=== PATIENT | female | born 1950 | race Caucasian/White ===

== ENCOUNTER 2019-06-04 09:20 | Inpatient (IN) | payer MEDICARE ==
--- NOTE | 2019-06-04 09:43 | EDM.PDOC ---
ED HPI GENERAL MEDICAL PROBLEM - General Stated Complaint: FELL Time Seen by Provider: 06/04/19 09:30 Source of Information: Reports: Patient History Limitations: Reports: Other (Patient is a poor historian.) - History of Present Illness INITIAL COMMENTS - FREE TEXT/NARRATIVE: 68-year-old female who presents to us via ambulance after falling off of the toilet this morning at approximately 8:30 AM. She tells me that she has not been feeling well for the past few days and she has had at least 1 other fall yesterday. She apparently was seen in walk-in clinic yesterday by Maria Luisa West NP with what was reported as nasal congestion and sinus pressure and the patient tells me she has no sinus pressure or nasal congestion today and she is really unable to give me very much of a history at all. She thinks she may have passed out while she was on the toilet but she really has no off her complaints until I ask about specific things and when she responds with painful grimacing on exam. At that point she reports that she has right shoulder and clavicle pain , right chest wall pain and right knee pain. She reports that the right knee pain and swelling came from a fall yesterday or the day before the shoulder and she has been ambulatory but "gives out on the". The chest wall pain came from the fall today. She rates the pain in her right clavicle and shoulder area and her right chest as a 10/10. It is sharp and worse with movement, palpation and when she takes a deep breath. She also reports a headache. She also reports a mild cough. She has no reports of dysuria. She has no reports of abdominal pain. No vomiting. Apparently, she has been in bed most of the time because she just does not feel well. She feels that she has had a fever but none is been measured. She does report that she's been drinking liquids okay. She has not had much of an appetite. As was mentioned, she is a poor historian and this is all the history that I can obtain. EMS reports that initial blood pressure that they got was 100 systolic but it was repeated almost immediately after that and was 140 systolic. There are no other associated signs or symptoms. There are no other modifying factors. Onset: Other (Several falls over the past few days with "not feeling well". Fell today with acute injuries) Duration: Constant Location: Reports: Head, Chest, Upper Extremity, Right Quality: Reports: Ache, Sharp, Throbbing Severity: Moderate (to severe.) Improves with: Reports: Rest Worsens with: Reports: Breathing, Other (Patient), Movement Context: Reports: Other (As above) Associated Symptoms: Reports: Chest Pain, Headaches, Syncope Treatments BOOK CUTTER: Reports: Other (see below) (Nothing) right ribs and shoulder Pain Score (Numeric/FACES): 5 - Related Data Allergies Allergy/AdvReac Type Severity Reaction Status Date / Time No Known Allergies Allergy Verified 06/04/19 10:08 Home Meds: Home Meds Acetaminophen [Tylenol] 650 mg PO Q4H PRN 06/04/19 [History] Albuterol Sulfate [Proair Hfa] 2 puff IH Q4H PRN 06/04/19 [History] Amoxicillin 500 mg PO TID 06/04/19 [History] Aspirin [Aspirin EC] 325 mg PO DAILY 06/04/19 [History] Calcium Carbonate/Vitamin D3 [Calcium 500-Vit D3 200 Tablet] 1 tab PO BID [History] Cholecalciferol (Vitamin D3) [Vitamin D3] 2,000 unit PO DAILY 06/04/19 [History] Fluticasone Propionate [Flonase] 1 spray NASBOTH BID 06/04/19 [History] Fluticasone/Salmeterol [Advair 250-50] 1 puff INH BID 06/04/19 [History] Folic Acid 1 mg PO DAILY 06/04/19 [History] Ibuprofen 400 mg PO Q4H PRN 06/04/19 [History] Naproxen Sodium 440 mg PO DAILY PRN 06/04/19 [History] PHENobarbital [Phenobarbital] 64.8 mg PO BID 06/04/19 [History] Pantoprazole Sodium [Protonix] 40 mg PO DAILY 06/04/19 [History] Phenytoin 200 mg PO BEDTIME 06/04/19 [History] Phenytoin Sodium Extended [Dilantin] 100 mg PO DAILY 06/04/19 [History] Phenytoin [Dilantin] 30 mg PO DAILY 06/04/19 [History] Prolia 60 mg SUBCUT Q180D 06/04/19 [History] Sennosides/Docusate Sodium [Senna-S] 1 tab PO BID 06/04/19 [History] Sertraline [Zoloft] 75 mg PO DAILY 06/04/19 [History] metroNIDAZOLE [metroNIDAZOLE 0.75% Gel] 1 applic TOP BID PRN 06/04/19 [History] Past Medical History Respiratory History: Reports: Asthma, COPD Gastrointestinal History: Reports: GERD Neurological History: Reports: Seizure Psychiatric History: Reports: Anxiety, Depression - Past Surgical History GI Surgical History: Reports: Appendectomy Female Surgical History: Reports: Hysterectomy Musculoskeletal Surgical History: Reports: Hip Replacement (Right total hip replacement.), ORIF (Of both ankles and left hip.) Social & Family History - Tobacco Use Smoking Status *Q: Unknown Ever Smoked (Nonsmoker) - Alcohol Use Alcohol Use History: No - Living Situation & Occupation Living situation: Reports: Assisted Living (Lives in [facility]) ED ROS GENERAL - Review of Systems Review Of Systems: See Below Constitutional: Reports: Fever, Chills, Malaise, Weakness, Fatigue HEENT: Reports: No Symptoms Respiratory: Reports: Cough (Mild) Cardiovascular: Reports: Chest Pain (Right lateral chest pain status post fall) , Syncope GI/Abdominal: Reports: No Symptoms : Reports: No Symptoms Musculoskeletal: Reports: Shoulder Pain (Right shoulder and clavicle pain), Joint Pain (Right knee pain status post injury with Elling) Skin: Reports: No Symptoms Neurological: Reports: Headache, Syncope, Other (Head injury from fall) Psychiatric: Reports: Confusion (Seems somewhat confused) Hematologic/Lymphatic: Reports: No Symptoms (No chronic anticoagulation) Immunologic: Reports: No Symptoms ED EXAM, GENERAL - Physical Exam Exam: See Below General Appearance: Alert, WD/WN, Moderate Distress Eye Exam: Bilateral Eye: EOMI, Normal Inspection, PERRL Ears: Normal External Exam Ear Exam: Bilateral Ear: Auricle Normal Nose: Normal Inspection, Normal Mucosa, No Blood Throat/Mouth: Normal Voice, No Airway Compromise, Other (Somewhat dry mucous membranes) Head: Normocephalic, Other (Left parieto-occipital swelling. No crepitus) Neck: Normal Inspection, Supple, Non-Tender, Full Range of Motion Respiratory/Chest: No Respiratory Distress, Lungs Clear, Normal Breath Sounds, No Accessory Muscle Use, Other (Tender over the right lateral chest. There is no crepitus or subcutaneous emphysema here.) Cardiovascular: Normal Peripheral Pulses, Regular Rate, Rhythm, No Murmur Peripheral Pulses: 2+: Radial (L), Radial (R), Dorsalis Pedis (L), Dorsalis Pedis (R) GI/Abdominal: Normal Bowel Sounds, Soft, Non-Tender, No Mass Back Exam: Normal Inspection, Full Range of Motion Extremities: No Pedal Edema, Normal Capillary Refill, Joint Swelling (Right knee with effusion. There is no redness. There is full range of motion in the right knee without definite laxity.), Other (There is a deformity in the midshaft of the right clavicle with tenderness with palpation.) Neurological: Alert, Oriented (But cannot give me details of the past few days for a well), CN II-XII Intact, No Motor/Sensory Deficits Skin Exam: Warm, Dry, Intact, Normal Color, No Rash EKG INTERPRETATION EKG Date: 06/04/19 Time: 11:22 Rhythm: NSR Rate (Beats/Min): 92 Kidder: RAD-Right Kidder Deviation P-Wave: Present QRS: Normal ST-T: Other (Diffuse nonspecific ST-T abnormalities.) QT: Prolonged Comparison: NA - No Prior EKG Course - Vital Signs Last Recorded V/S: Last Vital Signs Temp 37.4 C 06/04/19 21:54 Pulse 88 06/04/19 19:41 Resp 17 06/04/19 19:41 BP 109/50 L 06/04/19 19:41 Pulse Ox 95 06/04/19 19:41 - Orders/Labs/Meds Orders: Active Orders 24 hr Category Date Time Status EKG Documentation Completion [RC] ASDIRECTED Care 06/04/19 10:02 Active Orthostatic Vital Signs [RC] ASDIRECTED Care 06/04/19 10:00 Active Sodium Chloride 0.9% [Saline Flush] Med 06/04/19 10:00 Active 10 ml FLUSH ASDIRECTED PRN EKG 12 Lead [EK] Routine Ther 06/04/19 10:00 Stop Req Medication Orders Acetaminophen (Tylenol) 650 mg PO Q4H PRN PRN Reason: Pain/Fever Albuterol (Ventolin Hfa) 0 gm INH Q4H PRN PRN Reason: Shortness of Breath Aspirin (Ecotrin) 325 mg PO DAILY [facility] Calcium Carbonate/Glycine (Oyster Shell Calcium) 500 mg PO BID BR[facility] Last Admin: 06/04/19 20:10 Dose: 500 mg Cholecalciferol (Vitamin D3) 50 mcg PO DAILY [facility] Enoxaparin Sodium (Lovenox) 40 mg SUBCUT DAILY [facility] Last Admin: 06/04/19 19:06 Dose: 40 mg Fluticasone Propionate (Flonase) 0 gm NASBOTH BID [facility] Last Admin: 06/04/19 20:09 Dose: 1 spray Folic Acid (Folic Acid) 1 mg PO DAILY [facility] Ibuprofen (Motrin) 400 mg PO Q4H PRN PRN Reason: Pain Last Admin: 06/04/19 21:54 Dose: 400 mg Metronidazole (Metronidazole 0.75% Gel) 0 gm TOP BID PRN PRN Reason: Rash Mometasone Furoate/Formoterol Fumar (Dulera 200-5 Mcg) 2 puff IH BID [facility] Last Admin: 06/04/19 20:09 Dose: 2 puff Morphine Sulfate (Morphine) 2 mg IVPUSH Q2H PRN PRN Reason: Pain (severe 7-10) Last Admin: 06/04/19 17:01 Dose: 2 mg Naproxen (Naproxen Sodium) 440 mg PO DAILY PRN PRN Reason: Pain Non-Formulary Medication (Prolia) 60 mg SUBCUT Q180D [facility] Ondansetron HCl (Zofran Odt) 4 mg PO Q6H PRN PRN Reason: nausea, able to take PO Ondansetron HCl (Zofran) 4 mg IV Q6H PRN PRN Reason: Nausea/Vomiting Oxycodone HCl (Oxycodone) 5 mg PO Q4H PRN PRN Reason: Pain (moderate 4-6) Pantoprazole Sodium (Protonix) 40 mg PO ACBREAKFAST [facility] Phenobarbital (Phenobarbital) 64.8 mg PO BID [facility] Last Admin: 06/04/19 20:10 Dose: 64.8 mg Phenytoin Sodium (Dilantin) 30 mg PO DAILY [facility] Phenytoin Sodium (Phenytoin) 200 mg PO BEDTIME [facility] Last Admin: 06/04/19 20:10 Dose: 200 mg Phenytoin Sodium (Phenytoin) 100 mg PO DAILY [facility] Senna/Docusate Sodium (Senna Plus) 1 tab PO BID [facility] Last Admin: 06/04/19 20:10 Dose: 1 tab Sertraline HCl (Zoloft) 75 mg PO DAILY [facility] Sodium Chloride (Saline Flush) 10 ml FLUSH ASDIRECTED PRN PRN Reason: Keep Vein Open Last Admin: 06/04/19 17:07 Dose: 10 ml Admin: 06/04/19 10:30 Dose: 10 ml Labs: Laboratory Tests 06/04/19 06/04/19 06/04/19 Range/Units 10:20 10:20 10:20 WBC 5.6 (4.5-12.0) X10-3/uL RBC 3.78 (3.23-5.20) x10(6)uL Hgb 12.6 (11.5-15.5) g/dL Hct 36.4 (30.0-51.3) % MCV 96.3 H (80-96) fL MCH 33.4 (27.7-33.6) pg MCHC 34.7 (32.2-35.4) g/dL RDW 13.3 (11.5-15.5) % Plt Count 185 (125-369) X10(3)uL MPV 8.1 (7.4-10.4) fL Neut % (Auto) 68.3 (46-82) % Lymph % (Auto) 20.9 (13-37) % Levy % (Auto) 10.3 (4-12) % Eos % (Auto) 0 L (1.0-5.0) % Baso % (Auto) 1 (0-2) % Neut # (Auto) 3.8 (1.6-8.3) # Lymph # (Auto) 1.2 (0.6-5.0) # Levy # (Auto) 0.6 (0.0-1.3) # Eos # (Auto) 0.0 (0.0-0.8) # Baso # (Auto) 0.0 (0.0-0.2) # Sodium 135 (135-145) mmol/L Potassium 4.0 (3.5-5.3) mmol/L Chloride 99 L (100-110) mmol/L Carbon Dioxide 30 (21-32) mmol/L BUN 7 (7-18) mg/dL Creatinine 0.6 (0.55-1.02) mg/dL Est Cr Clr Drug Dosing TNP Estimated GFR (MDRD) > 60 (>60) BUN/Creatinine Ratio 11.7 (9-20) Glucose 121 H (80-116) mg/dL Calcium 8.2 L (8.6-10.2) mg/dL Total Bilirubin 0.5 (0.1-1.3) mg/dL AST 41 H (5-25) IU/L ALT 36 (12-36) U/L Alkaline Phosphatase 104 (56-112) IU/L C-Reactive Protein 10.6 H* (0.5-0.9) mg/dL Total Protein 7.0 (6.0-8.0) g/dL Albumin 3.1 L (3.2-4.6) g/dL Globulin 3.9 g/dL Albumin/Globulin Ratio 0.8 Urine Color (YELLOW) Urine Appearance (CLEAR) Urine pH (5.0-6.5) Ur Specific [place] (1.010-1.025) Urine Protein (NEGATIVE) mg/dL Urine Glucose (UA) (NORMAL) mg/dL Urine Ketones (NEGATIVE) mg/dL Urine Occult Blood (NEGATIVE) Urine Nitrite (NEGATIVE) Urine Bilirubin (NEGATIVE) Urine Urobilinogen (NEGATIVE) mg/dL Ur Leukocyte Esterase (NEGATIVE) Urine RBC (0-5) Urine WBC (0-5) Ur Squamous Epith Cells (NS,R,O) Urine Bacteria (NS) Phenytoin (<0.4) ug/mL 06/04/19 06/04/19 Range/Units 10:20 12:13 WBC (4.5-12.0) X10-3/uL RBC (3.23-5.20) x10(6)uL Hgb (11.5-15.5) g/dL Hct (30.0-51.3) % MCV (80-96) fL MCH (27.7-33.6) pg MCHC (32.2-35.4) g/dL RDW (11.5-15.5) % Plt Count (125-369) X10(3)uL MPV (7.4-10.4) fL Neut % (Auto) (46-82) % Lymph % (Auto) (13-37) % Levy % (Auto) (4-12) % Eos % (Auto) (1.0-5.0) % Baso % (Auto) (0-2) % Neut # (Auto) (1.6-8.3) # Lymph # (Auto) (0.6-5.0) # Levy # (Auto) (0.0-1.3) # Eos # (Auto) (0.0-0.8) # Baso # (Auto) (0.0-0.2) # Sodium (135-145) mmol/L Potassium (3.5-5.3) mmol/L Chloride (100-110) mmol/L Carbon Dioxide (21-32) mmol/L BUN (7-18) mg/dL Creatinine (0.55-1.02) mg/dL Est Cr Clr Drug Dosing Estimated GFR (MDRD) (>60) BUN/Creatinine Ratio (9-20) Glucose (80-116) mg/dL Calcium (8.6-10.2) mg/dL Total Bilirubin (0.1-1.3) mg/dL AST (5-25) IU/L ALT (12-36) U/L Alkaline Phosphatase (56-112) IU/L C-Reactive Protein (0.5-0.9) mg/dL Total Protein (6.0-8.0) g/dL Albumin (3.2-4.6) g/dL Globulin g/dL Albumin/Globulin Ratio Urine Color Yellow (YELLOW) Urine Appearance Slightly cloudy (CLEAR) Urine pH 5.0 (5.0-6.5) Ur Specific [place] 1.020 (1.010-1.025) Urine Protein Negative (NEGATIVE) mg/dL Urine Glucose (UA) Normal (NORMAL) mg/dL Urine Ketones Negative (NEGATIVE) mg/dL Urine Occult Blood Negative (NEGATIVE) Urine Nitrite Negative (NEGATIVE) Urine Bilirubin Negative (NEGATIVE) Urine Urobilinogen Normal (NEGATIVE) mg/dL Ur Leukocyte Esterase Negative (NEGATIVE) Urine RBC 0-5 (0-5) Urine WBC 0-5 (0-5) Ur Squamous Epith Cells Few H (NS,R,O) Urine Bacteria Few H (NS) Phenytoin 24.4 H (<0.4) ug/mL Meds: Medications Generic Name Dose Route Start Last Admin Trade Name Freq PRN Reason Stop Dose Admin Acetaminophen 650 mg 06/04/19 17:11 Tylenol PO Q4H PRN Pain/Fever Albuterol 0 gm 06/04/19 17:11 Ventolin Hfa INH Q4H PRN Shortness of Breath Aspirin 325 mg 06/05/19 09:00 Ecotrin PO DAILY [facility] Calcium Carbonate/Glycine 500 mg 06/04/19 21:00 06/04/19 20:10 Oyster Shell Calcium PO 500 mg BID [facility] Administration Cholecalciferol 50 mcg 06/05/19 09:00 Vitamin D3 PO DAILY [facility] Enoxaparin Sodium 40 mg 06/04/19 18:45 06/04/19 19:06 Lovenox SUBCUT 40 mg DAILY [facility] Administration Fluticasone Propionate 0 gm 06/04/19 21:00 06/04/19 20:09 Flonase NASBOTH 1 spray BID [facility] Administration Folic Acid 1 mg 06/05/19 09:00 Folic Acid PO DAILY [facility] Ibuprofen 400 mg 06/04/19 17:11 06/04/19 21:54 Motrin PO 400 mg Q4H PRN Administration Pain Metronidazole 0 gm 06/04/19 17:11 Metronidazole 0.75% Gel TOP BID PRN Rash Mometasone Furoate/Formoterol Fumar 2 puff 06/04/19 21:00 06/04/19 20:09 Dulera 200-5 Mcg IH 2 puff BID [facility] Administration Morphine Sulfate 2 mg 06/04/19 14:01 06/04/19 17:01 Morphine IVPUSH 2 mg Q2H PRN Administration Pain (severe 7-10) Naproxen 440 mg 06/04/19 17:11 Naproxen Sodium PO DAILY PRN Pain Non-Formulary Medication 60 mg 06/04/19 17:15 Prolia SUBCUT Q180D [facility] Ondansetron HCl 4 mg 06/04/19 14:01 Zofran Odt PO Q6H PRN nausea, able to take PO Ondansetron HCl 4 mg 06/04/19 14:01 Zofran IV Q6H PRN Nausea/Vomiting Oxycodone HCl 5 mg 06/04/19 14:01 Oxycodone PO Q4H PRN Pain (moderate 4-6) Pantoprazole Sodium 40 mg 06/05/19 07:30 Protonix PO ACBREAKFAST [facility] Phenobarbital 64.8 mg 06/04/19 21:00 06/04/19 20:10 Phenobarbital PO 64.8 mg BID [facility] Administration Phenytoin Sodium 30 mg 06/05/19 09:00 Dilantin PO DAILY [facility] Phenytoin Sodium 200 mg 06/04/19 21:00 06/04/19 20:10 Phenytoin PO 200 mg BEDTIME [facility] Administration Phenytoin Sodium 100 mg 06/05/19 09:00 Phenytoin PO DAILY [facility] Senna/Docusate Sodium 1 tab 06/04/19 21:00 06/04/19 20:10 Senna Plus PO 1 tab BID [facility] Administration Sertraline HCl 75 mg 06/05/19 09:00 Zoloft PO DAILY [facility] Sodium Chloride 10 ml 06/04/19 10:00 06/04/19 17:07 Saline Flush FLUSH 10 ml ASDIRECTED PRN Administration Keep Vein Open Discontinued Medications Generic Name Dose Route Start Last Admin Trade Name Freq PRN Reason Stop Dose Admin Acetaminophen 650 mg 06/04/19 14:01 Tylenol PO Q4H PRN Pain (Mild 1-3)/fever Enoxaparin Sodium 30 mg 06/04/19 17:15 06/04/19 19:08 Lovenox SUBCUT Not Given Q24H [facility] Sodium Chloride 500 mls @ 999 mls/hr 06/04/19 13:46 06/04/19 13:47 Normal Saline IV 06/04/19 14:16 999 mls/hr .BOLUS ONE Administration Sodium Chloride 1,000 mls @ 125 mls/hr 06/04/19 14:15 Normal Saline IV ASDIRECTED [facility] Ibuprofen 600 mg 06/04/19 14:01 Motrin PO Q6H PRN Pain (mild 1-3) Mometasone Furoate/Formoterol Fumar Confirm 06/04/19 19:48 06/04/19 20:39 Dulera 200-5 Mcg Administered 06/04/19 19:49 Not Given Dose 60 puff .ROUTE .STK-MED ONE Morphine Sulfate 4 mg 06/04/19 13:42 06/04/19 13:49 Morphine IVPUSH 06/04/19 13:43 4 mg ONETIME ONE Administration Morphine Sulfate Confirm 06/04/19 13:48 06/04/19 14:21 Morphine Administered 06/04/19 13:49 Not Given Dose 4 mg .ROUTE .STK-MED ONE Ondansetron HCl 4 mg 06/04/19 13:42 06/04/19 13:57 Zofran IVPUSH 06/04/19 13:43 4 mg ONETIME ONE Administration - Radiology Interpretation Free Text/Narrative:: CT scan of the patient's head showed no acute abnormality per the radiologist. CT scan of the cervical spine showed DJD but no fracture per the radiologist. Chest x-ray with right rib details show third through the fifth rib fractures on the right. There is no hemo-or pneumothorax. This was per the radiologist. Right shoulder and clavicle x-ray shows comminuted, midshaft right clavicle fracture per the radiologist. Right knee x-ray shows an effusion but no definite fracture per the radiologist. - Re-Assessments/Exams Free Text/Narrative Re-Assessment/Exam: 06/04/19 12:15: Patient did not have any orthostatic changes but she needed maximal assistance to stand and do the orthostatic vital signs. She was really unable to ambulate without maximal assistance as well. She has remained vitally stable. The CT scan of her head and neck showed no acute abnormality. She does have a right clavicle fracture. And she has multiple right rib fractures. Awaiting urinalysis results but feel that the patient is at significant risk for further falls, increased morbidity and even mortality and would not be amenable to outpatient treatment at this time. I feel that she will need admission for IV pain control and close monitoring of her respiratory status. I feel that this plan of care will require an inpatient stay of at least 2 midnights. I discussed this with the patient and she would be in agreement with this plan for admission. I will discuss the patient's case with Dr. Choi 06/04/19 13:15: The urinalysis was concentrated but with no evidence of infection. I will give the patient IV fluids and IV pain medications at this time. I discussed the patient's case with Dr. Choi and he has agreed to admit the patient. I will place admission orders and Dr. Choi will see the patient and assume care of the patient. I have also consult and Dr. Freeman, orthopedist sterilization specialist, and he will see the patient. Departure - Departure Time of Disposition: 14:00 Disposition: Admitted As Inpatient 67 Condition: Fair (Stable) Clinical Impression: Syncope and collapse, Internal derangement of right knee, Rapidly progressive weakness, Unable to ambulate Closed right clavicular fracture Qualifiers: Encounter type: initial encounter Clavicle location: shaft Fracture alignment: displaced Qualified Code(s): S42.021A - Displaced fracture of shaft of right clavicle, initial encounter for closed fracture Ribs, multiple fractures Qualifiers: Encounter type: initial encounter Fracture type: closed Laterality: right Qualified Code(s): S22.41XA - Multiple fractures of ribs, right side, initial encounter for closed fracture - Discharge Information - My Orders Last 24 Hours: My Active Orders 06/04/19 10:00 Orthostatic Vital Signs [RC] ASDIRECTED Sodium Chloride 0.9% [Saline Flush] 10 ml FLUSH ASDIRECTED PRN EKG 12 Lead [EK] Routine 06/04/19 10:02 EKG Documentation Completion [RC] ASDIRECTED - Assessment/Plan Last 24 Hours: My Active Orders 06/04/19 10:00 Orthostatic Vital Signs [RC] ASDIRECTED Sodium Chloride 0.9% [Saline Flush] 10 ml FLUSH ASDIRECTED PRN EKG 12 Lead [EK] Routine 06/04/19 10:02 EKG Documentation Completion [RC] ASDIRECTED
[2019-06-04] MEDS: Sodium Chloride 0.9% 10 ML Syringe FLUSH PRN ×2 (10:30→17:07)
--- NOTE | 2019-06-04 12:48 | CT ---
INDICATION: Syncope, fall with trauma. CT HEAD WITHOUT CONTRAST: Spiral 3.75 mm axial sections were obtained through the brain without contrast, 06/04/19, with sagittal and coronal reconstructions - no comparisons. Total exam DLP = 1,322.30 mGy-cm. Degenerative changes are noted at the atlantoodontoid joint. The mastoid air cells were well-aerated. Thickening of the lining of an anterior right ethmoidal air cell is noted. There appears to be a possible postoperative window in the medial right maxillary antral wall. On the left, there is question of a small air fluid level, which could be on the basis of acute sinusitis or possibly unusual thickening of the lining in that area. There is some thickening of the lining also seen at the left maxillary antrum, having a typical appearance. The orbits appear to be grossly intact. There is no shift of midline structures suggested. The ventricles and sulci were somewhat prominent, suggesting a mild degree of generalized atrophy. There are patchy areas of decreased density in the white matter, compatible with mild microvascular disease. Calcifications are noted in the left vertebral and internal carotid arteries. There is a subcortical infarct suggested in the right occipital lobe. However, this could represent a variant of the occipital horn of the lateral ventricle. Without old studies for comparison, it would be difficult to determine. There are some very tiny focal areas of decreased density at the internal capsule anteriorly on the right, which could represent very tiny lacunar infarcts. No definite bleeding site or hematoma was identified. IMPRESSION: 1. No acute intracranial abnormality is identified. 2. Cerebrovascular disease with mild microvascular disease type changes - other cause of leukoencephalopathy cannot be excluded. 3. Probable variant on right occipital horn of the right lateral ventricle versus subcortical infarct. 4. Tiny low density abnormalities suggesting possible tiny lacunar infarcts at the anterior limb of the right internal capsule. 5. Cannot exclude minimal sinusitis, possibly acute, at the left maxillary antrum. Report was called to Dr. Flowers on 06/04/19 at 1104 hours. [facility]
--- NOTE | 2019-06-04 12:56 | CT ---
INDICATION: Syncope, fall with trauma. CT CERVICAL WITHOUT CONTRAST: Spiral 3.75 mm axial sections were obtained through the cervical spine with sagittal and coronal reconstructions, 06/04/19, - no comparisons. Total exam DLP = 110.19 mGy-cm. Hypertrophic degenerative changes with some narrowing of the atlantoodontoid joint are noted. The atlas and odontoid with axis appear intact. Prevertebral space appeared to be normal. Bone density may be somewhat diminished, raising question of osteoporosis - correlate clinically. Degenerative disk disease is suggested at C2-3 and C3-4, minimally at C4-5, more prominently at C5-6 and C6-7 with hypertrophic degenerative changes mostly at the C4-5, C5-6, C6-7 levels, most prominent at the lower two levels with impingement on neural foramina at those levels on the right and to a lesser extent on the left. Hypertrophic changes are noted at the lateral masses at all levels but most prominent at the mid levels. Uncinate joint degenerative hypertrophic changes are noted at all levels and again most prominent at the C5- 6, C6-7 levels. A definite acute fracture or dislocation was not identified. There is some minimal apical scarring in the lungs noted incidentally. IMPRESSION: 1. No acute fracture or dislocation identified. 2. Degenerative changes and disk disease with some impingement on neural foramina, as noted above. Report was called to Dr. Flowers on 06/04/19 at 1104 hours. [facility]
--- NOTE | 2019-06-04 13:02 | CR ---
INDICATION: Fall with trauma. RIGHT CLAVICLE: Two views of the clavicle revealed a comminuted fracture of the mid shaft with overriding of the fracture fragments of approximately 22 mm and cranial offset of the medial fracture fragment of approximately 11 mm. No significant angulation was seen. There are some mild degenerative changes at the AC and glenohumeral joints. Diminished bone density is noted, compatible with osteoporosis. Also noted is an oblique fracture through the lateral aspect of the third right rib and also the fourth right rib, which were included on the study. IMPRESSION: Clavicular and rib fractures, as noted above. MTDD
--- NOTE | 2019-06-04 13:05 | CR ---
INDICATION: Fall with trauma. RIGHT SHOULDER: Four views of the right shoulder revealed the glenohumeral joint and AC joint to be intact, despite the presence of a clavicular fracture mentioned above. Rib fractures are also noted, as previously mentioned. Diminished bone density is noted, compatible with osteoporosis. Mid degenerative changes are noted at the AC and glenohumeral joints. IMPRESSION: Clavicular fracture, rib fractures. Shoulder joints appear to be intact. MTDD
--- NOTE | 2019-06-04 13:12 | CR ---
INDICATION: Fall with trauma. CHEST WITH RIGHT RIBS: Two AP upright views of the chest were obtained and revealed no definite contusion, infiltrate, pneumothorax, or effusion. The heart appears to be slightly prominent in size. The aorta is calcified in the arch area and minimally tortuous. A linear density in the left mid lung field may represent subsegmental atelectasis and/or fibrosis. No comparison studies were available. Hyperaeration and slightly flattened diaphragm leaf suggest the possibility of COPD additionally. Rib fractures at the third and fourth right ribs are noted laterally. Three views of the right ribs were obtained and revealed the rib fractures at the third and fourth ribs laterally with an additional fracture visualized at the fifth right rib posterolaterally. Diminished bone density is noted, compatible with osteoporosis. IMPRESSION: 1. Rib fractures laterally on the right, 3, 4, and 5. 2. No contusion or pneumothorax. 3. Linear density left mid lung field may represent atelectasis and/or fibrosis. Report was called to Dr. Flowers on 06/04/2019 at 1112 hours. [facility]
--- NOTE | 2019-06-04 13:17 | CR ---
INDICATION: Fall with trauma. RIGHT KNEE: Five images of the right knee reveal demineralization compatible with osteoporosis. Intramedullary brian is noted at the tibia. Healed fracture of the mid tibial shaft noted. Demineralization is noted, compatible with osteoporosis. Soft tissue swelling is noted above the knee joint with prominence of the suprapatellar bursa, suggesting a knee joint effusion. However, a definite acute fracture site was not identified. IMPRESSION: 1. No acute fracture or dislocation. 2. Probable knee joint effusion with overlying soft tissue swelling. 3. Demineralization compatible with osteoporosis. 4. Post ORIF with intramedullary brian through the right tibia. Report was called to Dr. Flowers on 06/04/19 at 1121 hours. [facility]
[2019-06-04] MEDS ORDERED: Ondansetron 4 MG/2 ML SDV IVPUSH ONE (13:42)
[2019-06-04] MEDS ORDERED: Morphine 4 MG/ML Syringe IVPUSH ONE (13:42)
[2019-06-04] MEDS ORDERED: Sodium Chloride 0.9% 500 ML IV ONE (13:46)
[2019-06-04] MEDS ORDERED: Ondansetron 4 MG/2 ML SDV IV PRN (14:01)
[2019-06-04] MEDS ORDERED: Ondansetron 4 MG Tab.DIS PO PRN (14:01)
[2019-06-04] MEDS ORDERED: oxyCODONE 5 MG Tab PO PRN (14:01)
[2019-06-04] MEDS ORDERED: Ibuprofen 600 MG Tab PO PRN (14:01)
[2019-06-04] MEDS ORDERED: Acetaminophen 325 MG Tab PO PRN ×2 (14:01→17:11)
[2019-06-04] MEDS ORDERED: Sodium Chloride 0.9% 1,000 ML IV SCH (14:15)
--- NOTE | 2019-06-04 14:38 | PCM.CONS ---
H&P History of Present Illness - General Date of Service: 06/04/19 Admit Problem/Dx: Admission Diagnosis/Problem Admission Diagnosis/Problem Syncope and collapse Source of Information: Patient, Family, Provider, RN History Limitations: Reports: No Limitations - History of Present Illness Initial Comments - Free Text/Narative: 68 yo female recently moved 1 y ago to assisted living in [place]. Multiple recent falls. Started falling prior to move. Prior smoker. Was previously treated for tibial fracture RLE. Swollen knee after fall for last two days. Present to ED after fall with multiple right rib fractures, midshaft clavicle fracture, and right knee swelling. Onset of Symptoms: Reports: Sudden Symptom Onset Date: 06/02/19 Duration of Symptoms: Reports: Day(s): Location: Reports: Upper Extremity, Right, Lower Extremity, Right Quality: Reports: Stabbing, Throbbing Severity: Moderate Improves with: Reports: Immobilization Worsens with: Reports: Movement Associated Symptoms: Reports: No Other Symptoms - Related Data Allergies/Adverse Reactions: Allergies Allergy/AdvReac Type Severity Reaction Status Date / Time No Known Allergies Allergy Verified 06/04/19 10:08 Home Medications: Home Meds Acetaminophen [Tylenol] 650 mg PO Q4H PRN 06/04/19 [History] Albuterol Sulfate [Proair Hfa] 2 puff IH Q4H PRN 06/04/19 [History] Amoxicillin 500 mg PO TID 06/04/19 [History] Aspirin [Aspirin EC] 325 mg PO DAILY 06/04/19 [History] Calcium Carbonate/Vitamin D3 [Calcium 500-Vit D3 200 Tablet] 1 tab PO BID [History] Cholecalciferol (Vitamin D3) [Vitamin D3] 2,000 unit PO DAILY 06/04/19 [History] Fluticasone Propionate [Flonase] 1 spray NASBOTH BID 06/04/19 [History] Fluticasone/Salmeterol [Advair 250-50] 1 puff INH BID 06/04/19 [History] Folic Acid 1 mg PO DAILY 06/04/19 [History] Ibuprofen 400 mg PO Q4H PRN 06/04/19 [History] Naproxen Sodium 440 mg PO DAILY PRN 06/04/19 [History] PHENobarbital [Phenobarbital] 64.8 mg PO BID 06/04/19 [History] Pantoprazole Sodium [Protonix] 40 mg PO DAILY 06/04/19 [History] Phenytoin 200 mg PO BEDTIME 06/04/19 [History] Phenytoin Sodium Extended [Dilantin] 100 mg PO DAILY 06/04/19 [History] Phenytoin [Dilantin] 30 mg PO DAILY 06/04/19 [History] Prolia 60 mg SUBCUT Q180D 06/04/19 [History] Sennosides/Docusate Sodium [Senna-S] 1 tab PO BID 06/04/19 [History] Sertraline [Zoloft] 75 mg PO DAILY 06/04/19 [History] metroNIDAZOLE [metroNIDAZOLE 0.75% Gel] 1 applic TOP BID PRN 06/04/19 [History] Past Medical History Respiratory History: Reports: Asthma, COPD Gastrointestinal History: Reports: GERD Genitourinary History: Reports: Urinary Incontinence Musculoskeletal History: Reports: Fracture, Osteoporosis, Other (See Below) Other Musculoskeletal History: rt femer fx Neurological History: Reports: Seizure Psychiatric History: Reports: Anxiety, Depression Hematologic History: Reports: Anemia - Past Surgical History GI Surgical History: Reports: Appendectomy Female Surgical History: Reports: Hysterectomy Musculoskeletal Surgical History: Reports: Hip Replacement (Right total hip replacement.), ORIF (Of both ankles and left hip.) Social & Family History - Family History Family Medical History: Noncontributory - Tobacco Use Smoking Status *Q: Unknown Ever Smoked (Nonsmoker) - Living Situation & Occupation Living situation: Reports: Assisted Living (Lives in [facility]) H&P Review of Systems - Review of Systems: Review Of Systems: See Below General: Reports: No Symptoms HEENT: Reports: No Symptoms Pulmonary: Reports: No Symptoms Cardiovascular: Reports: No Symptoms Gastrointestinal: Reports: No Symptoms Genitourinary: Reports: No Symptoms Musculoskeletal: Reports: Shoulder Pain, Joint Pain, Muscle Pain, Muscle Stiffness Skin: Reports: No Symptoms Psychiatric: Reports: No Symptoms Neurological: Reports: No Symptoms Hematologic/Lymphatic: Reports: No Symptoms Immunologic: Reports: No Symptoms Exam - Exam Exam: See Below - Vital Signs Vital Signs: Last Vital Signs Temp 98.6 F 06/04/19 09:20 Pulse 95 06/04/19 09:20 Resp 18 06/04/19 09:20 BP 132/59 L 06/04/19 09:20 Pulse Ox 95 06/04/19 09:20 Weight: 140 lb - Exam General: Alert, Oriented, Moderate Distress HEENT: PERRLA, Conjunctiva Clear, Hearing Intact, Mucosa Moist & [place], Nares Patent, Pupils Equal, Pupils Reactive Neck: Supple, Trachea Midline Lungs: Normal Respiratory Effort GI/Abdominal Exam: No Distention Extremities: Joint Swelling, Limited Range of Motion Peripheral Pulses: 2+: Radial (R), Dorsalis Pedis (R) Skin: Warm, Dry, Intact Neurological: Cranial Nerves Intact Neuro Extensive - Mental Status: Alert, Oriented x3, Normal Mood/Affect, Normal Cognition, Memory Intact Psychiatric: Other - Patient Data Lab Results Last 24 hrs: Laboratory Results - last 24 hr 06/04/19 06/04/19 06/04/19 Range/Units 10:20 10:20 10:20 WBC 5.6 (4.5-12.0) X10-3/uL RBC 3.78 (3.23-5.20) x10(6)uL Hgb 12.6 (11.5-15.5) g/dL Hct 36.4 (30.0-51.3) % MCV 96.3 H (80-96) fL MCH 33.4 (27.7-33.6) pg MCHC 34.7 (32.2-35.4) g/dL RDW 13.3 (11.5-15.5) % Plt Count 185 (125-369) X10(3)uL MPV 8.1 (7.4-10.4) fL Neut % (Auto) 68.3 (46-82) % Lymph % (Auto) 20.9 (13-37) % Sabine % (Auto) 10.3 (4-12) % Eos % (Auto) 0 L (1.0-5.0) % Baso % (Auto) 1 (0-2) % Neut # (Auto) 3.8 (1.6-8.3) # Lymph # (Auto) 1.2 (0.6-5.0) # Sabine # (Auto) 0.6 (0.0-1.3) # Eos # (Auto) 0.0 (0.0-0.8) # Baso # (Auto) 0.0 (0.0-0.2) # Sodium 135 (135-145) mmol/L Potassium 4.0 (3.5-5.3) mmol/L Chloride 99 L (100-110) mmol/L Carbon Dioxide 30 (21-32) mmol/L BUN 7 (7-18) mg/dL Creatinine 0.6 (0.55-1.02) mg/dL Est Cr Clr Drug Dosing TNP Estimated GFR (MDRD) > 60 (>60) BUN/Creatinine Ratio 11.7 (9-20) Glucose 121 H (80-116) mg/dL Calcium 8.2 L (8.6-10.2) mg/dL Total Bilirubin 0.5 (0.1-1.3) mg/dL AST 41 H (5-25) IU/L ALT 36 (12-36) U/L Alkaline Phosphatase 104 (56-112) IU/L C-Reactive Protein 10.6 H* (0.5-0.9) mg/dL Total Protein 7.0 (6.0-8.0) g/dL Albumin 3.1 L (3.2-4.6) g/dL Globulin 3.9 g/dL Albumin/Globulin Ratio 0.8 Urine Color (YELLOW) Urine Appearance (CLEAR) Urine pH (5.0-6.5) Ur Specific [place] (1.010-1.025) Urine Protein (NEGATIVE) mg/dL Urine Glucose (UA) (NORMAL) mg/dL Urine Ketones (NEGATIVE) mg/dL Urine Occult Blood (NEGATIVE) Urine Nitrite (NEGATIVE) Urine Bilirubin (NEGATIVE) Urine Urobilinogen (NEGATIVE) mg/dL Ur Leukocyte Esterase (NEGATIVE) Urine RBC (0-5) Urine WBC (0-5) Ur Squamous Epith Cells (NS,R,O) Urine Bacteria (NS) Phenytoin (<0.4) ug/mL 06/04/19 06/04/19 Range/Units 10:20 12:13 WBC (4.5-12.0) X10-3/uL RBC (3.23-5.20) x10(6)uL Hgb (11.5-15.5) g/dL Hct (30.0-51.3) % MCV (80-96) fL MCH (27.7-33.6) pg MCHC (32.2-35.4) g/dL RDW (11.5-15.5) % Plt Count (125-369) X10(3)uL MPV (7.4-10.4) fL Neut % (Auto) (46-82) % Lymph % (Auto) (13-37) % Sabine % (Auto) (4-12) % Eos % (Auto) (1.0-5.0) % Baso % (Auto) (0-2) % Neut # (Auto) (1.6-8.3) # Lymph # (Auto) (0.6-5.0) # Sabine # (Auto) (0.0-1.3) # Eos # (Auto) (0.0-0.8) # Baso # (Auto) (0.0-0.2) # Sodium (135-145) mmol/L Potassium (3.5-5.3) mmol/L Chloride (100-110) mmol/L Carbon Dioxide (21-32) mmol/L BUN (7-18) mg/dL Creatinine (0.55-1.02) mg/dL Est Cr Clr Drug Dosing Estimated GFR (MDRD) (>60) BUN/Creatinine Ratio (9-20) Glucose (80-116) mg/dL Calcium (8.6-10.2) mg/dL Total Bilirubin (0.1-1.3) mg/dL AST (5-25) IU/L ALT (12-36) U/L Alkaline Phosphatase (56-112) IU/L C-Reactive Protein (0.5-0.9) mg/dL Total Protein (6.0-8.0) g/dL Albumin (3.2-4.6) g/dL Globulin g/dL Albumin/Globulin Ratio Urine Color Yellow (YELLOW) Urine Appearance Slightly cloudy (CLEAR) Urine pH 5.0 (5.0-6.5) Ur Specific [place] 1.020 (1.010-1.025) Urine Protein Negative (NEGATIVE) mg/dL Urine Glucose (UA) Normal (NORMAL) mg/dL Urine Ketones Negative (NEGATIVE) mg/dL Urine Occult Blood Negative (NEGATIVE) Urine Nitrite Negative (NEGATIVE) Urine Bilirubin Negative (NEGATIVE) Urine Urobilinogen Normal (NEGATIVE) mg/dL Ur Leukocyte Esterase Negative (NEGATIVE) Urine RBC 0-5 (0-5) Urine WBC 0-5 (0-5) Ur Squamous Epith Cells Few H (NS,R,O) Urine Bacteria Few H (NS) Phenytoin 24.4 H (<0.4) ug/mL Result Diagrams: 06/04/19 10:20 06/04/19 10:20 Consult PN Assessment/Plan POD#: 0 Procedures: Procedures ASSAY OF PHENYTOIN TOTAL (08/08/18) MICROBE SUSCEPTIBLE ABHISHEK (12/31/18) OFFICE/OUTPATIENT VISIT NEW (12/31/18) URINALYSIS AUTO W/SCOPE (12/31/18) URINE BACTERIA CULTURE (12/31/18) URINE CULTURE/COLONY COUNT (12/31/18) (1) Closed right clavicular fracture SNOMED Code(s): 17182171 Code(s): S42.001A - FRACTURE OF UNSP PART OF RIGHT CLAVICLE, INIT FOR CLOS FX Current Visit: Yes Qualifiers: Encounter type: initial encounter Clavicle location: shaft Fracture alignment: displaced Qualified Code(s): S42.021A - Displaced fracture of shaft of right clavicle, initial encounter for closed fracture (2) Internal derangement of right knee SNOMED Code(s): 18742051668700006 Code(s): M23.91 - UNSPECIFIED INTERNAL DERANGEMENT OF RIGHT KNEE Current Visit: Yes Problem List Initiated/Reviewed/Updated: Yes Plan: #1: Right clavicle fx: treat in sling, [facility] [place], f/u three weeks in clinic #2: Right knee: aspirated 45ml blood. Anterior drawer positive CT Right knee
[2019-06-04] MEDS: Morphine 2 MG/ML Syringe IVPUSH PRN (17:01)
[2019-06-04] MEDS ORDERED: Albuterol 8 GM Inhaler INH PRN (17:11)
[2019-06-04] MEDS ORDERED: Ibuprofen 400 MG Tab PO PRN (17:11)
[2019-06-04] MEDS ORDERED: Enoxaparin 30 MG/0.3 ML Syringe SUBCUT SCH (17:15)
[2019-06-04] MEDS ORDERED: PROLIA 60 MG SUBCUT SCH (17:15)
--- NOTE | 2019-06-04 17:34 | PCM.HP.2 ---
H&P History of Present Illness - General Date of Service: 06/04/19 Admit Problem/Dx: Admission Diagnosis/Problem Admission Diagnosis/Problem Syncope and collapse Source of Information: Patient, Family History Limitations: Reports: No Limitations - History of Present Illness Initial Comments - Free Text/Narative: Jasmine is a 68-year-old female from [facility]. She fell today while trying to use the bathroom. She apparently fell because her right knee was painful and it gave out,, and she fell backwards despite having a walker. She has a history of multiple falls, in fact that is the reason she is at the [facility] since last July. She had the knee pain recently from another fall for which she was in the walk-in clinic yesterday. Today she does not remember if she lost consciousness or not.She was brought in by the EMS. She complains of the pain in the right clavicle pain,right knee and ankle pain. No nausea, vomiting or shortness of breath. Jasmine has a history of seizure disorder as well, osteoporosis and MDD that have been relatively stable.She does not smoke or drink and has never been . She has not been seen locally,but was previously seen at [place]. right ribs and shoulder Pain Score (Numeric/FACES): 5 - Related Data Allergies/Adverse Reactions: Allergies Allergy/AdvReac Type Severity Reaction Status Date / Time No Known Allergies Allergy Verified 06/04/19 10:08 Home Medications: Home Meds Acetaminophen [Tylenol] 650 mg PO Q4H PRN 06/04/19 [History] Albuterol Sulfate [Proair Hfa] 2 puff IH Q4H PRN 06/04/19 [History] Amoxicillin 500 mg PO TID 06/04/19 [History] Aspirin [Aspirin EC] 325 mg PO DAILY 06/04/19 [History] Calcium Carbonate/Vitamin D3 [Calcium 500-Vit D3 200 Tablet] 1 tab PO BID [History] Cholecalciferol (Vitamin D3) [Vitamin D3] 2,000 unit PO DAILY 06/04/19 [History] Fluticasone Propionate [Flonase] 1 spray NASBOTH BID 06/04/19 [History] Fluticasone/Salmeterol [Advair 250-50] 1 puff INH BID 06/04/19 [History] Folic Acid 1 mg PO DAILY 06/04/19 [History] Ibuprofen 400 mg PO Q4H PRN 06/04/19 [History] Naproxen Sodium 440 mg PO DAILY PRN 06/04/19 [History] PHENobarbital [Phenobarbital] 64.8 mg PO BID 06/04/19 [History] Pantoprazole Sodium [Protonix] 40 mg PO DAILY 06/04/19 [History] Phenytoin 200 mg PO BEDTIME 06/04/19 [History] Phenytoin Sodium Extended [Dilantin] 100 mg PO DAILY 06/04/19 [History] Phenytoin [Dilantin] 30 mg PO DAILY 06/04/19 [History] Prolia 60 mg SUBCUT Q180D 06/04/19 [History] Sennosides/Docusate Sodium [Senna-S] 1 tab PO BID 06/04/19 [History] Sertraline [Zoloft] 75 mg PO DAILY 06/04/19 [History] metroNIDAZOLE [metroNIDAZOLE 0.75% Gel] 1 applic TOP BID PRN 06/04/19 [History] Past Medical History Respiratory History: Reports: Asthma, COPD Gastrointestinal History: Reports: GERD Genitourinary History: Reports: Urinary Incontinence Musculoskeletal History: Reports: Fracture, Osteoporosis, Other (See Below) Other Musculoskeletal History: rt femer fx Neurological History: Reports: Seizure Psychiatric History: Reports: Anxiety, Depression Hematologic History: Reports: Anemia - Past Surgical History GI Surgical History: Reports: Appendectomy Female Surgical History: Reports: Hysterectomy Musculoskeletal Surgical History: Reports: Hip Replacement (Right total hip replacement.), ORIF (Of both ankles and left hip.) Social & Family History - Family History Family Medical History: Noncontributory - Tobacco Use Smoking Status *Q: Unknown Ever Smoked (Nonsmoker) Used Tobacco, but Quit: Yes Month/Year Tobacco Last Used: 1999 - Caffeine Use Caffeine Use: Reports: Coffee Caffeine Use Comment: couple cups of coffee - Living Situation & Occupation Living situation: Reports: Assisted Living (Lives in [facility]) H&P Review of Systems - Review of Systems: Review Of Systems: ROS reveals no pertinent complaints other than HPI. Exam - Exam Exam: See Below - Vital Signs Vital Signs: Last Vital Signs Temp 98.6 F 06/04/19 14:20 Pulse 84 06/04/19 14:20 Resp 14 06/04/19 14:20 BP 115/93 H 06/04/19 14:20 Pulse Ox 98 06/04/19 15:23 Weight: 63.503 kg - Exam General: Alert, Oriented HEENT: PERRLA, EOMI, Hearing Intact, TMs Clear Neck: Supple, Trachea Midline. No: Thyromegaly Lungs: Clear to Auscultation, Normal Respiratory Effort, Other (Tender 3-5 ribs, right) Cardiovascular: Regular Rate, Regular Rhythm GI/Abdominal Exam: Normal Bowel Sounds (Female) Exam: Deferred Rectal (Female) Exam: Deferred Back Exam: Normal Inspection Extremities: Leg Pain, Limited Range of Motion, Other ([place] ,right knee). No : Normal Inspection, Normal Range of Motion, Non-Tender Skin: Warm, Dry, Intact Neurological: Cranial Nerves Intact, Reflexes Equal Bilateral Neuro Extensive - Mental Status: Alert, Oriented x3, Memory Intact Neuro Extensive - Motor, Sensory, Reflexes: CN II-XII Intact Psychiatric: Alert, Normal Affect, Normal Mood - Patient Data Lab Results Last 24 hrs: Laboratory Results - last 24 hr 06/04/19 06/04/19 06/04/19 Range/Units 10:20 10:20 10:20 WBC 5.6 (4.5-12.0) X10-3/uL RBC 3.78 (3.23-5.20) x10(6)uL Hgb 12.6 (11.5-15.5) g/dL Hct 36.4 (30.0-51.3) % MCV 96.3 H (80-96) fL MCH 33.4 (27.7-33.6) pg MCHC 34.7 (32.2-35.4) g/dL RDW 13.3 (11.5-15.5) % Plt Count 185 (125-369) X10(3)uL MPV 8.1 (7.4-10.4) fL Neut % (Auto) 68.3 (46-82) % Lymph % (Auto) 20.9 (13-37) % [place] % (Auto) 10.3 (4-12) % Eos % (Auto) 0 L (1.0-5.0) % Baso % (Auto) 1 (0-2) % Neut # (Auto) 3.8 (1.6-8.3) # Lymph # (Auto) 1.2 (0.6-5.0) # [place] # (Auto) 0.6 (0.0-1.3) # Eos # (Auto) 0.0 (0.0-0.8) # Baso # (Auto) 0.0 (0.0-0.2) # Sodium 135 (135-145) mmol/L Potassium 4.0 (3.5-5.3) mmol/L Chloride 99 L (100-110) mmol/L Carbon Dioxide 30 (21-32) mmol/L BUN 7 (7-18) mg/dL Creatinine 0.6 (0.55-1.02) mg/dL Est Cr Clr Drug Dosing TNP Estimated GFR (MDRD) > 60 (>60) BUN/Creatinine Ratio 11.7 (9-20) Glucose 121 H (80-116) mg/dL Calcium 8.2 L (8.6-10.2) mg/dL Total Bilirubin 0.5 (0.1-1.3) mg/dL AST 41 H (5-25) IU/L ALT 36 (12-36) U/L Alkaline Phosphatase 104 (56-112) IU/L C-Reactive Protein 10.6 H* (0.5-0.9) mg/dL Total Protein 7.0 (6.0-8.0) g/dL Albumin 3.1 L (3.2-4.6) g/dL Globulin 3.9 g/dL Albumin/Globulin Ratio 0.8 Urine Color (YELLOW) Urine Appearance (CLEAR) Urine pH (5.0-6.5) Ur Specific [place] (1.010-1.025) Urine Protein (NEGATIVE) mg/dL Urine Glucose (UA) (NORMAL) mg/dL Urine Ketones (NEGATIVE) mg/dL Urine Occult Blood (NEGATIVE) Urine Nitrite (NEGATIVE) Urine Bilirubin (NEGATIVE) Urine Urobilinogen (NEGATIVE) mg/dL Ur Leukocyte Esterase (NEGATIVE) Urine RBC (0-5) Urine WBC (0-5) Ur Squamous Epith Cells (NS,R,O) Urine Bacteria (NS) Phenytoin (<0.4) ug/mL 06/04/19 06/04/19 Range/Units 10:20 12:13 WBC (4.5-12.0) X10-3/uL RBC (3.23-5.20) x10(6)uL Hgb (11.5-15.5) g/dL Hct (30.0-51.3) % MCV (80-96) fL MCH (27.7-33.6) pg MCHC (32.2-35.4) g/dL RDW (11.5-15.5) % Plt Count (125-369) X10(3)uL MPV (7.4-10.4) fL Neut % (Auto) (46-82) % Lymph % (Auto) (13-37) % [place] % (Auto) (4-12) % Eos % (Auto) (1.0-5.0) % Baso % (Auto) (0-2) % Neut # (Auto) (1.6-8.3) # Lymph # (Auto) (0.6-5.0) # [place] # (Auto) (0.0-1.3) # Eos # (Auto) (0.0-0.8) # Baso # (Auto) (0.0-0.2) # Sodium (135-145) mmol/L Potassium (3.5-5.3) mmol/L Chloride (100-110) mmol/L Carbon Dioxide (21-32) mmol/L BUN (7-18) mg/dL Creatinine (0.55-1.02) mg/dL Est Cr Clr Drug Dosing Estimated GFR (MDRD) (>60) BUN/Creatinine Ratio (9-20) Glucose (80-116) mg/dL Calcium (8.6-10.2) mg/dL Total Bilirubin (0.1-1.3) mg/dL AST (5-25) IU/L ALT (12-36) U/L Alkaline Phosphatase (56-112) IU/L C-Reactive Protein (0.5-0.9) mg/dL Total Protein (6.0-8.0) g/dL Albumin (3.2-4.6) g/dL Globulin g/dL Albumin/Globulin Ratio Urine Color Yellow (YELLOW) Urine Appearance Slightly cloudy (CLEAR) Urine pH 5.0 (5.0-6.5) Ur Specific [place] 1.020 (1.010-1.025) Urine Protein Negative (NEGATIVE) mg/dL Urine Glucose (UA) Normal (NORMAL) mg/dL Urine Ketones Negative (NEGATIVE) mg/dL Urine Occult Blood Negative (NEGATIVE) Urine Nitrite Negative (NEGATIVE) Urine Bilirubin Negative (NEGATIVE) Urine Urobilinogen Normal (NEGATIVE) mg/dL Ur Leukocyte Esterase Negative (NEGATIVE) Urine RBC 0-5 (0-5) Urine WBC 0-5 (0-5) Ur Squamous Epith Cells Few H (NS,R,O) Urine Bacteria Few H (NS) Phenytoin 24.4 H (<0.4) ug/mL Result Diagrams: 06/04/19 10:20 06/04/19 10:20 - Problem List (1) Multiple falls SNOMED Code(s): 089088895 ICD Code: R29.6 - REPEATED FALLS Status: Acute Current Visit: Yes (2) Closed right clavicular fracture SNOMED Code(s): 89130580 ICD Code: S42.001A - FRACTURE OF UNSP PART OF RIGHT CLAVICLE, INIT FOR CLOS FX Status: Acute Current Visit: Yes Qualifiers: Encounter type: initial encounter Clavicle location: shaft Fracture alignment: displaced Qualified Code(s): S42.021A - Displaced fracture of shaft of right clavicle, initial encounter for closed fracture (3) Internal derangement of right knee SNOMED Code(s): 25591218223063131 ICD Code: M23.91 - UNSPECIFIED INTERNAL DERANGEMENT OF RIGHT KNEE Status: Acute Current Visit: Yes (4) Ribs, multiple fractures SNOMED Code(s): 4786935 ICD Code: S22.49XA - MULTIPLE FRACTURES OF RIBS, UNSP SIDE, INIT FOR CLOS FX Status: Acute Current Visit: Yes Qualifiers: Encounter type: initial encounter Fracture type: closed Laterality: right Qualified Code(s): S22.41XA - Multiple fractures of ribs, right side, initial encounter for closed fracture (5) Seizure disorder SNOMED Code(s): 193385632 ICD Code: G40.909 - EPILEPSY, UNSP, NOT INTRACTABLE, WITHOUT STATUS EPILEPTICUS Status: Acute Current Visit: Yes (6) MDD (major depressive disorder) SNOMED Code(s): 014493071 ICD Code: F32.9 - MAJOR DEPRESSIVE DISORDER, SINGLE EPISODE, UNSPECIFIED Status: Acute Current Visit: Yes Qualifiers: Major depression recurrence: recurrent Major depression episode severity: unspecified Problem List Initiated/Reviewed/Updated: Yes Orders Last 24hrs: Active Orders 24 hr Category Date Time Status Admission Status [Patient Status] [ADT] Routine ADT 06/04/19 13:24 Active Cardiac Monitoring [RC] 08,16,00 Care 06/04/19 13:24 Active EKG Documentation Completion [RC] ASDIRECTED Care 06/04/19 10:02 Active Height and Weight [RC] 06 Care 06/04/19 14:01 Active Incentive Breathing [RT Incentive Spirometry] [RC] Care 06/04/19 17:13 Active Q4HWA Notify Provider Consults [RC] ASDIRECTED Care 06/04/19 13:45 Active Orthostatic Vital Signs [RC] ASDIRECTED Care 06/04/19 10:00 Active Pulse Oximetry [RC] CONTINUOUS Care 06/04/19 14:06 Active VTE/DVT Education [RC] Per Unit Routine Care 06/04/19 14:01 Active Vital Signs [RC] 08,12,16,20,00,04 Care 06/04/19 14:01 Active Consult to Physician [CONS] Urgent Cons 06/04/19 13:44 Ordered OT Evaluation and Treatment [CONS] Routine Cons 06/04/19 17:11 Active PT Evaluation and Treatment [CONS] Routine Cons 06/04/19 17:11 Active Regular Diet [DIET] Diet 06/04/19 Lunch Active Ankle Min 3V Rt [CR] Routine Exams 06/04/19 16:14 Taken Hip Min 1V w Pelvis Rt [CR] Routine Exams 06/04/19 16:13 Taken Lower Extremity wo Cont Rt [CT] Routine Exams 06/04/19 14:38 Taken Tibia Fibula Rt [CR] Routine Exams 06/04/19 16:14 Taken Acetaminophen [Tylenol] Med 06/04/19 17:11 Active 650 mg PO Q4H PRN Albuterol [Ventolin HFA] Med 06/04/19 17:11 Ordered DOSE gm INH Q4H PRN Aspirin [Ecotrin] Med 06/05/19 09:00 Active 325 mg PO DAILY Calcium Carbonate/Vitamin D3 [Calcium 500-Vit D3 200 Med 06/04/19 21:00 Ordered Tablet] 1 tab PO BID Cholecalciferol (Vitamin D3) [Vitamin D3] Med 06/05/19 09:00 Ordered 2,000 unit PO DAILY Docusate Sodium/Sennosides [Senna Plus] Med 06/04/19 21:00 Active 1 tab PO BID Enoxaparin [Lovenox] Med 06/04/19 17:15 Ordered 30 mg SUBCUT Q24H Fluticasone Propionate [Flonase] Med 06/04/19 21:00 Ordered DOSE gm NASBOTH BID Fluticasone/Salmeterol [Advair 250-50] Med 06/04/19 21:00 Ordered 1 puff INH BID Folic Acid Med 06/05/19 09:00 Active 1 mg PO DAILY Ibuprofen [Motrin] Med 06/04/19 17:11 Active 400 mg PO Q4H PRN Morphine Med 06/04/19 14:01 Active 2 mg IVPUSH Q2H PRN Naproxen Sodium Med 06/04/19 17:11 Ordered 440 mg PO DAILY PRN Ondansetron [Zofran ODT] Med 06/04/19 14:01 Active 4 mg PO Q6H PRN Ondansetron [Zofran] Med 06/04/19 14:01 Active 4 mg IV Q6H PRN PHENobarbital [Phenobarbital] Med 06/04/19 21:00 Ordered 64.8 mg PO BID Pantoprazole [ProTONIX] Med 06/05/19 07:30 Active 40 mg PO ACBREAKFAST Phenytoin Med 06/05/19 09:00 Active 100 mg PO DAILY Phenytoin Med 06/04/19 21:00 Active 200 mg PO BEDTIME Phenytoin [Dilantin] Med 06/05/19 09:00 Active 30 mg PO DAILY Prolia Med 06/04/19 17:15 Ordered 60 mg SUBCUT Q180D Sertraline [Zoloft] Med 06/05/19 09:00 Active 75 mg PO DAILY Sodium Chloride 0.9% [Saline Flush] Med 06/04/19 10:00 Active 10 ml FLUSH ASDIRECTED PRN metroNIDAZOLE [metroNIDAZOLE 0.75% Gel] Med 06/04/19 17:11 Ordered DOSE gm TOP BID PRN oxyCODONE Med 06/04/19 14:01 Active 5 mg PO Q4H PRN Weight bearing status [OM.PC] Routine Oth 06/04/19 16:35 Ordered Resuscitation Status Routine Resus Stat 06/04/19 14:01 Ordered EKG 12 Lead [EK] Routine Ther 06/04/19 10:00 Stop Req Medication Orders Acetaminophen (Tylenol) 650 mg PO Q4H PRN PRN Reason: Pain/Fever Albuterol (Ventolin Hfa) gm INH Q4H PRN PRN Reason: Shortness of Breath Aspirin (Ecotrin) 325 mg PO DAILY [facility] Enoxaparin Sodium (Lovenox) 30 mg SUBCUT Q24H [facility] Fluticasone Propionate (Flonase) gm NASBOTH BID [facility] Folic Acid (Folic Acid) 1 mg PO DAILY [facility] Ibuprofen (Motrin) 400 mg PO Q4H PRN PRN Reason: Pain Metronidazole (Metronidazole 0.75% Gel) gm TOP BID PRN PRN Reason: Rash Morphine Sulfate (Morphine) 2 mg IVPUSH Q2H PRN PRN Reason: Pain (severe 7-10) Last Admin: 06/04/19 17:01 Dose: 2 mg Naproxen (Naproxen Sodium) 440 mg PO DAILY PRN PRN Reason: Pain Non-Formulary Medication (Calcium Carbonate/Vitamin D3 [Calcium 500-Vit D3 200 Tablet]) 1 tab PO BID [facility] Non-Formulary Medication (Cholecalciferol (Vitamin D3) [Vitamin D3]) 2,000 unit PO DAILY [facility] Non-Formulary Medication (Fluticasone/Salmeterol [Advair 250-50]) 1 puff INH BID [facility] Non-Formulary Medication (Phenobarbital [Phenobarbital]) 64.8 mg PO BID [facility] Non-Formulary Medication (Prolia) 60 mg SUBCUT Q180D [facility] Ondansetron HCl (Zofran Odt) 4 mg PO Q6H PRN PRN Reason: nausea, able to take PO Ondansetron HCl (Zofran) 4 mg IV Q6H PRN PRN Reason: Nausea/Vomiting Oxycodone HCl (Oxycodone) 5 mg PO Q4H PRN PRN Reason: Pain (moderate 4-6) Pantoprazole Sodium (Protonix) 40 mg PO ACBREAKFAST [facility] Phenytoin Sodium (Dilantin) 30 mg PO DAILY [facility] Phenytoin Sodium (Phenytoin) 200 mg PO BEDTIME [facility] Phenytoin Sodium (Phenytoin) 100 mg PO DAILY [facility] Senna/Docusate Sodium (Senna Plus) 1 tab PO BID [facility] Sertraline HCl (Zoloft) 75 mg PO DAILY [facility] Sodium Chloride (Saline Flush) 10 ml FLUSH ASDIRECTED PRN PRN Reason: Keep Vein Open Last Admin: 06/04/19 17:07 Dose: 10 ml Admin: 06/04/19 10:30 Dose: 10 ml Assessment/Plan Comment:: Dr. Freeman saw her for knee pain and clavicular fx.. Please see [facility] for his Recommendations. I appreciate his consultation. We'll admit for pain control, DVT prophylaxis, incentive spirometry and physical rehabilitation. Continue current regular home medications. - Mortality Measure Prognosis:: Good
[2019-06-04] MEDS ORDERED: Enoxaparin 40 MG/0.4 ML Syringe SUBCUT SCH (18:45)
[2019-06-04] MEDS ORDERED: Formoterol/Mometasone 200-5 MCG 8.8 GM Inhaler ONE (19:48)
[2019-06-04] MEDS: Fluticasone Propionate Nasal Spray 16 GM Bottle NASBOTH SCH (20:09)
[2019-06-04] MEDS: Calcium Carbonate 500 MG Tablet PO SCH (20:10)
[2019-06-04] MEDS: PHENobarbital 32.4 MG Tab PO SCH (20:10)
[2019-06-04] MEDS ORDERED: Formoterol/Mometasone 200-5 MCG 8.8 GM Inhaler IH SCH (21:00)
[2019-06-04] MEDS ORDERED: Phenytoin 100 MG Cap.ER PO SCH (21:00)
[2019-06-05] MEDS: Morphine 2 MG/ML Syringe IVPUSH PRN ×2 (07:25→13:04)
[2019-06-05] MEDS ORDERED: Pantoprazole 40 MG Tab.CR PO SCH (07:30)
[2019-06-05] MEDS: Sodium Chloride 0.9% 10 ML Syringe FLUSH PRN ×2 (07:30→13:07)
[2019-06-05] MEDS ORDERED: Formoterol/Mometasone 200-5 MCG 8.8 GM Inhaler IH SCH (07:43)
--- NOTE | 2019-06-05 08:15 | CT ---
INDICATION: Question right knee internal derangement. CT OF LOWER EXTREMITY FOR RIGHT KNEE: Spiral 2.5 mm axial sections were obtained through the knees, 06/04/19 - no comparisons except for plain films from the same date. Sagittal and coronal reconstructions were obtained. Total exam DLP = 1,068.23 mGy-cm. Along the distal shaft - metaphysis of the distal right femur, there is a stepoff with a fracture site extending transversely and then vertically into the intercondylar notch area with very little overall deformity. A right knee joint effusion is noted. Fracture line is seen at the patellofemoral joint surface toward its midportion at the intercondylar notch level. There also appears to be an essentially undisplaced fracture at the lateral intercondylar spine on the right, localized in that area with very little displacement. Severe demineralization is suggested, compatible with osteoporosis. No other acute bone or joint abnormality was suggested. Intramedullary brian is noted at the tibia on the right. IMPRESSION: 1. Minimally offset fracture of the distal femur in adequate position and alignment with associated joint effusion at the right knee. 2. Lateral intercondylar spine undisplaced fracture suggested on the right. Report was called to Dr. Flowers on 06/04/19 at 1626 hours. [facility]
--- NOTE | 2019-06-05 08:39 | PCM.PN ---
- General Info Date of Service: 06/05/19 Subjective Update: Pain controlled by Morphine. Dr Freeman spoke with Ortho. I spoke with Dr Welch. Functional Status: Reports: Tolerating Diet - Review of Systems General: Reports: No Symptoms HEENT: Reports: No Symptoms Gastrointestinal: Reports: No Symptoms Genitourinary: Reports: No Symptoms Musculoskeletal: Reports: Shoulder Pain, Joint Pain Skin: Reports: No Symptoms Neurological: Reports: No Symptoms - Patient Data Vitals - Most Recent: Last Vital Signs Temp 98.5 F 06/05/19 04:00 Pulse 86 06/05/19 04:00 Resp 18 06/05/19 04:00 BP 109/53 L 06/05/19 04:00 Pulse Ox 95 06/04/19 23:44 Weight - Most Recent: 65.408 kg I&O - Last 24 Hours: Intake & Output 06/04/19 06/05/19 06/05/19 22:59 06:59 14:59 Intake Total 350 300 Output Total 0 225 Balance 350 75 Lab Results Last 24 Hours: Laboratory Results - last 24 hr 06/04/19 06/04/19 06/04/19 Range/Units 10:20 10:20 10:20 WBC 5.6 (4.5-12.0) X10-3/uL RBC 3.78 (3.23-5.20) x10(6)uL Hgb 12.6 (11.5-15.5) g/dL Hct 36.4 (30.0-51.3) % MCV 96.3 H (80-96) fL MCH 33.4 (27.7-33.6) pg MCHC 34.7 (32.2-35.4) g/dL RDW 13.3 (11.5-15.5) % Plt Count 185 (125-369) X10(3)uL MPV 8.1 (7.4-10.4) fL Neut % (Auto) 68.3 (46-82) % Lymph % (Auto) 20.9 (13-37) % [place] % (Auto) 10.3 (4-12) % Eos % (Auto) 0 L (1.0-5.0) % Baso % (Auto) 1 (0-2) % Neut # (Auto) 3.8 (1.6-8.3) # Lymph # (Auto) 1.2 (0.6-5.0) # Schoolcraft # (Auto) 0.6 (0.0-1.3) # Eos # (Auto) 0.0 (0.0-0.8) # Baso # (Auto) 0.0 (0.0-0.2) # Sodium 135 (135-145) mmol/L Potassium 4.0 (3.5-5.3) mmol/L Chloride 99 L (100-110) mmol/L Carbon Dioxide 30 (21-32) mmol/L BUN 7 (7-18) mg/dL Creatinine 0.6 (0.55-1.02) mg/dL Est Cr Clr Drug Dosing TNP Estimated GFR (MDRD) > 60 (>60) BUN/Creatinine Ratio 11.7 (9-20) Glucose 121 H (80-116) mg/dL Calcium 8.2 L (8.6-10.2) mg/dL Total Bilirubin 0.5 (0.1-1.3) mg/dL AST 41 H (5-25) IU/L ALT 36 (12-36) U/L Alkaline Phosphatase 104 (56-112) IU/L C-Reactive Protein 10.6 H* (0.5-0.9) mg/dL Total Protein 7.0 (6.0-8.0) g/dL Albumin 3.1 L (3.2-4.6) g/dL Globulin 3.9 g/dL Albumin/Globulin Ratio 0.8 Urine Color (YELLOW) Urine Appearance (CLEAR) Urine pH (5.0-6.5) Ur Specific [place] (1.010-1.025) Urine Protein (NEGATIVE) mg/dL Urine Glucose (UA) (NORMAL) mg/dL Urine Ketones (NEGATIVE) mg/dL Urine Occult Blood (NEGATIVE) Urine Nitrite (NEGATIVE) Urine Bilirubin (NEGATIVE) Urine Urobilinogen (NEGATIVE) mg/dL Ur Leukocyte Esterase (NEGATIVE) Urine RBC (0-5) Urine WBC (0-5) Ur Squamous Epith Cells (NS,R,O) Urine Bacteria (NS) Phenytoin (<0.4) ug/mL 06/04/19 06/04/19 Range/Units 10:20 12:13 WBC (4.5-12.0) X10-3/uL RBC (3.23-5.20) x10(6)uL Hgb (11.5-15.5) g/dL Hct (30.0-51.3) % MCV (80-96) fL MCH (27.7-33.6) pg MCHC (32.2-35.4) g/dL RDW (11.5-15.5) % Plt Count (125-369) X10(3)uL MPV (7.4-10.4) fL Neut % (Auto) (46-82) % Lymph % (Auto) (13-37) % [place] % (Auto) (4-12) % Eos % (Auto) (1.0-5.0) % Baso % (Auto) (0-2) % Neut # (Auto) (1.6-8.3) # Lymph # (Auto) (0.6-5.0) # Schoolcraft # (Auto) (0.0-1.3) # Eos # (Auto) (0.0-0.8) # Baso # (Auto) (0.0-0.2) # Sodium (135-145) mmol/L Potassium (3.5-5.3) mmol/L Chloride (100-110) mmol/L Carbon Dioxide (21-32) mmol/L BUN (7-18) mg/dL Creatinine (0.55-1.02) mg/dL Est Cr Clr Drug Dosing Estimated GFR (MDRD) (>60) BUN/Creatinine Ratio (9-20) Glucose (80-116) mg/dL Calcium (8.6-10.2) mg/dL Total Bilirubin (0.1-1.3) mg/dL AST (5-25) IU/L ALT (12-36) U/L Alkaline Phosphatase (56-112) IU/L C-Reactive Protein (0.5-0.9) mg/dL Total Protein (6.0-8.0) g/dL Albumin (3.2-4.6) g/dL Globulin g/dL Albumin/Globulin Ratio Urine Color Yellow (YELLOW) Urine Appearance Slightly cloudy (CLEAR) Urine pH 5.0 (5.0-6.5) Ur Specific [place] 1.020 (1.010-1.025) Urine Protein Negative (NEGATIVE) mg/dL Urine Glucose (UA) Normal (NORMAL) mg/dL Urine Ketones Negative (NEGATIVE) mg/dL Urine Occult Blood Negative (NEGATIVE) Urine Nitrite Negative (NEGATIVE) Urine Bilirubin Negative (NEGATIVE) Urine Urobilinogen Normal (NEGATIVE) mg/dL Ur Leukocyte Esterase Negative (NEGATIVE) Urine RBC 0-5 (0-5) Urine WBC 0-5 (0-5) Ur Squamous Epith Cells Few H (NS,R,O) Urine Bacteria Few H (NS) Phenytoin 24.4 H (<0.4) ug/mL Med Orders - Current: Current Medications Acetaminophen (Tylenol) 650 mg PO Q4H PRN PRN Reason: Pain/Fever Albuterol (Ventolin Hfa) 0 gm INH Q4H PRN PRN Reason: Shortness of Breath Aspirin (Ecotrin) 325 mg PO DAILY [facility] Calcium Carbonate/Glycine (Oyster Shell Calcium) 500 mg PO BID [facility] Last Admin: 06/04/19 20:10 Dose: 500 mg Cholecalciferol (Vitamin D3) 50 mcg PO DAILY [facility] Enoxaparin Sodium (Lovenox) 40 mg SUBCUT DAILY@1800 [facility] Fluticasone Propionate (Flonase) 0 gm NASBOTH BID [facility] Last Admin: 06/04/19 20:09 Dose: 1 spray Folic Acid (Folic Acid) 1 mg PO DAILY [facility] Ibuprofen (Motrin) 400 mg PO Q4H PRN PRN Reason: Pain Last Admin: 06/04/19 21:54 Dose: 400 mg Metronidazole (Metronidazole 0.75% Gel) 0 gm TOP BID PRN PRN Reason: Rash Mometasone Furoate/Formoterol Fumar (Dulera 200-5 Mcg) 2 puff IH BID [facility] Morphine Sulfate (Morphine) 2 mg IVPUSH Q2H PRN PRN Reason: Pain (severe 7-10) Last Admin: 06/05/19 07:25 Dose: 2 mg Naproxen (Naproxen Sodium) 440 mg PO DAILY PRN PRN Reason: Pain Non-Formulary Medication (Prolia) 60 mg SUBCUT Q180D [facility] Ondansetron HCl (Zofran Odt) 4 mg PO Q6H PRN PRN Reason: nausea, able to take PO Ondansetron HCl (Zofran) 4 mg IV Q6H PRN PRN Reason: Nausea/Vomiting Oxycodone HCl (Oxycodone) 5 mg PO Q4H PRN PRN Reason: Pain (moderate 4-6) Pantoprazole Sodium (Protonix) 40 mg PO ACBREAKFAST [facility] Last Admin: 06/05/19 07:17 Dose: 40 mg Phenobarbital (Phenobarbital) 64.8 mg PO BID [facility] Last Admin: 06/04/19 20:10 Dose: 64.8 mg Phenytoin Sodium (Dilantin) 30 mg PO DAILY [facility] Phenytoin Sodium (Phenytoin) 200 mg PO BEDTIME [facility] Last Admin: 06/04/19 20:10 Dose: 200 mg Phenytoin Sodium (Phenytoin) 100 mg PO DAILY [facility] Senna/Docusate Sodium (Senna Plus) 1 tab PO BID [facility] Last Admin: 06/04/19 20:10 Dose: 1 tab Sertraline HCl (Zoloft) 75 mg PO DAILY [facility] Sodium Chloride (Saline Flush) 10 ml FLUSH ASDIRECTED PRN PRN Reason: Keep Vein Open Last Admin: 06/05/19 07:30 Dose: 10 ml Discontinued Medications Acetaminophen (Tylenol) 650 mg PO Q4H PRN PRN Reason: Pain (Mild 1-3)/fever Enoxaparin Sodium (Lovenox) 30 mg SUBCUT Q24H [facility] Last Admin: 06/04/19 19:08 Dose: Not Given Enoxaparin Sodium (Lovenox) 40 mg SUBCUT DAILY [facility] Last Admin: 06/04/19 19:06 Dose: 40 mg Sodium Chloride (Normal Saline) 500 mls @ 999 mls/hr IV .BOLUS ONE Stop: 06/04/19 14:16 Last Admin: 06/04/19 13:47 Dose: 999 mls/hr Sodium Chloride (Normal Saline) 1,000 mls @ 125 mls/hr IV ASDIRECTED [facility] Ibuprofen (Motrin) 600 mg PO Q6H PRN PRN Reason: Pain (mild 1-3) Mometasone Furoate/Formoterol Fumar (Dulera 200-5 Mcg) 2 puff IH BID [facility] Last Admin: 06/04/19 20:09 Dose: 2 puff Mometasone Furoate/Formoterol Fumar (Dulera 200-5 Mcg) Confirm Administered Dose 60 puff .ROUTE .STK-MED ONE Stop: 06/04/19 19:49 Last Admin: 06/04/19 20:39 Dose: Not Given Morphine Sulfate (Morphine) 4 mg IVPUSH ONETIME ONE Stop: 06/04/19 13:43 Last Admin: 06/04/19 13:49 Dose: 4 mg Morphine Sulfate (Morphine) Confirm Administered Dose 4 mg .ROUTE .STK-MED ONE Stop: 06/04/19 13:49 Last Admin: 06/04/19 14:21 Dose: Not Given Ondansetron HCl (Zofran) 4 mg IVPUSH ONETIME ONE Stop: 06/04/19 13:43 Last Admin: 06/04/19 13:57 Dose: 4 mg - Exam Quality Assessment: Supplemental Oxygen General: Alert, Oriented HEENT: Pupils Equal Neck: Supple Lungs: Clear to Auscultation Cardiovascular: Regular Rate Extremities: No Pedal Edema - Problem List & Annotations (1) Multiple falls SNOMED Code(s): 088006406 Code(s): R29.6 - REPEATED FALLS Status: Acute Current Visit: Yes (2) Closed right clavicular fracture SNOMED Code(s): 56433760 Code(s): S42.001A - FRACTURE OF UNSP PART OF RIGHT CLAVICLE, INIT FOR CLOS FX Status: Acute Current Visit: Yes Qualifiers: Encounter type: initial encounter Clavicle location: shaft Fracture alignment: displaced Qualified Code(s): S42.021A - Displaced fracture of shaft of right clavicle, initial encounter for closed fracture (3) Internal derangement of right knee SNOMED Code(s): 06102913585893658 Code(s): M23.91 - UNSPECIFIED INTERNAL DERANGEMENT OF RIGHT KNEE Status: Acute Current Visit: Yes (4) Ribs, multiple fractures SNOMED Code(s): 5192676 Code(s): S22.49XA - MULTIPLE FRACTURES OF RIBS, UNSP SIDE, INIT FOR CLOS FX Status: Acute Current Visit: Yes Qualifiers: Encounter type: initial encounter Fracture type: closed Laterality: right Qualified Code(s): S22.41XA - Multiple fractures of ribs, right side, initial encounter for closed fracture (5) Seizure disorder SNOMED Code(s): 927650429 Code(s): G40.909 - EPILEPSY, UNSP, NOT INTRACTABLE, WITHOUT STATUS EPILEPTICUS Status: Acute Current Visit: Yes (6) MDD (major depressive disorder) SNOMED Code(s): 077253093 Code(s): F32.9 - MAJOR DEPRESSIVE DISORDER, SINGLE EPISODE, UNSPECIFIED Status: Acute Current Visit: Yes Qualifiers: Major depression recurrence: recurrent Major depression episode severity: unspecified (7) Multiple trauma SNOMED Code(s): 751468743 Code(s): T07.XXXA - UNSPECIFIED MULTIPLE INJURIES, INITIAL ENCOUNTER Status : Acute Current Visit: Yes - Problem List Review Problem List Initiated/Reviewed/Updated: Yes - My Orders Last 24 Hours: My Active Orders 06/04/19 17:11 OT Evaluation and Treatment [CONS] Routine PT Evaluation and Treatment [CONS] Routine Acetaminophen [Tylenol] 650 mg PO Q4H PRN Albuterol [Ventolin HFA] 0 gm INH Q4H PRN Ibuprofen [Motrin] 400 mg PO Q4H PRN Naproxen Sodium 440 mg PO DAILY PRN metroNIDAZOLE [metroNIDAZOLE 0.75% Gel] 0 gm TOP BID PRN 06/04/19 17:13 Incentive Breathing [RT Incentive Spirometry] [RC] Q4HWA 06/04/19 17:15 Prolia 60 mg SUBCUT Q180D 06/04/19 21:00 Calcium Carbonate [Oyster Shell Calcium] 500 mg PO BID Docusate Sodium/Sennosides [Senna Plus] 1 tab PO BID Fluticasone Propionate [Flonase] 0 gm NASBOTH BID PHENobarbital 64.8 mg PO BID Phenytoin 200 mg PO BEDTIME 06/05/19 07:30 Pantoprazole [ProTONIX] 40 mg PO ACBREAKFAST 06/05/19 07:43 Mometasone/Formoterol [Dulera 200-5 MCG] 2 puff IH BID 06/05/19 09:00 Aspirin [Ecotrin] 325 mg PO DAILY Cholecalciferol (Vitamin D3) [Vitamin D3] 50 mcg PO DAILY Folic Acid 1 mg PO DAILY Phenytoin 100 mg PO DAILY Phenytoin [Dilantin] 30 mg PO DAILY Sertraline [Zoloft] 75 mg PO DAILY 06/05/19 18:00 Enoxaparin [Lovenox] 40 mg SUBCUT DAILY@1800 - Plan Plan:: I spoke with the [facility] [place] [facility] to the surgical floor there.
[2019-06-05] MEDS ORDERED: Aspirin 325 MG Tab.EC PO SCH (09:00)
[2019-06-05] MEDS ORDERED: Folic Acid 1 MG Tab PO SCH (09:00)
[2019-06-05] MEDS ORDERED: Phenytoin 30 MG Cap.ER PO SCH (09:00)
[2019-06-05] MEDS ORDERED: Sertraline 25 MG Tab PO SCH (09:00)
[2019-06-05] MEDS ORDERED: Phenytoin 100 MG Cap.ER PO SCH (09:00)
[2019-06-05] MEDS ORDERED: Cholecalciferol (Vitamin D3) 25 MCG Tab PO SCH (09:00)
[2019-06-05] MEDS: Calcium Carbonate 500 MG Tablet PO SCH (09:21)
[2019-06-05] MEDS: PHENobarbital 32.4 MG Tab PO SCH (09:21)
[2019-06-05] MEDS: Fluticasone Propionate Nasal Spray 16 GM Bottle NASBOTH SCH (09:26)
--- NOTE | 2019-06-05 10:53 | DISCH ---
DISCHARGE DATE: 06/05/2019 REASON FOR ADMISSION: 1. Repeated falls. 2. Rib fracture, multiple. 3. Right knee internal derangement. 4. History of seizure. 5. Clavicle fracture. DISCHARGE DIAGNOSES: 1. Repeated falls. 2. Rib fracture, multiple. 3. Right knee internal derangement. 4. History of seizure. 5. Clavicle fracture. 6. Anterior cruciate ligament tear. 7. Proximal fibula fracture and distal femur fracture, undisplaced. 8. Multiply injured patient. BRIEF HISTORY AND HOSPITAL COURSE: This is a 68-year-old female who was brought in from an independent living facility after she fell in the bathroom. She was cleared in the ER for primary survey, admitted for pain control, and Dr. Freeman was consulted from Orthopedics. He ordered a CT of the knee that revealed a distal femur fracture that was undisplaced and an ACL tear, probably needing surgical consultation. He suggested and recommended we transfer the patient to the trauma team, and he also discussed with Orthopedics at [place]. I will transfer the patient for tertiary care via [facility] ambulance this morning. She is otherwise stable. I spent more than 35 minutes in the discharge of the patient. /[id number] NICOLE/GO
[2019-06-05] MEDS ORDERED: Enoxaparin 40 MG/0.4 ML Syringe SUBCUT SCH (18:00)
== END 2019-06-05 14:50 | disposition critical access hospital (66) | DRG 184 ==
LOC: FB.ED 09:20 → FB.MS 13:24
PROVIDERS: ADMIT Family Medicine; ATTEND Family Medicine
DX: S22.41XA Multiple fractures of ribs, right side, initial encounter for closed fracture (principal); R55 Syncope and collapse; S72.491A Other fracture of lower end of right femur, initial encounter for closed fracture; R53.1 Weakness; S82.831A Other fracture of upper and lower end of right fibula, initial encounter for closed fracture; S42.021A Displaced fracture of shaft of right clavicle, initial encounter for closed fracture; G40.909 Epilepsy, unspecified, not intractable, without status epilepticus; F32.9 Major depressive disorder, single episode, unspecified; J44.9 Chronic obstructive pulmonary disease, unspecified; M81.0 Age-related osteoporosis without current pathological fracture; K21.9 Gastro-esophageal reflux disease without esophagitis; F41.9 Anxiety disorder, unspecified; Z96.641 Presence of right artificial hip joint; R29.6 Repeated falls; W18.11XA Fall from or off toilet without subsequent striking against object, initial encounter; Z90.49 Acquired absence of other specified parts of digestive tract; Z79.2 Long term (current) use of antibiotics; Y93.89 Activity, other specified; Y92.89 Other specified places as the place of occurrence of the external cause; Z90.710 Acquired absence of both cervix and uterus; Z79.51 Long term (current) use of inhaled steroids; Z79.82 Long term (current) use of aspirin; Z79.899 Other long term (current) drug therapy; Z99.81 Dependence on supplemental oxygen; Z87.891 Personal history of nicotine dependence; Z91.81 History of falling
CPT/HCPCS: 36415; 70450; 71101-RT; 72125; 73000-RT; 73030-RT; 73501-RT; 73560-RT; 73590-RT; 73610-RT; 73700-RT; 80053; 80185; 81001; 85025; 86140; 93005; 94150; 96374; 96375; 99285-25; A9270-GY; J1650; J2270; J2405; J7040

== ENCOUNTER 2019-06-10 11:08 | Inpatient (IN) | payer BC, MEDICAID, MEDICARE ==
[2019-06-10] MEDS ORDERED: Pneumococcal Polyvalent-23 Vaccine 0.5 ML SDV IM ONE (15:11)
--- NOTE | 2019-06-10 17:27 | PCM.HP.2 ---
H&P History of Present Illness - General Date of Service: 06/10/19 Admit Problem/Dx: Admission Diagnosis/Problem Admission Diagnosis/Problem Fracture of clavicle Source of Information: Patient, Old Records History Limitations: Reports: No Limitations - History of Present Illness Initial Comments - Free Text/Narative: This is a 68-year-old female patient is a resident [facility]. On 06/04/19 she fell going to the bathroom. Apparently she fell backwards in spite of her walker. She states her right knee gave out which it often does. She has a history of multiple falls. She is brought to the ER and found to have a clavicle fracture, rib fractures and a femur fracture. She was transferred to [place]. She was evaluated by orthopedics and had a right femur fracture couple rib fractures and clavicle fractures I mentioned before. She was sent here for rehabilitation. She says it hurts to cough. She has had a pain pill and which is helping her. She says she had a sinus infection but that's getting better with some nasal spray. She denies fevers, chills, shortness of breath. - Related Data Allergies/Adverse Reactions: Allergies Allergy/AdvReac Type Severity Reaction Status Date / Time No Known Allergies Allergy Verified 06/04/19 10:08 Home Medications: Home Meds Aspirin [Aspirin EC] 325 mg PO DAILY 06/04/19 [History] Calcium Carbonate/Vitamin D3 [Calcium 500-Vit D3 200 Tablet] 1 tab PO BID [History] Fluticasone Propionate [Flonase] 1 spray NASBOTH BID 06/04/19 [History] Ibuprofen 400 mg PO Q6H PRN 06/04/19 [History] PHENobarbital [Phenobarbital] 64.8 mg PO BID 06/04/19 [History] Pantoprazole Sodium [Protonix] 40 mg PO DAILY 06/04/19 [History] Phenytoin 200 mg PO BEDTIME 06/04/19 [History] Phenytoin Sodium Extended [Dilantin] 100 mg PO DAILY 06/04/19 [History] Phenytoin [Dilantin] 30 mg PO DAILY 06/04/19 [History] Sennosides/Docusate Sodium [Senna-S] 1 tab PO BID 06/04/19 [History] Sertraline [Zoloft] 50 mg PO DAILY 06/04/19 [History] Acetaminophen [Tylenol Extra Strength] 1,000 mg PO Q8H 06/10/19 [History] Gabapentin [Neurontin] 100 mg PO TID 06/10/19 [History] Lidocaine 5% [Lidoderm 5%] 2 patch TOP DAILY 06/10/19 [History] Sertraline [Zoloft] 25 mg PO DAILY 06/10/19 [History] oxyCODONE 5 mg PO Q4H PRN 06/10/19 [History] Past Medical History Respiratory History: Reports: Asthma, COPD Gastrointestinal History: Reports: GERD Genitourinary History: Reports: Urinary Incontinence Musculoskeletal History: Reports: Fracture, Osteoporosis, Other (See Below) Other Musculoskeletal History: rt femer fx Neurological History: Reports: Seizure Psychiatric History: Reports: Anxiety, Depression Hematologic History: Reports: Anemia - Past Surgical History GI Surgical History: Reports: Appendectomy Female Surgical History: Reports: Hysterectomy Musculoskeletal Surgical History: Reports: Hip Replacement, ORIF Social & Family History - Family History Family Medical History: Noncontributory - Tobacco Use Smoking Status *Q: Former Smoker Used Tobacco, but Quit: Yes Month/Year Tobacco Last Used: 1999 - Caffeine Use Caffeine Use: Reports: Coffee Caffeine Use Comment: couple cups of coffee - Recreational Drug Use Recreational Drug Use: No - Living Situation & Occupation Living situation: Reports: Assisted Living (Lives in [facility]) H&P Review of Systems - Review of Systems: Review Of Systems: See Below General: Reports: No Symptoms HEENT: Reports: No Symptoms Pulmonary: Reports: Pleuritic Chest Pain Cardiovascular: Reports: No Symptoms Gastrointestinal: Reports: No Symptoms Genitourinary: Reports: No Symptoms Musculoskeletal: Reports: Other (Rib pain, right clavicle pain, right femur pain ) Skin: Reports: No Symptoms Psychiatric: Reports: No Symptoms Neurological: Reports: No Symptoms Hematologic/Lymphatic: Reports: No Symptoms Immunologic: Reports: No Symptoms Exam - Exam Exam: See Below - Vital Signs Vital Signs: Last Vital Signs Temp 98 F 06/10/19 14:53 Pulse 80 06/10/19 14:53 Resp 20 06/10/19 14:53 BP 122/64 06/10/19 14:53 Pulse Ox 98 06/10/19 14:53 Weight: 142 lb 9.6 oz - Exam General: Alert, Oriented, Sedated HEENT: Hearing Intact, Posterior Pharynx Clear, TMs Clear Neck: Supple, Trachea Midline. No: Carotid Bruit Lungs: Clear to Auscultation, Normal Respiratory Effort. No: Crackles, Rales, Rhonchi Cardiovascular: Regular Rate, Regular Rhythm, Normal S1, Normal S2. No: Systolic Murmur, Diastolic Murmur GI/Abdominal Exam: Normal Bowel Sounds, Soft, Non-Tender, No Organomegaly, No Distention, No Mass Extremities: No Pedal Edema, Other (Patient is wearing pants from her transfer from [place].) Skin: Warm, Dry, Intact Neuro Extensive - Mental Status: Alert, Oriented x3, Normal Mood/Affect, Normal Cognition, Memory Intact Psychiatric: Alert, Normal Affect, Normal Mood - Problem List (1) Femur fracture, right SNOMED Code(s): 53062082 ICD Code: S72.91XA - UNSP FRACTURE OF RIGHT FEMUR, INIT FOR CLOS FX Status : Acute Current Visit: Yes (2) Closed right clavicular fracture SNOMED Code(s): 37068336 ICD Code: S42.001A - FRACTURE OF UNSP PART OF RIGHT CLAVICLE, INIT FOR CLOS FX Status: Acute Current Visit: No (3) Ribs, multiple fractures SNOMED Code(s): 6122821 ICD Code: S22.49XA - MULTIPLE FRACTURES OF RIBS, UNSP SIDE, INIT FOR CLOS FX Status: Acute Current Visit: No Problem List Initiated/Reviewed/Updated: Yes Orders Last 24hrs: Active Orders 24 hr Category Date Time Status Patient Status [ADT] Routine ADT 06/10/19 14:53 Active Height and Weight [RC] WEEKLY Care 06/10/19 14:53 Active Oxygen Therapy [RC] PRN Care 06/10/19 14:53 Active Up With Assistance [RC] ASDIRECTED Care 06/10/19 14:52 Active VTE/DVT Education [RC] Per Unit Routine Care 06/10/19 14:53 Active Vital Signs [RC] PER UNIT ROUTINE Care 06/10/19 14:53 Active OT Evaluation and Treatment [CONS] Routine Cons 06/10/19 14:52 Active PT Evaluation and Treatment [CONS] Routine Cons 06/10/19 14:52 Active Regular Diet [DIET] Diet 06/10/19 Dinner Active Acetaminophen [Tylenol Extra Strength] Med 06/10/19 14:00 Active 1,000 mg PO Q8H Aspirin [Ecotrin] Med 06/11/19 09:00 Active 325 mg PO DAILY Calcium Carbonate [Oyster Shell Calcium] Med 06/10/19 21:00 Active 500 mg PO BID Docusate Sodium/Sennosides [Senna Plus] Med 06/10/19 21:00 Active 1 tab PO BID Fluticasone Propionate [Flonase] Med 06/10/19 21:00 Active 0 gm NASBOTH BID Gabapentin [Neurontin] Med 06/10/19 14:00 Active 100 mg PO TID Ibuprofen [Motrin] Med 06/10/19 14:56 Active 400 mg PO Q6H PRN Lidocaine 5% [Lidoderm 5%] Med 06/11/19 09:00 Active 1,400 mg TOP DAILY PHENobarbital Med 06/10/19 21:00 Active 64.8 mg PO BID Pantoprazole [ProTONIX] Med 06/11/19 06:00 Active 40 mg PO 0600 Phenytoin Med 06/11/19 09:00 Active 100 mg PO DAILY Phenytoin Med 06/10/19 21:00 Active 200 mg PO BEDTIME Phenytoin [Dilantin] Med 06/11/19 09:00 Active 30 mg PO DAILY Remove Patch Med 06/10/19 21:00 Active 2 ea TRDERM BEDTIME Sertraline [Zoloft] Med 06/11/19 09:00 Active 25 mg PO DAILY Sertraline [Zoloft] Med 06/11/19 09:00 Active 50 mg PO DAILY oxyCODONE Med 06/10/19 14:56 Active 5 mg PO Q4H PRN Resuscitation Status Routine Resus Stat 06/10/19 14:52 Ordered Medication Orders Acetaminophen (Tylenol Extra Strength) 1,000 mg PO Q8H [facility] Aspirin (Ecotrin) 325 mg PO DAILY [facility] Calcium Carbonate/Glycine (Oyster Shell Calcium) 500 mg PO BID [facility] Fluticasone Propionate (Flonase) 0 gm NASBOTH BID [facility] Gabapentin (Neurontin) 100 mg PO TID [facility] Ibuprofen (Motrin) 400 mg PO Q6H PRN PRN Reason: Pain Lidocaine (Lidoderm 5%) 1,400 mg TOP DAILY [facility] Miscellaneous Information (Remove Patch) 2 ea TRDERM BEDTIME [facility] Oxycodone HCl (Oxycodone) 5 mg PO Q4H PRN PRN Reason: SEVERE PAIN Pantoprazole Sodium (Protonix) 40 mg PO 0600 [facility] Phenobarbital (Phenobarbital) 64.8 mg PO BID [facility] Phenytoin Sodium (Dilantin) 30 mg PO DAILY [facility] Phenytoin Sodium (Phenytoin) 200 mg PO BEDTIME [facility] Phenytoin Sodium (Phenytoin) 100 mg PO DAILY [facility] Senna/Docusate Sodium (Senna Plus) 1 tab PO BID [facility] Sertraline HCl (Zoloft) 25 mg PO DAILY [facility] Sertraline HCl (Zoloft) 50 mg PO DAILY [facility] Assessment/Plan Comment:: 1. Admit to swing bed. 2. Regular diet. 3. Full code 4. Weightbearing as tolerated leg and no weightbearing with the right arm. 5. Restart all her home meds of the medication some Ronal. 6. PT/OT.
[2019-06-10] MEDS: Gabapentin 100 MG Cap PO SCH ×2 (17:33→20:14)
[2019-06-10] MEDS: Acetaminophen 500 MG Tab PO SCH ×2 (17:34→21:57)
[2019-06-10] MEDS: oxyCODONE 5 MG Tab PO PRN (18:02)
[2019-06-10] MEDS: Fluticasone Propionate Nasal Spray 16 GM Bottle NASBOTH SCH (20:06)
[2019-06-10] MEDS: Phenytoin 100 MG Cap.ER PO SCH (20:09)
[2019-06-10] MEDS: Calcium Carbonate 500 MG Tablet PO SCH (20:09)
[2019-06-10] MEDS: PHENobarbital 32.4 MG Tab PO SCH (20:13)
[2019-06-11] MEDS: Pantoprazole 40 MG Tab.CR PO SCH (06:06)
[2019-06-11] MEDS: Acetaminophen 500 MG Tab PO SCH ×3 (06:07→21:54)
[2019-06-11] MEDS: Gabapentin 100 MG Cap PO SCH ×3 (10:04→22:00)
[2019-06-11] MEDS: Phenytoin 100 MG Cap.ER PO SCH ×2 (10:04→21:54)
[2019-06-11] MEDS: Aspirin 325 MG Tab.EC PO SCH (10:04)
[2019-06-11] MEDS: Phenytoin 30 MG Cap.ER PO SCH (10:05)
[2019-06-11] MEDS: Fluticasone Propionate Nasal Spray 16 GM Bottle NASBOTH SCH ×2 (10:05→21:52)
[2019-06-11] MEDS: Lidocaine 5% 700 MG Patch TOP SCH (10:06)
[2019-06-11] MEDS: Calcium Carbonate 500 MG Tablet PO SCH ×2 (10:06→21:53)
[2019-06-11] MEDS: Sertraline 25 MG Tab PO SCH (10:07)
[2019-06-11] MEDS: Sertraline 50 MG Tab PO SCH (10:07)
[2019-06-11] MEDS: PHENobarbital 32.4 MG Tab PO SCH ×2 (10:37→22:00)
[2019-06-12] MEDS: Pantoprazole 40 MG Tab.CR PO SCH (05:26)
[2019-06-12] MEDS: Acetaminophen 500 MG Tab PO SCH ×3 (05:26→21:32)
[2019-06-12] MEDS: PHENobarbital 32.4 MG Tab PO SCH ×2 (09:42→21:31)
[2019-06-12] MEDS: Fluticasone Propionate Nasal Spray 16 GM Bottle NASBOTH SCH ×2 (09:42→21:30)
[2019-06-12] MEDS: Phenytoin 100 MG Cap.ER PO SCH ×2 (09:42→21:31)
[2019-06-12] MEDS: Phenytoin 30 MG Cap.ER PO SCH (09:43)
[2019-06-12] MEDS: Calcium Carbonate 500 MG Tablet PO SCH ×2 (09:43→21:31)
[2019-06-12] MEDS: Gabapentin 100 MG Cap PO SCH ×3 (09:43→21:31)
[2019-06-12] MEDS: Aspirin 325 MG Tab.EC PO SCH (09:44)
[2019-06-12] MEDS: Sertraline 25 MG Tab PO SCH (09:46)
[2019-06-12] MEDS: Sertraline 50 MG Tab PO SCH (09:46)
[2019-06-12] MEDS: Lidocaine 5% 700 MG Patch TOP SCH (09:47)
[2019-06-12] MEDS ORDERED: Pneumococcal Polyvalent-23 Vaccine 0.5 ML SDV IM ONE (10:00)
[2019-06-12] MEDS: oxyCODONE 5 MG Tab PO PRN (21:32)
[2019-06-13] MEDS: Ibuprofen 400 MG Tab PO PRN ×2 (02:10→13:14)
[2019-06-13] MEDS: Pantoprazole 40 MG Tab.CR PO SCH (07:31)
[2019-06-13] MEDS: Acetaminophen 500 MG Tab PO SCH ×3 (07:31→22:54)
[2019-06-13] MEDS: Calcium Carbonate 500 MG Tablet PO SCH ×2 (08:49→20:30)
[2019-06-13] MEDS: Aspirin 325 MG Tab.EC PO SCH (08:49)
[2019-06-13] MEDS: Gabapentin 100 MG Cap PO SCH ×3 (08:49→20:30)
[2019-06-13] MEDS: Phenytoin 30 MG Cap.ER PO SCH (08:50)
[2019-06-13] MEDS: Sertraline 25 MG Tab PO SCH (08:50)
[2019-06-13] MEDS: Sertraline 50 MG Tab PO SCH (08:50)
[2019-06-13] MEDS: Fluticasone Propionate Nasal Spray 16 GM Bottle NASBOTH SCH ×2 (08:50→20:30)
[2019-06-13] MEDS: Phenytoin 100 MG Cap.ER PO SCH ×2 (08:50→20:31)
[2019-06-13] MEDS: Lidocaine 5% 700 MG Patch TOP SCH (08:54)
[2019-06-13] MEDS: PHENobarbital 32.4 MG Tab PO SCH ×2 (09:03→20:31)
[2019-06-13] MEDS: oxyCODONE 5 MG Tab PO PRN (09:03)
[2019-06-14] MEDS: Acetaminophen 500 MG Tab PO SCH ×3 (06:17→21:33)
[2019-06-14] MEDS: Pantoprazole 40 MG Tab.CR PO SCH (06:18)
[2019-06-14] MEDS: Ibuprofen 400 MG Tab PO PRN (09:20)
[2019-06-14] MEDS: Phenytoin 30 MG Cap.ER PO SCH (09:23)
[2019-06-14] MEDS: Fluticasone Propionate Nasal Spray 16 GM Bottle NASBOTH SCH ×2 (09:24→20:14)
[2019-06-14] MEDS: Aspirin 325 MG Tab.EC PO SCH (09:24)
[2019-06-14] MEDS: Sertraline 25 MG Tab PO SCH (09:28)
[2019-06-14] MEDS: Sertraline 50 MG Tab PO SCH (09:28)
[2019-06-14] MEDS: Calcium Carbonate 500 MG Tablet PO SCH ×2 (09:29→20:14)
[2019-06-14] MEDS: Phenytoin 100 MG Cap.ER PO SCH ×2 (09:30→20:15)
[2019-06-14] MEDS: Gabapentin 100 MG Cap PO SCH ×3 (09:35→20:14)
[2019-06-14] MEDS: Lidocaine 5% 700 MG Patch TOP SCH (09:36)
[2019-06-14] MEDS: PHENobarbital 32.4 MG Tab PO SCH ×2 (09:36→20:15)
[2019-06-15] MEDS: Pantoprazole 40 MG Tab.CR PO SCH (06:22)
[2019-06-15] MEDS: Acetaminophen 500 MG Tab PO SCH ×3 (06:22→21:00)
[2019-06-15] MEDS: PHENobarbital 32.4 MG Tab PO SCH ×2 (09:26→20:20)
[2019-06-15] MEDS: Sertraline 25 MG Tab PO SCH (09:26)
[2019-06-15] MEDS: Sertraline 50 MG Tab PO SCH (09:26)
[2019-06-15] MEDS: Phenytoin 30 MG Cap.ER PO SCH (09:26)
[2019-06-15] MEDS: Fluticasone Propionate Nasal Spray 16 GM Bottle NASBOTH SCH ×2 (09:26→20:19)
[2019-06-15] MEDS: Lidocaine 5% 700 MG Patch TOP SCH (09:27)
[2019-06-15] MEDS: Phenytoin 100 MG Cap.ER PO SCH ×2 (09:27→20:21)
[2019-06-15] MEDS: Aspirin 325 MG Tab.EC PO SCH (09:27)
[2019-06-15] MEDS: Gabapentin 100 MG Cap PO SCH ×3 (09:27→20:20)
[2019-06-15] MEDS: Calcium Carbonate 500 MG Tablet PO SCH ×2 (09:27→20:20)
[2019-06-15] MEDS: Ibuprofen 400 MG Tab PO PRN (10:14)
[2019-06-16] MEDS: Acetaminophen 500 MG Tab PO SCH ×3 (06:03→22:16)
[2019-06-16] MEDS: Pantoprazole 40 MG Tab.CR PO SCH (06:03)
[2019-06-16] MEDS: Phenytoin 30 MG Cap.ER PO SCH (09:21)
[2019-06-16] MEDS: Aspirin 325 MG Tab.EC PO SCH (09:22)
[2019-06-16] MEDS: Fluticasone Propionate Nasal Spray 16 GM Bottle NASBOTH SCH ×2 (09:22→20:19)
[2019-06-16] MEDS: Lidocaine 5% 700 MG Patch TOP SCH (09:23)
[2019-06-16] MEDS: Sertraline 25 MG Tab PO SCH (09:24)
[2019-06-16] MEDS: Sertraline 50 MG Tab PO SCH (09:24)
[2019-06-16] MEDS: Calcium Carbonate 500 MG Tablet PO SCH ×2 (09:24→20:22)
[2019-06-16] MEDS: Phenytoin 100 MG Cap.ER PO SCH ×2 (09:25→20:21)
[2019-06-16] MEDS: Gabapentin 100 MG Cap PO SCH ×3 (09:29→20:29)
[2019-06-16] MEDS: PHENobarbital 32.4 MG Tab PO SCH ×2 (09:29→20:29)
[2019-06-16] MEDS: Ibuprofen 400 MG Tab PO PRN (10:45)
--- NOTE | 2019-06-16 14:51 | PCM.PN ---
- General Info Date of Service: 06/16/19 Subjective Update: Patient is having issue with diarrhea, came with Senna scheduled twice a day for her bowel regiment since being on narcotics for her fractures. Denies any fevers, chills, nausea or vomiting. No recent antibiotics. She also thought she was to be on Advair but it's not on her home list so pharmacy is checking if this is a home medication that is not on her list. Care conference . - Patient Data Vitals - Most Recent: Last Vital Signs Temp 36.7 C 06/16/19 08:00 Pulse 79 06/16/19 08:00 Resp 15 06/16/19 08:00 BP 110/66 06/16/19 08:00 Pulse Ox 92 L 06/15/19 08:00 Weight - Most Recent: 64.682 kg Med Orders - Current: Current Medications Acetaminophen (Tylenol Extra Strength) 1,000 mg PO Q8H [facility] Stop: 06/17/19 06:01 Last Admin: 06/16/19 13:58 Dose: 1,000 mg Aspirin (Ecotrin) 325 mg PO DAILY [facility] Last Admin: 06/16/19 09:22 Dose: 325 mg Calcium Carbonate/Glycine (Oyster Shell Calcium) 500 mg PO BID [facility] Last Admin: 06/16/19 09:24 Dose: 500 mg Fluticasone Propionate (Flonase) 0 gm NASBOTH BID [facility] Last Admin: 06/16/19 09:22 Dose: 1 spray Gabapentin (Neurontin) 100 mg PO TID [facility] Stop: 06/24/19 09:01 Last Admin: 06/16/19 14:28 Dose: 100 mg Ibuprofen (Motrin) 400 mg PO Q6H PRN PRN Reason: Pain Last Admin: 06/16/19 10:45 Dose: 400 mg Lidocaine (Lidoderm 5%) 1,400 mg TOP DAILY [facility] Stop: 06/17/19 09:01 Last Admin: 06/16/19 09:23 Dose: 1,400 mg Miscellaneous Information (Remove Patch) 2 ea TRDERM BEDTIME [facility] Stop: 06/17/19 21:01 Last Admin: 06/15/19 20:21 Dose: 2 ea Oxycodone HCl (Oxycodone) 5 mg PO Q4H PRN PRN Reason: SEVERE PAIN Last Admin: 06/13/19 09:03 Dose: 5 mg Pantoprazole Sodium (Protonix) 40 mg PO 0600 [facility] Last Admin: 06/16/19 06:03 Dose: 40 mg Phenobarbital (Phenobarbital) 64.8 mg PO BID [facility] Last Admin: 06/16/19 09:29 Dose: 64.8 mg Phenytoin Sodium (Dilantin) 30 mg PO DAILY [facility] Last Admin: 06/16/19 09:21 Dose: 30 mg Phenytoin Sodium (Phenytoin) 200 mg PO BEDTIME [facility] Last Admin: 06/15/19 20:21 Dose: 200 mg Phenytoin Sodium (Phenytoin) 100 mg PO DAILY [facility] Last Admin: 06/16/19 09:25 Dose: 100 mg Senna/Docusate Sodium (Senna Plus) 1 tab PO BID PRN PRN Reason: Constipation Sertraline HCl (Zoloft) 25 mg PO DAILY [facility] Last Admin: 06/16/19 09:24 Dose: 25 mg Sertraline HCl (Zoloft) 50 mg PO DAILY [facility] Last Admin: 06/16/19 09:24 Dose: 50 mg Discontinued Medications Pneumococcal Polyvalent Vaccine (Pneumovax 23) 0.5 ml IM .ONCE ONE Stop: 06/10/19 15:12 Last Admin: 06/10/19 17:42 Dose: Not Given Pneumococcal Polyvalent Vaccine (Pneumovax 23) 0.5 ml IM .ONCE ONE Stop: 06/12/19 10:01 Last Admin: 06/12/19 10:52 Dose: 0.5 ml Senna/Docusate Sodium (Senna Plus) 1 tab PO BID [facility] Last Admin: 06/16/19 09:37 Dose: Not Given - Exam General: Alert, Oriented, Cooperative Lungs: Clear to Auscultation, Normal Respiratory Effort Cardiovascular: Regular Rate, Regular Rhythm GI/Abdominal Exam: Normal Bowel Sounds, Soft, Non-Tender, Abnormal Bowel Sounds (hyperactive) Extremities: No Pedal Edema, Other (right arm in envelope sling) - Problem List & Annotations (1) Femur fracture, right SNOMED Code(s): 42413693 Code(s): S72.91XA - UNSP FRACTURE OF RIGHT FEMUR, INIT FOR CLOS FX Status: Acute Current Visit: Yes (2) Closed right clavicular fracture SNOMED Code(s): 82396631 Code(s): S42.001A - FRACTURE OF UNSP PART OF RIGHT CLAVICLE, INIT FOR CLOS FX Status: Acute Current Visit: No (3) Ribs, multiple fractures SNOMED Code(s): 1633650 Code(s): S22.49XA - MULTIPLE FRACTURES OF RIBS, UNSP SIDE, INIT FOR CLOS FX Status: Acute Current Visit: No (4) Seizure disorder SNOMED Code(s): 674231916 Code(s): G40.909 - EPILEPSY, UNSP, NOT INTRACTABLE, WITHOUT STATUS EPILEPTICUS Status: Chronic Current Visit: No - Problem List Review Problem List Initiated/Reviewed/Updated: Yes - My Orders Last 24 Hours: My Active Orders 06/16/19 14:47 Docusate Sodium/Sennosides [Senna Plus] 1 tab PO BID PRN - Plan Plan:: 1. Change Senna to BID as needed constipation, if still having loose stools get stool culture. 2. Regular diet. 3. Full code 4. Weightbearing as tolerated leg and no weightbearing with the right arm. 5. PT/OT.
[2019-06-17] MEDS: Pantoprazole 40 MG Tab.CR PO SCH (06:45)
[2019-06-17] MEDS: Acetaminophen 500 MG Tab PO SCH (06:45)
[2019-06-17] MEDS: Gabapentin 100 MG Cap PO SCH ×3 (09:10→20:01)
[2019-06-17] MEDS: Phenytoin 100 MG Cap.ER PO SCH ×2 (09:10→20:01)
[2019-06-17] MEDS: PHENobarbital 32.4 MG Tab PO SCH ×2 (09:10→20:01)
[2019-06-17] MEDS: Calcium Carbonate 500 MG Tablet PO SCH ×2 (09:11→20:01)
[2019-06-17] MEDS: Sertraline 25 MG Tab PO SCH (09:11)
[2019-06-17] MEDS: Phenytoin 30 MG Cap.ER PO SCH (09:11)
[2019-06-17] MEDS: Fluticasone Propionate Nasal Spray 16 GM Bottle NASBOTH SCH ×2 (09:11→20:00)
[2019-06-17] MEDS: Aspirin 325 MG Tab.EC PO SCH (09:12)
[2019-06-17] MEDS: Sertraline 50 MG Tab PO SCH (09:12)
[2019-06-17] MEDS: oxyCODONE 5 MG Tab PO PRN ×2 (09:17→20:03)
[2019-06-17] MEDS: Lidocaine 5% 700 MG Patch TOP SCH (09:19)
[2019-06-17] MEDS: Ibuprofen 400 MG Tab PO PRN (13:50)
[2019-06-18] MEDS: Pantoprazole 40 MG Tab.CR PO SCH (06:39)
[2019-06-18] MEDS: Phenytoin 100 MG Cap.ER PO SCH ×2 (08:56→20:21)
[2019-06-18] MEDS: Gabapentin 100 MG Cap PO SCH ×3 (08:56→20:21)
[2019-06-18] MEDS: PHENobarbital 32.4 MG Tab PO SCH ×2 (08:56→20:35)
[2019-06-18] MEDS: Fluticasone Propionate Nasal Spray 16 GM Bottle NASBOTH SCH ×2 (08:56→20:21)
[2019-06-18] MEDS: Aspirin 325 MG Tab.EC PO SCH (08:57)
[2019-06-18] MEDS: Phenytoin 30 MG Cap.ER PO SCH (08:57)
[2019-06-18] MEDS: Sertraline 50 MG Tab PO SCH (08:57)
[2019-06-18] MEDS: Calcium Carbonate 500 MG Tablet PO SCH ×2 (08:57→20:21)
[2019-06-18] MEDS: Sertraline 25 MG Tab PO SCH (08:57)
[2019-06-18] MEDS: oxyCODONE 5 MG Tab PO PRN ×2 (09:07→20:23)
[2019-06-18] MEDS ORDERED: Non-Formulary Medication 1 Each (Fluticasone/Salmeterol [Advair 250-50 Diskus] 1 PUFF) IH SCH (11:15)
[2019-06-18] MEDS: ADVAIR INH SCH ×2 (11:20→20:21)
[2019-06-19] MEDS: Pantoprazole 40 MG Tab.CR PO SCH (06:29)
[2019-06-19] MEDS: oxyCODONE 5 MG Tab PO PRN ×2 (06:36→23:08)
[2019-06-19] MEDS: PHENobarbital 32.4 MG Tab PO SCH ×2 (10:15→20:13)
[2019-06-19] MEDS: Phenytoin 30 MG Cap.ER PO SCH (10:15)
[2019-06-19] MEDS: Phenytoin 100 MG Cap.ER PO SCH ×2 (10:15→20:10)
[2019-06-19] MEDS: Sertraline 50 MG Tab PO SCH (10:16)
[2019-06-19] MEDS: Sertraline 25 MG Tab PO SCH (10:16)
[2019-06-19] MEDS: Aspirin 325 MG Tab.EC PO SCH (10:16)
[2019-06-19] MEDS: Fluticasone Propionate Nasal Spray 16 GM Bottle NASBOTH SCH ×2 (10:16→20:09)
[2019-06-19] MEDS: ADVAIR INH SCH ×2 (10:16→20:09)
[2019-06-19] MEDS: Calcium Carbonate 500 MG Tablet PO SCH ×2 (10:16→20:09)
[2019-06-19] MEDS: Gabapentin 100 MG Cap PO SCH ×3 (10:16→20:13)
[2019-06-20] MEDS: Pantoprazole 40 MG Tab.CR PO SCH (06:15)
[2019-06-20] MEDS: Phenytoin 100 MG Cap.ER PO SCH (08:29)
[2019-06-20] MEDS: Aspirin 325 MG Tab.EC PO SCH (08:30)
[2019-06-20] MEDS: Phenytoin 30 MG Cap.ER PO SCH (08:30)
[2019-06-20] MEDS: ADVAIR INH SCH (08:30)
[2019-06-20] MEDS: Sertraline 25 MG Tab PO SCH (08:30)
[2019-06-20] MEDS: Fluticasone Propionate Nasal Spray 16 GM Bottle NASBOTH SCH (08:31)
[2019-06-20] MEDS: Calcium Carbonate 500 MG Tablet PO SCH (08:31)
[2019-06-20] MEDS: Gabapentin 100 MG Cap PO SCH (08:45)
[2019-06-20] MEDS: Sertraline 50 MG Tab PO SCH (09:09)
[2019-06-20] MEDS: PHENobarbital 32.4 MG Tab PO SCH (09:10)
--- NOTE | 2019-06-23 07:38 | DISCH ---
DISCHARGE DATE: 06/20/2019 REASON FOR ADMISSION: 1. Clavicle fracture. 2. Seizure disorder. 3. Multiple rib fractures. 4. Femur fracture. 5. Depression. DISCHARGE DIAGNOSES: 1. Clavicle fracture. 2. Seizure disorder. 3. Multiple rib fractures. 4. Femur fracture. 5. Depression. BRIEF HISTORY AND HOSPITAL COURSE: This is a 68-year-old female from [facility], admitted from [place] for rehab. She had fallen and sustained multiple fractures, as mentioned above, and she was returned here for strengthening and physical therapy and is ready to go home today. She will go home with home health services because she is unable to ambulate well and still needs physical and occupational therapy. DISCHARGE MEDICATIONS: Discharged on gabapentin 100 mg t.i.d. for 4 more days. But she will also go home on her previous prescriptions of: 1. Oxycodone 5 mg every 4 hours p.r.n. 2. Calcium carbonate 500 mg b.i.d. 3. Aspirin 325 mg a day. 4. Pantoprazole 40 mg a day. 5. Phenobarbital 64.8 mg b.i.d. 6. Phenytoin 30 mg daily and then 20 mg at bedtime, and 100 mg a day. 7. Sertraline 75 mg a day. FOLLOWUP: Establish local PCP and follow up in 1 week, sooner if needed. /[id number] NICOLE/GO
== END 2019-06-20 13:10 | disposition home health service (06) | DRG 534 ==
LOC: FB.MS 14:07
PROVIDERS: ADMIT Family Medicine; ATTEND Family Medicine
DX: S72.401A Unspecified fracture of lower end of right femur, initial encounter for closed fracture (principal); S22.41XA Multiple fractures of ribs, right side, initial encounter for closed fracture; S42.001A Fracture of unspecified part of right clavicle, initial encounter for closed fracture; W18.30XA Fall on same level, unspecified, initial encounter; G40.909 Epilepsy, unspecified, not intractable, without status epilepticus; R19.7 Diarrhea, unspecified; J45.909 Unspecified asthma, uncomplicated; K21.9 Gastro-esophageal reflux disease without esophagitis; M81.0 Age-related osteoporosis without current pathological fracture; F41.9 Anxiety disorder, unspecified; F32.9 Major depressive disorder, single episode, unspecified; Z96.649 Presence of unspecified artificial hip joint; Z90.49 Acquired absence of other specified parts of digestive tract; Y92.091 Bathroom in other non-institutional residence as the place of occurrence of the external cause; Y93.01 Activity, walking, marching and hiking; Z87.891 Personal history of nicotine dependence; Z79.82 Long term (current) use of aspirin; Z79.899 Other long term (current) drug therapy; Z90.710 Acquired absence of both cervix and uterus; Z91.81 History of falling
CPT/HCPCS: 90732; 97110-GO; 97116-GP; 97140-GP; 97161-GP; 97165-GO; 97530-GO; 97535-GO; A9270-GY; G0009

== ENCOUNTER 2020-10-16 11:20 | Emergency (ER) | payer MEDICARE ==
--- NOTE | 2020-10-16 13:21 | ER ---
DATE SEEN: 10/16/2020 CC. Weakness HPI Patient had mRNA covid vaccine s 2 days ago. Now has generalized weakenss. Falls x 2. No LOC PMH:COPD,MDD ROS: No fever. + Diarrhea PE No distress VS stable ENT>Neg Neiuro: No focal findings Labs: Normal CBC,CMP,Trop. Dx : Weakness Plan Retuirn to [facility]. Observe.Fluids MTDD
== END 2020-10-16 12:30 | disposition home or self-care (01) ==
LOC: FB.ED 11:20
DX: R53.1 Weakness (principal); R19.7 Diarrhea, unspecified
CPT/HCPCS: 36415; 80048; 84484; 85025; 99284

== ENCOUNTER 2020-11-12 19:09 | Emergency (ER) | payer MEDICARE ==
[2020-11-12] MEDS ORDERED: Ketorolac 30 MG/ML SDV IM ONE (19:34)
[2020-11-12] MEDS ORDERED: Acetaminophen 500 MG Tab PO ONE (19:35)
--- NOTE | 2020-11-12 19:53 | EDM.PDOC ---
ED HPI GENERAL MEDICAL PROBLEM - General Chief Complaint: General Stated Complaint: COVID VACCINE REACTION; LEG WEAKNESS Time Seen by Provider: 11/12/20 19:10 Source of Information: Reports: Patient History Limitations: Reports: No Limitations - History of Present Illness INITIAL COMMENTS - FREE TEXT/NARRATIVE: c/o weakness pt got her 2nd COVID vax yesterday, states she does not feel well, not able to be specific, no n/v, denies pain uses a walker, thinks she access to a w/c if needed from [facility] apparently fell twice but has no injuries, her left deltoid (injection site) is unremarkable appears to be doing well had a similar c/w last month, CBC/BMP/trop were all neg, checked in ED by Dr Choi then comes via EMS tonight may have a low grade temp 24 hours after vax, which is not uncommon no localized findings requested ice water and drank it in ED without difficulty Treatments [employer] PROCESSING: Reports: EKG - Related Data Allergies Allergy/AdvReac Type Severity Reaction Status Date / Time No Known Allergies Allergy Verified 11/12/20 19:15 Home Meds: Home Meds Aspirin [Aspirin EC] 325 mg PO DAILY 06/04/19 [History] Calcium Carbonate/Vitamin D3 [Calcium 500-Vit D3 200 Tablet] 1 tab PO BID 06/04/19 [History] Ibuprofen 400 mg PO Q6H PRN 06/04/19 [History] PHENobarbitaL [Phenobarbital] 64.8 mg PO BID 06/04/19 [History] Pantoprazole Sodium [Protonix] 40 mg PO DAILY 06/04/19 [History] Phenytoin 100 mg PO BEDTIME 06/04/19 [History] Phenytoin Sodium Extended [Dilantin] 100 mg PO DAILY 06/04/19 [History] Phenytoin [Dilantin] 30 mg PO DAILY 06/04/19 [History] Sennosides/Docusate Sodium [Senna-S] 1 tab PO BID 06/04/19 [History] Sertraline [Zoloft] 75 mg PO DAILY 06/04/19 [History] Fluticasone Propion/Salmeterol [Advair 250-50 Diskus] 1 puff IH BID 06/18/19 [History] Acetaminophen 325 mg PO Q4H PRN 10/16/20 [History] Cholecalciferol (Vitamin D3) [Vitamin D3] 2,000 unit PO DAILY 10/16/20 [History] Cranberry 500 mg PO DAILY 10/16/20 [History] Folic Acid 1 mg PO DAILY 10/16/20 [History] Past Medical History HEENT History: Reports: Impaired Vision Respiratory History: Reports: Asthma, COPD Gastrointestinal History: Reports: GERD Genitourinary History: Reports: Urinary Incontinence Musculoskeletal History: Reports: Fracture, Osteoporosis, Other (See Below) Other Musculoskeletal History: rt femer fx Neurological History: Reports: Seizure Psychiatric History: Reports: Anxiety, Depression Hematologic History: Reports: Anemia - Past Surgical History GI Surgical History: Reports: Appendectomy Female Surgical History: Reports: Hysterectomy Musculoskeletal Surgical History: Reports: Hip Replacement, ORIF Social & Family History - Family History Family Medical History: No Pertinent Family History - Caffeine Use Caffeine Use: Reports: None Caffeine Use Comment: couple cups of coffee - Living Situation & Occupation Living situation: Reports: Assisted Living (Lives in [facility]) ED ROS GENERAL - Review of Systems Review Of Systems: See Below Constitutional: Reports: Weakness HEENT: Reports: No Symptoms Respiratory: Reports: No Symptoms Cardiovascular: Reports: No Symptoms Endocrine: Reports: No Symptoms GI/Abdominal: Reports: No Symptoms : Reports: No Symptoms Musculoskeletal: Reports: No Symptoms Skin: Reports: No Symptoms Neurological: Reports: No Symptoms Psychiatric: Reports: No Symptoms Hematologic/Lymphatic: Reports: No Symptoms Immunologic: Reports: No Symptoms ED EXAM, GENERAL - Physical Exam Exam: See Below Exam Limited By: No Limitations General Appearance: Alert, WD/WN, No Apparent Distress, Other (pleasant, normal speech, NAD, nonill) Eye Exam: Bilateral Eye: PERRL Ears: Hearing Grossly Normal Nose: Normal Inspection, Normal Mucosa, No Blood Throat/Mouth: Normal Inspection, Normal Lips, Normal Voice, No Airway Compromise, Other (edentulous) Head: Atraumatic, Normocephalic Neck: Normal Inspection, Supple, Non-Tender, Full Range of Motion. No: Lym phadenopathy (R), Lymphadenopathy (L) Respiratory/Chest: No Respiratory Distress, Lungs Clear, Normal Breath Sounds, No Accessory Muscle Use, Chest Non-Tender Cardiovascular: Regular Rate, Rhythm, No Edema, Other (2/6 BERENICE at LSB, quiet precordium, normal HR in 80s on my exam) GI/Abdominal: Soft, Non-Tender, No Distention Back Exam: Normal Inspection, Full Range of Motion. No: CVA Tenderness (R), CVA Tenderness (L) Extremities: Normal Inspection, Normal Range of Motion, Non-Tender, No Pedal Edema, Other (good ROM both hips and knees without discomfort, no point tender, no ecchymosis on ext x 4 except an old 2 x 2 ecchymosis above L elbow posteriorly, L deltoid at injection site is NT and no swell and no red) Neurological: Alert, Oriented, CN II-XII Intact, Normal Cognition, No Motor/Sensory Deficits Psychiatric: Normal Affect, Normal Mood Skin Exam: Warm, Dry, Intact, Normal Color, No Rash Lymphatic: No Adenopathy Course - Vital Signs Last Recorded V/S: Last Vital Signs Temp 37.1 C 11/12/20 19:09 Pulse 110 H 11/12/20 19:09 Resp 18 11/12/20 19:09 BP 146/58 H 11/12/20 19:09 Pulse Ox 100 11/12/20 19:09 - Orders/Labs/Meds Meds: Medications Discontinued Medications Generic Name Dose Route Start Last Admin Trade Name Alyse PRN Reason Stop Dose Admin Acetaminophen 1,000 mg 11/12/20 19:35 Tylenol Extra Strength PO 11/12/20 19:36 ONETIME ONE Ketorolac Tromethamine 30 mg 11/12/20 19:34 Toradol IM 11/12/20 19:35 ONETIME ONE Departure - Departure Time of Disposition: 19:47 Disposition: DC/Tfer to Hospice - Home 50 Condition: Good Clinical Impression: Post-vaccination reaction - Discharge Information *PRESCRIPTION DRUG MONITORING PROGRAM REVIEWED*: Not Applicable *COPY OF PRESCRIPTION DRUG MONITORING REPORT IN PATIENT MELVA: Not Applicable Referrals: Anika Roberts PA-C [Primary Care Provider] - Additional Instructions: For pain and inflammation, take acetaminophen 500 mg 2 tabs and ibuprofen 200 mg 3 tabs 4 times a day for 3 days, longer if needed. Increase fluids. Rest. Be very carefully moving around. Make sure to use your walker. Use a wheelchair if necessary. In most cases, vaccine reactions will last about 3 days. See your doctor in 3 days if you are doing better. Return to Emergency Department if you are feeling worse. Sepsis Event Note (ED) - Evaluation Sepsis Screening Result: No Definite Risk - Focused Exam Vital Signs: Vital Signs Temp Pulse Resp BP Pulse Ox 11/12/20 19:09 37.1 C 110 H 18 146/58 H 100
== END 2020-11-12 20:18 | disposition home or self-care (01) ==
LOC: FB.ED 19:09
DX: R53.1 Weakness (principal); R50.83 Postvaccination fever; T50.B95A Adverse effect of other viral vaccines, initial encounter; J44.9 Chronic obstructive pulmonary disease, unspecified; K21.9 Gastro-esophageal reflux disease without esophagitis; R56.9 Unspecified convulsions; Z79.899 Other long term (current) drug therapy
CPT/HCPCS: 96372; 99282; 99284; A9270-GY; J1885

== ENCOUNTER 2020-12-07 10:12 | Inpatient (IN) | payer MEDICARE ==
--- OUTSIDE RECORDS SUMMARY | 2020-12-07 14:21 | XMSREPORT ---
:1950 Author Organization [facility] s Address [address] [place] [address] Care Team Providers Name Role Phone Maddy Roberts Primary Care Provider Maddy Roberts Attributed Provider Reason for Visit Reason Comments Leg Injury Pt presents to ER via [facility] from home for evaluation of questionable left tib/fib fr acture with deformity. EMS reports pt was exercising and lost balance, stepping wrong. Pt has known osteoporosis. Pt received 100mcg Fentanyl en route and has been drowsy. Pillow splint in place during transport. Auth/Cert Status Reason Specialty Diagnoses / Procedures Referred By Rudolph strong Referred To Contact Encounter Details Date Type Department Care Team Description 12/01/2020 - Hospital Encounter [facility] n[facility] Department [address] [place] [address] [phone] Closed fracture of 12/07/2020 [place] [facility] Justin Ibrahim MD [address] [place] [address] [phone] right lower [address] [place] Brian Burrows MD [address] [place] [address] [phone] [facility] Henny Szymanski MD [address] [place] [address] [phone] [place] [address] Alfredo Guallpa MD [address] [place] [address] [phone] Allergies No Known Allergiesdocumented as of this encounter (statuses as of 12/07/2020) Medications Medication Sig Dispensed Refills Start Date End Date Status folic acid 1 mg TAKE 1 TABLET BY 30 tablet 11 08/30/2020 Active tabletIndications: MOUTH ONCE DAILY Folic acid deficiency Additional Information Patient taking differently: 1 mg Oral DAILY, Informant: Receiving Worker, Reported on 12/01/2020 8:51 PM metroNIDAZOLE (METROCREAM) Apply topically as 0 Active 0.75 % cream needed for other (Specify) vitamin D3, cholecalciferol, TAKE 1 TABLET BY MOUTH 90 tablet 3 11/19/2020 Active (VITAMIN D3) 50 mcg (2000 ONCE DAILY unit) tabletIndications: Osteoporosis, unspecified osteoporosis type, unspecified pathological fracture presence Additional Information Patient taking differently: 50 mcg Oral DAILY, Informant: Receiving Worker, Reported on 12/01/2020 8:51 PM acetaminophen Take 2 tablets 90 tablet 0 12/07/2020 01/06/2021 Active (TYLENOL) 325 mg (650 mg) by tabletIndications: mouth every 6 Closed fracture of hours as needed shaft of left tibia, for mild pain, unspecified fracture fever > morphology, initial (indicate temp) encounter, Closed or headache fracture of proximal (100.4) end of left fibula, unspecified fracture morphology, initial encounter enoxaparin (LOVENOX) Inject 40 mg 0 12/08/2020 Active 40 mg syringe (100 subcutaneously 1 mg/mL) subcutaneous time per day injection solutionIndications: Closed fracture of shaft of left tibia, unspecified fracture morphology, initial encounter, Closed fracture of proximal end of left fibula, unspecified fracture morphology, initial encounter HYDROmorphone Administer 0.5 0 12/07/2020 Active (DILAUDID) 1 mg/mL mL (0.5 mg) SOLN injection intravenously solution (conc: 1 every 2 hours as mg/mL)Indications: needed for Closed fracture of severe pain or shaft of left tibia, breakthrough unspecified fracture pain morphology, initial encounter, Closed fracture of proximal end of left fibula, unspecified fracture morphology, initial encounter oxyCODONE (OXY-IR) 5 Take 1 tablet (5 12 tablet 0 12/07/2020 0 12/10/2020 Active mg tablet (immediate mg) by mouth release)Indications: Every 4 hours as Closed fracture of needed for shaft of left tibia, moderate pain unspecified fracture for up to 3 days morphology, initial encounter, Closed fracture of proximal end of left fibula, unspecified fracture morphology, initial encounter calcium carbonate Take 1 tablet 90 tablet 0 12/07/2020 Active (TUMS) 500 MG (500 mg) by chewable mouth 2 times a tabletIndications: day Gastroesophageal reflux disease without esophagitis albuterol Inhale 1 nebule 0 12/07/2020 12/12/2021 Ac tive (PROVENTIL) (2.5 (2.5 mg) by mg/3mL) 0.083% nebulization inhalation Every 4 hours as solutionIndications: needed for Shortness of breath shortness of breath or wheezing fluticasone-vilanter Inhale 1 puff 3 each 0 12/07/2020 Active ol (BREO ELLIPTA) orally 1 time 100-25 mcg/puff per day Rinse inhalerIndications: mouth with water Shortness of breath after use. phenytoin sodium Take 1 capsule 90 capsule 4 12/08/20202021 Active extended (DILANTIN) (100 mg) by 100 mg mouth 1 time a capsuleIndications: day in the Seizure disorder morning ([facility]) phenytoin sodium Take 1 capsule 90 capsule 4 12/07/20202021 Active extended (DILANTIN) (200 mg) by 200 MG mouth every capsuleIndications: night at bedtime Seizure disorder ([facility]) phenytoin sodium Take 1 capsule 90 capsule 4 12/08/20202021 Active extended (DILANTIN) (30 mg) by mouth 30 mg 1 time a day in capsuleIndications: the morning Seizure disorder ([facility]) sertraline (ZOLOFT) Take 3 tablets 270 tablet 4 12/08/2020 Active 25 mg (75 mg) by mouth tabletIndications: 1 time per day Recurrent major depressive disorder, remission status unspecified ([facility]) ondansetron (ZOFRAN Take 1 tablet (4 0 12/07/2020 Active ODT) 4 mg mg) by mouth 4 dispersible times a day as tabletIndications: needed for Nausea nausea or vomiting ondansetron (ZOFRAN) Administer 2 mL 0 12/07/2020 Active 4 mg/2 mL injection (4 mg) solutionIndications: intravenously 4 Nausea times a day as needed for nausea or vomiting ondansetron (ZOFRAN) Administer 2 mL 0 12/07/2020 Active 4 mg/2 mL injection (4 mg) solutionIndications: intravenously Nausea Every 4 hours as needed for nausea or vomiting furosemide (LASIX) Take 1 tablet 90 tablet 3 12/08/20202021 Active 20 mg (20 mg) by mouth tabletIndications: 1 time per day Generalized edema PHENobarbital 30 mg Take 2 tablets 120 tablet 5 12/07/202001/2021 Active tabletIndications: (60 mg) by mouth Seizure disorder 2 times a day (HCC) bisacodyl (DULCOLAX) Insert 1 30 0 12/07/2020 Active 10 mg suppository (10 suppository suppositoryIndicatio mg) rectally 1 ns: Therapeutic time a day as opioid induced needed for constipation constipation Unwrap before inserting. Do not swallow. polyethylene glycol Take 1 packet by 0 12/08/2020 Active (MIRALAX) 17 g mouth 1 time per packetIndications: day Dissolve in Therapeutic opioid 4 to 8 ounces of induced constipation water, juice, soda, coffee, tea. senna-docusate Take 1 tablet by 0 12/07/2020 Active sodium mouth 2 times a (SENOKOT-S;PERICOLAC day E) 8.6-50 MG tabletIndications: Therapeutic opioid induced constipation senna-docusate Take 1 tablet by 0 12/07/2020 Active sodium mouth 2 times a (SENOKOT-S;PERICOLAC day as needed E) 8.6-50 MG for constipation tabletIndications: Therapeutic opioid induced constipation potassium & sodium Take 1 packet by 100 packet 3 12/07/2020 Active phosphates mouth 2 times a (PHOS-NAK) day 280-160-250 MG PACKIndications: Therapeutic opioid induced constipation sodium chloride 0.9% Administer 10 mL 0 12/07/2020 Active SOLNIndications: intravenously 2 Closed fracture of times a day and shaft of left tibia, as needed unspecified fracture morphology, initial encounter, Closed fracture of proximal end of left fibula, unspecified fracture morphology, initial encounter benzocaine-menthol Place 1 lozenge 0 12/07/2020 Active (CEPACOL W/ into mouth 3 BENZOCAINE) 15-3.6 times a day as MG LOZGIndications: needed for sore Closed fracture of throat shaft of left tibia, unspecified fracture morphology, initial encounter, Closed fracture of proximal end of left fibula, unspecified fracture morphology, initial encounter pantoprazole Take 1 tablet 90 tablet 3 12/08/2020 Ac tive (PROTONIX) 40 mg (40 mg) by mouth enteric coated 1 time per day tabletIndications: Gastroesophageal reflux disease without esophagitis ibuprofen (MOTRIN) Take 1 tablet 0 06/10/20192020 Discontinued 400 mg (400 mg) by (Stop Ta espinoza tabletIndications: mouth every 6 at Discharge) Closed fracture of hours as needed multiple ribs of for mild pain right side, initial encounter fluticasone-salmeter INHALE ONE PUFF 3 each 1 08/31/2020 Discontinued ol (ADVAIR) 250-50 INTO LUNGS TWICE (Stop Taking mcg/dose A DAY at [facility]) discusIndications: Encounter to establish care naproxen (ALEVE) 220 Take 220-440 mg 0 06/2021 Discontinued mg tablet by mouth 2 times (St op Taking a day as needed at [facility]) CRANBERRY Take 500 mg by 0 09/23/2020 12/07/2020 Dis continued CONCENTRATE 500 MG mouth 1 time per (Stop Taking capsule day at [facility]) albuterol HFA Inhale 1 puff 0 12/07/2020 D iscontinued (PROVENTIL,PROAIR,VE orally every 4 (Stop Taking NTOLIN) 108 (90 to 6 hours as at Discharge) Base) MCG/ACT needed Shake inhaler well before using. acetaminophen Take 650 mg by 0 12/07/2020 Discontinued (TYLENOL) 325 mg mouth every 4 to (Stop Taking tablet 6 hours as at [facility]) needed PHENobarbital 64.8 TAKE 1 TABLET BY 60 tablet 3 10/12/202006/2021 Discontinued MG TABSIndications: MOUTH TWICE A (Stop Taking Seizures (HCC) DAY at [facility]) phenytoin sodium TAKE 1 CAPSULE 90 capsule 1 10/12/20202020 Discontinued extended (DILANTIN) BY MOUTH ONCE (Stop Taking 30 mg DAILY IN THE at [facility]) capsuleIndications: MORNING WITH Seizures (HCC) 100MG phenytoin sodium TAKE 1 CAP BY 270 capsule 1 10/12/20202020 Discontinued extended (DILANTIN) MOUTH IN THE (Stop Taking 100 mg MORNING;TAKE 2 at [facility]) capsuleIndications: CAPS (200MG) AT Seizures ([facility]) BEDTIME aspirin (ECOTRIN) TAKE 1 TABLET BY 90 tablet 0 10/22/2020 030 06/2021 Discontinued 325 mg enteric MOUTH ONCE DAILY (Stop Taking coated at [facility]) tabletIndications: Encounter to establish care PROLIA 60 MG/ML INJECT 1ML 1 mL 1 10/28/2020 12/07/2020 D iscontinued subcutaneous (60MG) (Stop T aking solutionIndications: SUBCUTANEOUSLY at Discharge) Osteoporosis, EVERY 6 MONTHS unspecified osteoporosis type, unspecified pathological fracture presence pantoprazole TAKE 1 TABLET BY 90 tablet 0 11/05/2020 Discontinued (PROTONIX) 40 mg MOUTH ONCE DAILY (Stop Taking enteric coated at [facility]) tabletIndications: Encounter to establish care oyster shell TAKE 1 TABLET BY 180 tablet 0 11/05/2020 12/08/19 21 Discontinued calcium-vitamin D MOUTH TWICE A (Stop Taking (OSCAL 500 + VIT D) DAY at Discharge) 500 mg-200 unit tabletIndications: Encounter to establish care sertraline (ZOLOFT) TAKE 1 TABLET BY 90 tablet 0 11/05/2020 Discontinued 50 mg MOUTH ONCE DAILY (St op Taking tabletIndications: a t Discharge) Recurrent major depressive disorder, remission status unspecified ([facility]) sertraline (ZOLOFT) TAKE 1 TABLET BY 90 tablet 0 11/05/2020 Discontinued 25 mg MOUTH ONCE DAILY (St op Taking tabletIndications: a t Discharge) Recurrent major depressive disorder, remission status unspecified ([facility]) STIMULANT LAXATIVE TAKE 1 TABLET BY 180 tablet 3 11/19/2020 Discontinued 8.6-50 MG MOUTH TWICE A (Stop Taking tabletIndications: DAY a t Discharge) Constipation, unspecified constipation type documented as of this encounter (statuses as of 12/07/2020) Active Problems Problem Noted Date Closed fracture of right lower extremity 12/01/2020 Fall from or off toilet w strike against object, init 06/05/2019 documented as of this encounter (statuses as of 12/07/2020) Immunizations Name Administration Dates Next Due FLU VACCINE EGG-FREE 18YR+ (Flublok) 07/09/2019 documented as of this encounter Social History Tobacco Use Types Packs/Day Years Used Date Former Smoker Quit: 10/01/19 Smokeless Tobacco: Never Used Alcohol Use Drinks/Week oz/Week Comments Not Currently Sex Assigned at Date Recorded Not on file documented as of this encounter Last Filed Vital Signs Vital Sign Reading Time Taken Comments Blood Pressure 130/57 12/07/2020 7:45 AM GEOPHYSICAL E LOGGER Pulse 95 12/07/2020 7:45 AM GEOPHYSICAL E LOGGER Temperature 37.2 C (98.9 F) 12/07/2020 7:45 AM GEOPHYSICAL E LOGGER Respiratory Rate 16 12/07/2020 7:45 AM GEOPHYSICAL E LOGGER Oxygen Saturation 91% 12/07/2020 7:45 AM GEOPHYSICAL E LOGGER Inhaled Oxygen Concentration - - Weight 71.2 kg (156 lb 14.4 oz) 12/01/2020 8:05 PM GEOPHYSICAL E LOGGER Height 165.1 cm (5' 5") 12/01/2020 8:05 PM GEOPHYSICAL E LOGGER Body Mass Index 26.11 12/01/2020 8:05 PM GEOPHYSICAL E LOGGER documented in this encounter Functional Status Functional Status Response Date of Assessment Is the person deaf or does he/she have serious difficulty No 06/05/2019 hearing? Is this person blind or does he/she have difficulty No 06/05/2019 seeing even when wearing glasses? Do you have difficulty with walking, balance, climbing Yes 12/02/2020 stairs, or had a fall in the last 3 months? Does the patient have difficulty dressing or bathing? No 06/05/2019 Because of a physical, mental, or emotional condition; Yes 06/05/2019 does this person have difficulty doing errands alone such as visiting a doctor's office or shopping? Cognitive Status Response Date of Assessment Because of a physical, mental, or emotional condition; Yes 06/05/2019 does this person have serious difficulty concentrating, remembering, or making decisions? documented as of this encounter Discharge Summaries Not on filedocumented in this encounter Medications at Time of Discharge Medication Sig Dispensed Refills Start Date End Date acetaminophen Take 2 tablets (650 90 tablet 0 12/07/2020 (TYLENOL) 325 mg mg) by mouth every 6 1 tabletIndications: hours as needed for Closed fracture of mild pain, fever > shaft of left tibia, (indicate temp) or unspecified fracture headache (100.4) morphology, initial encounter, Closed fracture of proximal end of left fibula, unspecified fracture morphology, initial encounter enoxaparin (LOVENOX) Inject 40 mg 0 12/08/2020 40 mg syringe (100 subcutaneously 1 mg/mL) subcutaneous time per day injection solutionIndications: Closed fracture of shaft of left tibia, unspecified fracture morphology, initial encounter, Closed fracture of proximal end of left fibula, unspecified fracture morphology, initial encounter HYDROmorphone Administer 0.5 mL 0 12/07/2020 (DILAUDID) 1 mg/mL (0.5 mg) SOLN injection intravenously every solution (conc: 1 2 hours as needed mg/mL)Indications: for severe pain or Closed fracture of breakthrough pain shaft of left tibia, unspecified fracture morphology, initial encounter, Closed fracture of proximal end of left fibula, unspecified fracture morphology, initial encounter oxyCODONE (OXY-IR) 5 Take 1 tablet (5 mg) 12 tablet 0 12/07 mg tablet (immediate by mouth Every 4 1 release)Indications: hours as needed for Closed fracture of moderate pain for up shaft of left tibia, to 3 days unspecified fracture morphology, initial encounter, Closed fracture of proximal end of left fibula, unspecified fracture morphology, initial encounter calcium carbonate Take 1 tablet (500 90 tablet 0 12/07/2020 (TUMS) 500 MG chewable mg) by mouth 2 times tabletIndications: a day Gastroesophageal reflux disease without esophagitis albuterol (PROVENTIL) Inhale 1 nebule (2.5 0 /06/2021 (2.5 mg/3mL) 0.083% mg) by nebulization 2 inhalation Every 4 hours as solutionIndications: needed for shortness Shortness of breath of breath or wheezing fluticasone-vilanterol Inhale 1 puff orally 3 each 0 06/2021 (BREO ELLIPTA) 100-25 1 time per day Rinse mcg/puff mouth with water inhalerIndications: after use. Shortness of breath phenytoin sodium Take 1 capsule (100 90 capsule 4 12/08/2020 extended (DILANTIN) mg) by mouth 1 time 2 100 mg a day in the morning capsuleIndications: Seizure disorder ([facility]) phenytoin sodium Take 1 capsule (200 90 capsule 4 12/07/2020 extended (DILANTIN) mg) by mouth every 2 200 MG night at bedtime capsuleIndications: Seizure disorder ([facility]) phenytoin sodium Take 1 capsule (30 90 capsule 4 12/08/2020 extended (DILANTIN) 30 mg) by mouth 1 time 2 mg capsuleIndications: a day in the morning Seizure disorder ([facility]) sertraline (ZOLOFT) 25 Take 3 tablets (75 270 tablet 4 12/08 mg tabletIndications: mg) by mouth 1 time 2 Recurrent major per day depressive disorder, remission status unspecified ([facility]) ondansetron (ZOFRAN Take 1 tablet (4 mg) 0 2020 ODT) 4 mg dispersible by mouth 4 times a tabletIndications: day as needed for Nausea nausea or vomiting ondansetron (ZOFRAN) 4 Administer 2 mL (4 0 12/07 mg/2 mL injection mg) intravenously 4 solutionIndications: times a day as Nausea needed for nausea or vomiting ondansetron (ZOFRAN) 4 Administer 2 mL (4 0 12/07 mg/2 mL injection mg) intravenously solutionIndications: Every 4 hours as Nausea needed for nausea or vomiting furosemide (LASIX) 20 Take 1 tablet (20 90 tablet 3 021 mg tabletIndications: mg) by mouth 1 time 2 Generalized edema per day PHENobarbital 30 mg Take 2 tablets (60 120 tablet 5 12/08/19 21 tabletIndications: mg) by mouth 2 times 1 Seizure disorder ([facility]) a day bisacodyl (DULCOLAX) Insert 1 suppository 30 suppository 0 0 12/07/2020 10 mg (10 mg) rectally 1 suppositoryIndications time a day as needed : Therapeutic opioid for constipation induced constipation Unwrap before inserting. Do not swallow. polyethylene glycol Take 1 packet by 0 12/08/2020 (MIRALAX) 17 g mouth 1 time per day packetIndications: Dissolve in 4 to 8 Therapeutic opioid ounces of water, induced constipation juice, soda, coffee, tea. senna-docusate sodium Take 1 tablet by 0 12/08/19 21 (SENOKOT-S;PERICOLACE) mouth 2 times a day 8.6-50 MG tabletIndications: Therapeutic opioid induced constipation senna-docusate sodium Take 1 tablet by 0 12/08/19 21 (SENOKOT-S;PERICOLACE) mouth 2 times a day 8.6-50 MG as needed for tabletIndications: constipation Therapeutic opioid induced constipation potassium & sodium Take 1 packet by 100 packet 3 12/07/2020 phosphates (PHOS-NAK) mouth 2 times a day 280-160-250 MG PACKIndications: Therapeutic opioid induced constipation sodium chloride 0.9% Administer 10 mL 0 SOLNIndications: intravenously 2 Closed fracture of times a day and as shaft of left tibia, needed unspecified fracture morphology, initial encounter, Closed fracture of proximal end of left fibula, unspecified fracture morphology, initial encounter benzocaine-menthol Place 1 lozenge into 0 021 (CEPACOL W/ mouth 3 times a day BENZOCAINE) 15-3.6 MG as needed for sore LOZGIndications: throat Closed fracture of shaft of left tibia, unspecified fracture morphology, initial encounter, Closed fracture of proximal end of left fibula, unspecified fracture morphology, initial encounter pantoprazole Take 1 tablet (40 90 tablet 3 12/08/2020 (PROTONIX) 40 mg mg) by mouth 1 time enteric coated per day tabletIndications: Gastroesophageal reflux disease without esophagitis vitamin D3, TAKE 1 TABLET BY 90 tablet 3 11/19/2020 cholecalciferol, MOUTH ONCE DAILY (VITAMIN D3) 50 mcg (2000 unit) tabletIndications: Osteoporosis, unspecified osteoporosis type, unspecified pathological fracture presence folic acid 1 mg TAKE 1 TABLET BY 30 tablet 11 08/30/2020 tabletIndications: MOUTH ONCE DAILY Folic acid deficiency metroNIDAZOLE Apply topically as 0 (METROCREAM) 0.75 % needed for other cream (Specify) documented as of this encounter Progress Notes Henny Szymanski MD - 12/06/2020 3:02 PM CST 70-year-old female with history of seizure disorder, GERD, mood disorder had a mechanical fall and suffered tibial-fibular fracture. Underwent surgical intervention. Also had fever on 12/03/2020. INTERVAL HISTORY No further fever No voiding difficulty Denies any chest pain or shortness of breath. Denies any abdominal pain nausea vomiting. Pain at surgical site well controlled. REVIEW OF SYSTEM 10 point review of system negative except for that mentioned in interval history PHYSICAL EXAMINATION Current Vital Signs Temp: 97.6 F (36.4 C) BP: 124/58 Pulse: 96 O2 Device: Room Air O2 Flow Rate (L/min): 1 l/min Resp: 20 Pain Ratin (out of 10) Weight: 71.2 kg (156 lb 14.4 oz) SpO2: 94 % Constitutional: Not in any acute distress Neurological: No confusion, moving all extremities Cardiovascular: S1-S2 heard, RRR Chest: Clear to auscultation Extremities: 1+ bilateral pedal edema. Abdomen: Soft nontender no guarding or rigidity, bowel sounds normal. Medications/allergies/pertinent test results including imaging/nursing notes reviewed. ASSESSMENT AND PLAN Left tibial fibula fracture following mechanical fall, s/p surgical intervention Management per orthopedic surgery team. PT, OT Awaiting Placement to swing bed NWB LLE in CAM Boot while up per ortho DVT prophylaxis: Lovenox Constipation: improved. Had bowel movement today . Continue bowel regimen Ortho follow up : 2 weeks with [facility] and 6 weeks with [facility] Acute post of anemia Hb stable at 8.6 --> 9.5 BL Hb is 11-12 Fever - no further episode Febrile episode 12/03/2020 Febrile episode 12/04/20 Currently afebrile Surgical dressing no soakage Urine Cx, Blood Cx dated 12/03/20 - no growth Repeat urine /blood culture 12/05/20 - NGTD CXR - some scarring versus atelectasis in the bases. There is small bilateral pleural effusion and mild pulmonary venous congestion. Repeat CXR 12/05 : Small left pleural effusion. Increasing left basilar atelectasis or consolidation. Prominent reticular or interstitial lung markings are present potentially representing senescent change and/or edema. Unchanged heart size. No pneumothorax. If warranted, consider further evaluation with CT. Will do CT chest without contrast for further evaluation Will discontinue Rocephin as no obvious source of infection Procal normal 12/05/20 Continue incentive spirometry Edema 1+. Continue Lasix 20 mg daily. Seizure disorder: Continue seizure medications GERD: Continue Protonix Mood disorder: Continue Zoloft DVT prophylaxis: Continue Lovenox CODE STATUS: Full code. Plan of care discussed with patient and bedside RN I called and discussed current plan of care including transfer to [facility] with her emergency contact - Marcella Aguayo ( sister ) over phone enedict, Raysa Donnelly, PHILATELIC CONSULTANT-PROCESSING OPERATOR - 12/06/2020 7:42 AM CST ORTHOPEDIC POST OPERATIVE PROGRESS NOTE December 06, 2020 4 Days Post-Op Status Post: Procedure(s): LEFT TIBIA IM NAILING AND HARDWARE REMOVAL Patient of Dr. Sandy S: Antonietta Ford is a 70yr female recovering from surgery, denies CP, SOB, N/V, Fever or Chills, numbness/tingling. Reports a poor appetite. PT/OT: Recommending low-intensity setting on last assessment, will follow for any new recommendations Pain: Currently denies pain, states pain is increased when she moves her leg Has had BM noted since surgery. Is passing flatus. Urinating without difficulty, external catheter in place O: Temp Readings from Last 1 Encounters: 12/06/20 99.8 F (37.7 C) BP Readings from Last 1 Encounters: 12/06/20 121/67 Pulse Readings from Last 1 Encounters: 12/06/20 99 Gen: Sitting up in bed, alert and orientated, no apparent distress Incision: no drainage. Dressing clean, dry, and intact. left LEG: Cam boot in place, removed for assessment. Warm, well perfused. Brisk capillary refill noted. Sensation intact to light touch distally. Homans negative, no calf pain bilaterally. Compartments soft and compressible. DP and PT pulses are palpable. Motor grossly intact, able to PF/DF ankle and wiggle toes. Mild tenderness to palpation Lab Results Component Value Date WBC 4.4 12/05/2020 NUCRBC 0 12/05/2020 RBC 2.57 (L) 12/05/2020 HEMOGLOBIN 8.6 (L) 12/05/2020 HEMATOCRIT 26.6 (L) 12/05/2020 MCV 103.5 (H) 12/05/2020 MCH 33.5 12/05/2020 MCHC 32.3 12/05/2020 PLTCOUNT 183 12/05/2020 NEUTROPCT 71.0 12/05/2020 LYMPHSPCT 21.7 12/05/2020 MONOSPCT 6.3 12/05/2020 EOSPCT 0.0 12/05/2020 BASOPHILPCT 0.5 12/05/2020 No results found for: INR A/P: 1. s/p LEFT TIBIA IM NAILING AND HARDWARE REMOVAL : DVT prophylaxis: Lovenox x28 days total post-operatively Pain control: Continue current regimen Wound care: Dressing change done yesterday, continue to change every 7 days or sooner if needed dueto drainage PT/OT: continue; Activity: as tolerated; NWB to LLE with cam boot on at all times Disposition/planning: continue cares; Per Orthopedics, clear for discharge to appropriate setting when available and medically stable. Follow up: 2 weeks with [facility] and [address] Sandy [facility] 2. Acute Blood loss Anemia: Expected, hemoglobin 8.6 yesterday AM Raysa Melchor APRN, UI LEAD DEVELOPER-C Orthopedic Surgery HYSICAL E LOGGER Henny Szymanski MD - 12/05/2020 2:13 PM CST 70-year-old female with history of seizure disorder, GERD, mood disorder had a mechanical fall and suffered tibial-fibular fracture. Underwent surgical intervention. Also had fever on 12/03/2020. INTERVAL HISTORY febrile episode last night . Had BM today No voiding difficulty Denies any chest pain or shortness of breath. Denies any abdominal pain nausea vomiting. Pain at surgical site well controlled. REVIEW OF SYSTEM 10 point review of system negative except for that mentioned in interval history PHYSICAL EXAMINATION Current Vital Signs Temp: 98.4 F (36.9 C) BP: 114/72 Pulse: 103 O2 Device: Room Air O2 Flow Rate (L/min): 1 l/min Resp: 14 Pain Ratin (out of 10) Weight: 71.2 kg (156 lb 14.4 oz) SpO2: 94 % Constitutional: Not in any acute distress Neurological: No confusion, moving all extremities Cardiovascular: S1-S2 heard, RRR Chest: Clear to auscultation Extremities: 1+ bilateral pedal edema. Abdomen: Soft nontender no guarding or rigidity, bowel sounds normal. Medications/allergies/pertinent test results including imaging/nursing notes reviewed. ASSESSMENT AND PLAN Left tibial fibula fracture following mechanical fall, s/p surgical intervention Management per orthopedic surgery team. PT, OT Awaiting Placement to swing bed DVT prophylaxis: Lovenox Constipation: improved. Had bowel movement today . Continue bowel regimen Ortho follow up : 2 weeks with [facility] and 6 weeks with [facility] Abernathy post of anemia Hb stable at 8.6 . BL Hb is 11-12 Fever Febrile episode 12/03/2020 Febrile episode 12/04/20 Currently afebrile Surgical dressing no soakage Urine Cx, Blood Cx dated 12/03/20 - no growth CXR - some scarring versus atelectasis in the bases. There is small bilateral pleural effusion and mild pulmonary venous congestion. Overall no evidence of any infection at this time we will hold offon any antibiotics. Will repeat urine /blood culture She has no Cough Will repeat CXR Will check procalcitonin She is already on Rocephin incentive spirometry Edema 1+. Chest x-ray also showing some pulmonary venous congestion. Continue Lasix 20 mg daily. Seizure disorder: Continue seizure medications GERD: Continue Protonix Mood disorder: Continue Zoloft DVT prophylaxis: Continue Lovenox CODE STATUS: Full code. Plan of care discussed with patient and bedside RN ancho Mason PA - 12/05/2020 6:59 AM CST ORTHOPAEDIC POST OPERATIVE PROGRESS NOTE December 05, 2020 POD # 3 Left Tibia IM Nailing and Hardware Removal Patient of Dr. Sandy S: Antonietta Ford is a 70yr female recovering from surgery, denies CP, SOB, N/V, Fever or Chills, numbness/tingling. Patient is participating in PT/OT. Pain is controlled on current regimen. Patient is passing flatus/having a BM. Patient is urinating without difficulty. O: Temp Readings from Last 1 Encounters: 12/05/20 99.5 F (37.5 C) BP Readings from Last 1 Encounters: 12/05/20 107/48 Pulse Readings from Last 1 Encounters: 12/05/20 100 Gen: Patient in bed , alert and orientated, no apparent distress, well appearing Female Incision: no drainage. Dressing C/D/I. No signs of erythema or fluctuance. left LEG: Warm, well perfused. Palpable DP pulse present. Distal sensation intact to light touch from L3 to S1. Motor movements grossly intact with ankle dorsiflexion/plantarflexion and toe extension/flexion. No calf pain. Compartments soft. Lab Results Component Value Date WBC 4.7 12/04/2020 NUCRBC 0 12/04/2020 RBC 2.65 (L) 12/04/2020 HEMOGLOBIN 8.9 (L) 12/04/2020 HEMATOCRIT 27.2 (L) 12/04/2020 MCV 102.6 (H) 12/04/2020 MCH 33.6 12/04/2020 MCHC 32.7 12/04/2020 PLTCOUNT 142 12/04/2020 NEUTROPCT 63.3 12/04/2020 LYMPHSPCT 28.2 12/04/2020 MONOSPCT 7.9 12/04/2020 EOSPCT 0.0 12/04/2020 BASOPHILPCT 0.4 12/04/2020 No results found for: INR A/P: 1. s/p Left Tibia IM Nailing and Hardware Removal: DVT prophylaxis: Lovenox Pain control: Controlled on current regimen Wound care: Dressing change today. Can leave on for 7 days or change sooner if needed for drainage. PT/OT: continue; Activity: as tolerated; NWB LLE in CAM Boot while up Disposition/planning: continue cares; CM looking at TCU options upon discharge likely [facility] in [place]. Follow up: 2 weeks with [facility] and 6 weeks with [facility] 2. Acute Blood loss Anemia: Expected Pancho ANDERS-C Henny Coronel MD - 12/04/2020 6:50 PM [id number] female with history of seizure disorder, GERD, mood disorder had a mechanical fall and palafox ffered tibial-fibular fracture. Underwent surgical intervention. Also had fever on 12/03/2020. INTERVAL HISTORY No further febrile episode. Patient is not eating well. No bowel movement yet. Passing flatus. Denies any chest pain or shortness of breath. Denies any abdominal pain nausea vomiting. Pain at surgical site well controlled. REVIEW OF SYSTEM 10 point review of system negative except for that mentioned in interval history PHYSICAL EXAMINATION Constitutional: Not in any acute distress Neurological: No confusion, moving all extremities Cardiovascular: S1-S2 heard, RRR Chest: Clear to auscultation Extremities: 1+ bilateral pedal edema. Abdomen: Soft nontender no guarding or rigidity, bowel sounds normal. Medications/allergies/pertinent test results including imaging/nursing notes reviewed. ASSESSMENT AND PLAN Left tibial fibula fracture following mechanical fall, s/p surgical intervention Management per orthopedic surgery team. PT, OT DVT prophylaxis: Lovenox Constipation: Continue bowel regimen. Advised nursing team to give suppository if no bowel movementby evening. Febrile episode 12/03/2020. No further fever. Urine was cloudy but urine culture is negative for anygrowth. Blood cultures no growth. Vitals are stable. Chest x-ray showed some scarring versus atelectasis in the bases. There is small bilateral pleural effusion and mild pulmonary venous congestion. Overall no evidence of any infection at this time we will hold off on any antibiotics. Edema 1+. Chest x-ray also showing some pulmonary venous congestion. We will start Lasix 20 mg daily. Seizure disorder: Continue seizure medications GERD: Continue Protonix Mood disorder: Continue Zoloft DVT prophylaxis: Continue Lovenox CODE STATUS: Full code. athya Appiah PA - 12/04/2020 10:44 AM CST ORTHO progress note. Antonietta Ford is a 70yr old female admitted on 12/01/2020 4:13 PM 2 Days Post-Op Status Post: Procedure(s): LEFT TIBIA IM NAILING AND HARDWARE REMOVAL Patient doing ok, complains of moderatepain with current meds. The patient denies nausea. States pain medication is controlling pain ok. Resting comfortably in bed, CAM boot and JOSE wrap in place. Lab Results Component Value Date HEMOGLOBIN 8.1 (L) 12/04/2020 Current Vital Signs Temp: 98.2 F (36.8 C) BP: 116/50 Pulse: 95 O2 Device: Room Air O2 Flow Rate (L/min): 1 l/min Resp: 17 Pain Ratin (out of 10) Weight: 71.2 kg (156 lb 14.4 oz) SpO2: 95 % Dist NVI. Dressings Clean & Dry. Homans negative. Compartments soft. Can wiggle toes, CR is brisk. Intra-op x-rays reviewed, no complications seen. Plan: Continue cares, PT. NWB LLE w/ CAM boot in place. Sathya Appiah, PA Brian Berg MD - 12/03/2020 12:49 PM CST DAILY PROGRESS NOTE Antonietta Ford is a 70yr old female admitted on 12/01/2020 4:13 PM. Impression / Plan Summary. 70-year-old female with past medical history of seizure disorder, GERD, mood disorder who presented to the hospital and suffered a tibial fibular fracture in the setting of mechanical fall. She underwent surgical intervention. Patient had episode of fever on 12/03. She has been on Lovenox for DVT prophylaxis. Assessment and plan 1.Left tibial fibula with fracture status post surgical intervention. Currently pain controlled. Continue Lovenox. Continue pain medication and bowel regimen. Further management per surgeon 2.Episode of fever likely secondary to urinary tract infection. Urine is cloudy. Will follow urine culture and BC. Continue ceftriaxone. 3.Seizure disorder continue seizure medication 4.GERD continue Protonix 5.Mood disorder continue Zoloft 6.DVT prophylaxis Lovenox 7.CODE STATUS.full code Plan of care discussed with patient. Family not available at bedside. She verbalized understanding and agree with plan.All question answered. Interval History HPI She had episode of fever last night She is endorsing sore throat Pain is controlled Review of Systems Review of Systems Constitutional: Positive for activity change and fever. Respiratory: Negative for cough and shortness of breath. Genitourinary: Negative for difficulty urinating, flank pain and frequency. Musculoskeletal: Positive for arthralgias and gait problem. Neurological: Negative for dizziness and light-headedness. Physical Exam Vital Signs: Temp: 99.5 F (37.5 C) | BP: 125/49 | Pulse: 406 | Resp: 18 | Pain Ratin (out of10) | Weight: 71.2 kg (156 lb 14.4 oz) | O2 Device: NC - no humidity O2 Flow Rate (L/min): 1 l/min | SpO2: 94 % Maximum Temperatures (last 24 hours) Temperature Maximum Max Temp 101.8 F (38.8 C) Intake and Output: 12/02 0700 - 12/03 0659 In: 2044 [Oral:410] Out: 1581 [Urine:1381] Physical Exam Constitutional: General: She is not in acute distress. Appearance: She is not ill-appearing. HENT: Head: Normocephalic and atraumatic. Cardiovascular: Rate and Rhythm: Normal rate. Pulmonary: Effort: Pulmonary effort is normal. Breath sounds: Normal breath sounds. Abdominal: General: Abdomen is flat. Bowel sounds are normal. There is no distension. Palpations: Abdomen is soft. Tenderness: There is no abdominal tenderness. There is no guarding. Musculoskeletal: Comments: ROM limited at fracture site Skin: General: Skin is warm and dry. Neurological: General: No focal deficit present. Mental Status: She is oriented to person, place, and time. Psychiatric: Mood and Affect: Mood normal. Labs Labs (Last day) 12/03/20 0013 - 12/03/20 0013 CBC 12/03/20 0013 CBC WBC 4.0-11.0 (K/uL) 8.1 RBC 3.80-5.30 (M/uL) 3.36 Hemoglobin 11.5-15.8 (g/dL) 11.3 Hematocrit 35.0-45.0 (%) 34.7 MCV 80.0-98.0 (fL) 103.3 MCH 25.5-34.0 (pg) 33.6 MCHC 31.5-36.5 (g/dL) 32.6 RDW-CV 11.5-15.5 (%) 13.7 RDW-SD 35.5-50.0 (fl) 52.8 Platelet Count 140-400 (K/uL) 219 MPV 8.5-12.0 (fL) 9.2 12/03/20 0013 - 12/03/20 0013 DIFFERENTIAL 12/03/20 0013 DIFFERENTIAL Seg Neut Absolute 1.8-8.0 (K/uL) 5.3 Lymphocytes Absolute 0.8-4.1 (K/uL) 2.0 Monocytes Absolute 0.0-1.0 (K/uL) 0.8 Eosinophils Absolute 0.0-0.7 (K/uL) 0.0 Basophil Absolute 0.0-0.2 (K/uL) 0.0 Immature Granulocyte Absolute 0.00-0.06 (K/uL) 0.05 Neutrophils Percent (%) 64.7 Neutrophils Abs. (Segs and Bands) (/uL) 5,300 Lymphocytes Percent (%) 24.3 Monocytes Percent (%) 10.0 Immature Granulocyte Percent (%) 0.6 Eosinophils Percent (%) 0.0 Basophil Percent (%) 0.4 Nucleated RBC (/100 WBC's) 0 12/03/20 1035 - 12/03/20 1035 URINALYSIS 12/03/20 1035 12/03/20 1035 URINALYSIS Color Urine [place]elv[place], Dark Yellow, Straw, Yellow, Colorless Straw Clarity Urine Clear Slightly Cloudy Specific Hol[place] 1.002-1.030 1.007 Glucose Urine Negative Negative Bilirubin Urine Negative Negative Ketones Urine Negative, 5 mg/dL, 10 mg/dL Negative Blood Urine Negative Small (1+) PH Urine 5.0, 5.5, 6.0, 6.5, 7.0, 7.5, 8.0 5.5 Protein Urine Negative Negative Nitrite Negative Negative Leukocyte Esterase Urine Negative Large (3+) Urobilinogen < 2 mg/dL < 2 mg/dL WBC Urine Negative, 0-5 /hpf >50 /hpf RBC Urine Negative, 0-2 /hpf 0-2 /hpf Squamous Epithelial Cells Negative, Occ (0-10) /lpf, Few (11-20) /lpf Occ (0- 10) /lpf Bacteria Negative Negative Hyaline Cast 0-2 /lpf 6-10 /lpf Medical Decision making Medical Decision Making aegan Bashir PA - 12/03/2020 7:15 AM CST ORTHOPEDIC POST OPERATIVE PROGRESS NOTE December 03, 2020 POD # 1 Status Post: Procedure(s): LEFT TIBIA IM NAILING AND HARDWARE REMOVAL Patient of Dr. Sandy S: Antonietta Ford is a 70yr female recovering from surgery, denies CP, SOB, N/V, Fever or Chills, numbness/tingling. Reports a decreased appetite. Pt is laying in bed. No apparent distress. Doesnot complain of pain today. Did have a temperature of 101.8 last night. Blood cultures were drawn, pending. Temperature this morning was 100.2 F. PT/OT: Orders placed, awaiting post op evaluation No BM noted since surgery. Is passing flatus. Urinating without difficulty. O: Temp Readings from Last 1 Encounters: 12/03/20 98.2 F (36.8 C) BP Readings from Last 1 Encounters: 12/03/20 113/64 Pulse Readings from Last 1 Encounters: 12/03/20 107 Gen: alert and orientated, no apparent distress Incision: Jose wrap in place to left leg. no drainage. Dressing C/D/I. left LEG: Foot warm, well perfused. Brisk capillary refill noted. Sensation intact to light touch. No calf pain bilaterally. Compartments soft and compressible. DP pulse palpable. Motor grossly intact, able to PF/DF ankle and wiggle toes. Lab Results Component Value Date WBC 8.1 12/03/2020 NUCRBC 0 12/03/2020 RBC 3.36 (L) 12/03/2020 HEMOGLOBIN 11.3 (L) 12/03/2020 HEMATOCRIT 34.7 (L) 12/03/2020 MCV 103.3 (H) 12/03/2020 MCH 33.6 12/03/2020 MCHC 32.6 12/03/2020 PLTCOUNT 219 12/03/2020 NEUTROPCT 64.7 12/03/2020 LYMPHSPCT 24.3 12/03/2020 MONOSPCT 10.0 12/03/2020 EOSPCT 0.0 12/03/2020 BASOPHILPCT 0.4 12/03/2020 No results found for: INR A/P: 1. s/p LEFT TIBIA IM NAILING AND HARDWARE REMOVAL: DVT prophylaxis: Lovenox 40 mg x 28 days total post operatively Pain control: Continue Wound care: Change dressing 48-72 hours post operatively PT/OT: continue; NWB LLE with cam boot Activity: as tolerated; Disposition/planning: continue cares; Follow up: 2 weeks with [facility] and [address] Sandy and [facility] 2. Acute Blood loss Anemia: Expected Maegan Bashir PA-C Pediatric Orthopedic Surgery Pager #[phone] Brian Berg MD - 12/02/2020 5:00 PM CST DAILY PROGRESS NOTE Antonietta Ford is a 70yr old female admitted on 12/01/2020 4:13 PM. Impression / Plan Summary daughter 70-year-old female with past medical history of seizure disorder, GERD who presented to the hospital after a mechanical fall and suffered tibial-fibular fracture on the left. Orthopedic was consulted and patient underwent left tibial IM nailing and post hardware removal. EBL around 50 mL. Assessment and plan 1.Fracture of the tibia-fibula in setting of mechanical fall s/p surgical intervention. Continue pain medication. Continue bowel regimen. She will need Lovenox starting tomorrow. therapy evaluation. Further management per surgeon. 2.Seizure disorder continue phenytoin 3.Mood disorder continue Zoloft 4.GERD continue Protonix 5.DVT prophylaxis.Lovenox starting tomorrow CODE STATUS.full code Plan of care discussed with family and patient at bedside. They verbalized understanding agree withplan. All presented. Interval History HPI She was seen after surgery She was drowsy but able to maintain conversation Review of Systems Review of Systems Constitutional: Positive for activity change and fatigue. Negative for fever. Respiratory: Negative for cough and shortness of breath. Cardiovascular: Negative for chest pain and leg swelling. Musculoskeletal: Positive for arthralgias and gait problem. Neurological: Negative for dizziness and light-headedness. Physical Exam Vital Signs: Temp: 99.5 F (37.5 C) | BP: 125/49 | Pulse: 406 | Resp: 18 | Pain Ratin (out of10) | Weight: 71.2 kg (156 lb 14.4 oz) | O2 Device: NC - no humidity O2 Flow Rate (L/min): 1 l/min | SpO2: 94 % Maximum Temperatures (last 24 hours) Temperature Maximum Max Temp 101.8 F (38.8 C) Intake and Output: 12/02 0700 - 12/03 0659 In: 2044 [Oral:410] Out: 1581 [Urine:1381] Physical Exam Constitutional: General: She is not in acute distress. Appearance: She is not ill-appearing. HENT: Head: Normocephalic and atraumatic. Eyes: General: Right eye: No discharge. Left eye: No discharge. Cardiovascular: Rate and Rhythm: Normal rate. Pulmonary: Effort: Pulmonary effort is normal. Breath sounds: Normal breath sounds. Abdominal: General: Abdomen is flat. Bowel sounds are normal. Palpations: Abdomen is soft. Musculoskeletal: Comments: Dressing place at fracture site Skin: General: Skin is warm and dry. Neurological: Comments: Drowsy but able to maintain conversation Labs Labs (Last day) 12/03/2012 - 12/03/2012 CBC 12/03/2012 CBC WBC 4.0-11.0 (K/uL) 8.1 RBC 3.80-5.30 (M/uL) 3.36 Hemoglobin 11.5-15.8 (g/dL) 11.3 Hematocrit 35.0-45.0 (%) 34.7 MCV 80.0-98.0 (fL) 103.3 MCH 25.5-34.0 (pg) 33.6 MCHC 31.5-36.5 (g/dL) 32.6 RDW-CV 11.5-15.5 (%) 13.7 RDW-SD 35.5-50.0 (fl) 52.8 Platelet Count 140-400 (K/uL) 219 MPV 8.5-12.0 (fL) 9.2 12/03/2012 - 12/03/2012 DIFFERENTIAL 12/03/2012 DIFFERENTIAL Seg Neut Absolute 1.8-8.0 (K/uL) 5.3 Lymphocytes Absolute 0.8-4.1 (K/uL) 2.0 Monocytes Absolute 0.0-1.0 (K/uL) 0.8 Eosinophils Absolute 0.0-0.7 (K/uL) 0.0 Basophil Absolute 0.0-0.2 (K/uL) 0.0 Immature Granulocyte Absolute 0.00-0.06 (K/uL) 0.05 Neutrophils Percent (%) 64.7 Neutrophils Abs. (Segs and Bands) (/uL) 5,300 Lymphocytes Percent (%) 24.3 Monocytes Percent (%) 10.0 Immature Granulocyte Percent (%) 0.6 Eosinophils Percent (%) 0.0 Basophil Percent (%) 0.4 Nucleated RBC (/100 WBC's) 0 12/03/20 1035 - 12/03/20 1035 URINALYSIS 12/03/20 1035 12/03/20 1035 URINALYSIS Color Urine Etelvina, Dark Yellow, Straw, Yellow, Colorless Straw Clarity Urine Clear Slightly Cloudy Specific Hol[place] 1.002-1.030 1.007 Glucose Urine Negative Negative Bilirubin Urine Negative Negative Ketones Urine Negative, 5 mg/dL, 10 mg/dL Negative Blood Urine Negative Small (1+) PH Urine 5.0, 5.5, 6.0, 6.5, 7.0, 7.5, 8.0 5.5 Protein Urine Negative Negative Nitrite Negative Negative Leukocyte Esterase Urine Negative Large (3+) Urobilinogen < 2 mg/dL < 2 mg/dL WBC Urine Negative, 0-5 /hpf >50 /hpf RBC Urine Negative, 0-2 /hpf 0-2 /hpf Squamous Epithelial Cells Negative, Occ (0-10) /lpf, Few (11-20) /lpf Occ (0- 10) /lpf Bacteria Negative Negative Hyaline Cast 0-2 /lpf 6-10 /lpf Medical Decision making Medical Decision Making chDyan Newman MD - 12/02/2020 8:41 AM CST Patient Name: Antonietta Ford Admit Date: 12/01/2020 Days: 0 CSN: [id number] PCP: CHAGO Barnard ASSESSMENT/PLAN 1. Left tibial/fibular shaft fracture Plan for OR today for IM nail of left tibia. Discussed this procedure with the patient including risks and benefits, patient given the opportunity to ask questions. She voiced understanding and wishes to proceed with surgery -OR today for IM nail of left tibia -NPO - Ancef perioperatively SUBJECTIVE: Admitted last night for left tib/fib fracture. This was reduced an splinted in the ED. She reports she is having quite a bit of pain whenever she moves her left leg. Otherwise she notes no changes. Nothing by mouth past midnight. No numbness/tingling. No chest pain/shortness of breath OBJECTIVE: Vitals: 12/02/20 0747 BP: 122/54 Pulse: 103 Resp: 16 Temp: 100 F (37.8 C) SpO2: 93% General: No acute distress, appearing comfortable, lying in hospital bed. Musculoskeletal: Left leg immobilized in splint. Minimal swelling proximal to splint Able to wiggle toes, flex/extend great toe. Sensation intact to light touch in all toes and dorsum of foot Limb warm and well perfused. DP pulse palpable and intact. Capillary refill <2seconds. Labs: Lab Results Component Value Date HEMOGLOBIN 12.9 12/01/2020 Imaging: Xray left tib/fib shows displaced spiral fracture of tibial shaft and comminuted fracture of proximal fibular shaft. Tibial shaft fracture does extend distally to the metadiaphysis. Presence of medial malleolus screws and distal fibular plate. Dyan Cabrera MD PGY-1, Orthopedic Surgery HYSICAL E LOGGER Associated attestation - Yobani Sandy MD - 12/02/2020 9:42 AM GEOPHYSICAL E LOGGER I discussed the patient with the resident and personally interviewed and examined the patient. I verified in the medical record all resident documentation/findings, including history, physical exam, and medical decision making, and I agree with the resident's documentation. Ortho Pre-Op Note Dx: Left tibia shaft and fibula fracture Plan: Surgical repair of left tibia fracture, possible hardware removal, and any other indicated procedures Risks/Benefits/Alternatives to surgery and post-op rehab plan were discussed with the patient. Risksinclude but not limited to: Bleeding, possibility of transfusion, infection, injury to associated structures, DVT/PE, failure of procedure, reoperation, implant failure, persistent joint pain or stiffness. Loss of life/limb was discussed with the patient. All questions answered, no guarantees implied or givenAnna Martin PHARM D - 12/01/2020 8:51 PM CST 12/01/2020 8:51 PM GEOPHYSICAL E LOGGER HOME MEDICATIONS have been reconciled and updated to match the patient's home usage per patient's caregiver at [facility] in [place], [place] Prior to Admission Medications Prescriptions Last Dose Informant Patient Reported? Taking? CRANBERRY CONCENTRATE 500 MG capsule 12/01/2020 at 0800 Receiving Worker Yes Yes Sig: Take 500 mg by mouth 1 time per day PHENobarbital 64.8 MG TABS 12/01/2020 at AM Receiving Worker No Yes Sig: TAKE 1 TABLET BY MOUTH TWICE A DAY Patient taking differently: Take 64.8 mg by mouth 2 times a day PROLIA 60 MG/ML subcutaneous solution Receiving Worker No No Sig: INJECT 1ML (60MG) SUBCUTANEOUSLY EVERY 6 MONTHS STIMULANT LAXATIVE 8.6-50 MG tablet 12/01/2020 at AM Receiving Worker No Yes Sig: TAKE 1 TABLET BY MOUTH TWICE A DAY Patient taking differently: Take 1 tablet by mouth 2 times a day acetaminophen (TYLENOL) 325 mg tablet Receiving Worker Yes No Sig: Take 650 mg by mouth every 4 to 6 hours as needed albuterol HFA (PROVENTIL,PROAIR,VENTOLIN) 108 (90 Base) MCG/ACT inhaler Receiving Worker Yes No Sig: Inhale 1 puff orally every 4 to 6 hours as needed Shake well before using. aspirin (ECOTRIN) 325 mg enteric coated tablet 12/01/2020 at 0800 Receiving Worker No Yes Sig: TAKE 1 TABLET BY MOUTH ONCE DAILY Patient taking differently: Take 325 mg by mouth 1 time per day fluticasone-salmeterol (ADVAIR) 250-50 mcg/dose discus 12/01/2020 at AM Receiving Worker No Yes Sig: INHALE ONE PUFF INTO LUNGS TWICE A DAY Patient taking differently: Inhale 1 puff orally 2 times a day folic acid 1 mg tablet 12/01/2020 at 0800 Receiving Worker No Yes Sig: TAKE 1 TABLET BY MOUTH ONCE DAILY Patient taking differently: Take 1 mg by mouth 1 time per day ibuprofen (MOTRIN) 400 mg tablet Receiving Worker No No Sig: Take 1 tablet (400 mg) by mouth every 6 hours as needed for mild pain metroNIDAZOLE (METROCREAM) 0.75 % cream Receiving Worker Yes No Sig: Apply topically as needed for other (Specify) naproxen (ALEVE) 220 mg tablet Receiving Worker Yes No Sig: Take 220-440 mg by mouth 2 times a day as needed oyster shell calcium-vitamin D (OSCAL 500 + VIT D) 500 mg-200 unit tablet 12/01/2020 at AM Receiving Worker No Yes Sig: TAKE 1 TABLET BY MOUTH TWICE A DAY Patient taking differently: Take 1 tablet by mouth 2 times a day with meals pantoprazole (PROTONIX) 40 mg enteric coated tablet 12/01/2020 at AM Receiving Worker No Yes Sig: TAKE 1 TABLET BY MOUTH ONCE DAILY Patient taking differently: Take 40 mg by mouth 1 time a day in the morning phenytoin sodium extended (DILANTIN) 100 mg capsule 12/01/2020 at AM Receiving Worker No Yes Sig: TAKE 1 CAP BY MOUTH IN THE MORNING;TAKE 2 CAPS (200MG) AT BEDTIME Patient taking differently: Take 100 mg by mouth 1 time a day in the morning and 200 mg at bedtime phenytoin sodium extended (DILANTIN) 30 mg capsule 12/01/2020 at AM Receiving Worker No Yes Sig: TAKE 1 CAPSULE BY MOUTH ONCE DAILY IN THE MORNING WITH 100MG Patient taking differently: Take 30 mg by mouth 1 time a day in the morning with 100 mg capsule sertraline (ZOLOFT) 25 mg tablet 12/01/2020 at AM Receiving Worker No Yes Sig: TAKE 1 TABLET BY MOUTH ONCE DAILY Patient taking differently: Take 25 mg by mouth 1 time per day sertraline (ZOLOFT) 50 mg tablet 12/01/2020 at AM Receiving Worker No Yes Sig: TAKE 1 TABLET BY MOUTH ONCE DAILY Patient taking differently: Take 50 mg by mouth 1 time per day vitamin D3, cholecalciferol, (VITAMIN D3) 50 mcg (2000 unit) tablet 12/01/2020 at AM Receiving Worker No Yes Sig: TAKE 1 TABLET BY MOUTH ONCE DAILY Patient taking differently: Take 50 mcg by mouth 1 time per day Facility-Administered Medications: None CHETAN Peters HYSICAL E LOGGER documented in this encounter H&P Notes Camila Dyson MD - 12/01/2020 7:19 PM CST ADMISSION HISTORY AND PHYSICAL NOTE Patient ID: Antonietta Ford is a 70yr female. PCP: CHAGO Barnard Attending Provider: Justin Ibrahim MD DAYA: [id number] Impression / Plan Active Problems: * No active hospital problems. * Plan: #Mechanical fall #Right tibial/fibula fracture fracture #Osteoporosis #Recurrent falls-Lovenox Fall today appears mechanical. No concern for cardiac issues -Orthopedic consult -IV Dilaudid, p.o. oxycodone as needed for pain -Normal saline 75 cc/h -N.p.o. midnight - obtain EKG -Continue home vitamin D -Hold home aspirin for now - RCRI score -0 points (Class I risk: 3.9% 30-day risk of adverse cardiac outcome for moderate risk surgery). Patient is medically cleared for surgery #Seizure disorder Has not had a breakthrough seizure in a long time. -Continue home Dilantin 200 mg nightly, 100 mg every morning -On 11/10 #Mood disorder-continue home Zoloft #COPD not in obvious exacerbation-continue home Advair, nebs as needed #History of GERD-continue home Protonix DVT prophylaxis-Heparin subcu CODE STATUS-full code Disposition-inpatient Chief Complaint / HPI HPI Patient is a 70 year old female with prior history of seizure disorder (controlled for many years now), osteoporosis, recurrent falls, balance issues, mood disorder who presents from home after an unwitnessed mechanical fall. Patient reports she was exercising while supporting herself on a sink and one leg gave out when she lifted the other. She denies hitting her head, LOC, lightheaded, vision changes, chest pain, aura before or after she fell. She has had multiple falls in the past due to her balance of unclear etiology. She has no hx of cardiac disease, recent illness or recent medication changes but she report she recently took the 2nd dose of the COVID vaccine 6 days ago which made her feel sick and had to present to the ED. She reports she got a shot in the ED after which she felt better. At baseline, she lives alone and ambulates with a walker Labs in ED reviewed - Hb 12.9, WBC 9.1, Plt 255, gluc 108, Na 140, Creat 0.57, XRAY RIGHT TIB/FIB - Right mid tibial diaphyseal fracture with apex anterior angulation and posterior lateral displacement of the distal fragment and moderate rotation. There is a nondisplaced fracture extending into the tibial metadiaphysis. Moderately displaced and likely comminuted fracture involving the proximal fibular diaphysis with one shaft lateral displacement of the distal fragment. Internal fixation of the medial and lateral malleoli without evidence of hardware fracture though this study was not tailored for evaluation of the ankle. In the ED, patient Received dilaudid x 2 and fenanyl At bedside, patient in no obvious distress Vital signs at the time of my assessment: 121/57, CA 84, T 97.5, 96% on room air Medications Prior to Admission Medications Prescriptions Last Dose Informant Patient Reported? Taking? CRANBERRY CONCENTRATE 500 MG capsule Yes No Sig: Take 500 mg by mouth 1 time per day PHENobarbital 64.8 MG TABS No No Sig: TAKE 1 TABLET BY MOUTH TWICE A DAY PROLIA 60 MG/ML subcutaneous solution No No Sig: INJECT 1ML (60MG) SUBCUTANEOUSLY EVERY 6 MONTHS STIMULANT LAXATIVE 8.6-50 MG tablet No No Sig: TAKE 1 TABLET BY MOUTH TWICE A DAY acetaminophen (TYLENOL) 325 mg tablet Yes No Sig: Take 650 mg by mouth every 4 to 6 hours as needed albuterol HFA (PROVENTIL,PROAIR,VENTOLIN) 108 (90 Base) MCG/ACT inhaler Yes No Sig: Inhale 1 puff orally every 4 to 6 hours as needed Shake well before using. aspirin (ECOTRIN) 325 mg enteric coated tablet No No Sig: TAKE 1 TABLET BY MOUTH ONCE DAILY fluticasone-salmeterol (ADVAIR) 250-50 mcg/dose discus No No Sig: INHALE ONE PUFF INTO LUNGS TWICE A DAY folic acid 1 mg tablet No No Sig: TAKE 1 TABLET BY MOUTH ONCE DAILY ibuprofen (MOTRIN) 400 mg tablet No No Sig: Take 1 tablet (400 mg) by mouth every 6 hours as needed for mild pain metroNIDAZOLE (METROCREAM) 0.75 % cream Yes No Sig: Apply topically as needed for other (Specify) naproxen (ALEVE) 220 mg tablet Yes No Sig: Take 220-440 mg by mouth 2 times a day as needed oyster shell calcium-vitamin D (OSCAL 500 + VIT D) 500 mg-200 unit tablet No No Sig: TAKE 1 TABLET BY MOUTH TWICE A DAY pantoprazole (PROTONIX) 40 mg enteric coated tablet No No Sig: TAKE 1 TABLET BY MOUTH ONCE DAILY phenytoin sodium extended (DILANTIN) 100 mg capsule No No Sig: TAKE 1 CAP BY MOUTH IN THE MORNING;TAKE 2 CAPS (200MG) AT BEDTIME phenytoin sodium extended (DILANTIN) 30 mg capsule No No Sig: TAKE 1 CAPSULE BY MOUTH ONCE DAILY IN THE MORNING WITH 100MG sertraline (ZOLOFT) 25 mg tablet No No Sig: TAKE 1 TABLET BY MOUTH ONCE DAILY sertraline (ZOLOFT) 50 mg tablet No No Sig: TAKE 1 TABLET BY MOUTH ONCE DAILY vitamin D3, cholecalciferol, (VITAMIN D3) 50 mcg (2000 unit) tablet No No Sig: TAKE 1 TABLET BY MOUTH ONCE DAILY Facility-Administered Medications: None Allergies No Known Allergies Medical / Surgical / Family History Past Medical History: Diagnosis Date Blood transfusion without reported diagnosis COPD (chronic obstructive pulmonary disease) ([facility]) Osteoporosis Seizures ([facility]) Past Surgical History: Procedure Laterality Date APPENDECTOMY BREAST BIOPSY FRACTURE SURGERY HYSTERECTOMY History reviewed. No pertinent family history. Social History Social History Tobacco Use Smoking status: Former Smoker Quit date: 10/01/1999 Years since quittin.1 Smokeless tobacco: Never Used Substance Use Topics Alcohol use: Not Currently Drug use: Never ROS Constitutional: Negative for fatigue and fever. HENT: Negative. Eyes: Negative for discharge and redness. Respiratory: Negative for cough, chest tightness, shortness of breath, wheezing and stridor. Cardiovascular: Negative for chest pain, palpitations and leg swelling. Gastrointestinal: Negative for abdominal distention, abdominal pain and diarrhea. Endocrine: Negative. Genitourinary: Negative. Musculoskeletal: Negative for back pain, joint swelling or gait problem Skin: Negative for pallor or rashes Neurological: Negative for dizziness and headaches. Physical Exam BP 123/57 | Pulse 77 | Temp 97.8 F (36.6 C) | Resp 14 | Wt 67.9 kg (149 lb 11.1 oz) | SpO2 92% | BMI 24.91 kg/m Physical Exam Constitutional: Patient is oriented to person, place, and time. Patient appears well-developed and well-nourished. No obvious distress Head: Normocephalic and atraumatic. Eyes: Pupils are equal, round, and reactive to light. Conjunctivae and EOM are normal. Neck: Normal range of motion. Neck supple. Cardiovascular: Regular rhythm, rate, normal heart sounds and intact distal pulses. Pulmonary/Chest: Effort normal and breath sounds normal. Abdominal: Soft. Bowel sounds are normal. Musculoskeletal: L LE splinted in above knee fashion, patient able to wiggle toes, warm bilateral extremities with distal pulses present Neurological: Patient is alert and oriented to person, place, and time. Skin: Skin is warm and dry. Psychiatric: Patient has a normal mood and affect. Labs Labs (Last day) 12/01/201736 - 12/01/201736 CBC 12/01/201736 CBC WBC 4.0-11.0 (K/uL) 9.1 RBC 3.80-5.30 (M/uL) 3.89 Hemoglobin 11.5-15.8 (g/dL) 12.9 Hematocrit 35.0-45.0 (%) 39.6 MCV 80.0-98.0 (fL) 101.8 MCH 25.5-34.0 (pg) 33.2 MCHC 31.5-36.5 (g/dL) 32.6 RDW-CV 11.5-15.5 (%) 13.8 RDW-SD 35.5-50.0 (fl) 51.8 Platelet Count 140-400 (K/uL) 255 MPV 8.5-12.0 (fL) 9.2 12/01/201736 - 12/01/201736 CHEMISTRY 12/01/201736 CHEMISTRY Glucose 70-100 (mg/dL) 108 Sodium 135-145 (meq/L) 140 Potassium 3.5-5.3 (meq/L) 4.4 Chloride 99-110 (meq/L) 104 CO2 20-29 (meq/L) 27 Anion Gap with K 6-20 (meq/L) 13 BUN 6-22 (mg/dL) 8 Creatinine 0.60-1.10 (mg/dL) 0.57 BUN/Creatinine Ratio 10.0-25.0 14.0 Calcium 8.5-10.5 (mg/dL) 7.9 eGFR >=60 (mL/min/1.73m2) >90 eGFR Non- >=60 (mL/min/1.73m2) >90 12/01/20 1737 - 12/01/20 1737 DIFFERENTIAL 12/01/20 173 DIFFERENTIAL Seg Neut Absolute 1.8-8.0 (K/uL) 7.3 Lymphocytes Absolute 0.8-4.1 (K/uL) 1.3 Monocytes Absolute 0.0-1.0 (K/uL) 0.4 Eosinophils Absolute 0.0-0.7 (K/uL) 0.0 Basophil Absolute 0.0-0.2 (K/uL) 0.0 Immature Granulocyte Absolute 0.00-0.06 (K/uL) 0.04 Neutrophils Percent (%) 80.5 Neutrophils Abs. (Segs and Bands) (/uL) 7,300 Lymphocytes Percent (%) 14.2 Monocytes Percent (%) 4.5 Immature Granulocyte Percent (%) 0.4 Eosinophils Percent (%) 0.0 Basophil Percent (%) 0.4 Nucleated RBC (/100 WBC's) 0 12/01/201736 - 12/01/20 173 OTHER 12/01/20 173 OTHER Age (Years) 70 Procedures Procedures Medical Decision Making Medical Decision Making documented in this encounter Consult Notes Josiah Flynn MD - 12/01/2020 6:25 PM CSTAssociated Order(s): CONSULT ORTHOPEDICS Ortho Inpatient Consult Note CONSULT ORTHOPEDICS Consult performed by: Josiah Flynn MD Consult ordered by: Justin Ibrahim MD Reason for consult: tibia fracture Assessment / Plan Active Problems: * No active hospital problems. * Dx: tibia/fibula fracture, left Plan: will require internal fixation with IM nail. NPO after MN. Will discuss with Dr. Sandy HPI / History / ROS The history is provided by medical records and the patient. Leg Injury PATIENT ID: A 70-year-old female presents to the emergency department. Per report, she was doing some exercises, hanging onto her kitchen sink, when her leg buckled causing her to fall. She was unable to bear weight. HISTORY OF PRESENT ILLNESS: Patient presents with [id number] pain involving the distal leftlower extremity. Of note, the patient does have a history of prior ankle surgery with retained orthopedic hardware. Pain is worse with palpation and motion, mildly improved with rest. Case discussedwith Dr. Ibrahim in the emergency department. Receipt: [id number] Trans ID: [id number] GEOPHYSICAL E LOGGER GEOPHYSICAL E LOGGER History Patient Active Problem List Diagnosis Fall from or off toilet w strike against object, init No current facility-administered medications for this encounter. No Known Allergies Past Medical History: Diagnosis Date Blood transfusion without reported diagnosis COPD (chronic obstructive pulmonary disease) ([facility]) Osteoporosis Seizures ([facility]) Past Surgical History: Procedure Laterality Date APPENDECTOMY BREAST BIOPSY FRACTURE SURGERY HYSTERECTOMY History reviewed. No pertinent family history. Social History Socioeconomic History Marital status: Spouse name: Not on file Number of children: Not on file Years of education: Not on file Highest education level: Not on file Tobacco Use Smoking status: Former Smoker Quit date: 10/01/1999 Years since quittin.1 Smokeless tobacco: Never Used Substance and Sexual Activity Alcohol use: Not Currently Drug use: Never Review of Systems Review of Systems Constitutional: Negative. HENT: Negative. Eyes: Negative. Respiratory: Negative. Cardiovascular: Negative. Gastrointestinal: Negative. Endocrine: Negative. Genitourinary: Negative. Musculoskeletal: Refer to HPI Skin: Negative. Allergic/Immunologic: Negative. Neurological: Negative. Hematological: Negative. Psychiatric/Behavioral: Negative. Physical / Results Current Vital Signs Temp: 97.8 F (36.6 C) BP: 123/65 Weight: 67.9 kg (149 lb 11.1 oz) SpO2: 95 % Resp: 14 Pulse: 80 O2 Device: Room Air Pain Ratin Physical Exam Vitals signs and nursing note reviewed. Constitutional: Appearance: She is well-developed. HENT: Head: Atraumatic. Eyes: General: Right eye: No discharge. Left eye: No discharge. Cardiovascular: Rate and Rhythm: Normal rate. Pulmonary: Effort: Pulmonary effort is normal. Abdominal: Palpations: Abdomen is soft. Lymphadenopathy: Cervical: No cervical adenopathy. Skin: Coloration: Skin is not pale. Findings: No erythema or rash. Neurological: Mental Status: She is alert and oriented to person, place, and time. Psychiatric: Behavior: Behavior normal. Thought Content: Thought content normal. Judgment: Judgment normal. Ortho Exam PHYSICAL EXAMINATION: Left lower extremity, skin is intact with an obvious angular deformity of thetibia. Sensation is grossly intact to light touch, diffuse distal left lower extremity. Cardiovascular, the distal foot appears warm and well perfused. Formal strength and range of motion testing deferred secondary to acute pain/fracture. DIAGNOSTIC IMAGING: Left tibia/fibula x-rays were reviewed, demonstrating a midshaft tibia fracturewith nondisplaced spiral component extension near the ankle hardware. There is associated proximal fibular fracture. Trans ID: [id number] GEOPHYSICAL E LOGGER GEOPHYSICAL E LOGGER Medical Decision Making I have: Ordered laboratory, radiology or other diagnostic tests. Independently visualized and interpreted an image, tracing or specimen previously or subsequently interpreted by another provider. Discussed results of laboratory, radiology or other diagnostic tests with the physician who performed or interpreted the study. Obtained/reviewed old records from [place] or elsewhere (details outlined elsewhere in note). Obtained history from a person other than the patient (details outlined elsewhere in note). Discussed case with another provider (details outlined elsewhere in note). documented in this encounter ED Notes Justin Ibrahim MD - 12/01/2020 4:45 PM CSTAssociated Order(s): ORTHOPEDIC INJURY TREATMENT DIAGNOSIS 1. Closed fracture of shaft of left tibia, unspecified fracture morphology, initial encounter 2. Closed fracture of proximal end of left fibula, unspecified fracture morphology, initial encounter ASSESSMENT/PLAN/DECISION MAKING: Records, nursing notes and vitals reviewed. Isolate concerns of injury to the left lower extremity. Gross deformity noted. No open wound. Intact neurovascular status. IV access in place. Analgesics given. Baseline labs obtained in anticipation of potential needed operative intervention. X-rays of the left tibia/fibula independently reviewed and interpreted. There is a displaced and angulated fracture of the tibial shaft. There is a proximal fracture with displacement of the fibula. Discussed with on-call orthopedics, Dr. Flynn. Will arrange for closed gross reduction and splintinghere in the department with admission with internal medicine service for preoperative evaluation andanticipated surgical intervention for definitive care tomorrow. Imaging results reviewed at bedside with patient, considerations for further management reviewed anddiscussed. Patient in agreement with plan as discussed. Orthopedic injury management with closed reduction and splinting completed per procedure note below. Discussed with hospitalist regarding arrangements for admission. DISPOSITION Patient Admitted and Treated in this Facility Patient will be admitted. SunDec 01, 2020 7:20 PM GEOPHYSICAL E LOGGER HPI / History / ROS Chief Complaint Patient presents with Leg Injury Pt presents to ER via [facility] from home for evaluation of questionable left tib/fib fracture with deformity. EMS reports pt was exercising and lost balance, stepping wrong. Pt has known osteoporosis. Pt received 100mcg Fentanyl en route and has been drowsy. Pillow splint in place during transport. The history is provided by the patient. No booth cashier was used. HPI Antonietta Ford is a 70yr female with a PMH of osteoporosis presenting to the ED via EMS from home with complaints of left leg injury that onset today after a fall. Pt reports she was doing some exercises and lifted her right leg up and was standing only on her left leg. She lost her balance andher left leg gave out and she fell landing on her knee. She denies hitting her head. She denies fever, sore throat, SOB, CP, nausea, back pain, or numbness. Pt is not on any anticoagulation therapy. Pthas a hx of left ankle surgery to her left ankle approximately 3-4 years ago as well as a hx of breaking both of her hips. Her right was the only one replaced. Pt does report that she received both of her COVID vaccines with the receiving her second one last week. ALLERGIES No Known Allergies PROBLEM LIST: Patient Active Problem List Diagnosis Fall from or off toilet w strike against object, init MEDICAL/SURGICAL/SOCIAL HISTORY Past Medical History: Diagnosis Date Blood transfusion without reported diagnosis COPD (chronic obstructive pulmonary disease) ([facility]) Osteoporosis Seizures ([facility]) Past Surgical History: Procedure Laterality Date APPENDECTOMY BREAST BIOPSY FRACTURE SURGERY HYSTERECTOMY History reviewed. No pertinent family history. Social History Socioeconomic History Marital status: Spouse name: Not on file Number of children: Not on file Years of education: Not on file Highest education level: Not on file Tobacco Use Smoking status: Former Smoker Quit date: 10/01/1999 Years since quittin.1 Smokeless tobacco: Never Used Substance and Sexual Activity Alcohol use: Not Currently Drug use: Never HOME MEDICATIONS Current Outpatient Medications Medication Sig STIMULANT LAXATIVE 8.6-50 MG tablet TAKE 1 TABLET BY MOUTH TWICE A DAY vitamin D3, cholecalciferol, (VITAMIN D3) 50 mcg (2000 unit) tablet TAKE 1 TABLET BY MOUTH ONCE DAILY pantoprazole (PROTONIX) 40 mg enteric coated tablet TAKE 1 TABLET BY MOUTH ONCE DAILY oyster shell calcium-vitamin D (OSCAL 500 + VIT D) 500 mg-200 unit tablet TAKE 1 TABLET BY MOUTHTWICE A DAY sertraline (ZOLOFT) 50 mg tablet TAKE 1 TABLET BY MOUTH ONCE DAILY sertraline (ZOLOFT) 25 mg tablet TAKE 1 TABLET BY MOUTH ONCE DAILY PROLIA 60 MG/ML subcutaneous solution INJECT 1ML (60MG) SUBCUTANEOUSLY EVERY 6 MONTHS aspirin (ECOTRIN) 325 mg enteric coated tablet TAKE 1 TABLET BY MOUTH ONCE DAILY PHENobarbital 64.8 MG TABS TAKE 1 TABLET BY MOUTH TWICE A DAY phenytoin sodium extended (DILANTIN) 30 mg capsule TAKE 1 CAPSULE BY MOUTH ONCE DAILY IN THE MORNING WITH 100MG phenytoin sodium extended (DILANTIN) 100 mg capsule TAKE 1 CAP BY MOUTH IN THE MORNING;TAKE 2 CAPS (200MG) AT BEDTIME naproxen (ALEVE) 220 mg tablet Take 220-440 mg by mouth 2 times a day as needed CRANBERRY CONCENTRATE 500 MG capsule Take 500 mg by mouth 1 time per day metroNIDAZOLE (METROCREAM) 0.75 % cream Apply topically as needed for other (Specify) albuterol HFA (PROVENTIL,PROAIR,VENTOLIN) 108 (90 Base) MCG/ACT inhaler Inhale 1 puff orally every 4 to 6 hours as needed Shake well before using. acetaminophen (TYLENOL) 325 mg tablet Take 650 mg by mouth every 4 to 6 hours as needed fluticasone-salmeterol (ADVAIR) 250-50 mcg/dose discus INHALE ONE PUFF INTO LUNGS TWICE A DAY folic acid 1 mg tablet TAKE 1 TABLET BY MOUTH ONCE DAILY ibuprofen (MOTRIN) 400 mg tablet Take 1 tablet (400 mg) by mouth every 6 hours as needed for mild pain ROS Review of Systems Constitutional: Negative for fever. HENT: Negative for sore throat. Respiratory: Negative for shortness of breath. Cardiovascular: Negative for chest pain. Gastrointestinal: Negative for nausea. Genitourinary: Negative for difficulty urinating. Musculoskeletal: Negative for back pain. +Left leg pain Skin: Negative for wound. Neurological: Negative for numbness and headaches. Hematological: Does not bruise/bleed easily. Physical / Results PHYSICAL EXAM ED Triage Vitals [12/01/20 1618] Temp Temp Source Pulse Resp BP SpO2 O2 Flow Rate (L/min) O2 Device 97.8 F (36.6 C) Oral 75 14 147/67 92 % -- RA Physical Exam Vitals signs and nursing note reviewed. Constitutional: General: She is not in acute distress. Appearance: Normal appearance. She is well-developed. Comments: Uncomfortable appearing. HENT: Head: Normocephalic and atraumatic. Eyes: Conjunctiva/sclera: Conjunctivae normal. Neck: Musculoskeletal: Normal range of motion and neck supple. Cardiovascular: Rate and Rhythm: Normal rate and regular rhythm. Pulses: Normal pulses. Heart sounds: Normal heart sounds. No murmur. Pulmonary: Effort: Pulmonary effort is normal. No respiratory distress. Breath sounds: Normal breath sounds. No stridor. No wheezing or rales. Abdominal: General: There is no distension. Palpations: Abdomen is soft. Musculoskeletal: Normal range of motion. Comments: Gross deformity to the shaft of the left leg. Skin is intact. Foot is warm and well perfused. Skin: General: Skin is warm and dry. Neurological: Mental Status: She is alert and oriented to person, place, and time. Sensory: Sensation is intact. No sensory deficit. Psychiatric: Behavior: Behavior normal. Thought Content: Thought content normal. Scoring Scales Attila Coma Scale Score: 15 PROCEDURES ORTHOPEDIC INJURY TREATMENT Date/Time: 12/01/2020 7:22 PM Performed by: Justin Ibrahim MD Authorized by: Justin Ibrahim MD Consent: Verbal consent obtained. Risks and benefits: risks, benefits and alternatives were discussed Consent given by: patient Patient understanding: patient states understanding of the procedure being performed Site marked: the operative site was marked Imaging studies: imaging studies available Required items: required blood products, implants, devices, and special equipment available Time out: Immediately prior to procedure a "time out" was called to verify the correct patient, procedure, equipment, sales support engineer and site/side marked as required. Injury location: lower leg Location details: left lower leg Injury type: fracture Fracture type: tibial and fibular shafts Pre-procedure neurovascular assessment: neurovascularly intact Pre-procedure distal perfusion: normal Pre-procedure neurological function: normal Pre-procedure range of motion: reduced Anesthesia: Local anesthesia used: no Sedation: Patient sedated: no Manipulation performed: yes Immobilization: splint Splint type: long leg Supplies used: Ortho-Glass Post-procedure neurovascular assessment: post-procedure neurovascularly intact Post-procedure distal perfusion: normal Post-procedure neurological function: normal Post-procedure range of motion comment: immobilized Patient tolerance: patient tolerated the procedure well with no immediate complications MDM-CODING: [facility] Number of Diagnoses or Management Options Closed fracture of proximal end of left fibula, unspecified fracture morphology, initial encounter: Closed fracture of shaft of left tibia, unspecified fracture morphology, initial encounter: Amount and/or Complexity of Data Reviewed Clinical lab tests: ordered and reviewed Tests in the radiology section of CPT: ordered and reviewed Review and summarize past medical records: yes Discuss the patient with other providers: yes Independent visualization of images, tracings, or specimens: yes Patient Progress Patient progress: improved I, Leny Wilder, acting as a scribe for Dr. Ibrahim to document services personally performed for Antonietta Ford by Dr. Ibrahim. EVI Oliver 12/01/20 4:45 PM GEOPHYSICAL E LOGGER I worked with the ED Scribe to provide the medical documentation for this ED encounter. They scribedin my presence. I have read, amended as needed, and agree with his documentation. *This note was created, at least in part, with the use of [employer] Dictation System. Inadvertent typographical errors, due to software recognition problems, may still exist. Justin Ibrahim MD 12/01/20 7:22 PM GEOPHYSICAL E LOGGER HYSICAL E LOGGER Naeem Morales RN - 12/01/2020 4:36 PM CST Plan of care includes addressing Musculoskeletal with attention to Chief Complaint Patient presents with Leg Injury Pt presents to ER via [facility] from home for evaluation of questionable left tib/fib fracture with deformity. EMS reports pt was exercising and lost balance, stepping wrong. Pt has known osteoporosis. Pt received 100mcg Fentanyl en route and has been drowsy. Pillow splint in place during transport. . documented in this encounter Miscellaneous Notes Physical Therapy - Brooklyn Saha PTA - 12/07/2020 10:10 AM CSTPatient just tested positive for Covid 19, will hold under direction of PT and follow as appropriate. ase Mgmt - Chasity Lazo RN - 12/07/2020 9:37 AM CSTCASE MANAGEMENT / SOCIAL SERVICE FINAL TRANSITION PLAN TRANSITION DATE: Today 12/07 TRANSITION TIME: 11:30 am INTENDED PAYER SOURCE FOR AGENCY: Medicare Replacement Plan: [employer] TRANSITION DESTINATION: [facility] Swing Bed [facility] [place] [address] DOES ACCEPTING FACILITY REQUIRE COVID TESTING BEFORE DISCHARGE: Needs one negative test within 24-48 hours COVID swab 12/07 - detected. Facility is aware. Discussed with their admitting provider, Dr. Pierson, as well. The facility can admit patient to their COVID wing as still treat her as a swing bed patient. The admitting doctor did ask about what type of testing we utilize as patient had the Moderna vaccine 10/14 and 11/11. Discussed with molecular lab who stated it is a PCR test. This information was relayed back to the admitting facility. TRANSITION TRANSPORTATION: [employer]. Wheelchair (P: [phone]) Patient will need to wear a mask during transport. TRANSPORTATION PAYMENT: Billed to Case Management Due to: expedite discharge TRANSITION CHOICES OFFERED: Home Health: Nurse and Physical Therapy Home: Family/Friend Support Outpatient Therapy: Physical Therapy Retirement Facility Swing Bed Transitional Care PATIENT / SUBSTITUTE DECISION MAKER GOAL UPON TRANSITION: First Choice: Swing bed TRANSITION PLAN REVIEWED WITH AND AGREED UPON BY: Patient SisterMarcella, updated via shameka Bedside nurse Charge nurse PT Providers PROVIDED PATIENT / FAMILY WITH VERBAL / WRITTEN EXPLANATION OF MEDICARE OR INSURANCE COVERAGE OF NURSING HOME FACILITY Yes RESOURCE(S) PROVIDED: Placement and Transportation DOES THE PATIENT HAVE A PRIMARY CARE PHYSICIAN? Yes CHAGO Barnard ANTICIPATED MODE OF TRANSPORT TO AND FROM FOLLOW UP APPOINTMENTS: Family Car VERIFIED CORRECT PHARMACY IS ENTERED FOR DISCHARGE: Reconcile medications as Patient Transfer ("65 button") METHOD OF PRESCRIBING MEDICATIONS: Reconcile medications as Patient Transfer ("65 button") PATIENT DISCUSSED IN TRANSITION ROUNDS / OUTLIER ROUNDS: Yes COMMENTS / PATIENT AND FAMILY RESPONSE TO PLAN: Discussed with interdisciplinary team. [facility] bed received authorization from Ana vieyra and can admit today. They do require COVID screen to be completed prior to admit. Please seeabove for discussion with facility regarding positive result. Patient has been kept updated and in ag reement with discharge to [place] today. Transportation arranged. [place] pre-admission screen completed on this date. A copy was faxed to the admitting facility. Your information has been submitted on December 07, 2020 at 10:57:24 AM GEOPHYSICAL E LOGGER. The confirmation number is [id number] Interdisciplinary team updated. CURRENT READMISSION RISK SCORE / HANDOFF: Predictive Risk Score Risk of Unplanned Readmission: 12.8 Handoff given: N/A SPECIAL TRANSITION DAY INSTRUCTIONS TO NURSE / MD: Discharge to Swing bed. Please place interagency orders per unit policy. Bedside RN, please call report to: P: [phone] Please fax discharge information per unit policy to: F: [phone] Pharmacy: Reconcile medications as Patient Transfer ("65 button") SIGNED: Chasity Lazo RN Case Manager - Orthopedics [facility] are Planning - Felisa Le RN - 12/07/2020 2:22 AM CSTProblem: RISK FOR FALLS Goal: FALL PREVENTION BEHAVIOR Description: DEFINITION: Personal or family career consultant actions to minimize risk factors that might precipitate falls in the personal environment. 1=Never demonstrated, 2=Rarely demonstrated, 3=Sometimes demonstrated, 4=Often demonstrated, 5=Consistently demonstrated. Outcome: NOC Rating 3 Flowsheets (Taken 12/07/2020217) Initial Score: 3 Target Score: 5 Plan of care reviewed with: Patient Patient specific goal for the day: Pt will assist in turns and use call light appropriately Patient specific goal for the stay: Pt will remain free from falls and injuries during this hospitalstay Achieve goal for stay: By discharge Patient Progress: Pt able to assist with turns in bed. Up with 2-3 GB and FWW, did not get out of bed this shift. NWB to LLE. Uses call light appropriately, external cath in place. Will continue to monitor. Problem: ACUTE PAIN Goal: CLIENT SATISFACTION: PAIN MANAGEMENT Description: DEFINITION: Extent of positive perception of nursing care to relieve pain. 1=Not at all satisfied, 2=Somewhat satisfied, 3=Moderately satisfied, 4=Very satisfied, 5=Completely satisfied. Outcome: NOC Rating 4 Flowsheets (Taken 12/07/2020217) Initial Score: 3 Target Score: 5 Plan of care reviewed with: Patient Patient specific goal for the day: Pt will have tolerable pain controlled with oral pain meds Patient specific goal for the stay: Pt's pain will be managed with oral pain meds Achieve goal for stay: By discharge Patient Progress: Pt reporting pain throughout shift 0-12/08. Declined any PRN pain meds. Elevating and ice applied to L) ankle/leg. Will continue to monitor. linical Team - Felisa Le RN - 12/06/2020 9:22 PM CSTArrived at 4C accompanied by Ambulance. Patient denying any pain at this time. Settled in room 478 and oriented to call light, bed/tv control. Refer to Patient Admission Education. Upon Admission to [facility], skin assessment completed with CLAUDY Robert. Upon skin assessment including pressure points findings include: bilateral hip scars, bilateral ankle scars, abdominal scar, scar to R) knee, scattered bruises to BUE and abdomen, small abrasion to R) knee, blanchable redness to coccyx and L) heel. Incision noted to L) ankle/leg. Plan/Intervention: Mepilex applied to coccyx, encourage mobility and turns every 2 hours. HYSICAL E LOGGER Care Planning - Renea Mittal RN - 12/06/2020 8:08 PM GEOPHYSICAL E LOGGER Problem: ACUTE PAIN Goal: CLIENT SATISFACTION: PAIN MANAGEMENT Description: DEFINITION: Extent of positive perception of nursing care to relieve pain. 1=Not at all satisfied, 2=Somewhat satisfied, 3=Moderately satisfied, 4=Very satisfied, 5=Completely satisfied. Outcome: NOC Rating 4 Flowsheets (Taken 12/06/20202005) Plan of care reviewed with: Patient Patient specific goal for the day: Patient's pain will be managed with scheduled and PRN medications. Patient specific goal for the stay: Patient's pain will be managed with PO medications. Achieve goal for stay: By discharge Patient Progress: Patient reported 0-2/10 pain. Given 5 mg Oxy before PT. Transferred to [facility] @ 1915. Hpkfy-[id number]-Creig report given. HYSICAL E LOGGER Physical Therapy - Myles Alvarado PT - 12/06/2020 1:51 PM CST Physical Therapy Acute Inpatient Treatment Note ASSESSMENT/RECOMMENDATIONS Patient requires assist of 2 for sit to stand transfers. Use of ceiling lift for safe transfers to chair at this time. Recommend Antonietta receive further skilled PT at a low intensity setting. Will continue to follow acutely and update discharge recommendations as appropriate. 6-Clicks Basic Mobility Score: 10 Activity Prescription with Nursing: Assist patient to chair 3 times per day for 30 to 60 minutes or for all meals. Use Ax of ceiling lift. Encourage patients to do personal cares when sitting up. Use bathroom or commode rather than bedpan. Anticipated D/C Service needs: Low intensity setting SUBJECTIVE Willing and agreeable to PT. OBJECTIVE Bed Mobility: Karime of 1 for rolling to left and right for placement of sling. Transfers: Ceiling lift for bed to chair with assist of 2. Stood x 2 from chair with maxA of 1 and assist of another for management of L LE. Unsafe to pivot at this time. Therapeutic Exercises: L LE marches and LAQ AAROM x 10. Other: Up in chair at end of PT session with call light in reach. Education: Patient was educated on PT treatment plan and discharge recommendations today through explanation. They accepted teaching and verbalized understanding. PLAN Continue plan of care. Today's Treatment: Gait Trainin minutes Therapeutic Exercise: 0 minutes Therapeutic Activity: 23 minutes TOTAL TIMED CODES: 23 minutes TREATMENT TOTAL TIME: 23 minutes Myles Alvarado PT, DPT Alpha Pager: [phone] ase Mgmt - Katie Jacobo LSW - 12/06/2020 10:53 AM CSTCASE MANAGEMENT / SOCIAL SERVICE TRANSITION PLAN - PROGRESS NOTE PLAN: Will Continue to Follow for Support and Progression Towards Final Transition Plan BARRIERS TO TRANSITION: Awaiting Placement: Retirement/Swing Bed/TCU Medical barriers:.pain management, PT/OT, IV abx, DOES ACCEPTING FACILITY REQUIRE COVID TESTING BEFORE DISCHARGE: N/A COMMENTS / PATIENT AND FAMILY RESPONSE TO PLAN: Reviewed patient's chart, This news writer received a call from [facility]. They have submitted a prior auth for patient. Patient will be admitted once prior auth is received. Case management to continue to follow and support. IS PATIENT'S ADMISSION ASSOCIATED WITH TIA, ISCHEMIC, OR HEMORRHAGIC STROKE?: No PATIENT / SUBSTITUTE DECISION MAKER GOAL UPON TRANSITION: First Choice: Transitional Care ANTICIPATED NEEDS UPON TRANSITION: Transitional Care Transportation assistance RESOURCE(S) PROVIDED: nothing needed at this time ANTICIPATED MODE OF TRANSPORT UPON TRANSITION: [employer] Wheelchair (P:[phone]) ANTICIPATED MODE OF TRANSPORT TO AND FROM FOLLOW UP APPOINTMENTS: As arranged by accepting facility VERIFIED CORRECT PHARMACY IS ENTERED FOR DISCHARGE: No TBD based on final transition plan TRANSITION ROUNDING COMPLETED WITH THE FOLLOWING: Patient / family Bit Bender Bedside account executive agribusiness RN Discussed in person SIGNED: KAYLEE Burnette Storage Consultant | Case Management | Alpha Pager: [phone] | Route Number: [id number] are Planning - Tamika Neumann, CLAUDY - 12/06/2020 3:11 AM GEOPHYSICAL E LOGGER Problem: RISK FOR FALLS Goal: FALL PREVENTION BEHAVIOR Description: DEFINITION: Personal or family career consultant actions to minimize risk factors that might precipitate falls in the personal environment. 1=Never demonstrated, 2=Rarely demonstrated, 3=Sometimes demonstrated, 4=Often demonstrated, 5=Consistently demonstrated. Outcome: NOC Rating 3 Flowsheets (Taken 12/06/2020 0310) Plan of care reviewed with: Patient Patient specific goal for the day: Pt will remain free of falls. Patient specific goal for the stay: Pt will remain free of falls until discharge. Achieve goal for stay: By discharge Patient Progress: Pt AOx4. VSS. Fall precautions in place. Will continue to monitor. are Planning - Kirsty Sam, STUDENT - 12/05/2020 4:02 PM GEOPHYSICAL E LOGGER Problem: ACUTE PAIN Goal: CLIENT SATISFACTION: PAIN MANAGEMENT Description: DEFINITION: Extent of positive perception of nursing care to relieve pain. 1=Not at all satisfied, 2=Somewhat satisfied, 3=Moderately satisfied, 4=Very satisfied, 5=Completely satisfied. Outcome: NOC Rating 4 Flowsheets (Taken 12/05/2020 6144) Plan of care reviewed with: Patient Patient specific goal for the day: Pt will rate pain level less than 4/10 for her left leg pain. Patient specific goal for the stay: Pts pain will be managed with PRN PO pain meds and non-pharm measures. Achieve goal for stay: By discharge Patient Progress: Pt is resting comfortably. Pt rated pain 3/10 for leg and back pain. Will continueyou monitor. are Planning - Mera Mccullough RN - 12/05/2020 6:00 AM GEOPHYSICAL E LOGGER Problem: ACUTE PAIN Goal: CLIENT SATISFACTION: PAIN MANAGEMENT Description: DEFINITION: Extent of positive perception of nursing care to relieve pain. 1=Not at all satisfied, 2=Somewhat satisfied, 3=Moderately satisfied, 4=Very satisfied, 5=Completely satisfied. Outcome: NOC Rating 4 Flowsheets (Taken 12/05/2020 1485) Plan of care reviewed with: Patient Patient specific goal for the day: Patient will be able to tolerate leg pain with use of scheduled and PO pain medications. Patient specific goal for the stay: Will be satisfied with pain manageable. Achieve goal for stay: By discharge Patient Progress: Patient is AOx4. VSS on RA, see Graphics. Rated pain to back 4/10, and had fever x1 of 100.5. Tylenol given for each instance, comfortable on reassessment. Will continue to monitor. are Planning - Joanna Montano RN - 12/04/2020 6:35 PM GEOPHYSICAL E LOGGER Problem: ACUTE PAIN Goal: CLIENT SATISFACTION: PAIN MANAGEMENT Description: DEFINITION: Extent of positive perception of nursing care to relieve pain. 1=Not at all satisfied, 2=Somewhat satisfied, 3=Moderately satisfied, 4=Very satisfied, 5=Completely satisfied. Outcome: NOC Rating 4 Flowsheets (Taken 12/04/20201955) Initial Score: 4 Target Score: 5 Plan of care reviewed with: Patient Patient specific goal for the day: Patient will be able to tolerate leg pain with use of scheduled and PO pain medications. Patient specific goal for the stay: Will be satisfied with pain manageable. Achieve goal for stay: By discharge Patient Progress: Patient is AOx4. VSS on RA, see Graphics. Patient reports pain which was relieved with PRN Oxycodone, see MAR. Patient denies complaint of nausea or lightheadedness. Will continue to assess and monitor. HYSICAL E LOGGER Occupational Therapy - Emi Wallace OTR/Kiley - 12/04/2020 12:00 PM CST Occupational Therapy Acute Care Evaluation Impression/Recommendations Pt functioning below reported baseline level of independence. Pt requires assist x 1-2 for ADLs. Ptreports assist 2 vs ceiling lift for OOB transfers. Limited by pain/fear of pain, weakness and fatigue. Impression/Plan: OT recommends low- intensity therapy setting (i.e. ST SNF, TCU, swing bed, etc) when medically stable with continued skilled OT services. Acute OT will continue per POC to maximize functional strength, activity tolerance, cognition, safety, balance, and independence with ADLs, transfers and functional mobility, needed for optimal quality of life. Admitting Diagnosis: S/p L tibia IM nailing and hardware removal lower leg 12/02/20 ICD-10-CM 1. Closed fracture of shaft of left tibia, unspecified fracture morphology, initial encounter S82.202A Weight bearing status - non-weight bearing PHYSICAL THERAPY EVALUATION AND TREATMENT 2. Closed fracture of proximal end of left fibula, unspecified fracture morphology, initial encounter S82.460M Attending Provider: Dr. Szymanski History of Present Illness: Refer to H&P for details Past Medical History: Past Medical History: Diagnosis Date Blood transfusion without reported diagnosis COPD (chronic obstructive pulmonary disease) ([facility]) Osteoporosis Seizures ([facility]) Activity Level: progressive mobility protocol, activity as tolerated, dangle Precautions: Fall risk, pressure ulcer risk, NWB L LE, CAM boot Infection Control: "Pt is on a negligible risk hazardous medication. Wear universal precautions (one pair of chemo gloves) during patient care activities involving bodily fluids" Patient History Social/Home Environment: Patient lives: lives alone, [facility] House: apartment, 2nd floor with elevator access, Dining room is on the 1st floor Home Environment: Bath Setup: Walk-In Shower with curtain, shower chair, handheld shower head, grab bars -handicap-height toilet, grab bars by toilet on both sides -Sleeps in a regular bed -Laundry is done by staff Employment: retired Prior Level of Function Independent with: feeding, grooming, toileting, transfers, mobility, dressing, bathing and money management Assistance needed with: medication management, cooking (gets 2 meals/day at dining room. Doesn't cook for herself, eats snack), cleaning, laundry, driving (bus to take her to appts) and groceries (pays for delivery) Adaptive Equipment Available: shower chair, hand held shower, grab bars tub/shower, grab bars toilet, handicapped-height toilet, walkers Present for Eval: Pt Objective Activities of Daily Living: Feeding: Set-up from bed level with items in reach Grooming: minimum assistance for thorough job completion Upper Extremity Dressing: moderate assistance for don/doff of UB garment; mgmt around trunk and over limbs Lower Extremity Dressing: Total assistance from bed level. Will benefit from continued training, trial of AE and education on compensatory strategies and AE PRN Bathing: TBA Toileting: Declines need Transfers: Bed: maximum assistance with repositioning in bed for comfort and pressure relief. Pt declines sitting up d/t pain and fear of it worsening. Education on importance/benefit of mobility and participation in therapy. Pt verbalizes understanding/agreement and states she will try again later with staff. Stewart yateszes, "it felt like they were killing me yesterday when they tried to get me up". Endorses thatit was difficult to try and maintain NWB precautions to L LE Chair: TBA Toilet: TBA Tub/Shower: TBA Pain: Pain at rest: 2/10 Pain during activity: 10 Location: foot/LE Upper Extremity Function: Range of Motion: Right:within functional limits Left: within functional limits Strength: Right: limited, 4/5 grossly Left: limited, 4/5 grossly Endurance: limited Coordination: intact Sensation: intact Edema: no Dominant Hand: right Comments: Good, equal bilateral cattle driver strength Orientation: Cognition: alert Attention: intact Following Directions: intact for simple 1-step commands from bed level. Pt states that Safety Awareness: impaired Impulsivity: None observed; continue to monitor as appropriate Comments: Will continue to assess cognition PRN to facilitate functional outcomes. Visual/Perception: Denies acute changes Education Education/Training provided: Education/training on purpose/role of OT, ADL techniques, energy conservation techniques, use of call light and importance of calling for assistance, goals, POC, home programming, and discharge recommendations. Learners: Patient Readiness: Acceptance, willing Method of Training: Explanation/verbal education, demonstration Response: Verbalized/demonstrated understanding, will benefit from continued reinforcement, unableto consistently perform teach back/return demonstration yet Adaptive Equipment Recommendations Adaptive Equipment Recommended: Will continue to assess and make recommendations as appropriate. Adaptive equipment already in place: shower chair, hand held shower, grab bars tub/shower, grab barstoilet, handicapped-height toilet, walkers Plan to obtain adaptive equipment: To further assess. Assessment/Plan Assessment: Patient demonstrates decreased UE strength, decreased physical conditioning, decreased fine motor coordination, decreased independence with ADL/IADL tasks, decreased independence with functional mobility, decreased safety judgement/insight into deficits and decreased functional cognition Patient showing a decrease in ADL/transfer performance and will benefit from continued OT. Plan: Patient to be seen 3-5 times a week to work toward listed goals Treatment plan will consist of Sunday thru Sunday sessions Goals Patient/Family Stated Goal for Session: Pt is agreeable to OT services; no specific goals stated Short Term Goals: To be met by discharge 1. Pt will participate in cognitive assessment PRN to facilitate functional outcomes, increase safety with functional tasks and assist in discharge planning. 2. Pt will demonstrate stand-by assistance with 3 grooming tasks in sitting at sink using compensatory techniques and adaptive equipment PRN. 3. Pt will demonstrate standby assistance with upper body dressing tasks using compensatory strategies and/or adaptive equipment PRN. 4. Pt will demonstrate minimal assistance with fully lower body dressing tasks using compensatory strategies and/or adaptive equipment PRN. 5. Pt will demonstrate stand-by assistance with bed, chair and toilet transfers using adaptive equipment as needed. 6. Pt will tolerate 20-30 minutes of UE AROM strengthening exercises with no shortness of breath, using 2# hand weight to increase functional strength/activity tolerance needed to complete ADLs and functional mobility. 7. Pt/family to verbalize understanding of adaptive equipment recommendations PRN. 8. Pt to verbalize understanding of 2 energy conservation techniques to utilize in daily routines tofacilitate ease, safety and functional independence. Treatment Provided Initiated education/training on proper body mechanics to promote safety with ADLs. Initiated education/training on correct technique and safety with ADLs. Education on energy conservation techniques and how to implement into daily routines. Education on sitting for safety with ADL's/IADL's as warranted (I.e. dressing, bathing, grooming, meal prep, etc). Pt to benefit from further reinforcement of education/training provided today. Please refer above for further details of ADL session. Pt was left lying comfortably in bed at end of session, with bed positioned in locked/lowest setting; with safety parameters in place. Call light, phone, and bedside table placed within reach at end ofsession. Education provided on using call light and waiting for staff assistance before getting up. Pt verbalizes understanding/agreement. Charges Treatment/Minutes: Today's Evaluation/Treatment Evaluation Self care/home management: 15 minutes Total for time-based codes: 15 minutes Total treatment time: 30 minutes Evaluation Complexity PMH/Comorbidities that affect Occupational Performance: Please refer to [facility] Occupational Profile/Medical and Therapy History: LOW - Brief history relating to presenting problem Patient Assessment: HIGH- 5 or more performance deficits relating to physical, cognitive, psychosocial limitations/restrictions Clinical Decision Making: LOW - Low complexity, limited amount of treatment options, no assessment modification, no comorbidities Evaluation Complexity: Low Therapist Alpha Pager Number: [phone] HYSICAL E LOGGER Respiratory Therapy - Sivan Sweeney RRT - 12/04/2020 9:36 AM CSTPatient seen resting in bed on RA, SPO2 95%. Bs clear and diminished. Continues to receive Breo ONCEDAILY. RT to follow. are Planning - Mera Mccullough RN - 12/04/2020 4:58 AM GEOPHYSICAL E LOGGER Problem: ACUTE PAIN Goal: CLIENT SATISFACTION: PAIN MANAGEMENT Description: DEFINITION: Extent of positive perception of nursing care to relieve pain. 1=Not at all satisfied, 2=Somewhat satisfied, 3=Moderately satisfied, 4=Very satisfied, 5=Completely satisfied. Outcome: NOC Rating 4 Flowsheets (Taken 12/04/2020 0224) Plan of care reviewed with: Patient Patient specific goal for the day: Patient will be able to tolerate leg pain with use of scheduled and PO pain medications. Patient specific goal for the stay: Will be satisfied with pain manageable. Achieve goal for stay: By discharge Patient Progress: Pt rated pain to leg 7-8/10, oxycodone given x1. On reassessment pt stated pain was tolerable at a 3/10. Had temp x1 during night, prn tylenol given. 98.9 afterwards, will continue tomonitor. HYSICAL E LOGGER Respiratory Therapy - Judi Teresa RRT - 12/03/2020 7:07 PM CSTPatient seen resting in bed on 1L NC with SpO2 94%. Breath sounds were clear and diminished with RR 18. Patient receives Breo Ellipta Daily. RT to follow. hysical Therapy - Myles Alvarado, PT - 12/03/2020 3:07 PM GEOPHYSICAL E LOGGER Physical Therapy Acute Inpatient Initial Evaluation ASSESSMENT/RECOMMENDATIONS Patient requires assist of 2 for sit to stand transfers. Poor tolerance to standing due to weakness.Requires use of ceiling lift for safe transfers to chair. Recommend Antonietta receive further skilledPT at a low intensity setting. Will continue to follow acutely and update discharge recommendations as appropriate. 6-Clicks Basic Mobility Score: 9 Activity Prescription with Nursing: Transfer to chair 3 times per day using ceiling lift. Encourage patient to perform personal cares when sitting up. Use commode instead of bed singh. Use ceiling lift Anticipated D/C Service needs: Low intensity setting Diagnosis: ICD-10-CM 1. Closed fracture of shaft of left tibia, unspecified fracture morphology, initial encounter S82.A Weight bearing status - non-weight bearing PHYSICAL THERAPY EVALUATION AND TREATMENT 2. Closed fracture of proximal end of left fibula, unspecified fracture morphology, initial encounter S82.832A Prescription: Eval and Treat Admit Date: 12/01/2020 Physical therapy initiated: 12/03/2020 Pertinent Medical / Surgical History: Patient has a past medical history of Blood transfusion without reported diagnosis, COPD (chronic obstructive pulmonary disease) ([facility]), Osteoporosis, and Seizures ([facility]). She also has no past medical history of Anemia, Anxiety, Arthritis, Asthma, Cancer ([facility]), Cataract, CHF (congestive heart failure) ([facility]), Clotting disorder ([facility]), Diabetes mellitus (HCC), HIV infection ([facility]), Hyperlipidemia, Hypertension, Kidney disease, Myocardial infarction ([facility]), Stroke ([facility]), Substance abuse ([facility]), or Thyroid disease. Patient has a past surgical history that includes hysterectomy; appendectomy; fracture surgery; breast biopsy; im nailing (Left, 12/02/2020); and im nailing (Left, 12/02/2020). Current status: Patient is 1 day(s) status-post Left tibial fibula with fracture status post surgical intervention Precautions: Fall risk, pressure ulcer risk, Weight-bearing status: NWB in CAM boot at all times. SUBJECTIVE Social History: Patient lives: [facility] Home environment: Assisted Living Steps: None Employment: Retired Prior Level of Function: Activities of Daily Living: Independent with ADL's Mobility: 4ww History of falls: Yes, "I've had a whole bunch of falls" Home O2: "Every once in awhile" Adaptive equipment available: 4WW, FWW Patient Concerns: Pain Patient/Family Goals: "Getting myself up and walking again" OBJECTIVE Patient seen at bedside. Incontinent of urine during ceiling lift transfer. Up in chair at end of PTevaluation with L LE elevated. Patient presents with CAM boot to L LE, peripheral IV. Cognition: Alert and oriented x4 Pain at rest: L foot 1/10 Pain with activity: L foot 7/10 Posture: WFL Observation: Resting in bed upon arrival. Range of Motion: Bilateral lower extremities WFL with exception of L knee and ankle ROM. Refer to Occupational Therapy report for upper extremity range of motion. Strength: R LE 3+/5 hip flexion, 4/5 LAQ, 5/5 knee flexion. L LE 2+/5 hip flexion, 2+/5 knee extension. Refer to Occupational Therapy report for upper extremity strength testing. Sensation: Grossly intact bilaterally. Bed Mobility: Supine to Sit: Moderate assist of 1 with elevated HOB. Most assist needed with management of L LE Comments: SBA for seated balance on EOB. Transfers: Sit to/from Stand: Sit to stand with FWW and maxA of 1 plus assist of another to keep L LE NWB. Needed 3 attempts to stand. Poor tolerance to standing due to pain and weakness and required to sit backon bed after ~ 5 seconds. Assist of 2 for EOB to chair with ceiling lift. Balance: Static Sitting Balance: Good Dynamic Sitting Balance: Fair Static Standing with Assistive Device: Poor Education: Patient was educated on role of acute PT, equipment recommendations, activity recommendations, and discharge recommendations today through explanation. They accepted teaching and verbalized understanding. Today's Treatment Evaluation: Completed Gait trainin minutes Therapeutic exercise: 0 minutes Therapeutic activity: 10 minutes TOTAL TIME-CODED MINUTES: 10 minutes TOTAL TREATMENT TIME: 33 minutes Treatment provided: Initial evaluation. Assist/cues for bed mobility, transfers. GOALS Goals to be achieved by discharge. Patient will be aware of equipment recommendations as indicated in note to allow for safe mobility. Patient will transfer sit to/from supine with stand-by assistance. Patient will transfer from sit to/from stand with minimal of 1 assistance and equipment as needed toprogress to safe household mobility. Patient will pivot to chair with minimal assist of 1 and FWW to progress to safe household mobility. Patient will follow NWB precautions to L LE with functional mobility tasks. PLAN 5x/wk Physical Therapy Services: bed mobility training education equipment therapeutic activity therapeutic exercise transfer training wheelchair training Myles Alvarado PT, DPT Alpha Pager: [phone] utrition Team - Rhonda Ford RD - 12/03/2020 3:06 PM CST Nutrition Therapy Note Hospital Day: 2 days Active Problems: Left tibial/fibular shaft fracture Mechanical fall with recurrent falls Recommendations: 1) Encourage adequate oral intake with 3 meals and snacks (as needed) to meet estimated needs. Offer snacks/ONS with missed meals or intake <25%. Please record meal intake % in flowsheets NUTRITION ASSESSMENT RD obtain NFPE today, noted to have some mild-moderate muscle losses, however does not meet criteriafor malnutrition at this time. Updated pt's scheduled snacks to her preference. She does report being a picky eater and does not like most snack options. She reports appetite is okay today, noted however it appears she's only consumed 50% of lunch today. Will continue to monitor oral intake for tolerance and adequacy. Estimated Needs: 4850-4922 kcal/day (26-30 kcal/kg Using: [facility] Body Weight) 70-75 gm protein (1.2-1.3 gm/kg Using:[facility] Body Weight) Fluids per MD Current Diet: Nutrition (From admission, onward) Start Ordered 12/02/20 1600 SNACKS Once info Comments: AM: Banana PM: CIB Milkshake (chocolate) HS: Farhat 12/02/20 1559 12/02/20 1525 ADVANCE DIET TOLERATED ONCE 12/02/20 1520 12/02/20 1525 Diet - Regular Now Question: Standard Diets Answer: Regular 12/02/20 1520 12/02/20 1330 Advance diet as tolerated while in recovery (Outpatient Discharge to Home) ONCE 12/02/20 1327 12/02/20 0900 Supplement [facility]; Boost Breeze BID BID Comments: Give supplement cold with medications twice a day. The supplement is an intervention for identified nutrition risk factors. * Do not give if patient is NPO (unless the orders specify NPO with supplement) or if medication should not be given with food. Question Answer Comment Location [facility] JOSE GUADALUPE Dietary Supplement Boost Emery 12/02/20 0322 Nutrition Focused Physical Exam: Completed by RD on 12/03/20 Below the Eye (fat): Slightly Bulged Fat Pads (Within Defined Limits) [place] (muscle): Slight depression (mild-moderate)(mild) Buccal (fat): Full, round/filled out cheeks (Within defined limits) Clavicle (muscle): Some protrusion of bone (mild-moderate)(Pt did report having borken clavicle boneon Left side) Ribs/Iliac Crest (fat): Ribs do not show, slight to no protrusion of iliac crest (Within Defined Limits) Triceps/Biceps (fat): Ample fat tissue obvious between folds of skin (Within defined limits) Hand/Interosseous (muscle): Flat to bulging muscle (Within defined limits) Thigh (muscle): Well-rounded, no bone prominence (Within defined limits) Calf (muscle): Well-developed bulb of muscle (Within defined limits) INTERVENTIONS Encouraged adequate calories and optimal protein in small, frequent meals and snacks Will send snacks and supplements BID Conducted NFPE EMR reviewed MONITORING/EVALUATION Monitor ability to consume and tolerate adequate intake to approximate estimated needs with accomodation of preferences and tolerances until intake is sustained within desirable limits Monitor I&O, weight trends, nutrition-related labs and medications, clinical status, and planof care r/t need for nutrition intervention and provide as warranted Rhonda Ford RDN, LRD Pager: [phone] ase Kym - Katie Jacobo LSW - 12/03/2020 1:52 PM CSTCASE MANAGEMENT / SOCIAL SERVICE TRANSITION PLAN - PROGRESS NOTE PLAN: Will Continue to Follow for Support and Progression Towards Final Transition Plan BARRIERS TO TRANSITION: Awaiting Therapy Recommendations Medical barriers:.pain management, PT/OT, IV abx, DOES ACCEPTING FACILITY REQUIRE COVID TESTING BEFORE DISCHARGE: N/A COMMENTS / PATIENT AND FAMILY RESPONSE TO PLAN: Reviewed patient's chart, Presented to patient's bedside and discussed discharge planning. Patient is agreeable to TCU placement. Patient has been profiled to [facility] in [place] per her request. Case management to continue to follow and support. IS PATIENT'S ADMISSION ASSOCIATED WITH TIA, ISCHEMIC, OR HEMORRHAGIC STROKE?: No PATIENT / SUBSTITUTE DECISION MAKER GOAL UPON TRANSITION: First Choice: Transitional Care ANTICIPATED NEEDS UPON TRANSITION: Transitional Care Transportation assistance RESOURCE(S) PROVIDED: nothing needed at this time ANTICIPATED MODE OF TRANSPORT UPON TRANSITION: [facility] Wheelchair (P:[phone]) ANTICIPATED MODE OF TRANSPORT TO AND FROM FOLLOW UP APPOINTMENTS: As arranged by accepting facility VERIFIED CORRECT PHARMACY IS ENTERED FOR DISCHARGE: No TBD based on final transition plan TRANSITION ROUNDING COMPLETED WITH THE FOLLOWING: Patient / family Bit Bender Bedside account executive agribusiness RN Discussed in person SIGNED: KAYLEE Burnette Storage Consultant | Case Management | Alpha Pager: [phone] | Route Number: [id number] are Planning - Stacia Sotomayor RN - 12/03/2020 11:23 AM GEOPHYSICAL E LOGGER Problem: RISK FOR FALLS Goal: FALL PREVENTION BEHAVIOR Description: DEFINITION: Personal or family career consultant actions to minimize risk factors that might precipitate falls in the personal environment. 1=Never demonstrated, 2=Rarely demonstrated, 3=Sometimes demonstrated, 4=Often demonstrated, 5=Consistently demonstrated. Outcome: NOC Rating 2 Flowsheets (Taken 12/03/2020 1122) Plan of care reviewed with: Patient Patient specific goal for the day: Pt will remain free of falls. Patient specific goal for the stay: Pt will remain free of falls until discharge. Achieve goal for stay: By discharge Note: Pt is using call light. Pt wearing fall risk band. Will continue to monitor. linical Team - Stacia Sotomayor RN - 12/03/2020 11:11 AM CSTPt is reporting throat pain. Requested cough drops. paged. are Planning - Tammy Cates RN - 12/03/2020 12:49 AM GEOPHYSICAL E LOGGER Problem: ACUTE PAIN Goal: CLIENT SATISFACTION: PAIN MANAGEMENT Description: DEFINITION: Extent of positive perception of nursing care to relieve pain. 1=Not at all satisfied, 2=Somewhat satisfied, 3=Moderately satisfied, 4=Very satisfied, 5=Completely satisfied. Flowsheets (Taken 12/03/2020 004) Initial Score: 4 Target Score: 5 Plan of care reviewed with: Patient Patient specific goal for the day: Patient will rate pain less than 3 on 0-10 scale this shift with PO and IV pain medications Achieve goal for stay: By discharge Patient Progress: Pt rated pain as 4/10 when asked. 101.1 temp recorded. PRN Tylenol given. Will monitor effectiveness. Pt currently resting in bed. Call light within reach. Will continue to monitor. linical Team - Stacia Sotomayor RN - 12/02/2020 6:37 PM CSTPt verbalized discomfort after voiding. Only able to void 100 ml at a time with post void bladder scan of 560s. Straight cath attempted x3 and was unsuccessful. Pt. Decided to pivot to the commode and tried voiding again. This was successful and she voided 300 ml. Pt felt relief. Will continue to monitor upplemental Progress Note - Dyan Arreola MD - 12/02/2020 6:08 PM CSTPostoperative Check S: Antonietta is seen after undergoing IM nail of left tibial shaft fracture today. Pain is well-controlled currently. Denies numbness or tingling. O: Exam: General: Resting comfortably in bed, no acute distress LLE: Dressing c/d/i Able to wiggle toes, plantarflex and dorsiflex ankle, flex/extend great toe SILT in deep peroneal/superficial peroneal/tibial/sural/saphenous nerve distributions DP and PT pulses palpable Toes warm and well perfused, capillary refill <2 seconds A/P: -Stable postoperative exam - Continue current management Dyan Cabrera MD PGY-1, Orthopedic Surgery HYSICAL E LOGGER Clinical Team - Stacia Sotomayor RN - 12/02/2020 3:35 PM CSTPt up from PACU. Post-op vitals started. VSS. Family present in room. Upon Admission to 814, skin assessment completed with Yessenia Murray RN. Upon skin assessment including pressure points findings include: Pressure points WDL. Bruising to left shoulder and upper arm. Scrape on right knee. Old surgical scar on left hip, right ankle, and right wrist. Bruising to left groin and upper left leg. Plan/Intervention: Elevate left leg on pillows, care rounding, patient shifts in bed, keep dry. are Planning - Kasey Peterson RN - 12/02/2020 2:15 PM GEOPHYSICAL E LOGGER Problem: RISK FOR INJURY Goal: SURGICAL RECOVERY: IMMEDIATE POST-OPERATIVE Description: DEFINITION: Extent to which an individual achieves physiological baseline function following major surgery requiring anesthesia. 1=Severe deviation from normal range, 2=Substantial deviation from normal range, 3=Moderate deviation from normal range, 4=Mild deviation from normal range, 5=No deviation from normal range. Outcome: NOC Rating 4 Flowsheets (Taken 12/02/2020 1415) Initial Score: 3 Target Score: 4 HYSICAL E LOGGER Nutrition Team - Rhonda Ford RD - 12/02/2020 2:13 PM CST Nutrition Therapy Initial Assessment Hospital Day: 0 days Active Problems: ? Left tibial/fibular shaft fracture ? Mechanical fall with recurrent falls PMH: Osteoporosis, Seizure disorder, Mood disorder, COPD, GERD Recommendations: 1) Encourage adequate oral intake with 3 meals and snacks (as needed) to meet estimated needs. Offer snacks/ONS with missed meals or intake <25%. Please record meal intake % in flowsheets Malnutrition Summary: Reassess as able NUTRITION ASSESSMENT Started patient on scheduled snacks. Anthropometrics: Height: 165.1 cm (5' 5") Admission Weight: Weight: 67.9 kg (149 lb 11.1 oz) as of 12/01/2020 per unknown source Most Recent Weight: Weight: 71.2 kg (156 lb 14.4 oz) (12/01/202004) per bed scale Weight Change: +3.3 kg (7 lb) since admission BMI: Body mass index is 26.11 kg/m. IBW: 57 kg %IBW: 125% (based on most recent weight) Usual Body Weight: Pt didn't provide Unintentional Weight Loss: No significant wt loss noted Estimated Needs: 0564-7237 kcal/day (26-30 kcal/kg Using: [facility] Body Weight) 70-75 gm protein (1.2-1.3 gm/kg Using:[facility] Body Weight) Fluids per MD Intake Records: Intake Prior to Admit: Possibly inadequate however difficult to assess as pt/family didn't provide much detail. Pt resides in an assisted living facility. Family states they feel she's been eating less, but didn't provide how much less. Stating "she doesn't go to the dining jarrell as much as she should." Pt states appetite is okay. Current Intake: Pt has been NPO Current Diet: Nutrition (From admission, onward) Start Ordered 12/02/20 1330 Advance diet as tolerated while in recovery (Outpatient Discharge to Home) ONCE 12/02/20 1327 12/02/20 0900 Supplement [facility]; Boost Breeze BID BID Comments: Give supplement cold with medications twice a day. The supplement is an intervention for identified nutrition risk factors. * Do not give if patient is NPO (unless the orders specify NPO with supplement) or if medication should not be given with food. Question Answer Comment Location [facility] Dietary Supplement Boost Breeze 12/02/20 0322 Physical Assessment: Edema: (per psychiatric aides teacher at 0939 today) ? Generalized Edema None ? LLE Edema Trace ? RLE Edema Trace GI Assessment: ? Abdominal exam: WDL, per psychiatric aides teacher at 0939 today. ? Stool Frequency: Pt has not had a documented BM since admission Wounds/Pressure Points: (per psychiatric aides teacher at 0939 today) ? Heel Blanchable Redness Functional Status: WDL Recurrent falls Nutrition Focused Physical Exam: Deferred at this time due to inability to visit today Nutritionally-Relevant Medications, Vitamins and Minerals: Folic acid, Dilaudid, IV lactated ringers, Protonix, Phenobarbital, Dilantin, Phenylephrine, IVF, Vitamin D3 Nutritionally-Relevant Biochemical Data: (12/02/2020) Glucose 108 H Creatinine 0.57 L Allergies/Food Intolerance: Antonietta has No Known Allergies. Culturally Lutheran Needs: no INTERVENTIONS Encouraged adequate calories and optimal protein in small, frequent meals and snacks Will send snacks and supplements TID Obtained diet history EMR reviewed MONITORING/EVALUATION Monitor ability to consume and tolerate adequate intake to approximate estimated needs with accomodation of preferences and tolerances until intake is sustained within desirable limits Monitor I&O, weight trends, nutrition-related labs and medications, clinical status, and planof care r/t need for nutrition intervention and provide as warranted Nutrition Therapy will reassess every 1-4 days Rhonda Ford RDN, LRD Pager: [phone] ostOp Progress Note - Yobani Sandy MD - 12/02/2020 1:20 PM CSTImmediate Post- Operative / Post Procedure Progress Note Att. Phys: Brian Burrows MD Pt. Type: OP in a Bed Operative Date: 12/02/2020 Surgeon: Surgeon(s) and Role: * Yobani Sandy MD - Primary * Dyan Arreola MD - Resident - Assisting Ssn/Ssbn Assistant Navigator: Trust Accounts Supervisor : Lori Camejo RN; Afshan Kohli RN; Qasim Caldwell RN Scrub Person : Tyler Harvey CST; Yajaira Prado ST Disability Manager: Jerad Alejandro PA The skilled assistance of my assistant professor of life sciences (KENNETH) was necessary for the following activities: positioning of the patient, assistance with the procedure, holding retractors, assistance with holdingreduction, assistance with wound closure, and dressing application. Dyan Cabrera MD PGY-1 Ortho resident was present and assisted with the surgery. Pre-Operative Diagnosis: Pre-Op Diagnosis Codes: * Fracture of left tibia [S82.202A] * Fracture, tibia and fibula [S82.209A, S82.409A] Post-Operative Diagnosis: same Anesthesia Type: general Operative Procedure: Procedure(s): LEFT TIBIA IM NAILING AND POSS. HARDWARE REMOVAL - Wound Class: Clean * No specimens in log * no implants used for procedure Fluids Given: See Anesthesia Record Urine Output: See Anesthesia Record Estimated Blood Loss: 50 mL Drains: none Findings: none Complications: none Postoperative Condition: stable are Planning - Stacia Sotomayor RN - 12/02/2020 10:21 AM GEOPHYSICAL E LOGGER Problem: RISK FOR FALLS Goal: MOBILITY Description: DEFINITION: Ability to move purposefully in own environment independently with or without assistive device. 1=Severely compromised, 2=Substantially compromised, 3=Moderately compromised,4=Mildly compromised, 5=Not compromised. Outcome: NOC Rating 2 Flowsheets (Taken 12/02/2020 1020) Plan of care reviewed with: Patient Patient specific goal for the day: Pt will have assist x1 for repositioning Patient specific goal for the stay: Pt will be minimal assist x1 by discharge with mobility Achieve goal for stay: By discharge Patient Progress: Pt is repositining self in bed with minimal assistance. Pt going down for left tibia surgery at 12 HYSICAL E LOGGER Respiratory Therapy - Alexander Diana RRT - 12/02/2020 10:05 AM CSTPt seen resting in bed on RA with SpO2 of 93%, BS diminished but clear with RR 16-20 with no appearance of respiratory distress. Pt currently receiving daily Breo per HR of Advair. RT to follow. ase Mgmt - Katie Jacobo LSW - 12/02/2020 9:30 AM CSTCASE MANAGEMENT / SOCIAL SERVICE TRANSITION PLAN - INITIAL ASSESSMENT TRANSITION PLAN: Will Continue to Follow for Support and Progression Towards Final Transition Plan BARRIERS TO TRANSITION: Awaiting Therapy Recommendations Discharge Needs to be Determined Medical barriers:.OR, PT/OT, pain management COMMENTS / PATIENT AND FAMILY RESPONSE TO PLAN: Reviewed patient's chart, Presented to patient's bedside, introduced self, and explained role of social service liaison. Patient statesshe lives at [facility]. Patient is independent with ADLs. Patient eats meals provided by [facility]. Patient also receives assistance with medications. Patient uses a 4WW for ambulation.Patient denies the use of any formal community services. Patient states upon discharge, her family should be able to provide transportation. Her goal is to return to [facility]. No further questions or concerns at this time. Case management to continue to follow and support. ADMISSION DX: No admission diagnoses are documented for this encounter. PATIENT STATUS: OP in a Bed RELEASE OF INFORMATION: Yes -- verbal for: discharge planning SOURCES OF INFORMATION (See demographics for contact information): Medical Record Patient CURRENT LIVING SITUATION / LEVEL OF ASSISTANCE: Lives in Facility - Name: [facility] Contact: Sivan Fax: . Pharmacy: [email or web address] Independent Four-Wheeled Walker with Hand Brakes and a Seat COMMUNITY SERVICES: None HEALTHCARE DIRECTIVE: No POWER OF NATIONAL SALES EXECUTIVE: None FINANCIAL CONCERNS: No Concerns PRIMARY CARE PHYSICIAN: Yes CHAGO Barnard : No IS PATIENT'S ADMISSION ASSOCIATED WITH TIA, ISCHEMIC, OR HEMORRHAGIC STROKE?: No LANGUAGE / COMMUNICATION BARRIERS: No PATIENT / SUBSTITUTE DECISION MAKER GOAL UPON TRANSITION: First Choice: Assisted Living ANTICIPATED NEEDS, TRANSITION CHOICES OFFERED: Assisted Living RESOURCE(S) PROVIDED: nothing needed at this time DOES PATIENT HAVE CLOTHING TO WEAR AT DISCHARGE? Yes ANTICIPATED MODE OF TRANSPORT UPON DISCHARGE: Family Car VERIFIED CORRECT PHARMACY IS ENTERED FOR DISCHARGE: Yes - Pharmacy: [facility] [id number] [place] [id number] CURRENT READMISSION RISK SCORE Predictive Risk Score Risk of Unplanned Readmission: 8.6 Please refer to readmission risk assessment flowsheet for further details. SIGNED: KAYLEE Burnette Storage Consultant | Case Management | Alpha Pager: [phone] | Route Number: [id number] are Planning - Nataly Montero RN - 12/02/2020 3:25 AM GEOPHYSICAL E LOGGER Problem: ACUTE PAIN Goal: CLIENT SATISFACTION: PAIN MANAGEMENT Description: DEFINITION: Extent of positive perception of nursing care to relieve pain. 1=Not at all satisfied, 2=Somewhat satisfied, 3=Moderately satisfied, 4=Very satisfied, 5=Completely satisfied. Outcome: NOC Rating 4 Flowsheets (Taken 12/02/2020 4557) Initial Score: 4 Target Score: 5 Plan of care reviewed with: Patient Patient specific goal for the day: Patient will rate pain less than 3 on 0-10 scale this shift with PO and IV pain medications Patient Progress: Goal met: Patient rated pain less than 3 on 0-10 scale this shift. linical Team - Nataly Montero RN - 12/01/2020 8:15 PM GEOPHYSICAL E LOGGER Upon Admission to [facility], skin assessment completed with Delia Bryson RN Upon skin assessment including pressure points findings include: Left upper arm and shoulder bruise.Old bruising to abd and right elbow. Old surgical scar on Left and right hip, right ankle, and rightwrist. Right knee skin tear. Left groin and upper Left leg bruising Plan/Intervention Care rounding, patient shifts in bed. Feet up on pillows. Keep dry. Nataly Montero documented in this encounter Plan of Treatment Date Type Specialty Care Team Description 12/14/2020 Office Visit Orthopedics Yobani Sandy MD [address] [place] [address] [phone] 01/11/2021 Office Visit Orthopedics Yobani Sandy MD [address] [place] [address] [phone] 01/20/2021 Office Visit Orthopedics Kanu Rodas PA [address] [place] [id number] Name Type Priority Associated Diagnoses Date/Ti me CULTURE, BLOOD MICROBIOLOGY REPORT [facility] 2020 12:13 AM GEOPHYSICAL E LOGGER CULTURE, BLOOD MICROBIOLOGY REPORT [facility] 2020 12:38 AM GEOPHYSICAL E LOGGER CULTURE, BLOOD MICROBIOLOGY REPORT Routine 2020 3:59 PM GEOPHYSICAL E LOGGER CULTURE, BLOOD MICROBIOLOGY REPORT Routine 2020 3:52 PM GEOPHYSICAL E LOGGER documented as of this encounter Implants Implanted Type Area Fish Conservationist Device Shelf Model / Identifier Expiration Serial / Date Lot Screw Lk Ti Nail 5x34mm N Ea1 - [id number] Ortho Left: J[employer]J DEPUY / Implanted: Qty: 1 on 12/02/2020 by Yobani Sandy MD at [facility] Other LEG SY[employer] / Screw Lk Ti Nail 5x30mm N [id number] Ea1 - [id number] Ortho Left: J&J DEPUY [id number] / Implanted: Qty: 1 on 12/02/2020 by Yobani Sandy MD at [facility] Other LEG SYN[employer] / Nail Tib Carolann [id number] N [id number] Ea1 - [id number] Ortho Left : J&J DEPUY 12/29/2026 [id number] / Implanted: Qty: 1 on 12/02/2020 by Yobani Sandy MD at [facility] Other LEG [employer]ES / [id number] Screw Lk Ti Nail 5x40mm N [id number] Ea1 - [id number] Ortho Left: J&J DEPUY [id number] / Implanted: Qty: 1 on 12/02/2020 by Yobani Sandy MD at [facility] Other LEG SYNTHES / Screw Lk Ti Nail 5x36mm N [id number] Ea1 - [id number] Ortho Left: J&J DEPUY [id number] / Implanted: Qty: 1 on 12/02/2020 by Yobani Sandy MD at [facility] Other LEG SYNTHES / Gdwire [id number] N [id number] Ea1 - [id number] Ortho Left: J&J DE PUY 357.399 / Implanted: Qty: 1 on 12/02/2020 by Yobani Sandy MD at [facility] Other LEG SYNTHES / documented as of this encounter Procedures Procedure Name Priority Date/Time Associated Comments Diagnosis SARS-COV-2, INFLUENZA STAT 12/07/2020 8:51 Re sults for this A+B, AND/OR RSV NUCLEIC AM GEOPHYSICAL E LOGGER proc edure are in ACID TESTING PANEL the resul ts section. CT CHEST WITHOUT Routine 12/06/2020 3:55 Results for this CONTRAST PM GEOPHYSICAL E LOGGER procedure are i n the results section. LAB ONLY-COMPLETE BLOOD Routine 12/06/2020 8:09 Results for this COUNT WITH DIFFERENTIAL AM GEOPHYSICAL E LOGGER proc edure are in the results section. MAGNESIUM Routine 12/06/2020 8:09 Results for this AM GEOPHYSICAL E LOGGER procedure are i n the results section. RENAL FUNCTION PANEL Routine 12/06/2020 8:09 Res ults for this AM GEOPHYSICAL E LOGGER procedure are i n the results section. LAB ONLY-COMPLETE BLOOD Routine 12/06/2020 8:09 Results for this COUNT WITH DIFFERENTIAL AM GEOPHYSICAL E LOGGER proc edure are in the results section. COLLECT AND HOLD KHAN Routine 12/05/2020 3:59 Re sults for this (NAFL) TOP TUBE PM GEOPHYSICAL E LOGGER procedure ar e in the results section. CULTURE, BLOOD Routine 12/05/2020 3:59 PM GEOPHYSICAL E LOGGER LAB ONLY-URINE Routine 12/05/2020 3:54 Results f or this MICROSCOPIC REFLEX PM GEOPHYSICAL E LOGGER procedure are in the results section. URINE DIP, REFLEX TO Routine 12/05/2020 3:54 Res ults for this MICROSCOPIC, REFLEX TO PM GEOPHYSICAL E LOGGER proce dure are in CULTURE the results section. CULTURE, BLOOD Routine 12/05/2020 3:52 PM GEOPHYSICAL E LOGGER XRAY CHEST PORTABLE Routine 12/05/2020 2:46 Resu lts for this PM GEOPHYSICAL E LOGGER procedure are i n the results section. LAB ONLY-COMPLETE BLOOD Routine 12/05/2020 8:34 Results for this COUNT WITH DIFFERENTIAL AM GEOPHYSICAL E LOGGER proc edure are in the results section. PROCALCITONIN Routine 12/05/2020 8:34 Results fo r this AM GEOPHYSICAL E LOGGER procedure are i n the results section. RENAL FUNCTION PANEL Routine 12/05/2020 8:34 Res ults for this AM GEOPHYSICAL E LOGGER procedure are i n the results section. LAB ONLY-COMPLETE BLOOD Routine 12/05/2020 8:34 Results for this COUNT WITH DIFFERENTIAL AM GEOPHYSICAL E LOGGER proc edure are in the results section. LAB ONLY-COMPLETE BLOOD Routine 12/04/2020 12:32 Results for this COUNT WITH DIFFERENTIAL PM GEOPHYSICAL E LOGGER proc edure are in the results section. LAB ONLY-COMPLETE BLOOD Routine 12/04/2020 12:32 Results for this COUNT WITH DIFFERENTIAL PM GEOPHYSICAL E LOGGER proc edure are in the results section. LAB ONLY-MANUAL Routine 12/04/2020 7:38 Results for this DIFFERENTIAL AM GEOPHYSICAL E LOGGER procedure are i n the results section. LAB ONLY-COMPLETE BLOOD Routine 12/04/2020 7:38 Results for this COUNT WITH DIFFERENTIAL AM GEOPHYSICAL E LOGGER proc edure are in the results section. LAB ONLY-COMPLETE BLOOD Routine 12/04/2020 7:38 Results for this COUNT WITH DIFFERENTIAL AM GEOPHYSICAL E LOGGER proc edure are in the results section. TYPE AND SCREEN Routine 12/04/2020 7:35 Results for this AM GEOPHYSICAL E LOGGER procedure are i n the results section. BASIC METABOLIC PANEL Routine 12/04/2020 6:54 Re sults for this AM GEOPHYSICAL E LOGGER procedure are i n the results section. XRAY CHEST PORTABLE Routine 12/03/2020 10:46 Resu lts for this AM GEOPHYSICAL E LOGGER procedure are i n the results section. LAB ONLY-URINE Routine 12/03/2020 10:35 Results f or this MICROSCOPIC REFLEX AM GEOPHYSICAL E LOGGER procedure are in the results section. URINE DIP, REFLEX TO Routine 12/03/2020 10:35 Res ults for this MICROSCOPIC, REFLEX TO AM GEOPHYSICAL E LOGGER proce dure are in CULTURE the results section. CULTURE BACTERIAL, Routine 12/03/2020 10:35 Resul ts for this URINE AM GEOPHYSICAL E LOGGER procedure are i n the results section. CULTURE, BLOOD ESTEVAN 12/03/2020 12:38 AM GEOPHYSICAL E LOGGER LAB ONLY-COMPLETE BLOOD Routine 12/03/2020 12:13 Results for this COUNT WITH DIFFERENTIAL AM GEOPHYSICAL E LOGGER proc edure are in the results section. COLLECT AND HOLD GREEN Routine 12/03/2020 12:13 R esults for this TOP TUBE AM GEOPHYSICAL E LOGGER procedure are i n the results section. COLLECT AND HOLD BLUE Routine 12/03/2020 12:13 Re sults for this (NACIT) TOP TUBE AM GEOPHYSICAL E LOGGER procedure a re in the results section. CULTURE, BLOOD ESTEVAN 12/03/2020 12:13 AM GEOPHYSICAL E LOGGER LAB ONLY-COMPLETE BLOOD Routine 12/03/2020 12:13 Results for this COUNT WITH DIFFERENTIAL AM GEOPHYSICAL E LOGGER proc edure are in the results section. LAB ONLY-ABORH STAT 12/03/2020 12:10 Results f or this AM GEOPHYSICAL E LOGGER procedure are i n the results section. XRAY C-ARM Routine 12/02/2020 1:24 Results for this PM GEOPHYSICAL E LOGGER procedure are i n the results section. NAILING INTRAMEDULLARY 12/02/2020 11:20 Fracture of le ft TIBIA AND FIBULA AM GEOPHYSICAL E LOGGER tibia Fracture, tibia and fibula EKG Routine 12/02/2020 7:49 Results for this AM GEOPHYSICAL E LOGGER procedure are i n the results section. LAB ONLY-COMPLETE BLOOD STAT 12/01/2020 5:37 Results for this COUNT WITH DIFFERENTIAL PM GEOPHYSICAL E LOGGER proc edure are in the results section. BASIC METABOLIC PANEL STAT 12/01/2020 5:37 Re sults for this PM GEOPHYSICAL E LOGGER procedure are i n the results section. LAB ONLY-COMPLETE BLOOD STAT 12/01/2020 5:37 Results for this COUNT WITH DIFFERENTIAL PM GEOPHYSICAL E LOGGER proc edure are in the results section. XRAY TIBIA FIBULA 2 ESTEVAN 12/01/2020 5:28 Resu lts for this VIEWS LT PM GEOPHYSICAL E LOGGER procedure are i n the results section. ORTHOPEDIC INJURY Routine 12/01/2020 4:45 Result s for this TREATMENT PM GEOPHYSICAL E LOGGER procedure are i n the results section. documented in this encounter Results SARS-COV-2, INFLUENZA A+B, AND/OR RSV NUCLEIC ACID TESTING PANEL (12/07/2020 8:51 AM GEOPHYSICAL E LOGGER) Pathologist Sig nature SARS-CoV-2 Detected (A) Not Detected [facility] Specimen Respiratory - Entire nasopharynx (body s tructure) Narrative Performed At Please read entire report. Results for Influenza A and B or [facility] RSV may also be available depending on which viruses y our provider selected for testing. Your COVID-19 test is positive: 1) Stay home except to get medical care. Avoid non-essential trips outside of your home and do not us e public transportation including ridesharing or taxis. Do not go to work, school or public areas. 2) Separate yourself from other people and anim als in your home. You should stay in a specific room and use a separate bathroom if possible. 3) If you need to seek medical care, please giulia l ahead to your clinic. 4) Cover your coughs and sneezes. 5) Wear a mask when around other people. 6) Wash your hands often with soap and water fo r at least 20 seconds or use an alcohol-based actuarial technician containing over 60% alcohol. Avoid touch ing your face. 7) Avoid sharing personal household items inclu ding dishes, cups, utensils, towels, clothing or bedding. T hese items should be cleaned thoroughly with soap and water after use. Clean all 'high-touch' surfaces in your home daily. Monitor your symptoms and notify your provider if they get worse. If you have shortness of breath or difficulty breathing call 911 and tell them you are positive for Covid-19. How to discontinue home isolation: People confirmed or suspected of COVID-19 who have sta yed home (home isolated) can stop home isolation under the following conditions: You can be around others after: > 10 days after your positive test if you never had sy mptoms or > 10 days since symptoms first appeared and > 24 hours with no fever without the use of fever-redu cing medications and > Other symptoms of COVID-19 are improvingLoss of ta gilles and smell may persist for weeks or months after recove ry and need not delay the end of isolation In all cases, follow the guidance of your healthcare provider and local health department. The decision to stop home isolation should be made in consultation with you r healthcare provider and state and local health departm ents. Local decisions depend on local circumst ances. This assay is for in vitro diagnostic use under FDA Emergency Use Authorization only. Optimal performance of this test requires appropriate specimen collection, storage, and transport to the [facility] site. Detection of SARS-CoV-2 RNA may be affected by sample collection methods, patient factors (eg, presence of symptoms), and/or stage of infection. False-negative results may arise from degradation of v iral RNA during shipping/storage. Results should be interpreted by a trained professiona l in conjunction with the patient s history and clinical signs and symptoms, and epidemiological risk factors. Negative (Not Detected) results do not preclude infect ion with the SARS-CoV-2 virus and should not be the sole b asis of patient treatment/management or public health decis ion. Follow up testing should be performed according to the current CDC recommendations. This test was performed by polymerase chain reaction ( PCR) on the GeneXpert instrument. Performing Organization Address City/[facility]/Zipcode Phone Number [facility] [address] [place] [address] [address] CHEST WITHOUT CONTRAST (12/06/2020 3:55 PM GEOPHYSICAL E LOGGER) Specimen Narrative Performed At [facility] Patient Name: ANTONIETTA FORD Date of : 1950 Procedure: CT CHEST WITHOUT CONTRAST Date of Service: 12/06/2020 EXAM: CT CHEST WITHOUT CONTRAST INDICATION: Abnormal xray - pleural effusion, Respirat ory illness, nondiagnostic xray, worsening consolidation vs atalect asis in CXR with increased reticular markings . need fu rther information COMPARISON: CT chest 06/05/2019 TECHNIQUE:CT of the chest was performed without contra st including multiplanar and MIPS reconstructions FINDING: AIRWAYS, LUNGS AND PLEURA: There are small bilateral p leural effusions with bibasilar atelectasis. There is no consolidation. Stable scarring or pleural thickening along the left major fissure. A few additional bandlike regions of scarring or atelectasis are presen t. There is a groundglass nodule in the left lower lobe on axial helen ge 30 measuring 1.4 x 1.3 cm, previously measuring 1.0 x 1.0 cm. Mild emphysema. HEART, MEDIASTINUM AND BARBARA : Heart size is normal. Co ronary artery calcifications are present. Atherosclerotic calcificat ions are present of the thoracic aorta. No mediastinal or axillary lymphadenopathy. SKELETAL STRUCTURES: There are remote fracture deformi ties of the right anterior ribs 1 through 5. There is no aggressive osse ous lesion. Stable presumed hemangioma within the lower tho racic spine. OTHER COMMENTS: Cirrhotic liver demonstrating increase d density. Large hiatal hernia. IMPRESSION: 1. Small bilateral pleural effusions. No consolidation. 2. Reticular markings on the previous exam correspond to regions of scarring or atelectasis. 3. A 10 x 13 mm groundglass nodule in the left lower l obe has increased in size from 2019. Recommend pulmonary follow-up and f ollow-up with three-month chest CT, PET/CT, or biopsy as this could represent an adenocarcinoma spectrum lesion. 4. Cirrhosis. 5. Large hiatal hernia. Finalized by: Darrian Mariee MD on 12/06 5:30 PM GEOPHYSICAL E LOGGER Patient/Procedure Information: [facility] MRN/DAYA: [id number] Order Number: [id number] Accession Number: [id number] Ordering Provider: HENNY SZYMANSKI Authorizing Provider: HENNY SZYMANSKI Procedure Note Interface, Radiantres - 12/06/2020 5:33 PM GEOPHYSICAL E LOGGER Patient Name: ANTONIETTA FORD Date of : 1950 Procedure: CT CHEST WITHOUT CONTRAST Date of Service: 12/06/2020 EXAM: CT CHEST WITHOUT CONTRAST INDICATION: Abnormal xray - pleural effu olu, Respiratory illness, nondiagnostic xray, worsening consolidation vs atalectasis in CXR with increased reticular markings . need further information COMPARISON: CT chest 06/05/2019 TECHNIQUE:CT of the chest was performed without contrast including multiplanar and MIPS reconstructions FINDING: AIRWAYS, LUNGS AND PLEURA: There are sma ll bilateral pleural effusions with bibasilar atelectasis. There is no consolidation. Stable scarring or pleural thickening along the left major fissure. A few additional bandlike regions of scarring or atelectasis are p resent. There is a groundglass nodule in the left lower lobe on axial image 30 measuring 1.4 x 1.3 cm, previously measuring 1.0 x 1.0 cm. Mild emphysema. HEART, MEDIASTINUM AND BARBARA : Heart size is normal. Coronary artery calcifications are present. Atherosclerotic calcifications are present of the thoracic aorta. No mediastinal or axillary lymphadenopathy. SKELETAL STRUCTURES: There are remote fr acture deformities of the right anterior ribs 1 through 5. There is no aggressive osseous lesion. Stable presumed hemangioma within the lower thoracic spine. OTHER COMMENTS: Cirrhotic liver demonstr ating increased density. Large hiatal hernia. IMPRESSION: 1. Small bilateral pleural effusions. No consolidation. 2. Reticular markings on the previous ex am correspond to regions of scarring or atelectasis. 3. A 10 x 13 mm groundglass nodule in th e left lower lobe has increased in size from 2019. Recommend pulmonary follow-up and follow-up with three-month chest CT, PET/CT, or biopsy as this could represent an adenocarcinoma spectrum lesion. 4. Cirrhosis. 5. Large hiatal hernia. Finalized by: Darrian Mariee MD on 12/06 5:30 PM GEOPHYSICAL E LOGGER Patient/Procedure Information: [facility] MRN/DAYA: [id number] Order Number: [id number] Accession Number: [id number] Ordering Provider: HENNY SZYMANSKI Authorizing Provider: HENNY SZYMANSKI Performing Organization Address City/State/Zipcode Phone Number [id number] LAB ONLY-COMPLETE BLOOD COUNT WITH DIFFERENTIAL (12/06/2020 8:09 AM GEOPHYSICAL E LOGGER) WBC 4.0 4.0 - 11.0 K/uL [address] RBC 2.84 (L) 3.80 - 5.[address] M/uL Hemoglobin 9.5 (L) 11.5 - 15.[address] g/dL Hematocrit 29.8 (L) 35.0 - 45.0 % [address] MCV 104.9 (H) 80.0 - 98.[address] MCH 33.5 25.5 - 34.[address] MCHC 31.9 31.5 - 36.[address] g/dL RDW-CV 14.0 11.5 - 15.5 % [address] RDW-SD 53.9 (H) 35.5 - 50.[address] Platelet Count 196 140 - 400 K/uL [address] MPV 9.1 8.5 - 12.[address] Seg Neut Absolute 2.4 1.8 - 8.0 K/uL [address] Lymphocytes Absolute 1.2 0.8 - 4.1 K/uL [place] [address] CLINI [facility] Monocytes Absolute 0.3 0.0 - 1.0 K/uL [address] Eosinophils Absolute 0.0 0.0 - 0.7 K/uL [place] [address] [facility] Basophil Absolute 0.0 0.0 - 0.2 K/uL [address] Immature Granulocyte 0.01 0.00 - 0.[address] Absolute K/uL Neutrophils Abs. 2,400 /uL [address] (Segs and Bands) Neutrophils Percent 60.3 % [address] Lymphocytes Percent 31.1 % [address] Monocytes Percent 7.8 % [address] Immature Granulocyte 0.3 % [address] Percent Eosinophils Percent 0.0 % [address] Basophil Percent 0.5 % [address] Nucleated RBC 0 /[address] Specimen Blood - Blood specimen (specimen) Performing Organization Address [facility] Phone Number [address] [place] [address] MAGNESIUM (12/06/2020 8:09 AM GEOPHYSICAL E LOGGER) Pathologist Sig nature Magnesium 2.2 1.8 - 2.4 mg/dL [address] Specimen Blood - Blood specimen (specimen) Performing Organization Address [facility] Phone Number [address] [facility] [place] [address] RENAL FUNCTION PANEL (12/06/2020 8:09 AM GEOPHYSICAL E LOGGER) Pathologist Sig nature Glucose 105 (H) 70 - 100 mg/dL [address] BUN 4 (L) 6 - 22 mg/dL [address] Creatinine 0.50 (L) 0.60 - 1.[address] mg/dL BUN/Creatinine Ratio 8.0 (L) 10.0 - 25.[address] Sodium 142 135 - 145 meq/L [address] Potassium 3.7 3.5 - 5.3 meq/L [address] Chloride 107 99 - 110 meq/L [address] CO2 25 20 - 29 meq/L [address] Anion Gap with K 14 6 - 20 meq/L [address] Calcium 7.4 (L) 8.5 - 10.[address] mg/dL Phosphorus 2.1 (L) 2.5 - 4.5 mg/dL [address] Albumin 2.8 (L) 3.5 - 5.0 g/dL [address] Corrected Calcium 8.4 (L) 8.5 - 10.[address] mg/dL Age [address] eGFR Non- >90 >=[address] [place] mL/min/1.73m2 eGFR >90 >=[address] mL/min/1.73m2 Specimen Blood - Blood specimen (specimen) Performing Organization Address [facility] Phone Number [address] [place] [address] COLLECT AND HOLD KHAN (NAFL) TOP TUBE (12/05/2020 3:59 PM GEOPHYSICAL E LOGGER) Collect and Hold Comment: RECEIVED [place] [address] Specimen Status CLINIC Specimen Blood - Blood specimen (specimen) Performing Organization Address [facility] Phone Number [address] [facility] [place] [address] LAB ONLY-URINE MICROSCOPIC REFLEX (12/05/2020 3:54 PM GEOPHYSICAL E LOGGER) WBC Urine 0-5 /hpf Negative, 0-5 [place] [address] /hpf CLINIC RBC Urine 0-2 /hpf Negative, 0-2 [place] [address] /hpf CLINIC Squamous Moderate (21-50) Negative, Occ [place] [address] Epithelial Cells /lpf (A) (0-10) /lpf, Few CLINIC (11-20) /lpf Bacteria Negative Negative [address] Hyaline Cast 0-2 /lpf 0-2 /lpf [address] Specimen Urine - Urine specimen obtained by clean catch procedure (specimen) Narrative Performed At The presence of moderate or many squamous epithelial c ells is [address] suggestive of possible contamination dur ing collection. Culture not performed - reflex criteria not met. Culture is only performed when the urine macroscopic c olor is reported as Bright [place], or whentwoor more of th e following criteria are met: Positive Nitrite, Positive Leukocyte Esterase, WBC's > 5 cells/hpf. Performing Organization Address City/State/Zipcode Phone Number [address] [place] [address], [place] [address] URINE DIP, REFLEX TO MICROSCOPIC, REFLEX TO CULTURE (12/05/2020 3:54 PM GEOPHYSICAL E LOGGER) Color Urine Yellow [place], Dark [place] [address] Yellow, Straw, CLINIC Yellow, Colorless Clarity Urine Clear Clear [address] Glucose Urine Negative Negative [address] Bilirubin Urine Negative Negative [address] Ketones Urine 5 mg/dL Negative, 5 [place] [address] mg/dL, 10 mg/dL [facility] Specific [place] 1.022 1.002 - 1.[address] Blood Urine Negative Negative [address] PH Urine 8.0 5.0, 5.5, 6.0, [place] [address] 6.5, 7.0, 7.5, CLINIC 8.0 Protein Urine Trace (10-20) Negative [place] [address] mg/dL (A) [facility] Urobilinogen < 2 mg/dL < 2 mg/dL [address] Nitrite Negative Negative [address] Leukocyte Esterase Trace (A) Negative [place] [address] Urine CLINIC Specimen Urine - Urine specimen obtained by clean catch procedure (specimen) Narrative Performed At Microscopic Exam Reflexed [address] Performing Organization Address [facility]/Zipcode Phone Number [facility] [address] [place] [address], [place] [address] XRAY CHEST PORTABLE - (12/05/2020 2:46 PM GEOPHYSICAL E LOGGER)Only the most recent of2 results within the time period is included. Specimen Narrative Performed At [facility] Patient Name: ANTONIETTA FORD Date of : 1950 Procedure: XRAY CHEST PORTABLE Date of Service: 12/05/2020 EXAM: XRAY CHEST PORTABLE INDICATION: FEVER COMPARISON: 12/03/2020 TECHNIQUE: Single view chest FINDING/IMPRESSION: Emphysema. Small left pleural effu olu. Increasing left basilar atelectasis or consolidation. Prominent r eticular or interstitial lung markings are present potentially rep resenting senescent change and/or edema. Unchanged heart size. N o pneumothorax. If warranted, consider further evaluation w ith CT. Finalized by: Darrian Mariee MD on 12/05 8:20 PM GEOPHYSICAL E LOGGER Patient/Procedure Information: [facility] MRN/DAYA: [id number] Order Number: [id number] Accession Number: [id number] Ordering Provider: HENNY SZYMANSKI Authorizing Provider: HENNY SZYMANSKI Procedure Note Interface, Radiantres - 12/05/2020 8:22 PM GEOPHYSICAL E LOGGER Patient Name: ANTONIETTA FORD Date of : 1950 Procedure: XRAY CHEST PORTABLE Date of Service: 12/05/2020 EXAM: XRAY CHEST PORTABLE INDICATION: FEVER COMPARISON: 12/03/2020 TECHNIQUE: Single view chest FINDING/IMPRESSION: Emphysema. Small lef t pleural effusion. Increasing left basilar atelectasis or consolidation. Prominent reticular or interstitial lung markings are present potentially representing senescent change and/or edema. Unchanged heart siz e. No pneumothorax. If warranted, consider further evaluation with CT. Finalized by: Darrian Mariee MD on 12/05 8:20 PM GEOPHYSICAL E LOGGER Patient/Procedure Information: [facility] MRN/DAYA: [id number] Order Number: [id number] Accession Number: [id number] Ordering Provider: HENNY SZYMANSKI Authorizing Provider: HENNY SZYMANSKI Performing Organization Address [facility]/Zipcode Phone Number [id number] PROCALCITONIN (12/05/2020 8:34 AM GEOPHYSICAL E LOGGER) Pathologist Sig nature Procalcitonin 0.06 <0.07 ng/mL [address] Specimen Blood - Blood specimen (specimen) Narrative Performed At Suspected Lower Respiratory Tract Infect ion: [address] 0.1-0.25: Low risk for bacterial infection; Antibiotic s discouraged. > 0.25: Increased likelihood for bacterial infection; Antibiotics encouraged. Suspected Sepsis: 0.1-0.5: Low likelihood for sepsis; Anti biotics discouraged. > 0.5: Increased Likelihood for sepsis; Antibiotics encouraged. > 2.0: High risk of sepsis/septic shock; Antibiotics s trongly encouraged. Decisions on antibiotic use should not be based solely on procalcitonin levels. If antibiotics are administered, repeat procalcitonin testing should be performed every 2-3 da ys to consider early antibiotic cessation. PCT is a dynamic biomarker and most useful when trends are analyzed over time in accompaniment with other clinical data. Performing Organization Address [facility] Phone Number [address] [place] [address] LAB ONLY-COMPLETE BLOOD COUNT WITH DIFFERENTIAL (12/05/2020 8:34 AM GEOPHYSICAL E LOGGER) WBC 4.4 4.0 - 11.0 K/uL [address] RBC 2.57 (L) 3.80 - 5.[address] M/uL Hemoglobin 8.6 (L) 11.5 - 15.[address] g/dL Hematocrit 26.6 (L) 35.0 - 45.0 % [address] MCV 103.5 (H) 80.0 - 98.[address] MCH 33.5 25.5 - 34.[address] MCHC 32.3 31.5 - 36.[address] g/dL RDW-CV 14.0 11.5 - 15.5 % [address] RDW-SD 53.2 (H) 35.5 - 50.[address] Platelet Count 183 140 - 400 K/uL [address] MPV 9.5 8.5 - 12.[address] Seg Neut Absolute 3.2 1.8 - 8.0 K/uL [address] Lymphocytes Absolute 1.0 0.8 - 4.1 K/uL [place] [address] [facility] Monocytes Absolute 0.3 0.0 - 1.0 K/uL [address] Eosinophils Absolute 0.0 0.0 - 0.7 K/uL [place] [address] [facility] Basophil Absolute 0.0 0.0 - 0.2 K/uL [address] Immature Granulocyte 0.02 0.00 - 0.[address] Absolute K/uL Neutrophils Abs. 3,200 /uL [address] (Segs and Bands) Neutrophils Percent 71.0 % [address] Lymphocytes Percent 21.7 % [address] Monocytes Percent 6.3 % [address] Immature Granulocyte 0.5 % [address] Percent Eosinophils Percent 0.0 % [address] Basophil Percent 0.5 % [address] Nucleated RBC 0 /[address] Specimen Blood - Blood specimen (specimen) Performing Organization Address City/State/Zipcode Phone Number [address], [place] [address] RENAL FUNCTION PANEL (12/05/2020 8:34 AM GEOPHYSICAL E LOGGER) Pathologist Sig nature Glucose 111 (H) 70 - 100 mg/dL [address] BUN 5 (L) 6 - 22 mg/dL [address] Creatinine 0.48 (L) 0.60 - 1.[address] mg/dL BUN/Creatinine Ratio 10.4 10.0 - 25.[address] Sodium 140 135 - 145 meq/L [address] Potassium 3.4 (L) 3.5 - 5.3 meq/L [address] Chloride 107 99 - 110 meq/L [address] CO2 26 20 - 29 meq/L [address] Anion Gap with K 10 6 - 20 meq/L [address] Calcium 7.0 (L) 8.5 - 10.[address] mg/dL Phosphorus 1.9 (L) 2.5 - 4.5 mg/dL [address] Albumin 2.5 (L) 3.5 - 5.0 g/dL [address] Corrected Calcium 8.2 (L) 8.5 - 10.[address] mg/dL Age [address] eGFR Non- >90 >=[address] [place] mL/min/1.73m2 eGFR >90 >=[address] mL/min/1.73m2 Specimen Blood - Blood specimen (specimen) Performing Organization Address City/State/Zipcode Phone Number [address], [place] [address] LAB ONLY-COMPLETE BLOOD COUNT WITH DIFFERENTIAL (12/04/2020 12:32 PM GEOPHYSICAL E LOGGER) WBC 4.7 4.0 - 11.0 K/uL [address] RBC 2.65 (L) 3.80 - 5.[address] M/uL Hemoglobin 8.9 (L) 11.5 - 15.[address] g/dL Hematocrit 27.2 (L) 35.0 - 45.0 % [address] MCV 102.6 (H) 80.0 - 98.[address] MCH 33.6 25.5 - 34.[address] MCHC 32.7 31.5 - 36.[address] g/dL RDW-CV 13.8 11.5 - 15.5 % [address] RDW-SD 51.6 (H) 35.5 - 50.[address] Platelet Count 142 140 - 400 K/uL [address] MPV 9.5 8.5 - 12.[address] Seg Neut Absolute 3.0 1.8 - 8.0 K/uL [address] Lymphocytes Absolute 1.3 0.8 - 4.1 K/uL [place] [address] [facility] Monocytes Absolute 0.4 0.0 - 1.0 K/uL [place] [address] [facility] Eosinophils Absolute 0.0 0.0 - 0.7 K/uL [facility] Basophil Absolute 0.0 0.0 - 0.2 K/uL [address] Immature Granulocyte 0.01 0.00 - 0.06 [facility] Absolute K/uL Neutrophils Abs. 3,000 /uL [facility] (Segs and Bands) Neutrophils Percent 63.3 % [facility] Lymphocytes Percent 28.2 % [facility] Monocytes Percent 7.9 % [facility] Immature Granulocyte 0.2 % [facility] Percent Eosinophils Percent 0.0 % [facility] Basophil Percent 0.4 % [address] Nucleated RBC 0 /[address] Specimen Blood - Blood specimen (specimen) Performing Organization Address [facility] Phone Number [address] [place] [address], [place] [address] LAB ONLY-MANUAL DIFFERENTIAL (12/04/2020 7:38 AM GEOPHYSICAL E LOGGER) Pathologist Sig nature Neutrophils Abs. (Segs 2,920 /uL [place] [address] [facility]I [facility] and Bands) Seg Neut Absolute 2.9 1.8 - 8.0 K/uL [address] Lymphocytes Absolute 1.6 0.8 - 4.1 K/uL [facility] C Monocytes Absolute 0.2 0.0 - 1.0 K/uL [address] Basophil Absolute 0.1 0.0 - 0.2 K/uL [address] Neutrophils Percent 59.6 % [address] Lymphocytes Percent 32.3 % [address] Monocytes Percent 5.1 % [address] Basophil Percent 3.0 % [address] Platelet Estimate Normal [address] Specimen Blood - Blood specimen (specimen) Performing Organization Address [place]/[facility] Phone Number [address] [place] [address], [place] [address] LAB ONLY-COMPLETE BLOOD COUNT WITH DIFFERENTIAL (12/04/2020 7:38 AM GEOPHYSICAL E LOGGER) Pathologist Sig nature WBC 4.9 4.0 - 11.0 K/uL [address] RBC 2.39 (L) 3.80 - 5.30 M/uL [address] Hemoglobin 8.1 (L) 11.5 - 15.8 g/dL [address] Hematocrit 24.8 (L) 35.0 - 45.0 % [address] MCV 103.8 (H) 80.0 - 98.[address] MCH 33.9 25.5 - 34.[address] MCHC 32.7 31.5 - 36.5 g/dL [address] RDW-CV 13.9 11.5 - 15.5 % [address] RDW-SD 52.7 (H) 35.5 - 50.[address] Platelet Count 154 140 - 400 K/uL [address] MPV 9.5 8.5 - 12.[address] Specimen Blood - Blood specimen (specimen) Narrative Performed At A previously reported component Auto NRBCs is no longe r reported. [address] Performing Organization Address [facility] Phone Number [address] [place] [address] TYPE AND SCREEN (12/04/2020 7:35 AM GEOPHYSICAL E LOGGER) Pathologist Sig nature ABO Type AB [address] BLOOD BANK Rh Type Positive [address] BLOOD BANK Antibody Screen Negative [address] Comment: BLOOD BANK Allogenic Red Cells Available 12/04/20 Expiration Date 12/07/2020 23:[address] BLOOD BANK Specimen Blood - Blood specimen (specimen) Performing Organization Address [place]/[facility] Phone Number [address] BLOOD BANK [address] [place] [address] BASIC METABOLIC PANEL (12/04/2020 6:54 AM GEOPHYSICAL E LOGGER) Pathologist Sig nature Glucose 111 (H) 70 - 100 mg/dL [address] BUN 4 (L) 6 - 22 mg/dL [address] Creatinine 0.47 (L) 0.60 - 1.[address] mg/dL BUN/Creatinine Ratio 8.5 (L) 10.0 - 25.[address] Sodium 139 135 - 145 meq/L [address] Potassium 3.1 (L) 3.5 - 5.3 meq/L [address] Chloride 109 99 - 110 meq/L [address] CO2 23 20 - 29 meq/L [address] Anion Gap with K 10 6 - 20 meq/L [address] Calcium 6.7 (L) 8.5 - 10.[address] mg/dL Age [address] eGFR Non- >90 >=[address] [place] mL/min/1.73m2 eGFR >90 >=[address] mL/min/1.73m2 Specimen Blood - Blood specimen (specimen) Performing Organization Address [place]/[facility] Phone Number [address] [place] [address], [place] [address] CULTURE BACTERIAL, URINE (12/03/2020 10:35 AM GEOPHYSICAL E LOGGER) Pathologist Sig nature Culture Result No growth [facility] Specimen Urine - Urine specimen obtained by clean catch procedure (specimen) Performing Organization Address [place]/[facility] Phone Number [facility] [address] [place] [address] LABORATORY [address] LAB ONLY-URINE MICROSCOPIC REFLEX (12/03/2020 10:35 AM GEOPHYSICAL E LOGGER) WBC Urine >50 /hpf (A) Negative, 0-5 [place] [address] /hpf CLINIC RBC Urine 0-2 /hpf Negative, 0-2 [place] [address] /hpf CLINIC Squamous Occ (0-10) /lpf Negative, Occ [place] [address] Epithelial Cells (0-10) /lpf, Few CLINIC (11-20) /lpf Bacteria Negative Negative [address] Hyaline Cast 6-10 /lpf (A) 0-2 /lpf [address] Specimen Urine - Urine specimen obtained by clean catch procedure (specimen) Narrative Performed At Urine Culture Reflexed [address] Performing Organization Address [facility] Phone Number [address] [place] [address], [place] [address] URINE DIP, REFLEX TO MICROSCOPIC, REFLEX TO CULTURE (12/03/2020 10:35 AM GEOPHYSICAL E LOGGER) Color Urine Straw [place], Dark [place] [address] Yellow, Straw, CLINIC Yellow, Colorless Clarity Urine Slightly Cloudy Clear [place] [address] (A) CLINIC Glucose Urine Negative Negative [place] [address] CLINIC Bilirubin Urine Negative Negative [place] [address] [facility]IN[facility] Ketones Urine Negative Negative, 5 [place] [address] mg/dL, 10 mg/dL CLINIC Specific [place] 1.007 1.002 - 1.[address] Blood Urine Small (1+) (A) Negative [address] PH Urine 5.5 5.0, 5.5, 6.0, [place] [address] 6.5, 7.0, 7.5, CLINIC 8.0 Protein Urine Negative Negative [address] Urobilinogen < 2 mg/dL < 2 mg/dL [address] Nitrite Negative Negative [address] Leukocyte Esterase Large (3+) (A) Negative [place] [address] Urine CLINIC Specimen Urine - Urine specimen obtained by clean catch procedure (specimen) Narrative Performed At Microscopic Exam Reflexed [address] Performing Organization Address [facility] Phone Number [address] [place] [address], [place] [address] COLLECT AND HOLD BLUE (NACIT) TOP TUBE (12/03/2020 12:13 AM GEOPHYSICAL E LOGGER) Collect and Hold Comment: RECEIVED [place] [address] Specimen Status CLINIC Specimen Blood - Blood specimen (specimen) Performing Organization Address [place]/[facility] Phone Number [address] [place] [address], [place] [address] COLLECT AND HOLD GREEN TOP TUBE (12/03/2020 12:13 AM GEOPHYSICAL E LOGGER) Collect and Hold Comment: RECEIVED [place] [address] Specimen Status CLINIC Specimen Blood - Blood specimen (specimen) Performing Organization Address [place]/[facility] Phone Number [address] [place] [address], [place] [address] LAB ONLY-COMPLETE BLOOD COUNT WITH DIFFERENTIAL (12/03/2020 12:13 AM GEOPHYSICAL E LOGGER) Pathologist [facility] WBC 8.1 4.0 - 11.0 K/uL [address] RBC 3.36 (L) 3.80 - 5.[address] M/uL Hemoglobin 11.3 (L) 11.5 - 15.[address] g/dL Hematocrit 34.7 (L) 35.0 - 45.0 % [address] MCV 103.3 (H) 80.0 - 98.[address] MCH 33.6 25.5 - 34.[address] MCHC 32.6 31.5 - 36.[address] g/dL RDW-CV 13.7 11.5 - 15.5 % [address] RDW-SD 52.8 (H) 35.5 - 50.[address] Platelet Count 219 140 - 400 K/uL [address] MPV 9.2 8.5 - 12.[address] Seg Neut Absolute 5.3 1.8 - 8.0 K/uL [address] Lymphocytes Absolute 2.0 0.8 - 4.1 K/uL [place] [address] [facility]INI C Monocytes Absolute 0.8 0.0 - 1.0 K/uL [address] Eosinophils Absolute 0.0 0.0 - 0.7 K/uL [place] [address] [facility]I C Basophil Absolute 0.0 0.0 - 0.2 K/uL [address] Immature Granulocyte 0.05 0.00 - 0.[address] Absolute K/uL Neutrophils Abs. 5,300 /uL [address] (Segs and Bands) Neutrophils Percent 64.7 % [address] Lymphocytes Percent 24.3 % [address] Monocytes Percent 10.0 % [address] Immature Granulocyte 0.6 % [address] Percent Eosinophils Percent 0.0 % [address] Basophil Percent 0.4 % [address] Nucleated RBC 0 /[address] Specimen Blood - Blood specimen (specimen) Performing Organization Address City/State/Zipcode Phone Number [address] [place] [address] LAB ONLY-[facility]ERLY [facility] (12/03/2020 12:10 AM GEOPHYSICAL E LOGGER) Pathologist Sig nature ABO Type AB [address] BLOOD BA NK Rh Type Positive [address] BLOOD BA NK Specimen Blood - Blood specimen (specimen) Performing Organization Address City/[facility]/Zipcode Phone Number [address] BLOOD BANK [address], [place] [address] XRAY C-ARM LESS THAN ONE HR (12/02/2020 1:24 PM GEOPHYSICAL E LOGGER) Specimen Narrative Performed At Fluoroscopic image(s) submitted. Imaging [facility] RADIOLOGY assistance provided by Radiology. Performing Organization Address [facility]/Zipcode Phone Number [facility] RADIOLOGY [address] [place] [address] EKG (12/02/2020 7:49 AM GEOPHYSICAL E LOGGER) Pathologist Sig nature EKG [facility] Sinus tachycardia Right axis deviation Nonspecific ST and T wave abnormality Abnormal ECG No previous ECGs available Ventricular Rate: 102 BPM Atrial Rate: 102 BPM P-R Interval: 146 ms QRS Duration: 82 ms Q-T Interval: 326 ms QTc Calculation(Bazett): 424 ms Calculated P Emmet: 85 degrees Calculated R Emmet: 91 degrees Calculated T Emmet: 97 degrees Specimen Narrative Performed At This result has an attachment that is no t available. Performing Organization Address [facility] Phone Number [employer] LAB ONLY-COMPLETE BLOOD COUNT WITH DIFFERENTIAL (12/01/2020 5:37 PM GEOPHYSICAL E LOGGER) WBC 9.1 4.0 - 11.0 K/uL [address] RBC 3.89 3.80 - 5.[address] M/uL Hemoglobin 12.9 11.5 - 15.[address] g/dL Hematocrit 39.6 35.0 - 45.0 % [address] MCV 101.8 (H) 80.0 - 98.[address] MCH 33.2 25.5 - 34.[address] MCHC 32.6 31.5 - 36.[address] g/dL RDW-CV 13.8 11.5 - 15.5 % [address] RDW-SD 51.8 (H) 35.5 - 50.[address] Platelet Count 255 140 - 400 K/uL [address] MPV 9.2 8.5 - 12.[address] Seg Neut Absolute 7.3 1.8 - 8.0 K/uL [address] Lymphocytes Absolute 1.3 0.8 - 4.1 K/uL [place] [address] [facility]INI [facility] Monocytes Absolute 0.4 0.0 - 1.0 K/uL [address] Eosinophils Absolute 0.0 0.0 - 0.7 K/uL [place] [address] CLINI C Basophil Absolute 0.0 0.0 - 0.2 K/uL [address] Immature Granulocyte 0.04 0.00 - 0.[address] Absolute K/uL Neutrophils Abs. 7,300 /uL [address] (Segs and Bands) Neutrophils Percent 80.5 % [address] Lymphocytes Percent 14.2 % [address] Monocytes Percent 4.5 % [address] Immature Granulocyte 0.4 % [address] Percent Eosinophils Percent 0.0 % [address] Basophil Percent 0.4 % [address] Nucleated RBC 0 /[address] Specimen Blood - Blood specimen (specimen) Performing Organization Address City/State/Zipcode Phone Number [address] [place] [address] BASIC METABOLIC PANEL (12/01/2020 5:37 PM GEOPHYSICAL E LOGGER) Pathologist [facility] nature Glucose 108 (H) 70 - 100 mg/dL [address] BUN 8 6 - 22 mg/dL [address] Creatinine 0.57 (L) 0.60 - 1.[address] mg/dL BUN/Creatinine Ratio 14.0 10.0 - 25.[address] Sodium 140 135 - 145 meq/L [address] Potassium 4.4 3.5 - 5.3 meq/L [address] Chloride 104 99 - 110 meq/L [address] CO2 27 20 - 29 meq/L [address] Anion Gap with K 13 6 - 20 meq/L [address] Calcium 7.9 (L) 8.5 - 10.[address] mg/dL Age [address] eGFR Non- >90 >=[address] [place] mL/min/1.73m2 eGFR >90 >=[address] mL/min/1.73m2 Specimen Blood - Blood specimen (specimen) Performing Organization Address City/State/Zipcode Phone Number [address] [place] [place] [address] XRAY TIBIA FIBULA 2 VIEWS LT (12/01/2020 5:28 PM GEOPHYSICAL E LOGGER) Specimen Narrative Performed At [facility] Patient Name: ANTONIETTA FORD Date of : 1950 Procedure: XRAY TIBIA FIBULA 2 VIEWS LT Date of Service: 12/01/2020 EXAM: XRAY TIBIA FIBULA 2 VIEWS LT INDICATION: fall with deformity COMPARISON(S): None Available FINDINGS/IMPRESSION: Right mid tibial diaphyseal fract ure with apex anterior angulation and posterior lateral displacement of the distal fragment and moderate rotation. There is a nondisplace d fracture extending into the tibial metadiaphysis. Moderately di splaced and likely comminuted fracture involving the proximal fibular shane physis with one shaft lateral displacement of the distal fragment. Int ernal fixation of the medial and lateral malleoli without evidence of walker rdware fracture though this study was not tailored for e valuation of the ankle. Finalized by: Janusz Broussard MD on 12/02/19 6:56 PM GEOPHYSICAL E LOGGER Patient/Procedure Information: [facility] MRN/DAYA: [id number] Order Number: [id number] Accession Number: [id number] Ordering Provider: JUSTIN IBRAHIM Authorizing Provider: JUSTIN IBRAHIM Procedure Note Interface, Radiantres - 12/01/2020 6:58 PM GEOPHYSICAL E LOGGER Patient Name: ANTONIETTA FORD Date of : 1950 Procedure: XRAY TIBIA FIBULA 2 VIEWS LT Date of Service: 12/01/2020 EXAM: XRAY TIBIA FIBULA 2 VIEWS LT INDICATION: fall with deformity COMPARISON(S): None Available FINDINGS/IMPRESSION: Right mid tibial di aphyseal fracture with apex anterior angulation and posterior lateral displacement of the distal fragment and moderate rotation. There is a nondisplaced fracture extending into the tibial metadiaphysis. Moderatel y displaced and likely comminuted fracture involving the proximal fibular diaphysis with one shaft lateral displacement of the distal fragment. Internal fixation of the medial and lateral malleoli without evidence of daya dware fracture though this study was not tailored for evaluation of the ankle. Finalized by: Janusz Broussard MD on 12/02/19 6:56 PM GEOPHYSICAL E LOGGER Patient/Procedure Information: [facility] MRN/DAYA: [id number] Order Number: [id number] Accession Number: [id number] Ordering Provider: JUSTIN IBRAHIM Authorizing Provider: JUSTIN GONZALEZ URG Performing Organization Address City/State/Zipcode Phone Number [id number] ORTHOPEDIC INJURY TREATMENT (12/01/2020 4:45 PM GEOPHYSICAL E LOGGER) Narrative Performed At Justin Ibrahim MD 12/01/2020 7:27 PM ORTHOPEDIC INJURY TREATMENT Date/Time: 12/01/2020 7:22 PM Performed by: Justin Ibrahim MD Authorized by: Justin Ibrahim MD Consent: Verbal consent obtained. Risks and benefits: risks, benefits and alternatives were discussed Consent given by: patient Patient understanding: patient states understanding of the procedure being performed Site marked: the operative site was alonzo ed Imaging studies: imaging studies availab le Required items: required blood products, implants, devices, and special equipment available Time out: Immediately prior to procedure a "time out" was called to verify the correct patient, procedure, equipmen t, sales support engineer and site/side marked as required. Injury location: lower leg Location details: left lower leg Injury type: fracture Fracture type: tibial and fibular shafts Pre-procedure neurovascular assessment: neurovascularly intact Pre-procedure distal perfusion: normal Pre-procedure neurological function: nor mal Pre-procedure range of motion: reduced Anesthesia: Local anesthesia used: no Sedation: Patient sedated: no Manipulation performed: yes Immobilization: splint Splint type: long leg Supplies used: Ortho-Glass Post-procedure neurovascular assessment: post-procedure neurovascularly intact Post-procedure distal perfusion: normal Post-procedure neurological function: no rmal Post-procedure range of motion comment: immobilized Patient tolerance: patient tolerated the procedure wel l with no immediate complications documented in this encounter Visit Diagnoses Diagnosis Closed fracture of shaft of left tibia, unspecified fracture morphology, initial encounter - Primary Closed fracture of proximal end of left fibula, unspecified fracture morphology, initial encounter Shortness of breath Seizure disorder (HCC) Unspecified epilepsy without mention of intractable epilepsy Recurrent major depressive disorder, rem ission status unspecified (HCC) Gastroesophageal reflux disease without esophagitis Esophageal reflux Nausea Nausea alone Generalized edema Edema Therapeutic opioid induced constipation Closed fracture of right lower extremity documented in this encounter Discharge Diagnoses Not on filedocumented in this encounter Administered Medications Medication Order MAR Action Action Date Dose Rate Site acetaminophen (TYLENOL) tablet Given 12/05/2020 8:45 PM GEOPHYSICAL E LOGGER 650 mg 650 mg 650 mg, Oral, Every six hours prn, Starting Shannon 12/02/20 at 2314, Until Discontinued, mild pain, fever, headache, Total dose of acetaminophen from all acetaminophen containing products should not exceed 4 grams (4000 mg) per day., Given 12/05/2020 6:49 AM GEOPHYSICAL E LOGGER 650 mg Given 12/04/2020 8:19 PM GEOPHYSICAL E LOGGER 650 mg albuterol (PROVENTIL) (2.5 mg/3mL) 0.083 % inhalation soln 2.5 mg 2.5 mg, Nebulization, Every four hours prn, Starting W ed 12/01/20 at 2006, Until Discontinued, shortness of breath, wheez ing, 3 mL, Standard Neb and PPE Guidelines, benzocaine-menthol (CEPACOL w/ Given 12/03/2020 1:50 PM GEOPHYSICAL E LOGGER 1 l ozenge BENZOCAINE) lozenge 1 lozenge 1 lozenge, Mouth/Throat, Three times a day prn, Starting Sun12/03/20 at 1142, Until Discontinued, sore throat calcium carbonate (TUMS) chewable tablet 500 Given 06/2021 10:15 AM GEOPHYSICAL E LOGGER 500 mg mg 500 mg, Oral, Two times a day, 20 doses, First dose on 12/06/20 at 2100, Last dose on Sun12/16/20 at 0900 Given 12/06/2020 9:13 PM GEOPHYSICAL E LOGGER 500 mg enoxaparin (LOVENOX) subcutaneous injection Given 12/07/2020 10:16 AM GEOPHYSICAL E LOGGER 40 mg solution 40 mg 40 mg, Subcutaneous, Daily, 28 doses, First dose on Sun12/03/20 at 0800, Last dose on Sun12/30/20 at 0800, Post - Op, Begin 0800 on first postop day. To avoid the loss of drug when using the 30 mg and 40 mg prefilled syringes, do not expel the air bubble from the syringe before the injection. For ADULT patients: Administration should be alternated between the left and right anterolateral and left and right posterolateral abdominal wall. The whole length of the needle should be introduced into a skin fold held between the thumb and forefinger; the skin fold should be held throughout the injection. To minimize bruising, do not rub the injection site after completion of the injection. For PEDIATRIC patients: Administration should be alternated between appropriate sites for patient age/weight (infants/small children = upper thigh; older children/adolescents = left and right anterolateral and left and right posterolateral abdominal wall). During administration to infants/smaller children sometimes the whole length of the needle is not "introduced" during the injection. Administer injection into a skin fold held between the thumb and forefinger; the skin fold should be held throughout the injection. To minimize bruising, do not rub the injection site after completion of the injection., Given 12/06/2020 9:31 AM GEOPHYSICAL E LOGGER 40 mg Given 12/05/2020 9:28 AM GEOPHYSICAL E LOGGER 40 mg fluticasone-vilanterol (BREO ELLIPTA) 100-25 Given 03/2021 8:43 AM GEOPHYSICAL E LOGGER 1 puff mcg/puff inhaler 1 puff 1 puff, Inhalation, Daily, First dose on Shannon 12/02/20 at 0900, Until Discontinued, Rinse mouth after use. Therapeutic sub for Advair, Given 12/03/2020 11:31 AM GEOPHYSICAL E LOGGER 1 puff Given 12/02/2020 10:00 AM GEOPHYSICAL E LOGGER 1 puff folic acid tablet 1 mg Given 12/07/2020 10:16 AM GEOPHYSICAL E LOGGER 1 mg 1 mg, Oral, DAILY, First dose on Shannon 12/02/20 at 0900, Until Discontinued Given 12/06/2020 9:31 AM GEOPHYSICAL E LOGGER 1 mg Given 12/05/2020 9:29 AM GEOPHYSICAL E LOGGER 1 mg furosemide (LASIX) tablet 20 mg Given 12/07/2020 10:16 AM GEOPHYSICAL E LOGGER 20 mg 20 mg, Oral, Daily, First dose on Sun12/05/20 at 0900, Until Discontinued, Hold for SBP less than 100, Given 12/06/2020 9:31 AM GEOPHYSICAL E LOGGER 20 mg Given 12/05/2020 9:29 AM GEOPHYSICAL E LOGGER 20 mg HYDROmorphone (DILAUDID) injection solut ion (conc: 1 mg/mL) 0.5 mg 0.5 mg, IV, Every two hours prn, Startin g 12/06/20 at 1758, Until Discontinued, severe pain, breakthrough pain, 0.5 mL ondansetron (ZOFRAN ODT) dispersible tablet 4 Given 8:20 PM GEOPHYSICAL E LOGGER 4 mg mg 4 mg, Oral, Four times a day prn, Starting Sun12/01/20 at 1926, Until Discontinued, nausea, vomiting, Use FIRST for nausea / vomiting. If ineffective after 30 minutes use ondansetron IV, ondansetron (ZOFRAN) injection solution 4 mg 4 mg, IV, Four times a day prn, Starting Sun12/01/20 at 1926, Until Discontinued, nausea, vomiting, 2 mL, Use SECOND for n ausea / vomiting. If ineffective after 30 minutes and ondansetron ODT used, call levy jones for alternative. If preference is to further dilute for IV administration: First draw up patient-specific dose, then dilute to 10 mL with 0.9% sodium chloride., ondansetron (ZOFRAN) injection solution 4 mg Given 12/06/2020 1:30 PM GEOPHYSICAL E LOGGER 4 mg 4 mg, IV, Every four hours prn, Starting Shannon 12/02/20 at 1346, Until Discontinued, nausea, vomiting, 2 mL, PACU - Continue Post-Op, Use FIRST for nausea/vomiting. If ineffective after 15 minutes use haloperidol if ordered for nausea/vomiting. If preference is to further dilute for IV administration: First draw up patient-specific dose, then dilute to 10 mL with 0.9% sodium chloride., oxyCODONE (OXY-IR) tablet 5 mg Given 12/07/2020 11:28 AM [employer]OPH[employer]ICAL E [facility]GGER 5 mg 5 mg, Oral, Every four hours prn, Starting Sun12/01/20 at 1928, Until Discontinued, moderate pain Given 12/06/2020 1:03 PM [employer]OPH[employer]ICAL E [facility]GGER 5 mg Given 12/04/2020 6:20 PM [employer]OPH[employer]ICAL E LOGGER 5 mg pantoprazole (PROTONIX) enteric coated tablet Given 6:16 AM GEOPHYSICAL E LOGGER 40 mg 40 mg 40 mg, Oral, DAILY, First dose on Shannon 21 at 0700, Until Discontinued, Tablet should be swallowed whole and not be divided, crushed or chewed., Given 12/05/2020 6:48 AM GEOPHYSICAL E LOGGER 40 mg Given 12/04/2020 6:58 AM GEOPHYSICAL E LOGGER 40 mg PHENobarbital tablet 60 mg Given 12/07/2020 10:16 AM GEOPHYSICAL E LOGGER 60 mg 60 mg, Oral, Two times a day, First dose on Sun12/01/20 at 2200, Until Discontinued, 60 mg is equivalent to home dose of 64.8 mg, Given 12/06/2020 9:59 PM [employer]OPH[employer]ICAL E LOGGER 60 mg Given 12/06/2020 9:31 AM [employer]OPHYSICAL E [facility]GGER 60 mg phenytoin sodium extended (DILANTIN) capsule Given 06/2021 10:15 AM GEOPHYSICAL E LOGGER 100 mg 100 mg 100 mg, Oral, Every morning, First dose on Sun12/02/20 at 0900, Until Discontinued, Take with 30 mg for total AM dose = 130 mg If unable to administer dose intact, wear universal precautions (one pair of gloves)., Given 12/06/2020 9:31 AM GEOPHYSICAL E LOGGER 100 mg Given 12/05/2020 9:33 AM GEOPHYSICAL E LOGGER 100 mg phenytoin sodium extended (DILANTIN) capsule Given 05/2021 9:12 PM GEOPHYSICAL E LOGGER 200 mg 200 mg 200 mg, Oral, Bedtime, First dose on Sun12/01/20 at 2100, Until Discontinued, If unable to administer dose intact, wear universal precautions (one pair of gloves)., Given 12/05/2020 8:45 PM [employer]OPH[employer]ICAL E [facility]GGER 200 mg Given 12/04/2020 8:19 PM [employer]OPHYSICAL E LOGGER 200 mg phenytoin sodium extended (DILANTIN) capsule Given 06/2021 10:24 AM GEOPHYSICAL E LOGGER 30 mg 30 mg 30 mg, Oral, Every morning, First dose on Sun12/02/20 at 0900, Until Discontinued, Take with 100 mg for total AM dose = 130 mg If unable to administer dose intact, wear universal precautions (one pair of gloves)., Given 12/06/2020 9:31 AM [employer]OPHYSICAL E [facility]GGER 30 mg Given 12/05/2020 9:26 AM GEOPHYSICAL E LOGGER 30 mg polyethylene glycol (MIRALAX) packet 1 Given 12/07/2020 10:16 AM GEOPHYSICAL E LOGGER 1 packet packet 1 packet, Oral, Daily, First dose on Sun12/03/20 at 0900, Until Discontinued, Post - Op, Hold if 2 loose stools occur in the last 24 hours. Do NOT give if patient on thickened liquids. Contact provider for alternative if needed., Given 12/06/2020 9:31 AM [facility]OPH[employer]ICAL E [facility]GGER 1 packet Given 12/05/2020 9:26 AM GEOPHYSICAL E LOGGER 1 packet potassium & sodium phosphates (PHOS-NaK) Given 12/07/2020 10 :16 AM GEOPHYSICAL E LOGGER 1 packet 280-160-250 MG packet 1 packet 1 packet, Oral, Two times a day, 4 doses, First dose on Sun12/06/20 at 2100, Last dose on Sun12/08/20 at 0900 senna-docusate sodium Given 12/07/2020 10:16 AM GEOPHYSICAL E LOGGER 1 tablet (SENOKOT-S;PERICOLACE) tablet 1 tablet 1 tablet, Oral, Two times a day, First dose on Sun12/02/20 at 2100, Until Discontinued, Post - Op, Hold if 2 loose stools occur in the last 24 hours., Given 12/06/2020 9:12 PM GEOPHYSICAL E LOGGER 1 tablet Given 12/06/2020 9:31 AM GEOPHYSICAL E LOGGER 1 tablet sertraline (ZOLOFT) tablet 75 mg Given 12/07/2020 10:15 AM GEOPHYSICAL E LOGGER 75 mg 75 mg, Oral, Daily, First dose on Sun12/02/20 at 0900, Until Discontinued Given 12/06/2020 9:31 AM GEOPHYSICAL E LOGGER 75 mg Given 12/05/2020 9:26 AM GEOPHYSICAL E LOGGER 75 mg sodium chloride 0.9% flush (adult) 10 mL Given 12/07/2020 10:20 AM GEOPHYSICAL E LOGGER 10 mL 10 mL, IV, Two times a day and prn, First dose on Sun12/01/20 at 2100, Until Discontinued, 10 mL, Flush IV line as scheduled and as often as necessary before and after meds., Given 12/06/2020 9:13 PM [employer]OPH[employer]ICAL E LOGGER 10 mL Given 12/06/2020 9:31 AM GEOPHYSICAL E LOGGER 10 mL vitamin D3 (cholecalciferol) tablet 50 m cg Given 12/07/2020 10:15 AM GEOPHYSICAL E LOGGER 50 mcg 50 mcg, Oral, DAILY, First dose on Sun12/02/20 at 0900, Until Discontinued Given 12/06/2020 9:31 AM GEOPHYSICAL E LOGGER 50 mcg Given 12/05/2020 9:32 AM GEOPHYSICAL E LOGGER 50 mcg Medication Order MAR Action Action Date Dose Rate Site acetaminophen (TYLENOL) tablet Given 12/02/2020 9:35 AM GEOPHYSICAL E LOGGER 1,0 00 mg 1,000 mg 1,000 mg, Oral, One time, 1 dose, Shannon 12/02/20 at 1020, Pre - Op, Adult patients: Total dose of acetaminophen from all acetaminophen containing products should not exceed 4 grams (4000 mg) per day. Pediatric Patients 0 - 3 months: Maximum of 60 mg/kg/24 hours of acetaminophen. Pediatric Patients older than 3 months: Maximum of 75 mg/kg/24 hours of acetaminophen (Never exceeding 4 grams/day). , ceFAZolin (ANCEF) 2000 mg/20 mL sterile Given 12/03/2020 12:04 P M GEOPHYSICAL E LOGGER 2,000 mg water IV syringe 2,000 mg, IV, Every eight hours, 3 doses, First dose on Shannon 12/02/20 at 2000, Last dose on Sun12/03/20 at 1200, 20 mL, PACU - Continue Post-Op, Administer as IV push over 4 minutes., Given 12/03/2020 4:33 AM GEOPHYSICAL E LOGGER 2,000 mg Given 12/02/2020 9:03 PM GEOPHYSICAL E LOGGER 2,000 mg cefTRIAXone (ROCEPHIN) 1000 mg/10 mL IV Given 12/06/2020 1:05 P M GEOPHYSICAL E [facility]GG[facility] 1,000 mg syringe in sterile water 1,000 mg, IV, Every twenty four hours, First dose on Sun12/03/20 at 1300, Until Discontinued, 10 mL, Flush IV line with normal saline prior and post administration. Do not administer with calcium containing solutions (example: Lactated Ringer's, TPN with calcium, etc) as these are not compatible with ceftriaxone. Administer over 5 minutes., Given 12/05/2020 1:29 PM [facility]OPHYSICAL E [facility]GGER 1,000 mg Given 12/04/2020 12:42 PM GEOPHYSICAL E LOGGER 1,000 mg fentaNYL 100 mcg/2 mL preservative free Given 12/01/2020 6:47 P M [facility]OPH[employer]ICAL E [facility] 50 mcg injection solution 50 mcg 50 mcg, IV, Every fifteen minutes prn, 3 doses, Starting Sun12/01/20 at 1845, Until Sun12/01/20 at 1957, severe pain, 1 mL gabapentin (NEURONTIN) capsule 300 mg Given 12/02/2020 9:35 AM GEOPHYSICAL E LOGGER 300 mg 300 mg, Oral, One time, 1 dose, Shannon 12/02/20 at 1020, Pre - Op, Do not give to patients on hemodialysis., heparin (porcine) injection solution Given 12/01/2020 10:[address] 5,000 Units 5,000 Units 5,000 Units, Subcutaneous, Every eight hours, First dose on Sun12/01/20 at 2200, Until Discontinued, 1 mL HYDROmorphone (DILAUDID) injection solution Given 11/2020 5:06 PM GEOPHYSICAL E [facility]GGER 0.5 mg (conc: 0.5 mg/0.5mL) 0.5 mg 0.5 mg, IV, Now, 1 dose, Sun12/01/20 at 1700, 0.5 mL HYDROmorphone (DILAUDID) injection solution Given 11/2020 6:20 PM GEOPHYSICAL E [facility]GGER 0.5 mg (conc: 0.5 mg/0.5mL) 0.5 mg 0.5 mg, IV, Now, 1 dose, Sun12/01/20 at 1820, 0.5 mL HYDROmorphone (DILAUDID) injection solution Given 01/2021 3:53 PM GEOPHYSICAL E LOGGER 0.5 mg (conc: 0.5 mg/0.5mL) 0.5 mg 0.5 mg, IV, Every two hours prn, Starting Sun12/01/20 at 1927, Until 12/06/20 at 1630, severe pain, breakthrough pain, 0.5 mL Given 12/02/2020 4:56 AM [facility]H[employer]ICAL E [facility]GGER 0.5 mg Given 12/02/2020 2:15 AM [facility]OPH[employer]ICAL E [facility]GG[facility] 0.5 mg lactated ringers IV solution Already Infusing 12/02/2020 2:15 PM GEOPHYSICAL E LOGGER 125 mL/hr IV, at 125 mL/hr, Continuous, Starting Shannon 12/02/20 at 1330, Until Shannon 12/02/20 at 1519, 1,000 mL, PACU, Infuse at 125 mL/hour unless directed otherwise., sodium chloride 0.9% IV solution New Bag 12/03/2020 7:29 PM [facility]OPH[employer]ICAL E [facility]GGER 75 mL/hr IV, at 75 mL/hr, Continuous, Starting 12/01/20 at 1930, Until 12/04/20 at 1221, 1,000 mL New Bag 12/02/2020 4:43 PM GEOPHYSICAL E [facility]GGER 75 mL/hr New Bag 12/01/2020 8:31 PM GEOPHYSICAL E LOGGER 75 mL/hr documented in this encounter Additional Health Concerns Infection Onset Date Last Indicated Resolved Time COVID-19 12/07/2020 12/07/2020 documented as of this encounter
[2020-12-07] MEDS ORDERED: Ondansetron 4 MG/2 ML SDV IVPUSH PRN (15:48)
[2020-12-07] MEDS ORDERED: Ondansetron 4 MG Tab.DIS PO PRN (15:48)
[2020-12-07] MEDS ORDERED: Albuterol 0.083% 2.5 MG/3 ML Neb Soln NEB PRN (15:48)
[2020-12-07] MEDS ORDERED: METRONIDAZOLE TOP PRN (15:48)
[2020-12-07] MEDS ORDERED: Bisacodyl 10 MG Supp RECTAL PRN (15:48)
[2020-12-07] MEDS: oxyCODONE 5 MG Tab PO PRN ×2 (16:33→21:11)
[2020-12-07] MEDS ORDERED: Benzocaine/Cetylpyridinium/Menthol Lozenge MUCMEM PRN (16:40)
--- NOTE | 2020-12-07 18:20 | PCM.HP.2 ---
H&P History of Present Illness - General Date of Service: 12/07/20 Admit Problem/Dx: Admission Diagnosis/Problem Admission Diagnosis/Problem Fracture of tibia Source of Information: Patient, Old Records - History of Present Illness Initial Comments - Free Text/Narative: 70-year-old lady with past medical history significant for osteoporosis secondary to long-term treatment with anticonvulsant medications. Has suffered several falls over the years and secondary to osteoporosis has suffered several fractures. Patient recently suffered a mechanical fall that resulted in left tib-fib fracture. Transported to acute care facility and treated with ORIF. Patient is now transferred to senior care facility/swing bed for continued rehabilitation with physical and Occupational Therapy. Note that the patient tested positive for COVID-19 prior to transfer. She has no symptoms at this time and received her second dose of COVID-19 immunization 3-4 weeks ago. Left Lower Leg Pain Score (Numeric/FACES): 7 - Related Data Allergies/Adverse Reactions: Allergies Allergy/AdvReac Type Severity Reaction Status Date / Time No Known Allergies Allergy Verified 12/07/20 13:27 Home Medications: Home Meds Pantoprazole Sodium [Protonix] 40 mg PO DAILY 06/04/19 [History] Phenytoin Sodium Extended [Dilantin] 100 mg PO DAILY 06/04/19 [History] Phenytoin [Dilantin] 30 mg PO DAILY 06/04/19 [History] Sennosides/Docusate Sodium [Senna-S] 1 tab PO BID 06/04/19 [History] Sertraline [Zoloft] 75 mg PO DAILY 06/04/19 [History] Acetaminophen 650 mg PO Q6H PRN 10/16/20 [History] Cholecalciferol (Vitamin D3) [Vitamin D3] 2,000 unit PO DAILY 10/16/20 [History] Folic Acid 1 mg PO DAILY 10/16/20 [History] Albuterol Sulfate 3 ml IH Q4H PRN 12/07/20 [History] Benzocaine/Menthol [Cepacol Sore Throat Lozenge] 1 jael MUCMEM TID PRN 12/07/20 [History] Bisacodyl [Gentle Laxative] 10 mg RECTAL DAILY PRN 12/07/20 [History] Calcium Carbonate [Tums] 500 mg PO BID 12/07/20 [History] Enoxaparin [Lovenox] 40 mg SUBCUT DAILY 12/07/20 [History] Fluticasone/Vilanterol [Breo Ellipta 100-25 MCG Inhalation Kit] 1 puff IH DAILY 12/07/20 [History] Furosemide [Lasix] 20 mg PO DAILY 12/07/20 [History] HYDROmorphone [Dilaudid] 0.5 mg IVPUSH Q2H PRN 12/07/20 [History] NaPh,Mb-Db/K Ph,MB-DB [Phos-NaK Powder] 1 packet PO BID 12/07/20 [History] Ondansetron [Zofran ODT] 4 mg PO QID PRN 12/07/20 [History] Ondansetron [Zofran] 4 mg IVPUSH Q4H PRN 12/07/20 [History] PHENobarbitaL [Phenobarbital] 60 mg PO BID 12/07/20 [History] Phenytoin Sodium Extended [Dilantin] 200 mg PO BEDTIME 12/07/20 [History] Sennosides/Docusate Sodium [Senna-S] 1 tab PO BID PRN 12/07/20 [History] metroNIDAZOLE [metroNIDAZOLE 0.75% Cream] 1 applic TOP BID PRN 12/07/20 [History] oxyCODONE 5 mg PO Q4H PRN 12/07/20 [History] polyethylene glycoL 3350 [MiraLAX] 17 gm PO DAILY 12/07/20 [History] Past Medical History HEENT History: Reports: Impaired Vision Respiratory History: Reports: Asthma, COPD Gastrointestinal History: Reports: GERD Genitourinary History: Reports: Urinary Incontinence Musculoskeletal History: Reports: Fracture, Osteoporosis, Other (See Below) Other Musculoskeletal History: rt femer fx. Left tibia Neurological History: Reports: Seizure, Other (See Below) Other Neuro History: hx epilepsy Psychiatric History: Reports: Anxiety, Depression Hematologic History: Reports: Anemia - Infectious Disease History Infectious Disease History: Reports: Chicken Pox, Measles, Mumps - Past Surgical History GI Surgical History: Reports: Appendectomy Female Surgical History: Reports: Breast Biopsy, Hysterectomy Neurological Surgical History: Reports: None Musculoskeletal Surgical History: Reports: Hip Replacement, ORIF Other Musculoskeletal Surgeries/Procedures:: R hip replacement Social & Family History - Family History Family Medical History: No Pertinent Family History - Tobacco Use Tobacco Use Status *Q: Former Tobacco User Used Tobacco, but Quit: Yes Month/Year Tobacco Last Used: 30 years Second Hand Smoke Exposure: No - Caffeine Use Caffeine Use: Reports: Coffee Caffeine Use Comment: couple cups of coffee - Recreational Drug Use Recreational Drug Use: No - Living Situation & Occupation Living situation: Reports: Assisted Living (Lives in [facility]) H&P Review of Systems - Review of Systems: Review Of Systems: See Below General: Reports: Weakness, Fatigue HEENT: Reports: No Symptoms Pulmonary: Reports: No Symptoms Cardiovascular: Reports: No Symptoms Gastrointestinal: Reports: No Symptoms Genitourinary: Reports: No Symptoms Musculoskeletal: Reports: Leg Pain Skin: Reports: No Symptoms Psychiatric: Reports: No Symptoms Neurological: Reports: No Symptoms Hematologic/Lymphatic: Reports: No Symptoms Immunologic: Reports: No Symptoms Exam - Exam Exam: See Below - Vital Signs Vital Signs: Last Vital Signs Temp 36.9 C 12/07/20 13:03 Pulse 98 12/07/20 13:03 Resp 16 12/07/20 13:03 BP 124/74 12/07/20 13:03 Pulse Ox 93 L 12/07/20 13:03 Weight: 66.814 kg - Exam Quality Assessment: DVT Prophylaxis General: Alert, Oriented, Cooperative HEENT: EOMI, Mucosa Moist & [place] Lungs: Decreased Breath Sounds Cardiovascular: Regular Rate, Regular Rhythm GI/Abdominal Exam: Normal Bowel Sounds, Soft, Non-Tender Extremities: Other (Left lower extremity has Nathan wrap from just above the knee to the foot, right lower extremityno edema) Peripheral Pulses: 2+: Radial (L), Radial (R), Dorsalis Pedis (R) Skin: Warm, Dry Neuro Extensive - Mental Status: Alert, Normal Mood/Affect Psychiatric: Alert, Other (Patient was extremely tired at the time of exam) Sepsis Event Note - Evaluation Sepsis Screening Result: No Definite Risk - Focused Exam Vital Signs: Vital Signs Temp Pulse Resp BP Pulse Ox 12/07/20 13:03 36.9 C 98 16 124/74 93 L - Problem List (1) Fracture of left tibia and fibula SNOMED Code(s): 924194915 ICD Code: S82.202A - UNSP FRACTURE OF SHAFT OF LEFT TIBIA, INIT FOR CLOS FX; S82.402A - UNSP FRACTURE OF SHAFT OF LEFT FIBULA, INIT FOR CLOS FX Status: Acute Current Visit: Yes (2) Post-vaccination reaction SNOMED Code(s): 92178014 ICD Code: T88.1XXA - OTH COMPLICATIONS FOLLOWING IMMUNIZATION, NEC, INIT Status: Acute Current Visit: No (3) Asthma SNOMED Code(s): 041711756 ICD Code: J45.909 - UNSPECIFIED ASTHMA, UNCOMPLICATED Status: Chronic Current Visit: No (4) Unable to ambulate SNOMED Code(s): 404331345 ICD Code: R26.2 - DIFFICULTY IN WALKING, NOT ELSEWHERE CLASSIFIED Status: Acute Current Visit: No (5) Multiple falls SNOMED Code(s): 785084719 ICD Code: R29.6 - REPEATED FALLS Status: Acute Current Visit: No (6) Seizure disorder SNOMED Code(s): 245201060 ICD Code: G40.909 - EPILEPSY, UNSP, NOT INTRACTABLE, WITHOUT STATUS EPILEPTICUS Status: Chronic Current Visit: No (7) MDD (major depressive disorder) SNOMED Code(s): 792216051 ICD Code: F32.9 - MAJOR DEPRESSIVE DISORDER, SINGLE EPISODE, UNSPECIFIED Status: Chronic Current Visit: No Qualifiers: Major depression recurrence: recurrent Major depression episode severity: unspecified Problem List Initiated/Reviewed/Updated: Yes Orders Last 24hrs: Active Orders 24 hr Category Date Time Status Admission Status [Patient Status] [ADT] Routine ADT 12/07/20 12:55 Active RT Aerosol Therapy [RC] .PRN Care 12/07/20 15:56 Active Supplement (Dietary) [Dietary Supplements] [RC] Care 12/07/20 16:16 Active WITHMEALSANDBED Regular Diet [DIET] Diet 12/08/20 Breakfast Active Acetaminophen [TylenoL] Med 12/07/20 15:48 Active 650 mg PO Q6H PRN Albuterol [Proventil Neb Soln] Med 12/07/20 15:48 Active 2.5 mg NEB Q4H PRN Benzocaine/Cetylpyrd/Menthol [Cepacol Sore Throat] Med 12/07/20 16:40 Active 1 lozenge MUCMEM TID PRN Calcium Carbonate [Tums] Med 12/07/20 21:00 Active 500 mg PO BID Cholecalciferol (Vitamin D3) [Vitamin D3] Med 12/08/20 09:00 Active 50 mcg PO DAILY Docusate Sodium/Sennosides [Senna Plus] Med 12/07/20 21:00 Active 1 tab PO BID Docusate Sodium/Sennosides [Senna Plus] Med 12/07/20 15:48 Active 1 tab PO BID PRN Enoxaparin [Lovenox] Med 12/08/20 09:00 Active 40 mg SUBCUT DAILY Folic Acid Med 12/08/20 09:00 Active 1 mg PO DAILY Furosemide [Lasix] Med 12/08/20 09:00 Active 20 mg PO DAILY Mometasone/Formoterol [Dulera 100-5 MCG] Med 12/08/20 09:00 Active 2 puff IH BID NaPh,Mb-Db/K Ph,MB-DB [Phos-NaK Powder] Med 12/07/20 21:00 Active 1 each PO BID Ondansetron [Zofran ODT] Med 12/07/20 15:48 Active 4 mg PO QID PRN Ondansetron [Zofran] Med 12/07/20 15:48 Active 4 mg IVPUSH Q4H PRN PHENobarbitaL Med 12/07/20 21:00 Active 64.8 mg PO BID Pantoprazole [ProTONIX] Med 12/08/20 09:00 Active 40 mg PO DAILY Phenytoin Med 12/08/20 09:00 Active 100 mg PO DAILY Phenytoin Med 12/07/20 21:00 Active 200 mg PO BEDTIME Phenytoin [Dilantin] Med 12/08/20 09:00 Active 30 mg PO DAILY Sertraline [Zoloft] Med 12/08/20 09:00 Active 75 mg PO DAILY bisacodyL [Dulcolax] Med 12/07/20 15:48 Active 10 mg RECTAL DAILY PRN metroNIDAZOLE [metroNIDAZOLE 0.75% Cream] Med 12/07/20 15:48 Pending 1 applic TOP BID PRN oxyCODONE Med 12/07/20 15:48 Active 5 mg PO Q4H PRN polyethylene glycoL 3350 [MiraLAX] Med 12/08/20 09:00 Active 17 gm PO DAILY Medication Orders Acetaminophen (Acetaminophen 325 Mg Tab) 650 mg PO Q6H PRN PRN Reason: mild pain/fever/headache Albuterol (Albuterol 0.083% 2.5 Mg/3 Ml Neb Soln) 2.5 mg NEB Q4H PRN PRN Reason: shortness of breath/wheezing Benzocaine/Menthol (Benzocaine/Cetylpyridinium/Menthol Lozenge) 1 lozenge MUCMEM TID PRN PRN Reason: Sore Throat Bisacodyl (Bisacodyl 10 Mg Supp) 10 mg RECTAL DAILY PRN PRN Reason: Constipation Calcium Carbonate/Glycine (Calcium Carbonate 500 Mg Tab.Chew) 500 mg PO BID [facility] Cholecalciferol (Cholecalciferol (Vitamin D3) 25 Mcg Tab) 50 mcg PO DAILY [facility] Enoxaparin Sodium (Enoxaparin 40 Mg/0.4 Ml Syringe) 40 mg SUBCUT DAILY [facility] Stop: 12/30/20 09:01 Folic Acid (Folic Acid 1 Mg Tab) 1 mg PO DAILY [facility] Furosemide (Furosemide 20 Mg Tab) 20 mg PO DAILY [facility] Mometasone Furoate/Formoterol Fumar (Formoterol/Mometasone 100-5 Mcg 8.8 Gm Inhaler) 2 puff IH BID [facility] Non-Formulary Medication (Metronidazole [Metronidazole 0.75% Cream]) 1 applic TOP BID PRN PRN Reason: Rash Ondansetron HCl (Ondansetron 4 Mg/2 Ml Sdv) 4 mg IVPUSH Q4H PRN PRN Reason: Nausea/Vomiting Ondansetron HCl (Ondansetron 4 Mg Tab.Dis) 4 mg PO QID PRN PRN Reason: Nausea/Vomiting Oxycodone HCl (Oxycodone 5 Mg Tab) 5 mg PO Q4H PRN PRN Reason: moderate pain Last Admin: 12/07/20 16:33 Dose: 5 mg Documented by: POPEYE Pantoprazole Sodium (Pantoprazole 40 Mg Tab.Cr) 40 mg PO DAILY [facility] Phenobarbital (Phenobarbital 32.4 Mg Tab) 64.8 mg PO BID [facility] Phenytoin Sodium (Phenytoin 30 Mg Cap.Er) 30 mg PO DAILY [facility] Phenytoin Sodium (Phenytoin 100 Mg Cap.Er) 100 mg PO DAILY [facility] Phenytoin Sodium (Phenytoin 100 Mg Cap.Er) 200 mg PO BEDTIME [facility] Polyethylene Glycol (Polyethylene Glycol 3350 Powder 17 Gm Packet) 17 gm PO DAILY [facility] Potassium Phos/Sodium Phos (Potassium Phosphate,Mb-Db/Sodium Phosphate,Mb-Db Packet) 1 each PO BID [facility] Senna/Docusate Sodium (Docusate Sodium/Sennosides 50-8.6 Mg Tab) 1 tab PO BID PRN PRN Reason: Constipation Senna/Docusate Sodium (Docusate Sodium/Sennosides 50-8.6 Mg Tab) 1 tab PO BID [facility] Sertraline HCl (Sertraline 25 Mg Tab) 75 mg PO DAILY [facility] Assessment/Plan Comment:: Continue home medications for seizure precaution and depression. Continue Lovenox at this time to complete course ordered by surgery. Occupational and physical therapy evaluation and treatment. Covid isolation. Protonix for GI prophylaxis.
[2020-12-07] MEDS: Phenytoin 100 MG Cap.ER PO SCH (21:15)
[2020-12-07] MEDS: Potassium Phosphate,Mb-Db/Sodium Phosphate,Mb-Db Packet PO SCH (21:15)
[2020-12-07] MEDS: Calcium Carbonate 500 MG Tab.Chew PO SCH (21:17)
[2020-12-07] MEDS: PHENobarbital 32.4 MG Tab PO SCH (21:21)
[2020-12-08] MEDS: oxyCODONE 5 MG Tab PO PRN ×3 (05:11→20:31)
[2020-12-08] MEDS: Polyethylene Glycol 3350 Powder 17 GM Packet PO SCH (08:05)
[2020-12-08] MEDS: Enoxaparin 40 MG/0.4 ML Syringe SUBCUT SCH (08:05)
[2020-12-08] MEDS: Potassium Phosphate,Mb-Db/Sodium Phosphate,Mb-Db Packet PO SCH ×2 (08:05→20:30)
[2020-12-08] MEDS: Calcium Carbonate 500 MG Tab.Chew PO SCH ×2 (08:05→20:31)
[2020-12-08] MEDS: Phenytoin 30 MG Cap.ER PO SCH (08:06)
[2020-12-08] MEDS: PHENobarbital 32.4 MG Tab PO SCH ×2 (08:07→20:28)
[2020-12-08] MEDS: Phenytoin 100 MG Cap.ER PO SCH ×2 (08:08→20:29)
[2020-12-08] MEDS: Sertraline 25 MG Tab PO SCH (08:08)
[2020-12-08] MEDS: Folic Acid 1 MG Tab PO SCH (08:09)
[2020-12-08] MEDS: Cholecalciferol (Vitamin D3) 25 MCG Tab PO SCH (08:09)
[2020-12-08] MEDS: Pantoprazole 40 MG Tab.CR PO SCH (08:09)
[2020-12-08] MEDS: Formoterol/Mometasone 100-5 MCG 8.8 GM Inhaler IH SCH ×2 (08:10→20:28)
[2020-12-08] MEDS: Furosemide 20 MG Tab PO SCH (08:11)
[2020-12-08] MEDS: Acetaminophen 325 MG Tab PO PRN (17:07)
[2020-12-09] MEDS: oxyCODONE 5 MG Tab PO PRN ×2 (03:47→11:56)
[2020-12-09] MEDS: Cholecalciferol (Vitamin D3) 25 MCG Tab PO SCH (08:28)
[2020-12-09] MEDS: Folic Acid 1 MG Tab PO SCH (08:28)
[2020-12-09] MEDS: Enoxaparin 40 MG/0.4 ML Syringe SUBCUT SCH (08:28)
[2020-12-09] MEDS: Furosemide 20 MG Tab PO SCH (08:29)
[2020-12-09] MEDS: Sertraline 25 MG Tab PO SCH (08:29)
[2020-12-09] MEDS: Pantoprazole 40 MG Tab.CR PO SCH (08:29)
[2020-12-09] MEDS: Calcium Carbonate 500 MG Tab.Chew PO SCH ×2 (08:30→21:09)
[2020-12-09] MEDS: Potassium Phosphate,Mb-Db/Sodium Phosphate,Mb-Db Packet PO SCH ×2 (08:30→21:09)
[2020-12-09] MEDS: Phenytoin 30 MG Cap.ER PO SCH (08:31)
[2020-12-09] MEDS: Formoterol/Mometasone 100-5 MCG 8.8 GM Inhaler IH SCH ×2 (08:32→21:09)
[2020-12-09] MEDS: Polyethylene Glycol 3350 Powder 17 GM Packet PO SCH (08:33)
[2020-12-09] MEDS: Phenytoin 100 MG Cap.ER PO SCH ×2 (08:34→21:09)
[2020-12-09] MEDS: PHENobarbital 32.4 MG Tab PO SCH ×2 (08:37→21:09)
[2020-12-09] MEDS: Acetaminophen 325 MG Tab PO PRN (17:43)
[2020-12-10] MEDS: oxyCODONE 5 MG Tab PO PRN ×2 (03:24→09:02)
[2020-12-10] MEDS: Phenytoin 30 MG Cap.ER PO SCH (08:50)
[2020-12-10] MEDS: Cholecalciferol (Vitamin D3) 25 MCG Tab PO SCH (08:50)
[2020-12-10] MEDS: Sertraline 25 MG Tab PO SCH (08:50)
[2020-12-10] MEDS: Folic Acid 1 MG Tab PO SCH (08:51)
[2020-12-10] MEDS: Formoterol/Mometasone 100-5 MCG 8.8 GM Inhaler IH SCH ×2 (08:51→20:42)
[2020-12-10] MEDS: Furosemide 20 MG Tab PO SCH (08:51)
[2020-12-10] MEDS: Calcium Carbonate 500 MG Tab.Chew PO SCH ×2 (08:51→20:43)
[2020-12-10] MEDS: Potassium Phosphate,Mb-Db/Sodium Phosphate,Mb-Db Packet PO SCH (08:51)
[2020-12-10] MEDS: Polyethylene Glycol 3350 Powder 17 GM Packet PO SCH (08:52)
[2020-12-10] MEDS: Pantoprazole 40 MG Tab.CR PO SCH ×2 (08:52→17:12)
[2020-12-10] MEDS: Enoxaparin 40 MG/0.4 ML Syringe SUBCUT SCH (08:53)
[2020-12-10] MEDS: Phenytoin 100 MG Cap.ER PO SCH ×2 (08:53→20:43)
[2020-12-10] MEDS: PHENobarbital 32.4 MG Tab PO SCH ×2 (09:03→20:43)
[2020-12-10] MEDS: Acetaminophen 500 MG Tab PO SCH ×3 (10:19→21:08)
[2020-12-10] MEDS: Ibuprofen 200 MG Tab PO SCH ×3 (10:19→21:08)
[2020-12-11] MEDS: Ibuprofen 200 MG Tab PO SCH ×4 (04:38→21:05)
[2020-12-11] MEDS: Acetaminophen 500 MG Tab PO SCH ×4 (04:40→21:05)
[2020-12-11] MEDS: Pantoprazole 40 MG Tab.CR PO SCH ×2 (05:00→17:11)
[2020-12-11] MEDS: oxyCODONE 5 MG Tab PO PRN (07:28)
[2020-12-11] MEDS: Phenytoin 30 MG Cap.ER PO SCH (09:12)
[2020-12-11] MEDS: Formoterol/Mometasone 100-5 MCG 8.8 GM Inhaler IH SCH ×2 (09:12→20:56)
[2020-12-11] MEDS: Enoxaparin 40 MG/0.4 ML Syringe SUBCUT SCH (09:12)
[2020-12-11] MEDS: Folic Acid 1 MG Tab PO SCH (09:12)
[2020-12-11] MEDS: Furosemide 20 MG Tab PO SCH (09:12)
[2020-12-11] MEDS: Calcium Carbonate 500 MG Tab.Chew PO SCH ×2 (09:13→20:56)
[2020-12-11] MEDS: Phenytoin 100 MG Cap.ER PO SCH ×2 (09:13→20:57)
[2020-12-11] MEDS: Sertraline 25 MG Tab PO SCH (09:13)
[2020-12-11] MEDS: Cholecalciferol (Vitamin D3) 25 MCG Tab PO SCH (09:13)
[2020-12-11] MEDS: PHENobarbital 32.4 MG Tab PO SCH ×2 (09:17→20:56)
--- NOTE | 2020-12-11 16:55 | PCM.SN.2 ---
- Free Text/Narrative Note: Wound update 12/11/2020
[2020-12-12] MEDS: Ibuprofen 200 MG Tab PO SCH ×4 (03:30→21:02)
[2020-12-12] MEDS: Acetaminophen 500 MG Tab PO SCH ×4 (03:31→21:02)
[2020-12-12] MEDS: Pantoprazole 40 MG Tab.CR PO SCH ×2 (05:14→16:15)
[2020-12-12] MEDS: PHENobarbital 32.4 MG Tab PO SCH ×2 (08:25→20:54)
[2020-12-12] MEDS: Formoterol/Mometasone 100-5 MCG 8.8 GM Inhaler IH SCH ×2 (08:25→20:54)
[2020-12-12] MEDS: Enoxaparin 40 MG/0.4 ML Syringe SUBCUT SCH (08:26)
[2020-12-12] MEDS: Folic Acid 1 MG Tab PO SCH (08:26)
[2020-12-12] MEDS: Furosemide 20 MG Tab PO SCH (08:26)
[2020-12-12] MEDS: Sertraline 25 MG Tab PO SCH (08:26)
[2020-12-12] MEDS: Calcium Carbonate 500 MG Tab.Chew PO SCH ×2 (08:26→20:54)
[2020-12-12] MEDS: Phenytoin 100 MG Cap.ER PO SCH ×2 (08:26→20:54)
[2020-12-12] MEDS: Cholecalciferol (Vitamin D3) 25 MCG Tab PO SCH (08:26)
[2020-12-12] MEDS: Phenytoin 30 MG Cap.ER PO SCH (08:27)
[2020-12-13] MEDS: Acetaminophen 500 MG Tab PO SCH ×4 (05:30→21:21)
[2020-12-13] MEDS: Ibuprofen 200 MG Tab PO SCH ×4 (05:30→21:20)
[2020-12-13] MEDS: Pantoprazole 40 MG Tab.CR PO SCH ×2 (05:44→17:04)
[2020-12-13] MEDS ORDERED: PHENobarbital 32.4 MG Tab ONE (10:00)
[2020-12-13] MEDS: PHENobarbital 32.4 MG Tab PO SCH ×2 (10:12→21:17)
[2020-12-13] MEDS: Formoterol/Mometasone 100-5 MCG 8.8 GM Inhaler IH SCH ×2 (10:13→21:17)
[2020-12-13] MEDS: Calcium Carbonate 500 MG Tab.Chew PO SCH ×2 (10:15→21:20)
[2020-12-13] MEDS: Phenytoin 30 MG Cap.ER PO SCH (10:21)
[2020-12-13] MEDS: Cholecalciferol (Vitamin D3) 25 MCG Tab PO SCH (10:23)
[2020-12-13] MEDS: Furosemide 20 MG Tab PO SCH (10:24)
[2020-12-13] MEDS: Sertraline 25 MG Tab PO SCH (10:24)
[2020-12-13] MEDS: Folic Acid 1 MG Tab PO SCH (10:24)
[2020-12-13] MEDS: Enoxaparin 40 MG/0.4 ML Syringe SUBCUT SCH (10:27)
[2020-12-13] MEDS: Phenytoin 100 MG Cap.ER PO SCH ×2 (10:37→21:19)
[2020-12-14] MEDS: Ibuprofen 200 MG Tab PO SCH ×4 (04:02→21:00)
[2020-12-14] MEDS: Acetaminophen 500 MG Tab PO SCH ×4 (04:02→21:00)
[2020-12-14] MEDS: Pantoprazole 40 MG Tab.CR PO SCH ×2 (06:22→18:00)
[2020-12-14] MEDS: PHENobarbital 32.4 MG Tab PO SCH ×2 (08:14→20:31)
[2020-12-14] MEDS: Formoterol/Mometasone 100-5 MCG 8.8 GM Inhaler IH SCH ×2 (08:14→20:30)
[2020-12-14] MEDS: Enoxaparin 40 MG/0.4 ML Syringe SUBCUT SCH (08:15)
[2020-12-14] MEDS: Calcium Carbonate 500 MG Tab.Chew PO SCH ×2 (08:16→20:31)
[2020-12-14] MEDS: Phenytoin 100 MG Cap.ER PO SCH ×2 (08:19→20:31)
[2020-12-14] MEDS: Cholecalciferol (Vitamin D3) 25 MCG Tab PO SCH (08:19)
[2020-12-14] MEDS: Phenytoin 30 MG Cap.ER PO SCH (08:19)
[2020-12-14] MEDS: Furosemide 20 MG Tab PO SCH (08:20)
[2020-12-14] MEDS: Sertraline 25 MG Tab PO SCH (08:20)
[2020-12-14] MEDS: Folic Acid 1 MG Tab PO SCH (08:22)
--- NOTE | 2020-12-14 17:16 | PCM.PN ---
- General Info Date of Service: 12/14/20 Subjective Update: Jasmine is doing well, edema is down in her legs, only a little bit in her toes on left foot. She does complain bout increased frequency since being on the Lasi x and states that she is not on that medication at home. It was started at discharge from [place] for generalized edema. She denies any fevers, chills, shortness of breath, chest pain, no loss of taste or smell. She was putting weight on her left foot using the walker so PT/OT advised to use slide board for transfer or lift. - Patient Data Vitals - Most Recent: Last Vital Signs Temp 98.5 F 12/14/20 08:00 Pulse 82 12/14/20 08:00 Resp 16 12/14/20 08:00 BP 99/56 L 12/14/20 08:00 Pulse Ox 96 12/14/20 08:00 Weight - Most Recent: 147 lb 4.8 oz I&O - Last 24 Hours: Intake & Output 12/14/20 12/14/20 12/14/20 06:59 14:59 22:59 Intake Total 100 Output Total 0 Balance 100 Med Orders - Current: Current Medications Acetaminophen (Acetaminophen 500 Mg Tab) 500 mg PO Q6H [facility] Last Admin: 12/14/20 15:25 Dose: 500 mg Documented by: Albuterol (Albuterol 0.083% 2.5 Mg/3 Ml Neb Soln) 2.5 mg NEB Q4H PRN PRN Reason: shortness of breath/wheezing Benzocaine/Menthol (Benzocaine/Cetylpyridinium/Menthol Lozenge) 1 lozenge MUCMEM TID PRN PRN Reason: Sore Throat Bisacodyl (Bisacodyl 10 Mg Supp) 10 mg RECTAL DAILY PRN PRN Reason: Constipation Calcium Carbonate/Glycine (Calcium Carbonate 500 Mg Tab.Chew) 500 mg PO BID [facility] Last Admin: 12/14/20 08:16 Dose: 500 mg Documented by: Cholecalciferol (Cholecalciferol (Vitamin D3) 25 Mcg Tab) 50 mcg PO DAILY [facility] Last Admin: 12/14/20 08:19 Dose: 50 mcg Documented by: Enoxaparin Sodium (Enoxaparin 40 Mg/0.4 Ml Syringe) 40 mg SUBCUT DAILY [facility] Stop: 12/30/20 09:01 Last Admin: 12/14/20 08:15 Dose: 40 mg Documented by: Folic Acid (Folic Acid 1 Mg Tab) 1 mg PO DAILY [facility] Last Admin: 12/14/20 08:22 Dose: 1 mg Documented by: Ibuprofen (Ibuprofen 200 Mg Tab) 200 mg PO Q6H [facility] Last Admin: 12/14/20 15:25 Dose: 200 mg Documented by: Mometasone Furoate/Formoterol Fumar (Formoterol/Mometasone 100-5 Mcg 8.8 Gm Inhaler) 2 puff IH BID [facility] Last Admin: 12/14/20 08:14 Dose: 2 puff Documented by: Ondansetron HCl (Ondansetron 4 Mg/2 Ml Sdv) 4 mg IVPUSH Q4H PRN PRN Reason: Nausea/Vomiting Ondansetron HCl (Ondansetron 4 Mg Tab.Dis) 4 mg PO QID PRN PRN Reason: Nausea/Vomiting Last Admin: 12/10/20 03:25 Dose: 4 mg Documented by: Pantoprazole Sodium (Pantoprazole 40 Mg Tab.Cr) 40 mg PO BID@0600,1700 [facility] Last Admin: 12/14/20 06:22 Dose: 40 mg Documented by: Phenobarbital (Phenobarbital 32.4 Mg Tab) 64.8 mg PO BID [facility] Last Admin: 12/14/20 08:14 Dose: 64.8 mg Documented by: Phenytoin Sodium (Phenytoin 30 Mg Cap.Er) 30 mg PO DAILY [facility] Last Admin: 12/14/20 08:19 Dose: 30 mg Documented by: Phenytoin Sodium (Phenytoin 100 Mg Cap.Er) 100 mg PO DAILY [facility] Last Admin: 12/14/20 08:19 Dose: 100 mg Documented by: Phenytoin Sodium (Phenytoin 100 Mg Cap.Er) 200 mg PO BEDTIME [facility] Last Admin: 12/13/20 21:19 Dose: 200 mg Documented by: Senna/Docusate Sodium (Docusate Sodium/Sennosides 50-8.6 Mg Tab) 1 tab PO BID PRN PRN Reason: Constipation Last Admin: 12/14/20 08:21 Dose: 1 tab Documented by: Sertraline HCl (Sertraline 25 Mg Tab) 75 mg PO DAILY [facility] Last Admin: 12/14/20 08:20 Dose: 75 mg Documented by: Discontinued Medications Acetaminophen (Acetaminophen 325 Mg Tab) 650 mg PO Q6H PRN PRN Reason: mild pain/fever/headache Last Admin: 12/09/20 17:43 Dose: 650 mg Documented by: Furosemide (Furosemide 20 Mg Tab) 20 mg PO DAILY [facility] Last Admin: 12/14/20 08:20 Dose: 20 mg Documented by: Non-Formulary Medication (Metronidazole [Metronidazole 0.75% Cream]) 1 applic TOP BID PRN PRN Reason: Rash Oxycodone HCl (Oxycodone 5 Mg Tab) 5 mg PO Q4H PRN PRN Reason: moderate pain Stop: 12/11/20 23:59 Last Admin: 12/11/20 07:28 Dose: 5 mg Documented by: Pantoprazole Sodium (Pantoprazole 40 Mg Tab.Cr) 40 mg PO DAILY [facility] Last Admin: 12/09/20 08:29 Dose: 40 mg Documented by: Phenobarbital (Phenobarbital 32.4 Mg Tab) Confirm Administered Dose 32.4 mg .ROUTE .[facility] Stop: 12/13/20 10:01 Last Admin: 12/13/20 10:09 Dose: Not Given Documented by: Polyethylene Glycol (Polyethylene Glycol 3350 Powder 17 Gm Packet) 17 gm PO DAILY [facility] Last Admin: 12/10/20 08:52 Dose: Not Given Documented by: Potassium Phos/Sodium Phos (Potassium Phosphate,Mb-Db/Sodium Phosphate,Mb-Db Packet) 1 each PO BID [facility] Last Admin: 12/10/20 08:51 Dose: 1 packet Documented by: Senna/Docusate Sodium (Docusate Sodium/Sennosides 50-8.6 Mg Tab) 1 tab PO BID [facility] Last Admin: 12/10/20 09:07 Dose: Not Given Documented by: - Exam General: Alert, Oriented, Cooperative, No Acute Distress Lungs: Clear to Auscultation, Normal Respiratory Effort Cardiovascular: Regular Rate, Regular Rhythm GI/Abdominal Exam: Normal Bowel Sounds, Soft, Non-Tender, No Distention Extremities: No Pedal Edema Peripheral Pulses: 2+: Radial (L), Radial (R) Skin: Warm, Dry, Intact Wound/Incisions: Dressing Dry and Intact (Cam boot on.) - Patient Data Result Diagrams: 12/13/20 06:35 Sepsis Event Note - Evaluation Sepsis Screening Result: No Definite Risk - Focused Exam Vital Signs: Vital Signs Temp Pulse Resp BP Pulse Ox 12/14/20 08:00 98.5 F 82 16 99/56 L 96 - Problem List & Annotations (1) Fracture of left tibia and fibula SNOMED Code(s): 206763077 Code(s): S82.202A - UNSP FRACTURE OF SHAFT OF LEFT TIBIA, INIT FOR CLOS FX; S82.402A - UNSP FRACTURE OF SHAFT OF LEFT FIBULA, INIT FOR CLOS FX Status: Acute Current Visit: Yes (2) Multiple falls SNOMED Code(s): 295260310 Code(s): R29.6 - REPEATED FALLS Status: Acute Current Visit: No (3) Unable to ambulate SNOMED Code(s): 749514436 Code(s): R26.2 - DIFFICULTY IN WALKING, NOT ELSEWHERE CLASSIFIED Status: Acute Current Visit: No (4) MDD (major depressive disorder) SNOMED Code(s): 202824886 Code(s): F32.9 - MAJOR DEPRESSIVE DISORDER, SINGLE EPISODE, UNSPECIFIED Status: Chronic Current Visit: No Qualifiers: Major depression recurrence: recurrent Major depression episode severity: unspecified (5) Seizure disorder SNOMED Code(s): 375102843 Code(s): G40.909 - EPILEPSY, UNSP, NOT INTRACTABLE, WITHOUT STATUS EPILEPTICUS Status: Chronic Current Visit: No (6) COVID-19 virus RNA test result positive at limit of detection SNOMED Code(s): 7748705140172950 Code(s): U07.1 - COVID-19 Status: Acute Current Visit: Yes Annotation/Comment:: No symptoms to date, likely false positive. - Problem List Review Problem List Initiated/Reviewed/Updated: Yes - Plan Plan:: 1. s/p tib/fib fracture: [facility] for 6 weeks, lift or slider board for transfer, continue PT/OT. 2. Covid positive test: asymptomatic, most likely false positive. Has been vaccinated fully. Will come out of isolation on Sunday. 3. Edema: resolved, will discontinue Lasix. 4. Discharge: goal to get back to [facility] but if she continues to require lift for transfers would need SNF placement for further rehab then eventually back to [facility].
[2020-12-15] MEDS: Ibuprofen 200 MG Tab PO SCH ×4 (03:00→20:59)
[2020-12-15] MEDS: Acetaminophen 500 MG Tab PO SCH ×4 (03:00→20:59)
[2020-12-15] MEDS: Pantoprazole 40 MG Tab.CR PO SCH ×2 (05:02→16:22)
[2020-12-15] MEDS: Enoxaparin 40 MG/0.4 ML Syringe SUBCUT SCH (09:35)
[2020-12-15] MEDS: PHENobarbital 32.4 MG Tab PO SCH ×2 (09:35→21:02)
[2020-12-15] MEDS: Sertraline 25 MG Tab PO SCH (09:36)
[2020-12-15] MEDS: Calcium Carbonate 500 MG Tab.Chew PO SCH ×2 (09:36→20:43)
[2020-12-15] MEDS: Phenytoin 100 MG Cap.ER PO SCH ×2 (09:37→20:43)
[2020-12-15] MEDS: Phenytoin 30 MG Cap.ER PO SCH (09:37)
[2020-12-15] MEDS: Formoterol/Mometasone 100-5 MCG 8.8 GM Inhaler IH SCH ×2 (09:37→20:38)
[2020-12-15] MEDS: Cholecalciferol (Vitamin D3) 25 MCG Tab PO SCH (09:37)
[2020-12-15] MEDS: Folic Acid 1 MG Tab PO SCH (09:37)
[2020-12-16] MEDS: Acetaminophen 500 MG Tab PO SCH ×4 (03:17→21:25)
[2020-12-16] MEDS: Ibuprofen 200 MG Tab PO SCH ×2 (03:17→09:04)
[2020-12-16] MEDS: Pantoprazole 40 MG Tab.CR PO SCH ×2 (05:08→16:51)
[2020-12-16] MEDS: Sertraline 25 MG Tab PO SCH (09:03)
[2020-12-16] MEDS: Enoxaparin 40 MG/0.4 ML Syringe SUBCUT SCH (09:03)
[2020-12-16] MEDS: Formoterol/Mometasone 100-5 MCG 8.8 GM Inhaler IH SCH ×2 (09:03→21:23)
[2020-12-16] MEDS: Calcium Carbonate 500 MG Tab.Chew PO SCH ×2 (09:04→21:25)
[2020-12-16] MEDS: Phenytoin 30 MG Cap.ER PO SCH (09:04)
[2020-12-16] MEDS: Phenytoin 100 MG Cap.ER PO SCH ×2 (09:04→21:25)
[2020-12-16] MEDS: Cholecalciferol (Vitamin D3) 25 MCG Tab PO SCH (09:05)
[2020-12-16] MEDS: Folic Acid 1 MG Tab PO SCH (09:05)
[2020-12-16] MEDS: PHENobarbital 32.4 MG Tab PO SCH ×2 (09:10→21:23)
[2020-12-16] MEDS: Ibuprofen 400 MG Tab PO SCH ×2 (14:36→21:24)
[2020-12-16] MEDS ORDERED: Mirtazapine 15 MG Tab PO SCH ×2 (21:00)
[2020-12-17] MEDS: Pantoprazole 40 MG Tab.CR PO SCH ×2 (06:18→17:30)
[2020-12-17] MEDS: Formoterol/Mometasone 100-5 MCG 8.8 GM Inhaler IH SCH ×2 (09:02→20:52)
[2020-12-17] MEDS: Phenytoin 30 MG Cap.ER PO SCH (09:02)
[2020-12-17] MEDS: Ibuprofen 400 MG Tab PO SCH ×3 (09:03→20:53)
[2020-12-17] MEDS: Folic Acid 1 MG Tab PO SCH (09:03)
[2020-12-17] MEDS: Enoxaparin 40 MG/0.4 ML Syringe SUBCUT SCH (09:03)
[2020-12-17] MEDS: Acetaminophen 500 MG Tab PO SCH ×3 (09:05→20:53)
[2020-12-17] MEDS: Calcium Carbonate 500 MG Tab.Chew PO SCH ×2 (09:05→20:52)
[2020-12-17] MEDS: Cholecalciferol (Vitamin D3) 25 MCG Tab PO SCH (09:05)
[2020-12-17] MEDS: Phenytoin 100 MG Cap.ER PO SCH ×2 (09:05→20:53)
[2020-12-17] MEDS: Sertraline 25 MG Tab PO SCH (09:05)
[2020-12-17] MEDS: PHENobarbital 32.4 MG Tab PO SCH ×2 (09:09→20:52)
[2020-12-17] MEDS: Mirabegron 25 MG Tab Extended Release PO SCH (11:23)
[2020-12-18] MEDS: Pantoprazole 40 MG Tab.CR PO SCH ×2 (05:46→18:03)
[2020-12-18] MEDS: Folic Acid 1 MG Tab PO SCH (08:25)
[2020-12-18] MEDS: Phenytoin 30 MG Cap.ER PO SCH (08:25)
[2020-12-18] MEDS: Formoterol/Mometasone 100-5 MCG 8.8 GM Inhaler IH SCH ×2 (08:25→21:39)
[2020-12-18] MEDS: Enoxaparin 40 MG/0.4 ML Syringe SUBCUT SCH (08:25)
[2020-12-18] MEDS: Ibuprofen 400 MG Tab PO SCH ×3 (08:26→21:39)
[2020-12-18] MEDS: Calcium Carbonate 500 MG Tab.Chew PO SCH ×2 (08:26→21:40)
[2020-12-18] MEDS: Mirabegron 25 MG Tab Extended Release PO SCH (08:26)
[2020-12-18] MEDS: Phenytoin 100 MG Cap.ER PO SCH ×2 (08:26→21:39)
[2020-12-18] MEDS: Cholecalciferol (Vitamin D3) 25 MCG Tab PO SCH (08:27)
[2020-12-18] MEDS: Acetaminophen 500 MG Tab PO SCH ×3 (08:27→21:40)
[2020-12-18] MEDS: Sertraline 25 MG Tab PO SCH (08:27)
[2020-12-18] MEDS: PHENobarbital 32.4 MG Tab PO SCH ×2 (08:30→21:41)
[2020-12-19] MEDS: Pantoprazole 40 MG Tab.CR PO SCH ×2 (06:47→17:14)
[2020-12-19] MEDS: Acetaminophen 500 MG Tab PO SCH ×3 (10:25→21:08)
[2020-12-19] MEDS: Enoxaparin 40 MG/0.4 ML Syringe SUBCUT SCH (10:26)
[2020-12-19] MEDS: Ibuprofen 400 MG Tab PO SCH ×3 (10:26→21:08)
[2020-12-19] MEDS: Mirabegron 25 MG Tab Extended Release PO SCH (10:26)
[2020-12-19] MEDS: Cholecalciferol (Vitamin D3) 25 MCG Tab PO SCH (10:26)
[2020-12-19] MEDS: PHENobarbital 32.4 MG Tab PO SCH ×2 (10:26→21:08)
[2020-12-19] MEDS: Sertraline 25 MG Tab PO SCH (10:27)
[2020-12-19] MEDS: Formoterol/Mometasone 100-5 MCG 8.8 GM Inhaler IH SCH ×2 (10:27→21:09)
[2020-12-19] MEDS: Phenytoin 100 MG Cap.ER PO SCH ×2 (10:27→21:09)
[2020-12-19] MEDS: Folic Acid 1 MG Tab PO SCH (10:27)
[2020-12-19] MEDS: Calcium Carbonate 500 MG Tab.Chew PO SCH ×2 (10:27→21:08)
[2020-12-19] MEDS: Phenytoin 30 MG Cap.ER PO SCH (10:28)
[2020-12-20] MEDS: Pantoprazole 40 MG Tab.CR PO SCH ×2 (05:45→16:40)
[2020-12-20] MEDS: Enoxaparin 40 MG/0.4 ML Syringe SUBCUT SCH (09:16)
[2020-12-20] MEDS: PHENobarbital 32.4 MG Tab PO SCH ×2 (09:16→20:04)
[2020-12-20] MEDS: Mirabegron 25 MG Tab Extended Release PO SCH (09:16)
[2020-12-20] MEDS: Phenytoin 100 MG Cap.ER PO SCH ×2 (09:16→20:04)
[2020-12-20] MEDS: Cholecalciferol (Vitamin D3) 25 MCG Tab PO SCH (09:17)
[2020-12-20] MEDS: Ibuprofen 400 MG Tab PO SCH ×3 (09:17→20:03)
[2020-12-20] MEDS: Sertraline 25 MG Tab PO SCH (09:17)
[2020-12-20] MEDS: Acetaminophen 500 MG Tab PO SCH ×3 (09:17→20:05)
[2020-12-20] MEDS: Phenytoin 30 MG Cap.ER PO SCH (09:17)
[2020-12-20] MEDS: Calcium Carbonate 500 MG Tab.Chew PO SCH ×2 (09:17→20:05)
[2020-12-20] MEDS: Folic Acid 1 MG Tab PO SCH (09:18)
[2020-12-20] MEDS: Formoterol/Mometasone 100-5 MCG 8.8 GM Inhaler IH SCH ×2 (09:18→20:03)
[2020-12-21] MEDS: Pantoprazole 40 MG Tab.CR PO SCH ×2 (05:06→17:30)
[2020-12-21] MEDS: Phenytoin 30 MG Cap.ER PO SCH (09:56)
[2020-12-21] MEDS: Ibuprofen 400 MG Tab PO SCH ×3 (09:57→20:28)
[2020-12-21] MEDS: Folic Acid 1 MG Tab PO SCH (09:58)
[2020-12-21] MEDS: Mirabegron 25 MG Tab Extended Release PO SCH (09:58)
[2020-12-21] MEDS: Sertraline 25 MG Tab PO SCH (09:59)
[2020-12-21] MEDS: Cholecalciferol (Vitamin D3) 25 MCG Tab PO SCH (09:59)
[2020-12-21] MEDS: Phenytoin 100 MG Cap.ER PO SCH ×2 (09:59→20:29)
[2020-12-21] MEDS: Enoxaparin 40 MG/0.4 ML Syringe SUBCUT SCH (09:59)
[2020-12-21] MEDS: Acetaminophen 500 MG Tab PO SCH ×3 (09:59→20:30)
[2020-12-21] MEDS: Calcium Carbonate 500 MG Tab.Chew PO SCH ×2 (10:00→20:29)
[2020-12-21] MEDS: Formoterol/Mometasone 100-5 MCG 8.8 GM Inhaler IH SCH ×2 (10:00→20:27)
[2020-12-21] MEDS: PHENobarbital 32.4 MG Tab PO SCH ×2 (10:27→20:32)
[2020-12-22] MEDS: Pantoprazole 40 MG Tab.CR PO SCH ×2 (06:23→17:10)
[2020-12-22] MEDS: Phenytoin 30 MG Cap.ER PO SCH (09:16)
[2020-12-22] MEDS: Enoxaparin 40 MG/0.4 ML Syringe SUBCUT SCH (09:17)
[2020-12-22] MEDS: Folic Acid 1 MG Tab PO SCH (09:17)
[2020-12-22] MEDS: Formoterol/Mometasone 100-5 MCG 8.8 GM Inhaler IH SCH ×2 (09:17→20:09)
[2020-12-22] MEDS: Ibuprofen 400 MG Tab PO SCH ×3 (09:18→20:10)
[2020-12-22] MEDS: PHENobarbital 32.4 MG Tab PO SCH ×2 (09:18→20:10)
[2020-12-22] MEDS: Mirabegron 25 MG Tab Extended Release PO SCH (09:18)
[2020-12-22] MEDS: Acetaminophen 500 MG Tab PO SCH ×3 (09:19→20:11)
[2020-12-22] MEDS: Sertraline 25 MG Tab PO SCH (09:19)
[2020-12-22] MEDS: Cholecalciferol (Vitamin D3) 25 MCG Tab PO SCH (09:19)
[2020-12-22] MEDS: Calcium Carbonate 500 MG Tab.Chew PO SCH ×2 (09:19→20:11)
[2020-12-22] MEDS: Phenytoin 100 MG Cap.ER PO SCH ×2 (09:20→20:11)
[2020-12-23] MEDS: Pantoprazole 40 MG Tab.CR PO SCH ×2 (05:04→17:42)
[2020-12-23] MEDS: Folic Acid 1 MG Tab PO SCH (08:26)
[2020-12-23] MEDS: Cholecalciferol (Vitamin D3) 25 MCG Tab PO SCH (08:26)
[2020-12-23] MEDS: Phenytoin 100 MG Cap.ER PO SCH ×2 (08:27→20:56)
[2020-12-23] MEDS: Sertraline 25 MG Tab PO SCH (08:28)
[2020-12-23] MEDS: Phenytoin 30 MG Cap.ER PO SCH (08:29)
[2020-12-23] MEDS: Formoterol/Mometasone 100-5 MCG 8.8 GM Inhaler IH SCH ×2 (08:30→20:51)
[2020-12-23] MEDS: Enoxaparin 40 MG/0.4 ML Syringe SUBCUT SCH (08:31)
[2020-12-23] MEDS: Ibuprofen 400 MG Tab PO SCH ×3 (08:32→20:55)
[2020-12-23] MEDS: Mirabegron 25 MG Tab Extended Release PO SCH (08:33)
[2020-12-23] MEDS: Acetaminophen 500 MG Tab PO SCH ×3 (08:34→20:56)
[2020-12-23] MEDS: Calcium Carbonate 500 MG Tab.Chew PO SCH ×2 (08:34→20:56)
[2020-12-23] MEDS: PHENobarbital 32.4 MG Tab PO SCH ×2 (08:38→20:55)
[2020-12-24] MEDS: Pantoprazole 40 MG Tab.CR PO SCH ×2 (06:34→17:22)
[2020-12-24] MEDS: PHENobarbital 32.4 MG Tab PO SCH ×2 (08:58→20:34)
[2020-12-24] MEDS: Enoxaparin 40 MG/0.4 ML Syringe SUBCUT SCH (08:58)
[2020-12-24] MEDS: Acetaminophen 500 MG Tab PO SCH ×3 (08:58→20:34)
[2020-12-24] MEDS: Mirabegron 25 MG Tab Extended Release PO SCH (08:59)
[2020-12-24] MEDS: Folic Acid 1 MG Tab PO SCH (08:59)
[2020-12-24] MEDS: Cholecalciferol (Vitamin D3) 25 MCG Tab PO SCH (08:59)
[2020-12-24] MEDS: Ibuprofen 400 MG Tab PO SCH ×3 (08:59→20:34)
[2020-12-24] MEDS: Phenytoin 100 MG Cap.ER PO SCH ×2 (09:00→20:34)
[2020-12-24] MEDS: Calcium Carbonate 500 MG Tab.Chew PO SCH ×2 (09:00→20:34)
[2020-12-24] MEDS: Phenytoin 30 MG Cap.ER PO SCH (09:00)
[2020-12-24] MEDS: Sertraline 25 MG Tab PO SCH (09:00)
[2020-12-24] MEDS: Formoterol/Mometasone 100-5 MCG 8.8 GM Inhaler IH SCH ×2 (09:01→20:33)
[2020-12-25] MEDS: Pantoprazole 40 MG Tab.CR PO SCH ×2 (06:21→17:45)
[2020-12-25] MEDS: PHENobarbital 32.4 MG Tab PO SCH ×2 (09:58→21:15)
[2020-12-25] MEDS: Phenytoin 100 MG Cap.ER PO SCH ×2 (09:58→21:11)
[2020-12-25] MEDS: Ibuprofen 400 MG Tab PO SCH ×3 (09:59→21:10)
[2020-12-25] MEDS: Mirabegron 25 MG Tab Extended Release PO SCH (09:59)
[2020-12-25] MEDS: Formoterol/Mometasone 100-5 MCG 8.8 GM Inhaler IH SCH ×2 (10:00→21:08)
[2020-12-25] MEDS: Phenytoin 30 MG Cap.ER PO SCH (10:00)
[2020-12-25] MEDS: Enoxaparin 40 MG/0.4 ML Syringe SUBCUT SCH (10:00)
[2020-12-25] MEDS: Acetaminophen 500 MG Tab PO SCH ×3 (10:01→21:11)
[2020-12-25] MEDS: Folic Acid 1 MG Tab PO SCH (10:01)
[2020-12-25] MEDS: Calcium Carbonate 500 MG Tab.Chew PO SCH ×2 (10:01→21:11)
[2020-12-25] MEDS: Cholecalciferol (Vitamin D3) 25 MCG Tab PO SCH (10:02)
[2020-12-25] MEDS: Sertraline 25 MG Tab PO SCH (10:02)
[2020-12-26] MEDS: Pantoprazole 40 MG Tab.CR PO SCH ×2 (06:57→17:00)
[2020-12-26] MEDS: Acetaminophen 500 MG Tab PO SCH ×3 (09:18→20:16)
[2020-12-26] MEDS: Calcium Carbonate 500 MG Tab.Chew PO SCH ×2 (09:18→20:16)
[2020-12-26] MEDS: Mirabegron 25 MG Tab Extended Release PO SCH (09:18)
[2020-12-26] MEDS: Ibuprofen 400 MG Tab PO SCH ×3 (09:18→20:14)
[2020-12-26] MEDS: Cholecalciferol (Vitamin D3) 25 MCG Tab PO SCH (09:19)
[2020-12-26] MEDS: Sertraline 25 MG Tab PO SCH (09:19)
[2020-12-26] MEDS: Phenytoin 30 MG Cap.ER PO SCH (09:19)
[2020-12-26] MEDS: Phenytoin 100 MG Cap.ER PO SCH ×2 (09:19→20:16)
[2020-12-26] MEDS: Enoxaparin 40 MG/0.4 ML Syringe SUBCUT SCH (09:20)
[2020-12-26] MEDS: Folic Acid 1 MG Tab PO SCH (09:20)
[2020-12-26] MEDS: Formoterol/Mometasone 100-5 MCG 8.8 GM Inhaler IH SCH ×2 (09:22→20:14)
[2020-12-26] MEDS: PHENobarbital 32.4 MG Tab PO SCH ×2 (09:24→20:21)
[2020-12-27] MEDS: Pantoprazole 40 MG Tab.CR PO SCH ×2 (05:10→17:38)
[2020-12-27] MEDS ORDERED: Magnesium Hydroxide 400 MG/5 ML Susp 30 ML Cup PO PRN (09:47)
[2020-12-27] MEDS: Enoxaparin 40 MG/0.4 ML Syringe SUBCUT SCH (09:49)
[2020-12-27] MEDS: PHENobarbital 32.4 MG Tab PO SCH ×2 (09:49→20:09)
[2020-12-27] MEDS: Formoterol/Mometasone 100-5 MCG 8.8 GM Inhaler IH SCH ×2 (09:49→20:09)
[2020-12-27] MEDS: Phenytoin 100 MG Cap.ER PO SCH ×2 (09:50→20:10)
[2020-12-27] MEDS: Ibuprofen 400 MG Tab PO SCH ×3 (09:50→20:09)
[2020-12-27] MEDS: Mirabegron 25 MG Tab Extended Release PO SCH (09:50)
[2020-12-27] MEDS: Calcium Carbonate 500 MG Tab.Chew PO SCH ×2 (09:50→20:10)
[2020-12-27] MEDS: Cholecalciferol (Vitamin D3) 25 MCG Tab PO SCH (09:50)
[2020-12-27] MEDS: Folic Acid 1 MG Tab PO SCH (09:50)
[2020-12-27] MEDS: Phenytoin 30 MG Cap.ER PO SCH (09:51)
[2020-12-27] MEDS: Acetaminophen 500 MG Tab PO SCH ×3 (09:51→20:10)
[2020-12-27] MEDS: Sertraline 25 MG Tab PO SCH (09:51)
[2020-12-28] MEDS: Pantoprazole 40 MG Tab.CR PO SCH (06:51)
[2020-12-28] MEDS: Phenytoin 30 MG Cap.ER PO SCH (10:07)
[2020-12-28] MEDS: Formoterol/Mometasone 100-5 MCG 8.8 GM Inhaler IH SCH ×2 (10:08→20:37)
[2020-12-28] MEDS: PHENobarbital 32.4 MG Tab PO SCH ×2 (10:09→20:34)
[2020-12-28] MEDS: Ibuprofen 400 MG Tab PO SCH ×3 (10:09→20:34)
[2020-12-28] MEDS: Phenytoin 100 MG Cap.ER PO SCH ×2 (10:09→20:35)
[2020-12-28] MEDS: Folic Acid 1 MG Tab PO SCH (10:09)
[2020-12-28] MEDS: Acetaminophen 500 MG Tab PO SCH ×3 (10:10→20:34)
[2020-12-28] MEDS: Sertraline 25 MG Tab PO SCH (10:10)
[2020-12-28] MEDS: Cholecalciferol (Vitamin D3) 25 MCG Tab PO SCH (10:10)
[2020-12-28] MEDS: Calcium Carbonate 500 MG Tab.Chew PO SCH ×2 (10:11→20:34)
[2020-12-28] MEDS: Enoxaparin 40 MG/0.4 ML Syringe SUBCUT SCH (10:11)
[2020-12-28] MEDS: Mirabegron 25 MG Tab Extended Release PO SCH (10:43)
[2020-12-29] MEDS ORDERED: Pantoprazole 40 MG Tab.CR PO SCH (06:00)
[2020-12-29] MEDS: Sertraline 25 MG Tab PO SCH (10:06)
[2020-12-29] MEDS: Ibuprofen 400 MG Tab PO SCH (10:06)
[2020-12-29] MEDS: Acetaminophen 500 MG Tab PO SCH (10:07)
[2020-12-29] MEDS: Calcium Carbonate 500 MG Tab.Chew PO SCH (10:07)
[2020-12-29] MEDS: Phenytoin 100 MG Cap.ER PO SCH (10:07)
[2020-12-29] MEDS: PHENobarbital 32.4 MG Tab PO SCH (10:07)
[2020-12-29] MEDS: Cholecalciferol (Vitamin D3) 25 MCG Tab PO SCH (10:08)
[2020-12-29] MEDS: Folic Acid 1 MG Tab PO SCH (10:08)
[2020-12-29] MEDS: Phenytoin 30 MG Cap.ER PO SCH (10:08)
[2020-12-29] MEDS: Formoterol/Mometasone 100-5 MCG 8.8 GM Inhaler IH SCH (10:08)
[2020-12-29] MEDS: Enoxaparin 40 MG/0.4 ML Syringe SUBCUT SCH (10:08)
== END 2020-12-29 11:00 | disposition home health service (06) | DRG 559 ==
LOC: FB.MS 12:49
PROVIDERS: ADMIT Student in an Organized Health Care Education/Training Program; ATTEND Family Medicine
DX: S82.202D Unspecified fracture of shaft of left tibia, subsequent encounter for closed fracture with routine healing (principal); U07.1 COVID-19; T88.1XXA Other complications following immunization, not elsewhere classified, initial encounter; S82.402D Unspecified fracture of shaft of left fibula, subsequent encounter for closed fracture with routine healing; J45.909 Unspecified asthma, uncomplicated; R29.6 Repeated falls; G40.909 Epilepsy, unspecified, not intractable, without status epilepticus; F32.9 Major depressive disorder, single episode, unspecified; K21.9 Gastro-esophageal reflux disease without esophagitis; M81.0 Age-related osteoporosis without current pathological fracture; F39 Unspecified mood [affective] disorder; Z90.49 Acquired absence of other specified parts of digestive tract; Z90.710 Acquired absence of both cervix and uterus; Z87.891 Personal history of nicotine dependence
CPT/HCPCS: 36415; 80053; 80069; 80185; 85025; 94150; 94640; 97110-GO; 97110-GP; 97129-GO; 97161-GP; 97167-GO; 97530-GO; 97530-GP; 97535-GO; 97542-GO; A9270-GY; J1650

== ENCOUNTER 2021-07-22 14:01 | Emergency (ER) | payer MEDICARE ==
[2021-07-22] MEDS ORDERED: cefTRIAXone 1 GM Vial IM ONE (15:52)
[2021-07-22] MEDS ORDERED: Nitrofurantoin Monohydrate/Macrocrystalline 100 MG Cap PO ONE (15:52)
[2021-07-22] MEDS ORDERED: Baclofen 10 MG Tab PO ONE (15:53)
--- NOTE | 2021-07-22 15:55 | EDM.PDOC ---
ED HPI GENERAL MEDICAL PROBLEM - General Chief Complaint: Lower Extremity Injury/Pain Stated Complaint: HIP PAIN Time Seen by Provider: 07/22/21 14:40 Source of Information: Reports: Patient History Limitations: Reports: No Limitations - History of Present Illness INITIAL COMMENTS - FREE TEXT/NARRATIVE: was walking with walker around a corner when she tripped and fell yesterday evening Was able to get up and walk , seemed ok But this am when she got up from bed and went to sit in her chair , was not able to stand up as she had severe pain in the inner right thigh that has persisted pain radiates into the groin no numbness or tingling noted no deformity Able to move the leg though pain noted in the medial thigh Right Hip Pain Score (Numeric/FACES): 0 - Related Data Allergies Allergy/AdvReac Type Severity Reaction Status Date / Time No Known Allergies Allergy Verified 12/07/20 13:27 Home Meds: Home Meds Pantoprazole Sodium [Protonix] 40 mg PO DAILY 06/04/19 [History] Phenytoin Sodium Extended [Dilantin] 100 mg PO DAILY 06/04/19 [History] Phenytoin [Dilantin] 30 mg PO DAILY 06/04/19 [History] Sertraline [Zoloft] 75 mg PO DAILY 06/04/19 [History] Cholecalciferol (Vitamin D3) [Vitamin D3] 2,000 unit PO DAILY 10/16/20 [History] Folic Acid 1 mg PO DAILY 10/16/20 [History] Phenytoin Sodium Extended [Dilantin] 200 mg PO BEDTIME 12/07/20 [History] Sennosides/Docusate Sodium [Senna-S] 1 tab PO BID 12/07/20 [History] Magnesium Hydroxide [Milk of Magnesia] 30 ml PO DAILY PRN cup 12/28/20 [Rx] Acetaminophen [Tylenol Extra Strength] 1,000 mg PO TID PRN 12/29/20 [History] Albuterol Sulfate [Albuterol Sulfate Hfa] 2 puff IH Q4H PRN 12/29/20 [History] Aspirin [Ecotrin EC] 325 mg PO DAILY 12/29/20 [History] Calcium Carbonate/Vitamin D3 [Calcium 500-Vit D3 200 Caplet] 1 tab PO BID 12/29/20 [History] Cranberry 500 mg PO DAILY 12/29/20 [History] Denosumab [Prolia] 60 mg SUBCUT Q180D 12/29/20 [History] Fluticasone Propion/Salmeterol [Advair 250-50 Diskus] 1 puff INH BID 12/29/20 [History] PHENobarbitaL [Phenobarbital] 64.8 mg PO BID 12/29/20 [History] Baclofen 10 mg PO Q8HR PRN #30 tablet 07/22/21 [Rx] Nitrofurantoin Monohyd/M-Cryst [Macrobid 100 mg Capsule] 100 mg PO BID #20 capsule 07/22/21 [Rx] Past Medical History HEENT History: Reports: Impaired Vision Respiratory History: Reports: Asthma, COPD Gastrointestinal History: Reports: GERD Genitourinary History: Reports: Urinary Incontinence Musculoskeletal History: Reports: Fracture, Osteoporosis, Other (See Below) Other Musculoskeletal History: rt femer fx. Left tibia Neurological History: Reports: Seizure, Other (See Below) Other Neuro History: hx epilepsy Psychiatric History: Reports: Anxiety, Depression Hematologic History: Reports: Anemia - Infectious Disease History Infectious Disease History: Reports: Chicken Pox, Measles, Mumps - Past Surgical History GI Surgical History: Reports: Appendectomy Female Surgical History: Reports: Breast Biopsy, Hysterectomy Neurological Surgical History: Reports: None Musculoskeletal Surgical History: Reports: Hip Replacement, ORIF Other Musculoskeletal Surgeries/Procedures:: R hip replacement Social & Family History - Family History Family Medical History: No Pertinent Family History - Tobacco Use Tobacco Use Status *Q: Never Tobacco User - Caffeine Use Caffeine Use: Reports: Coffee Caffeine Use Comment: couple cups of coffee - Recreational Drug Use Recreational Drug Use: No - Living Situation & Occupation Living situation: Reports: Assisted Living (Lives in [facility]) Review of Systems - Review of Systems Review Of Systems: See Below Constitutional: Reports: Weakness Eyes: Reports: No Symptoms Ears: Reports: No Symptoms Nose: Reports: No Symptoms Mouth/Throat: Reports: No Symptoms Respiratory: Reports: No Symptoms Cardiovascular: Reports: No Symptoms GI/Abdominal: Reports: No Symptoms Genitourinary: Reports: Dysuria Musculoskeletal: Reports: Muscle Pain, Muscle Stiffness (of the right thigh) Skin: Reports: No Symptoms Neurological: Reports: Dizziness, Difficulty Walking, Weakness (states most likely from UTI) Psychiatric: Reports: No Symptoms ED EXAM, GENERAL - Physical Exam Exam: See Below Exam Limited By: No Limitations General Appearance: Alert, WD/WN, No Apparent Distress Eye Exam: Bilateral Eye: EOMI Ears: Hearing Grossly Normal Ear Exam: Bilateral Ear: Auricle Normal Nose: Normal Inspection Throat/Mouth: Normal Inspection Head: Atraumatic, Normocephalic. No: Facial Tenderness, Sinus Tenderness Neck: Supple Respiratory/Chest: Lungs Clear, Normal Breath Sounds Cardiovascular: Regular Rate, Rhythm GI/Abdominal: Soft, Non-Tender Back Exam: Full Range of Motion. No: CVA Tenderness (R), CVA Tenderness (L) Extremities: Pedal Edema (ankle), Leg Pain (on right), Limited Range of Motion (on the right leg). No: Redness Neurological: Alert, Oriented, CN II-XII Intact, Normal Cognition, Abnormal Gait (pt has to use walker) Psychiatric: Normal Affect, Normal Mood Skin Exam: Warm, Dry, Intact Course - Vital Signs Last Recorded V/S: Last Vital Signs Temp 37.0 C 07/22/21 14:02 Pulse 90 07/22/21 14:02 Resp 20 07/22/21 14:02 BP 140/48 L 07/22/21 14:02 Pulse Ox 96 07/22/21 14:02 - Orders/Labs/Meds Orders: Active Orders 24 hr Category Date Time Status CULTURE URINE [RM] Routine Lab 07/22/21 14:19 Received Labs: Laboratory Tests 07/22/21 Range/Units 14:19 Urine Color Yellow (YELLOW) Urine Appearance Cloudy (CLEAR) Urine pH 7.0 H (5.0-6.5) Ur Specific Jay 1.015 (1.010-1.025) Urine Protein Negative (NEGATIVE) mg/dL Urine Glucose (UA) Normal (NORMAL) mg/dL Urine Ketones Negative (NEGATIVE) mg/dL Urine Occult Blood Moderate H (NEGATIVE) Urine Nitrite Positive H (NEGATIVE) Urine Bilirubin Negative (NEGATIVE) Urine Urobilinogen Normal (NEGATIVE) mg/dL Ur Leukocyte Esterase Large H (NEGATIVE) Urine RBC 5-10 H (0-5) Urine WBC >100 H (0-5) Ur Squamous Epith Cells Rare (NS,R,O) Urine Bacteria Many H (NS) Meds: Medications Discontinued Medications Generic Name Dose Route Start Last Admin Trade Name Freq PRN Reason Stop Dose Admin Baclofen 10 mg 07/22/21 15:53 07/22/21 16:14 Baclofen 10 Mg Tab PO 07/22/21 15:54 10 mg ONETIME ONE Administration Ceftriaxone Sodium 1 gm 07/22/21 15:52 07/22/21 16:13 Ceftriaxone 1 Gm Vial IM 07/22/21 15:53 1 gm ONETIME ONE Administration Nitrofurantoin Macrocrystals 100 mg 07/22/21 15:52 07/22/21 16:14 Nitrofurantoin Monohydrate/Macrocrystalline 100 Mg Cap PO 07/22/21 15:53 100 mg ONETIME ONE Administration - Re-Assessments/Exams Free Text/Narrative Re-Assessment/Exam: 07/22/21 17:24 pt given Baclofen macrobid and Rocephin IM states pain still present but she ab;e to move the leg more freely 07/22/21 17:25 pt encouraged to be more aware of when she gets UTI since during this time she tends to have frequent falls Departure - Departure Time of Disposition: 17:30 Disposition: Home, Self-Care 01 Condition: Fair Clinical Impression: Multiple falls, Muscle strain of right thigh, Right thigh pain - Discharge Information *PRESCRIPTION DRUG MONITORING PROGRAM REVIEWED*: Not Applicable *COPY OF PRESCRIPTION DRUG MONITORING REPORT IN PATIENT MELVA: Not Applicable Prescriptions: Baclofen 10 mg PO Q8HR PRN #30 tablet PRN Reason: Muscle Spasm - Painful Nitrofurantoin Monohyd/M-Cryst [Macrobid 100 mg Capsule] 100 mg PO BID #20 capsule Instructions: Fall Prevention in the Home, Adult, [id number], Understanding Your Risk for Falls, Muscle Strain, [id number] Referrals: Anika Roberts PA-C [Primary Care Provider] - Forms: ED Department Discharge Additional Instructions: Warm compress alternating with cold compress to the affected thigh 2 times daily Exercise for hip stabilization Sepsis Event Note (ED) - Evaluation Sepsis Screening Result: No Definite Risk - Focused Exam Vital Signs: Vital Signs Temp Pulse Resp BP Pulse Ox 07/22/21 14:02 37.0 C 90 20 140/48 L 96 - My Orders Last 24 Hours: My Active Orders 07/22/21 14:19 CULTURE URINE [RM] Routine - Assessment/Plan Last 24 Hours: My Active Orders 07/22/21 14:19 CULTURE URINE [RM] Routine
--- NOTE | 2021-07-22 16:32 | CR ---
INDICATION: Fall with right hip pain. RIGHT HIP WITH PELVIS: Frontal view of the pelvis with frontal view of the right hip and lateral view of the right hip were obtained, 07/22/21 and compared with 06/04/19. There is again noted a hip pinning, which appears intact on the left, and a total hip arthroplasty on the right, which also appears to be intact, without evidence of an acute fracture or dislocation identified. No finding to suggest loosening was identified. Old healed inferior pubic ramus fracture site is suspected on the right. [facility]
== END 2021-07-22 17:40 | disposition home or self-care (01) ==
LOC: FB.ED 14:01
DX: S76.911A Strain of unspecified muscles, fascia and tendons at thigh level, right thigh, initial encounter (principal); R29.6 Repeated falls; J44.9 Chronic obstructive pulmonary disease, unspecified; K21.9 Gastro-esophageal reflux disease without esophagitis; M19.90 Unspecified osteoarthritis, unspecified site; Z79.899 Other long term (current) drug therapy; Z79.82 Long term (current) use of aspirin; W01.0XXA Fall on same level from slipping, tripping and stumbling without subsequent striking against object, initial encounter
CPT/HCPCS: 73502; 81001; 87086; 87088; 87186; 96372; 99284; A9270; J0696

== ENCOUNTER 2021-07-22 21:43 | Observation (INO) | payer MEDICARE ==
--- NOTE | 2021-07-22 22:15 | EDM.PDOC ---
ED HPI GENERAL MEDICAL PROBLEM - General Stated Complaint: WEAKNESS Time Seen by Provider: 07/22/21 21:55 Source of Information: Reports: Patient, Old Records, Provider - History of Present Illness INITIAL COMMENTS - FREE TEXT/NARRATIVE: 10-year-old lady was brought to the emergency department from [facility] to significant weakness. She was seen in the emergency department earlier today after suffering a fall. X-ray of her right hip was negative for acute pathology. She was found to have a urinary tract infection. She was given 1 g Rocephin and sent back to the custodial with nitrofurantoin. However, this evening, she was unable to help transfer and assist with her own activities of daily living. She was sent back to the emergency department for further evaluation and treatment. Patient states that she feels well except for significant weakness. She just does not have the strength to help move. She denies fever, chills, chest pain, upper respiratory symptoms - Related Data Allergies Allergy/AdvReac Type Severity Reaction Status Date / Time No Known Allergies Allergy Verified 07/22/21 21:51 Home Meds: Home Meds Pantoprazole Sodium [Protonix] 40 mg PO DAILY 06/04/19 [History] Phenytoin Sodium Extended [Dilantin] 100 mg PO DAILY 06/04/19 [History] Phenytoin [Dilantin] 30 mg PO DAILY 06/04/19 [History] Sertraline [Zoloft] 75 mg PO DAILY 06/04/19 [History] Cholecalciferol (Vitamin D3) [Vitamin D3] 2,000 unit PO DAILY 10/16/20 [History] Folic Acid 1 mg PO DAILY 10/16/20 [History] Phenytoin Sodium Extended [Dilantin] 100 mg PO BEDTIME 12/07/20 [History] Sennosides/Docusate Sodium [Senna-S] 1 tab PO BID 12/07/20 [History] Magnesium Hydroxide [Milk of Magnesia] 30 ml PO DAILY PRN cup 12/28/20 [Rx] Acetaminophen [Tylenol Extra Strength] 1,000 mg PO TID PRN 12/29/20 [History] Albuterol Sulfate [Albuterol Sulfate Hfa] 2 puff IH Q4H PRN 12/29/20 [History] Aspirin [Ecotrin EC] 325 mg PO DAILY 12/29/20 [History] Calcium Carbonate/Vitamin D3 [Calcium 500-Vit D3 200 Caplet] 1 tab PO BID 12/29/20 [History] Cranberry 500 mg PO DAILY 12/29/20 [History] Fluticasone Propion/Salmeterol [Advair 250-50 Diskus] 1 puff INH BID 12/29/20 [History] PHENobarbitaL [Phenobarbital] 64.8 mg PO BID 12/29/20 [History] Baclofen 10 mg PO Q8HR PRN #30 tablet 07/22/21 [Rx] Nitrofurantoin Monohyd/M-Cryst [Macrobid 100 mg Capsule] 100 mg PO BID #20 capsule 07/22/21 [Rx] Past Medical History HEENT History: Reports: Impaired Vision Respiratory History: Reports: Asthma, COPD Gastrointestinal History: Reports: GERD Genitourinary History: Reports: Urinary Incontinence Musculoskeletal History: Reports: Fracture, Osteoporosis, Other (See Below) Other Musculoskeletal History: rt femer fx. Left tibia Neurological History: Reports: Seizure, Other (See Below) Other Neuro History: hx epilepsy Psychiatric History: Reports: Anxiety, Depression Hematologic History: Reports: Anemia - Infectious Disease History Infectious Disease History: Reports: Chicken Pox, Measles, Mumps - Past Surgical History GI Surgical History: Reports: Appendectomy Female Surgical History: Reports: Breast Biopsy, Hysterectomy Neurological Surgical History: Reports: None Musculoskeletal Surgical History: Reports: Hip Replacement, ORIF Other Musculoskeletal Surgeries/Procedures:: R hip replacement Social & Family History - Family History Family Medical History: No Pertinent Family History - Caffeine Use Caffeine Use: Reports: Coffee Caffeine Use Comment: couple cups of coffee - Living Situation & Occupation Living situation: Reports: Assisted Living (Lives in [facility]) ED ROS GENERAL - Review of Systems Review Of Systems: See Below Constitutional: Reports: Malaise, Weakness, Fatigue HEENT: Reports: No Symptoms Respiratory: Reports: No Symptoms Cardiovascular: Reports: No Symptoms Endocrine: Reports: Fatigue GI/Abdominal: Reports: No Symptoms : Reports: No Symptoms Musculoskeletal: Reports: Leg Pain Skin: Reports: No Symptoms Neurological: Reports: No Symptoms Psychiatric: Reports: No Symptoms Hematologic/Lymphatic: Reports: No Symptoms Immunologic: Reports: No Symptoms ED EXAM, GENERAL - Physical Exam Exam: See Below Free Text/Narrative:: Muscle strength testing of the lower extremity showed that the patient did not have the ability to lift her right leg off of the bed. When I held her right leg up in the air the patient was not able to hold her leg up in the air. Was able to lift her left leg off the bed without assistance but with struggle. Exam Limited By: No Limitations General Appearance: Alert, WD/WN, Moderate Distress Eye Exam: Bilateral Eye: EOMI Head: Atraumatic, Normocephalic Cardiovascular: Regular Rate, Rhythm, No Edema, No Murmur Peripheral Pulses: 2+: Radial (L), Radial (R), Posterior Tibial (L), Posterior Tibial (R) GI/Abdominal: Normal Bowel Sounds, Soft, Non-Tender Back Exam: Normal Inspection. No: CVA Tenderness (R), CVA Tenderness (L) Extremities: Normal Inspection, No Pedal Edema Neurological: Alert, Oriented, CN II-XII Intact, Normal Cognition Psychiatric: Normal Affect, Normal Mood Skin Exam: Warm, Intact Course - Vital Signs Text/Narrative:: Patient is negative for COVID-19. Patient will be admitted for IV antibiotic treatment of her urinary tract infection and PT/OT. Patient may benefit from subacute rehabilitation. - Orders/Labs/Meds Orders: Active Orders 24 hr Category Date Time Status CBC WITH AUTO DIFF [HEME] Stat Lab 07/22/21 22:08 Ordered COMPREHENSIVE METABOLIC PN,CMP [CHEM] Stat Lab 07/22/21 22:08 Ordered CORONAVIRUS COVID-19 [facility] [MOLEC] Stat Lab 07/22/21 22:08 Ordered Departure - Departure Time of Disposition: 23:56 Disposition: Admitted As Inpatient 67 Condition: Fair Clinical Impression: Urinary tract infection - Discharge Information *PRESCRIPTION DRUG MONITORING PROGRAM REVIEWED*: Not Applicable *COPY OF PRESCRIPTION DRUG MONITORING REPORT IN PATIENT MELVA: Not Applicable - My Orders Last 24 Hours: My Active Orders 07/22/21 22:08 CBC WITH AUTO DIFF [HEME] Stat COMPREHENSIVE METABOLIC PN,CMP [CHEM] Stat CORONAVIRUS COVID-19 [place] [MOLEC] Stat - Assessment/Plan Last 24 Hours: My Active Orders 07/22/21 22:08 CBC WITH AUTO DIFF [HEME] Stat COMPREHENSIVE METABOLIC PN,CMP [CHEM] Stat CORONAVIRUS COVID-19 [place] [MOLEC] Stat
[2021-07-22] MEDS ORDERED: Sodium Chloride 0.9% 1,000 ML IV SCH (23:45)
[2021-07-22] MEDS ORDERED: Magnesium Hydroxide 400 MG/5 ML Susp 30 ML Cup PO PRN (23:47)
[2021-07-22] MEDS ORDERED: Baclofen 10 MG Tab PO PRN (23:47)
[2021-07-23] MEDS ORDERED: Non-Formulary Medication 1 Each (Cholecalciferol (Vitamin D3) [Vitamin D3] 2,000 UNIT Cap) PO SCH (09:00)
[2021-07-23] MEDS ORDERED: PHENOBARBITAL 64.8 MG PO SCH (09:00)
[2021-07-23] MEDS ORDERED: VITAMIN D3 PO SCH (09:00)
[2021-07-23] MEDS ORDERED: [UNRECOGNIZED DRUG - OTHER] PO SCH (09:00)
[2021-07-23] MEDS ORDERED: CALCIUM CARBONATE PO SCH (09:00)
[2021-07-23] MEDS: Pantoprazole 40 MG Tab.CR *PTOM PO SCH (09:51)
[2021-07-23] MEDS: Aspirin 325 MG Tab.EC *PTOM PO SCH (09:51)
[2021-07-23] MEDS: Docusate Sodium/Sennosides 50-8.6 MG Tab *PTOM PO SCH ×2 (09:51→20:57)
[2021-07-23] MEDS: Folic Acid 1 MG Tab *PTOM PO SCH (09:52)
[2021-07-23] MEDS: Sertraline 50 MG Tab PO SCH (09:52)
[2021-07-23] MEDS: PHENYTOIN 100 MG PO SCH (09:52)
[2021-07-23] MEDS: cefTRIAXone 1 GM in Sodium Chloride 0.9% 50 ML IV SCH (09:53)
[2021-07-23] MEDS: Cranberry 500 MG Cap *PTOM PO SCH (10:29)
[2021-07-23] MEDS ORDERED: PHENobarbital 32.4 MG Tab ONE (10:40)
[2021-07-23] MEDS: PHENobarbital 32.4 MG Tab PO SCH ×2 (10:45→20:58)
[2021-07-23] MEDS: Cholecalciferol (Vitamin D3) 25 MCG Tab PO SCH (10:46)
[2021-07-23] MEDS: Calcium Carbonate 500 MG Tablet PO SCH ×2 (10:47→20:56)
[2021-07-23] MEDS: Non-Formulary Medication 1 Each (Fluticasone Propion/Salmeterol [Advair 250-50 Diskus] 1 E INH SCH ×2 (10:48→20:56)
[2021-07-23] MEDS: PHENYTOIN 30 MG PO SCH (13:47)
--- NOTE | 2021-07-23 17:15 | PCM.HP.2 ---
H&P History of Present Illness - General Date of Service: 07/23/21 Admit Problem/Dx: Admission Diagnosis/Problem Admission Diagnosis/Problem Weakness Source of Information: Patient, Provider History Limitations: Reports: No Limitations - History of Present Illness Initial Comments - Free Text/Narative: Jasmine was brought to ER from [facility] unable to ambulate, leg giving out when trying to bear weight. She was seen in the ER earlier yesterday after suffering a fall, she did not hit any furniture, landing on her bottom. X-ray of her right hip was negative for acute process. She was found to have a urinary tract infection, given 1 g Rocephin and sent back to the assisted living with nitrofurantoin. However, this evening, she was unable to stand on her leg, not able to transfer herself so she was sent back to the ER for further evaluation and treatment. She just does not have the strength in her leg to help move. Denies fever, chills, chest pain, upper respiratory symptoms, abdominal pain, nausea, vomiting, diarrhea, dysuria, frequency or hematuria. She states she has been more foggy lately. R hip with mvm't Pain Score (Numeric/FACES): 0 - Related Data Allergies/Adverse Reactions: Allergies Allergy/AdvReac Type Severity Reaction Status Date / Time No Known Allergies Allergy Verified 07/22/21 21:51 Home Medications: Home Meds Pantoprazole Sodium [Protonix] 40 mg PO DAILY 06/04/19 [History] Phenytoin Sodium Extended [Dilantin] 100 mg PO DAILY 06/04/19 [History] Phenytoin [Dilantin] 30 mg PO DAILY 06/04/19 [History] Sertraline [Zoloft] 75 mg PO DAILY 06/04/19 [History] Cholecalciferol (Vitamin D3) [Vitamin D3] 2,000 unit PO DAILY 10/16/20 [History] Folic Acid 1 mg PO DAILY 10/16/20 [History] Phenytoin Sodium Extended [Dilantin] 100 mg PO BEDTIME 12/07/20 [History] Sennosides/Docusate Sodium [Senna-S] 1 tab PO BID 12/07/20 [History] Magnesium Hydroxide [Milk of Magnesia] 30 ml PO DAILY PRN cup 12/28/20 [Rx] Acetaminophen [Tylenol Extra Strength] 1,000 mg PO TID PRN 12/29/20 [History] Albuterol Sulfate [Albuterol Sulfate Hfa] 2 puff IH Q4H PRN 12/29/20 [History] Aspirin [Ecotrin EC] 325 mg PO DAILY 12/29/20 [History] Calcium Carbonate/Vitamin D3 [Calcium 500-Vit D3 200 Caplet] 1 tab PO BID 12/29/20 [History] Cranberry 500 mg PO DAILY 12/29/20 [History] Fluticasone Propion/Salmeterol [Advair 250-50 Diskus] 1 puff INH BID 12/29/20 [History] PHENobarbitaL [Phenobarbital] 64.8 mg PO BID 12/29/20 [History] Baclofen 10 mg PO Q8HR PRN #30 tablet 07/22/21 [Rx] Nitrofurantoin Monohyd/M-Cryst [Macrobid 100 mg Capsule] 100 mg PO BID #20 capsule 07/22/21 [Rx] Past Medical History HEENT History: Reports: Impaired Vision Respiratory History: Reports: Asthma, COPD Gastrointestinal History: Reports: GERD Genitourinary History: Reports: Urinary Incontinence, UTI, Recurrent [employer] History: Reports: Other OB/BYN History: [id number] Musculoskeletal History: Reports: Fracture, Osteoporosis, Other (See Below) Other Musculoskeletal History: rt femer fx, R knee fx. fx Left tibia, bilat ankle fx Neurological History: Reports: Seizure, Other (See Below) Other Neuro History: hx epilepsy Psychiatric History: Reports: Anxiety, Depression Hematologic History: Reports: Anemia Dermatologic History: Reports: Other (See Below) Other Dermatologic History: Rosacea - Infectious Disease History Infectious Disease History: Reports: Chicken Pox, Measles, Mumps, Novel Coronavirus - Past Surgical History GI Surgical History: Reports: Appendectomy Female Surgical History: Reports: Breast Biopsy, Hysterectomy Neurological Surgical History: Reports: None Musculoskeletal Surgical History: Reports: Hip Replacement, ORIF Other Musculoskeletal Surgeries/Procedures:: R hip replacement Social & Family History - Family History Family Medical History: No Pertinent Family History - Tobacco Use Tobacco Use Status *Q: Former Tobacco User Years of Tobacco use: 10 Used Tobacco, but Quit: Yes Month/Year Tobacco Last Used: 1989 - Caffeine Use Caffeine Use: Reports: Coffee Caffeine Use Comment: couple cups of coffee - Recreational Drug Use Recreational Drug Use: No - Living Situation & Occupation Living situation: Reports: Assisted Living (Lives in [facility]) H&P Review of Systems - Review of Systems: Review Of Systems: Comprehensive ROS is negative, except as noted in HPI. Exam - Exam Exam: See Below - Vital Signs Vital Signs: Last Vital Signs Temp 97.9 F 07/23/21 08:00 Pulse 96 07/23/21 08:00 Resp 18 07/23/21 08:00 BP 132/56 L 07/23/21 08:00 Pulse Ox 95 07/23/21 08:00 Weight: 133 lb 11.2 oz - Exam General: Alert, Oriented, Cooperative. No: Mild Distress HEENT: PERRLA, EOMI, Hearing Intact, Mucosa Moist & [place] Neck: Trachea Midline Lungs: Clear to Auscultation, Normal Respiratory Effort Cardiovascular: Regular Rate, Regular Rhythm GI/Abdominal Exam: Normal Bowel Sounds, Soft, Non-Tender, No Distention, Pelvis Stable (Female) Exam: Deferred Rectal (Female) Exam: Deferred Extremities: Normal Range of Motion (hip), No Pedal Edema, Normal Capillary Refill, Leg Pain (posterior thigh up to right buttock, pain worse with external rotation, no pain with hip flexion but when hip is flex and extend her knee, extricating pain, I cannot fully extend her knee.), Limited Range of Motion (right knee, cannot extend), Pallor Peripheral Pulses: 2+: Radial (L), Radial (R), Posterior Tibial (L), Posterior Tibial (R), Dorsalis Pedis (L), Dorsalis Pedis (R) Skin: Warm, Dry, Intact Neurological: Cranial Nerves Intact, Normal Speech, Normal Tone - Patient Data Lab Results Last 24 hrs: Laboratory Results - last 24 hr 07/22/21 07/22/21 07/22/21 Range/Units 22:19 22:19 22:21 WBC 7.0 (3.0-10.3) x10-3/uL RBC 3.48 L (3.60-5.20) x10(6)uL Hgb 11.6 (11.4-15.5) g/dL Hct 34.4 (34.2-48.2) % MCV 99.0 (76.7-100.5) fL MCH 33.4 (23.9-33.9) pg MCHC 33.7 (31.9-34.8) g/dL RDW 14.2 (12.3-16.5) % Plt Count 242 (151-488) x10(3)uL MPV 7.4 (7.1-12.4) fL Neut % (Auto) 68.5 (30.8-76.2) % Lymph % (Auto) 22.1 (18.4-52.1) % Bailey % (Auto) 8.9 (4.4-15.7) % Eos % (Auto) 0.0 L (0.6-8.1) % Baso % (Auto) 0.5 (0.2-1.5) % Neut # (Auto) 4.8 (1.5-6.3) x10-3/uL Lymph # (Auto) 1.5 (1.0-4.4) x10-3/uL Bailey # (Auto) 0.6 (0.3-1.0) x10-3/uL Eos # (Auto) 0.0 (0.0-0.8) x10-3/uL Baso # (Auto) 0.0 (0.0-0.1) x10-3/uL Sodium 140 (135-145) mmol/L Potassium 3.7 (3.5-5.3) mmol/L Chloride 104 (100-110) mmol/L Carbon Dioxide 29 (21-32) mmol/L BUN 11 (7-18) mg/dL Creatinine 0.7 (0.55-1.02) mg/dL Est Cr Clr Drug Dosing 71.01 mL/min Estimated GFR (MDRD) > 60 (>60) BUN/Creatinine Ratio 15.7 (9-20) Glucose 116 (80-116) mg/dL Calcium 8.2 L (8.6-10.2) mg/dL Total Bilirubin 0.5 (0.1-1.3) mg/dL AST 17 D (5-25) IU/L ALT 19 (12-36) U/L Alkaline Phosphatase 158 H (56-112) IU/L Total Protein 6.3 (6.0-8.0) g/dL Albumin 2.9 L (3.2-4.6) g/dL Globulin 3.4 g/dL Albumin/Globulin Ratio 0.9 SARS-CoV-2 RNA ([facility]ACE) Negative (NEGATIVE) Result Diagrams: 07/22/21 22:19 07/22/21 22:19 Sepsis Event Note - Evaluation Sepsis Screening Result: No Definite Risk - Focused Exam Vital Signs: Vital Signs Temp Pulse Resp BP Pulse Ox 07/23/21 08:00 97.9 F 96 18 132/56 L 95 07/23/21 06:30 90 16 116/61 94 L *Q Meaningful Use (ADM) - VTE *Q VTE Mechanical Contraindications *Q: At Risk for Falls - VTE Risk Assess *Q Each Risk Factor Represents 1 Point: None Total Score 1 Point Risk Factors: 0 Each Risk Factor Represents 2 Points: Age 60 - 74 Years Total Score 2 Point Risk Factors: 2 Each Risk Factor Represents 3 Points: None Total Score 3 Point Risk Factors: 0 Each Risk Factor Represents 5 Points: None Total Score 5 Point Risk Factors: 0 Venous Thromboembolism Risk Factor Score *Q: 2 - Problem List (1) Urinary tract infection SNOMED Code(s): 59541568 ICD Code: N39.0 - URINARY TRACT INFECTION, SITE NOT SPECIFIED Status: Acute Current Visit: Yes Problem Details: UA on 07/22 first ER visit Qualifiers: Urinary tract infection type: acute cystitis Hematuria presence: with hematuria Qualified Code(s): N30.01 - Acute cystitis with hematuria (2) Right thigh pain SNOMED Code(s): 20385980, 002258440 ICD Code: M79.651 - PAIN IN RIGHT THIGH Status: Acute Current Visit: No (3) Unable to ambulate SNOMED Code(s): 993987902 ICD Code: R26.2 - DIFFICULTY IN WALKING, NOT ELSEWHERE CLASSIFIED Status: Acute Current Visit: No (4) Asthma SNOMED Code(s): 662760108 ICD Code: J45.909 - UNSPECIFIED ASTHMA, UNCOMPLICATED Status: Chronic Current Visit: No (5) Seizure disorder SNOMED Code(s): 798466980 ICD Code: G40.909 - EPILEPSY, UNSP, NOT INTRACTABLE, WITHOUT STATUS EPILEPTICUS Status: Chronic Current Visit: No Problem List Initiated/Reviewed/Updated: Yes Orders Last 24hrs: Active Orders 24 hr Category Date Time Status Patient Status [ADT] Routine ADT 07/22/21 23:44 Active Antiembolic Devices [RC] .PRN Care 07/22/21 23:44 Active Pulse Oximetry [RC] .PRN Care 07/22/21 23:44 Active Supplement (Dietary) [Dietary Supplements] [RC] Care 07/22/21 23:53 Active QIDACANDBED Vital Signs [RC] 00,08,16 Care 07/22/21 23:44 Active OT Evaluation and Treatment [CONS] Routine Cons 07/23/21 10:54 Active PT Evaluation and Treatment [CONS] Routine Cons 07/22/21 23:57 Active Regular Diet [DIET] Diet 07/23/21 Breakfast Active Lwr Ext Non Joint w wo Cont Rt [MR] Routine Exams 07/25/21 08:00 Ordered Aspirin [Ecotrin] Med 07/23/21 09:00 Active 325 mg PO DAILY Baclofen [Lioresal] Med 07/22/21 23:47 Active 10 mg PO Q8H PRN Calcium Carbonate [Oyster Shell Calcium] Med 07/23/21 10:30 Active 500 mg PO BID Cholecalciferol (Vitamin D3) [Vitamin D3] Med 07/23/21 10:30 Active 50 mcg PO DAILY Cranberry Med 07/23/21 09:00 Active 500 mg PO DAILY Docusate Sodium/Sennosides [Senna Plus] Med 07/23/21 09:00 Active 1 tab PO BID Fluticasone Propion/Salmeterol [Advair 250-50 Diskus] Med 07/23/21 09:00 Active 1 puff INH BID Folic Acid Med 07/23/21 09:00 Active 1 mg PO DAILY Magnesium Hydroxide [Milk of Magnesia] Med 07/22/21 23:47 Active 30 ml PO DAILY PRN PHENobarbitaL Med 07/23/21 21:00 Active 64.8 mg PO BID Pantoprazole [ProTONIX] Med 07/23/21 09:00 Active 40 mg PO DAILY Phenytoin Med 07/23/21 21:00 Active 100 mg PO BEDTIME Phenytoin Med 07/23/21 09:00 Active 100 mg PO DAILY Phenytoin [Dilantin] Med 07/23/21 09:00 Active 30 mg PO DAILY Sertraline [Zoloft] Med 07/23/21 09:00 Active 75 mg PO DAILY cefTRIAXone [Rocephin] 1 gm Med 07/23/21 10:00 Active Sodium Chloride 0.9% [Normal Saline] 50 ml IV Q24H Convert IV to Peripheral Lock [Convert IV to Saline Ot 07/23/21 11:40 Ordered Lock] [OM.PC] Routine DVT/VTE Prophylaxis Reflex [OM.PC] Per Unit Routine Oth 07/22/21 23:44 Ordered Resuscitation Status Routine Resus Stat 07/22/21 23:43 Ordered Medication Orders Aspirin (Aspirin 325 Mg Tab.Ec) 325 mg PO DAILY [facility] Last Admin: 07/23/21 09:51 Dose: 325 mg Documented by: TOMMY Baclofen (Baclofen 10 Mg Tab) 10 mg PO Q8H PRN PRN Reason: Muscle Spasm - Painful Calcium Carbonate/Glycine (Calcium Carbonate 500 Mg Tablet) 500 mg PO BID [facility] Last Admin: 07/23/21 10:47 Dose: 500 mg Documented by: TOMMY Cholecalciferol (Cholecalciferol (Vitamin D3) 25 Mcg Tab) 50 mcg PO DAILY [facility] Last Admin: 07/23/21 10:46 Dose: 50 mcg Documented by: TOMMY Cranberry (Cranberry 500 Mg Cap) 500 mg PO DAILY [facility] Last Admin: 07/23/21 10:29 Dose: 500 mg Documented by: TOMMY Folic Acid (Folic Acid 1 Mg Tab) 1 mg PO DAILY [facility] Last Admin: 07/23/21 09:52 Dose: 1 mg Documented by: TOMMY Ceftriaxone Sodium 1 gm/ (Sodium Chloride) 50 mls @ 200 mls/hr IV Q24H [facility] Stop: 07/26/21 23:00 Last Admin: 07/23/21 09:53 Dose: 200 mls/hr Documented by: TOMMY Magnesium Hydroxide (Magnesium Hydroxide 400 Mg/5 Ml Susp 30 Ml Cup) 30 ml PO DAILY PRN PRN Reason: Constipation Non-Formulary Medication (Fluticasone Propion/Salmeterol [Advair 250-50 Diskus]) 1 puff INH BID [facility] Last Admin: 07/23/21 10:48 Dose: Not Given Documented by: TOMMY Pantoprazole Sodium (Pantoprazole 40 Mg Tab.Cr) 40 mg PO DAILY [facility] Last Admin: 07/23/21 09:51 Dose: 40 mg Documented by: TOMMY Phenobarbital (Phenobarbital 32.4 Mg Tab) 64.8 mg PO BID [facility] Last Admin: 07/23/21 10:45 Dose: 64.8 mg Documented by: TOMMY Phenytoin Sodium (Phenytoin 30 Mg Cap.Er) 30 mg PO DAILY [facility] Last Admin: 07/23/21 13:47 Dose: 30 mg Documented by: MARCE Phenytoin Sodium (Phenytoin 100 Mg Cap.Er) 100 mg PO BEDTIME [facility] Phenytoin Sodium (Phenytoin 100 Mg Cap.Er) 100 mg PO DAILY [facility] Last Admin: 07/23/21 09:52 Dose: 100 mg Documented by: TOMMY Senna/Docusate Sodium (Docusate Sodium/Sennosides 50-8.6 Mg Tab) 1 tab PO BID [facility] Last Admin: 07/23/21 09:51 Dose: 1 tab Documented by: TOMMY Sertraline HCl (Sertraline 50 Mg Tab) 75 mg PO DAILY [facility] Last Admin: 07/23/21 09:52 Dose: 75 mg Documented by: TOMMY Assessment/Plan Comment:: 1. Admit for right thigh pain, unable to bear weight/ambulate. UTI. 2. UTI: Rocephin 1 g IV q24h, UC gram negative rods. 3. Right thigh pain/unable to ambulate/bear weight: Questionable muscle injury/t ear, MRI lower extremity ordered for Sunday. Requiring sit to stand lift as her leg chelsea when she puts weight on it. Tylenol 500 with Ibuprofen 200 mg q6h, adjust as needed. Pain mainly when standing/bearing weight so will hold of narcotics at this time. 4. Diet: Regular. 5. Activity: up to chair for meals, sit to stand lift for transfers. 6. DVT prophylaxis: Enoxaparin 40 mg SQ daily. 7. CODE STATUS: DNR/DNI 8. Discharge planning: here through weekend as she cannot bear weight on her leg. MRI for Sunday, IV antibiotics for UTI. Adjust treatments as necessary. - Mortality Measure Prognosis:: Good
[2021-07-23] MEDS: Ibuprofen 200 MG Tab PO SCH ×2 (17:54→23:21)
[2021-07-23] MEDS: Enoxaparin 40 MG/0.4 ML Syringe SUBCUT SCH (17:54)
[2021-07-23] MEDS: Acetaminophen 500 MG Tab PO SCH ×2 (17:55→23:21)
[2021-07-23] MEDS: Phenytoin 100 MG Cap.ER PO SCH (20:57)
[2021-07-24] MEDS: Ibuprofen 200 MG Tab PO SCH ×4 (05:52→23:06)
[2021-07-24] MEDS: Acetaminophen 500 MG Tab PO SCH ×4 (05:52→22:20)
[2021-07-24] MEDS: PHENYTOIN 100 MG PO SCH (08:12)
[2021-07-24] MEDS: Folic Acid 1 MG Tab *PTOM PO SCH (08:12)
[2021-07-24] MEDS: Sertraline 50 MG Tab PO SCH (08:13)
[2021-07-24] MEDS: Docusate Sodium/Sennosides 50-8.6 MG Tab *PTOM PO SCH ×2 (08:13→20:26)
[2021-07-24] MEDS: Cholecalciferol (Vitamin D3) 25 MCG Tab PO SCH (08:13)
[2021-07-24] MEDS: PHENobarbital 32.4 MG Tab PO SCH ×2 (08:13→20:26)
[2021-07-24] MEDS: Aspirin 325 MG Tab.EC *PTOM PO SCH (08:13)
[2021-07-24] MEDS: Calcium Carbonate 500 MG Tablet PO SCH ×2 (08:14→20:26)
[2021-07-24] MEDS: Pantoprazole 40 MG Tab.CR *PTOM PO SCH (08:14)
[2021-07-24] MEDS: Cranberry 500 MG Cap *PTOM PO SCH (08:16)
[2021-07-24] MEDS: Non-Formulary Medication 1 Each (Fluticasone Propion/Salmeterol [Advair 250-50 Diskus] 1 E INH SCH ×2 (08:16→20:26)
[2021-07-24] MEDS: PHENYTOIN 30 MG PO SCH (08:17)
[2021-07-24] MEDS: cefTRIAXone 1 GM in Sodium Chloride 0.9% 50 ML IV SCH (10:41)
--- NOTE | 2021-07-24 10:58 | PCM.PN ---
- General Info Date of Service: 07/24/21 Subjective Update: Right thigh pain is better, but still can't bear weight. Using sit to stand lift for toileting and up to chair. No other complaints today. Large BM yesterday. Functional Status: Reports: Tolerating Diet, Urinating - Patient Data Vitals - Most Recent: Last Vital Signs Temp 98.0 F 07/24/21 00:00 Pulse 85 07/24/21 00:00 Resp 16 07/24/21 00:00 BP 113/57 L 07/24/21 00:00 Pulse Ox 95 07/24/21 00:00 Weight - Most Recent: 133 lb 11.2 oz Med Orders - Current: Current Medications Acetaminophen (Acetaminophen 500 Mg Tab) 500 mg PO Q6H [facility] Last Admin: 07/24/21 10:49 Dose: 500 mg Documented by: Aspirin (Aspirin 325 Mg Tab.Ec) 325 mg PO DAILY [facility] Last Admin: 07/24/21 08:13 Dose: 325 mg Documented by: Baclofen (Baclofen 10 Mg Tab) 10 mg PO Q8H PRN PRN Reason: Muscle Spasm - Painful Calcium Carbonate/Glycine (Calcium Carbonate 500 Mg Tablet) 500 mg PO BID [facility] Last Admin: 07/24/21 08:14 Dose: 500 mg Documented by: Cholecalciferol (Cholecalciferol (Vitamin D3) 25 Mcg Tab) 50 mcg PO DAILY [facility] Last Admin: 07/24/21 08:13 Dose: 50 mcg Documented by: Cranberry (Cranberry 500 Mg Cap) 500 mg PO DAILY [facility] Last Admin: 07/24/21 08:16 Dose: 500 mg Documented by: Enoxaparin Sodium (Enoxaparin 40 Mg/0.4 Ml Syringe) 40 mg SUBCUT Q24H [facility] Last Admin: 07/23/21 17:54 Dose: 40 mg Documented by: Folic Acid (Folic Acid 1 Mg Tab) 1 mg PO DAILY [facility] Last Admin: 07/24/21 08:12 Dose: 1 mg Documented by: Ceftriaxone Sodium 1 gm/ (Sodium Chloride) 50 mls @ 200 mls/hr IV Q24H [facility] Stop: 07/26/21 23:00 Last Admin: 07/24/21 10:41 Dose: 200 mls/hr Documented by: Ibuprofen (Ibuprofen 200 Mg Tab) 200 mg PO Q6H [facility] Last Admin: 07/24/21 10:49 Dose: 200 mg Documented by: Magnesium Hydroxide (Magnesium Hydroxide 400 Mg/5 Ml Susp 30 Ml Cup) 30 ml PO DAILY PRN PRN Reason: Constipation Non-Formulary Medication (Fluticasone Propion/Salmeterol [Advair 250-50 Diskus]) 1 puff INH BID [facility] Last Admin: 07/24/21 08:16 Dose: 1 puff Documented by: Pantoprazole Sodium (Pantoprazole 40 Mg Tab.Cr) 40 mg PO DAILY [facility] Last Admin: 07/24/21 08:14 Dose: 40 mg Documented by: Phenobarbital (Phenobarbital 32.4 Mg Tab) 64.8 mg PO BID [facility] Last Admin: 07/24/21 08:13 Dose: 64.8 mg Documented by: Phenytoin Sodium (Phenytoin 30 Mg Cap.Er) 30 mg PO DAILY [facility] Last Admin: 07/24/21 08:17 Dose: 30 mg Documented by: Phenytoin Sodium (Phenytoin 100 Mg Cap.Er) 100 mg PO BEDTIME [facility] Last Admin: 07/23/21 20:57 Dose: 100 mg Documented by: Phenytoin Sodium (Phenytoin 100 Mg Cap.Er) 100 mg PO DAILY [facility] Last Admin: 07/24/21 08:12 Dose: 100 mg Documented by: Senna/Docusate Sodium (Docusate Sodium/Sennosides 50-8.6 Mg Tab) 1 tab PO BID [facility] Last Admin: 07/24/21 08:13 Dose: 1 tab Documented by: Sertraline HCl (Sertraline 50 Mg Tab) 75 mg PO DAILY [facility] Last Admin: 07/24/21 08:13 Dose: 75 mg Documented by: Discontinued Medications Sodium Chloride (Normal Saline) 1,000 mls @ 50 mls/hr IV ASDIRECTED [facility] Last Admin: 07/23/21 01:05 Dose: 50 mls/hr Documented by: Non-Formulary Medication (Calcium Carbonate/Vitamin D3 [Calcium 500-Vit D3 200 Caplet]) 1 tab PO BID [facility] Last Admin: 07/23/21 13:05 Dose: Not Given Documented by: Non-Formulary Medication (Cholecalciferol (Vitamin D3) [Vitamin D3]) 2,000 unit PO DAILY [facility] Last Admin: 07/23/21 13:04 Dose: Not Given Documented by: Non-Formulary Medication (Phenobarbital [Phenobarbital]) 64.8 mg PO BID [facility] Last Admin: 07/23/21 13:04 Dose: Not Given Documented by: Phenobarbital (Phenobarbital 32.4 Mg Tab) Confirm Administered Dose 64.8 mg .ROUTE .STK-MED ONE Stop: 07/23/21 10:41 Last Admin: 07/23/21 10:46 Dose: Not Given Documented by: - Exam General: Alert, Oriented, Cooperative, No Acute Distress Lungs: Clear to Auscultation, Normal Respiratory Effort Cardiovascular: Regular Rate, Regular Rhythm GI/Abdominal Exam: Normal Bowel Sounds, Soft, Non-Tender, No Distention Extremities: Leg Pain (TTP proximal posterior thigh). No: Increased Warmth, Redness Peripheral Pulses: 2+: Radial (L), Radial (R), Posterior Tibial (L), Posterior Tibial (R), Dorsalis Pedis (L), Dorsalis Pedis (R) - Patient Data Result Diagrams: 07/22/21 22:19 07/22/21 22:19 Sepsis Event Note - Evaluation Sepsis Screening Result: No Definite Risk - Focused Exam Vital Signs: Vital Signs Temp Pulse Resp BP Pulse Ox 07/24/21 00:00 98.0 F 85 16 113/57 L 95 - Problem List & Annotations (1) Urinary tract infection SNOMED Code(s): 42604192 Code(s): N39.0 - URINARY TRACT INFECTION, SITE NOT SPECIFIED Status: Acute Current Visit: Yes Qualifiers: Urinary tract infection type: acute cystitis Hematuria presence: with hematuria Qualified Code(s): N30.01 - Acute cystitis with hematuria Annotation/Comment:: UA on 07/22 first ER visit (2) Right thigh pain SNOMED Code(s): 61328218, 744479797 Code(s): M79.651 - PAIN IN RIGHT THIGH Status: Acute Current Visit: No (3) Unable to ambulate SNOMED Code(s): 543111676 Code(s): R26.2 - DIFFICULTY IN WALKING, NOT ELSEWHERE CLASSIFIED Status: Acute Current Visit: No (4) Asthma SNOMED Code(s): 323123126 Code(s): J45.909 - UNSPECIFIED ASTHMA, UNCOMPLICATED Status: Chronic Current Visit: No (5) Seizure disorder SNOMED Code(s): 129208058 Code(s): G40.909 - EPILEPSY, UNSP, NOT INTRACTABLE, WITHOUT STATUS EPILEPTICUS Status: Chronic Current Visit: No - Problem List Review Problem List Initiated/Reviewed/Updated: Yes - My Orders Last 24 Hours: My Active Orders 07/23/21 10:30 Cholecalciferol (Vitamin D3) [Vitamin D3] 50 mcg PO DAILY 07/23/21 11:40 Convert IV to Peripheral Lock [Convert IV to Saline Lock] [OM.PC] Routine 07/23/21 17:29 Up to Chair [RC] ASDIRECTED 07/23/21 17:30 Acetaminophen [Tylenol Extra Strength] 500 mg PO Q6H Enoxaparin [Lovenox] 40 mg SUBCUT Q24H Ibuprofen [Motrin] 200 mg PO Q6H 07/23/21 21:00 PHENobarbitaL 64.8 mg PO BID 07/25/21 08:00 Lwr Ext Non Joint w wo Cont Rt [MR] Routine - Plan Plan:: 1. UTI: Rocephin 1 g IV q24h, UC gram negative rods. 2. Right thigh pain/unable to ambulate/bear weight: Possible muscle injury/tear, MRI lower extremity ordered for Sunday. Requiring sit to stand lift as her leg chelsea when she puts weight on it. Tylenol 500 with Ibuprofen 200 mg q6h, adjust as needed. Pain mainly when standing/bearing weight so will hold of narcotics at this time. 3. Discharge planning: here through weekend as she cannot bear weight on her leg. MRI for Sunday, IV antibiotics for UTI. Adjust treatments as necessary.
[2021-07-24] MEDS: Enoxaparin 40 MG/0.4 ML Syringe SUBCUT SCH (17:57)
[2021-07-24] MEDS: Phenytoin 100 MG Cap.ER PO SCH (20:26)
[2021-07-25] MEDS: Acetaminophen 500 MG Tab PO SCH ×4 (04:30→23:35)
[2021-07-25] MEDS: Ibuprofen 200 MG Tab PO SCH ×4 (04:30→23:36)
[2021-07-25] MEDS: Calcium Carbonate 500 MG Tablet PO SCH ×2 (09:23→20:19)
[2021-07-25] MEDS: Aspirin 325 MG Tab.EC *PTOM PO SCH (09:23)
[2021-07-25] MEDS: Cranberry 500 MG Cap *PTOM PO SCH (09:23)
[2021-07-25] MEDS: Folic Acid 1 MG Tab *PTOM PO SCH (09:23)
[2021-07-25] MEDS: PHENYTOIN 30 MG PO SCH (09:23)
[2021-07-25] MEDS: Pantoprazole 40 MG Tab.CR *PTOM PO SCH (09:25)
[2021-07-25] MEDS: PHENYTOIN 100 MG PO SCH ×2 (09:25→20:19)
[2021-07-25] MEDS: Docusate Sodium/Sennosides 50-8.6 MG Tab *PTOM PO SCH ×2 (09:25→20:15)
[2021-07-25] MEDS: Cholecalciferol (Vitamin D3) 25 MCG Tab PO SCH (09:25)
[2021-07-25] MEDS: Sertraline 25 MG Tab PO SCH (09:26)
[2021-07-25] MEDS: PHENobarbital 32.4 MG Tab PO SCH ×2 (10:29→20:19)
[2021-07-25] MEDS: cefTRIAXone 1 GM Vial IVPUSH SCH (10:30)
[2021-07-25] MEDS: Sodium Chloride 0.9% 10 ML Syringe FLUSH PRN ×2 (10:40→20:22)
[2021-07-25] MEDS: Non-Formulary Medication 1 Each (Fluticasone Propion/Salmeterol [Advair 250-50 Diskus] 1 E INH SCH ×2 (10:41→20:19)
--- NOTE | 2021-07-25 14:22 | PCM.PN ---
- General Info Date of Service: 07/25/21 Subjective Update: Jasmine stated her leg pain is better, PT saw this morning, picked her up for services. MRI today at 2pm. She stated that she did have burning on urinating when she fell, she notes that those are the symptoms she usually has with infection(dysuria, falls). UC from ER grew E. Coli sensitive to Rocephin, nitrofurantoin; resistant to Ampicillin, Amoxicillin/clavulanate, Cefazolin, Ciprofloxacin, Levofloxacin, Tetracycline, Bactrim. - Patient Data Vitals - Most Recent: Last Vital Signs Temp 98.0 F 07/25/21 07:38 Pulse 82 07/25/21 07:38 Resp 16 07/25/21 07:38 BP 116/50 L 07/25/21 07:38 Pulse Ox 95 07/25/21 07:38 Weight - Most Recent: 133 lb 11.2 oz Med Orders - Current: Current Medications Acetaminophen (Acetaminophen 500 Mg Tab) 500 mg PO Q6H [facility] Last Admin: 07/25/21 12:15 Dose: 500 mg Documented by: Aspirin (Aspirin 325 Mg Tab.Ec) 325 mg PO DAILY [facility] Last Admin: 07/25/21 09:23 Dose: 325 mg Documented by: Baclofen (Baclofen 10 Mg Tab) 10 mg PO Q8H PRN PRN Reason: Muscle Spasm - Painful Calcium Carbonate/Glycine (Calcium Carbonate 500 Mg Tablet) 500 mg PO BID [facility] Last Admin: 07/25/21 09:23 Dose: 500 mg Documented by: Ceftriaxone Sodium (Ceftriaxone 1 Gm Vial) 1 gm IVPUSH Q24H [facility] Stop: 07/26/21 23:00 Last Admin: 07/25/21 10:30 Dose: 1 gm Documented by: Cholecalciferol (Cholecalciferol (Vitamin D3) 25 Mcg Tab) 50 mcg PO DAILY [facility] Last Admin: 07/25/21 09:25 Dose: 50 mcg Documented by: Cranberry (Cranberry 500 Mg Cap) 500 mg PO DAILY [facility] Last Admin: 07/25/21 09:23 Dose: 500 mg Documented by: Enoxaparin Sodium (Enoxaparin 40 Mg/0.4 Ml Syringe) 40 mg SUBCUT Q24H [facility] Last Admin: 07/24/21 17:57 Dose: 40 mg Documented by: Folic Acid (Folic Acid 1 Mg Tab) 1 mg PO DAILY [facility] Last Admin: 07/25/21 09:23 Dose: 1 mg Documented by: Ibuprofen (Ibuprofen 200 Mg Tab) 200 mg PO Q6H [facility] Last Admin: 07/25/21 12:15 Dose: 200 mg Documented by: Magnesium Hydroxide (Magnesium Hydroxide 400 Mg/5 Ml Susp 30 Ml Cup) 30 ml PO DAILY PRN PRN Reason: Constipation Non-Formulary Medication (Fluticasone Propion/Salmeterol [Advair 250-50 Diskus]) 1 puff INH BID [facility] Last Admin: 07/25/21 10:41 Dose: 1 puff Documented by: Pantoprazole Sodium (Pantoprazole 40 Mg Tab.Cr) 40 mg PO DAILY [facility] Last Admin: 07/25/21 09:25 Dose: 40 mg Documented by: Phenobarbital (Phenobarbital 32.4 Mg Tab) 64.8 mg PO BID [facility] Last Admin: 07/25/21 10:29 Dose: 64.8 mg Documented by: Phenytoin Sodium (Phenytoin 30 Mg Cap.Er) 30 mg PO DAILY [facility] Last Admin: 07/25/21 09:23 Dose: 30 mg Documented by: Phenytoin Sodium (Phenytoin 100 Mg Cap.Er) 100 mg PO DAILY [facility] Last Admin: 07/25/21 09:25 Dose: 100 mg Documented by: Phenytoin Sodium (Phenytoin 100 Mg Cap.Er) 200 mg PO BEDTIME [facility] Senna/Docusate Sodium (Docusate Sodium/Sennosides 50-8.6 Mg Tab) 1 tab PO BID [facility] Last Admin: 07/25/21 09:25 Dose: 1 tab Documented by: Sertraline HCl (Sertraline 25 Mg Tab) 75 mg PO DAILY [facility] Last Admin: 07/25/21 09:26 Dose: 75 mg Documented by: Sodium Chloride (Sodium Chloride 0.9% 10 Ml Syringe) 10 ml FLUSH ASDIRECTED PRN PRN Reason: saline lock flush Discontinued Medications Ceftriaxone Sodium 1 gm/ (Sodium Chloride) 50 mls @ 200 mls/hr IV Q24H [facility] Stop: 07/26/21 23:00 Last Admin: 07/24/21 10:41 Dose: 200 mls/hr Documented by: Sodium Chloride (Normal Saline) 1,000 mls @ 50 mls/hr IV ASDIRECTED [facility] Last Admin: 07/23/21 01:05 Dose: 50 mls/hr Documented by: Non-Formulary Medication (Calcium Carbonate/Vitamin D3 [Calcium 500-Vit D3 200 Caplet]) 1 tab PO BID [facility] Last Admin: 07/23/21 13:05 Dose: Not Given Documented by: Non-Formulary Medication (Cholecalciferol (Vitamin D3) [Vitamin D3]) 2,000 unit PO DAILY [facility] Last Admin: 07/23/21 13:04 Dose: Not Given Documented by: Non-Formulary Medication (Phenobarbital [Phenobarbital]) 64.8 mg PO BID [facility] Last Admin: 07/23/21 13:04 Dose: Not Given Documented by: Phenobarbital (Phenobarbital 32.4 Mg Tab) Confirm Administered Dose 64.8 mg .ROUTE .K-MED ONE Stop: 07/23/21 10:41 Last Admin: 07/23/21 10:46 Dose: Not Given Documented by: Phenytoin Sodium (Phenytoin 100 Mg Cap.Er) 100 mg PO BEDTIME [facility] Last Admin: 07/24/21 20:26 Dose: 100 mg Documented by: Sertraline HCl (Sertraline 50 Mg Tab) 75 mg PO DAILY [facility] Last Admin: 07/24/21 08:13 Dose: 75 mg Documented by: - Exam General: Alert, Oriented, Cooperative, No Acute Distress Lungs: Clear to Auscultation, Normal Respiratory Effort Cardiovascular: Regular Rate, Regular Rhythm GI/Abdominal Exam: Normal Bowel Sounds, Soft, Non-Tender, No Distention Extremities: No Pedal Edema, Leg Pain (TTP proximal posterior thigh, medial groin), Limited Range of Motion. No: Increased Warmth, Redness Peripheral Pulses: 2+: Radial (L), Radial (R) - Patient Data Result Diagrams: 07/22/21 22:19 07/22/21 22:19 Sepsis Event Note - Evaluation Sepsis Screening Result: No Definite Risk - Focused Exam Vital Signs: Vital Signs Temp Pulse Resp BP Pulse Ox 07/25/21 07:38 98.0 F 82 16 116/50 L 95 - Problem List & Annotations (1) Urinary tract infection SNOMED Code(s): 75737110 Code(s): N39.0 - URINARY TRACT INFECTION, SITE NOT SPECIFIED Status: Acute Current Visit: Yes Qualifiers: Urinary tract infection type: acute cystitis Hematuria presence: with hematuria Qualified Code(s): N30.01 - Acute cystitis with hematuria Annotation/Comment:: UC grew E. Coli (2) Right thigh pain SNOMED Code(s): 75600285, 763997196 Code(s): M79.651 - PAIN IN RIGHT THIGH Status: Acute Current Visit: No (3) Unable to ambulate SNOMED Code(s): 415842924 Code(s): R26.2 - DIFFICULTY IN WALKING, NOT ELSEWHERE CLASSIFIED Status: Acute Current Visit: No (4) Asthma SNOMED Code(s): 040166511 Code(s): J45.909 - UNSPECIFIED ASTHMA, UNCOMPLICATED Status: Chronic Current Visit: No (5) Seizure disorder SNOMED Code(s): 502867856 Code(s): G40.909 - EPILEPSY, UNSP, NOT INTRACTABLE, WITHOUT STATUS EPILEPTICUS Status: Chronic Current Visit: No - Problem List Review Problem List Initiated/Reviewed/Updated: Yes - My Orders Last 24 Hours: My Active Orders 07/25/21 08:00 Lwr Ext Non Joint wo Cont Rt [MR] Routine 07/25/21 10:30 Sodium Chloride 0.9% [Saline Flush] 10 ml FLUSH ASDIRECTED PRN - Plan Plan:: 1. UTI: Rocephin 1 g IV q24h, UC E. coli, sensitive to Rocephin. 2. Right thigh pain/unable to ambulate/bear weight: Possible muscle injury/tear, MRI lower extremity ordered for today at 1400. PT evaluated today and said they would cone picker for services, anticipated a few days of inpt therapy. 3. Discharge planning: MRI for today, & adjust treatments as necessary.
[2021-07-25] MEDS: Enoxaparin 40 MG/0.4 ML Syringe SUBCUT SCH (18:45)
[2021-07-26] MEDS: Acetaminophen 500 MG Tab PO SCH ×4 (06:11→23:25)
[2021-07-26] MEDS: Ibuprofen 200 MG Tab PO SCH ×4 (06:12→23:25)
[2021-07-26] MEDS: PHENYTOIN 100 MG PO SCH ×2 (10:08→20:15)
[2021-07-26] MEDS: PHENYTOIN 30 MG PO SCH (10:08)
[2021-07-26] MEDS: Aspirin 325 MG Tab.EC *PTOM PO SCH (10:08)
[2021-07-26] MEDS: Calcium Carbonate 500 MG Tablet PO SCH ×2 (10:08→20:16)
[2021-07-26] MEDS: Folic Acid 1 MG Tab *PTOM PO SCH (10:08)
[2021-07-26] MEDS: Cranberry 500 MG Cap *PTOM PO SCH (10:08)
[2021-07-26] MEDS: Pantoprazole 40 MG Tab.CR *PTOM PO SCH (10:09)
[2021-07-26] MEDS: Sertraline 25 MG Tab PO SCH (10:10)
[2021-07-26] MEDS: Cholecalciferol (Vitamin D3) 25 MCG Tab PO SCH (10:10)
[2021-07-26] MEDS: Docusate Sodium/Sennosides 50-8.6 MG Tab *PTOM PO SCH ×2 (10:10→20:16)
[2021-07-26] MEDS: cefTRIAXone 1 GM Vial IVPUSH SCH (10:11)
[2021-07-26] MEDS: Non-Formulary Medication 1 Each (Fluticasone Propion/Salmeterol [Advair 250-50 Diskus] 1 E INH SCH ×2 (10:11→20:15)
[2021-07-26] MEDS: PHENobarbital 32.4 MG Tab PO SCH ×2 (10:14→20:15)
[2021-07-26] MEDS: Sodium Chloride 0.9% 10 ML Syringe FLUSH PRN (10:19)
--- NOTE | 2021-07-26 10:52 | PCM.PN ---
- General Info Date of Service: 07/26/21 Subjective Update: Jasmine was up with PT with FWW with standby assist, pain better. MRI did so edema/hemorrhage of adductor muscle group, suggesting partial tear of adductor muscles. There was abnormal marrow signal in distal femoral shaft, radiology recommended MRI right knee to rule out occult fracture. She does not have replacement of that knee. She has not pain there but could be referred. No fevers, chills. tolerating diet. - Patient Data Vitals - Most Recent: Last Vital Signs Temp 97.6 F 07/25/21 20:21 Pulse 88 07/25/21 20:21 Resp 16 07/25/21 20:21 BP 120/53 L 07/25/21 20:21 Pulse Ox 95 07/25/21 20:21 Weight - Most Recent: 133 lb 11.2 oz Med Orders - Current: Current Medications Acetaminophen (Acetaminophen 500 Mg Tab) [address] [facility] Last Admin: 07/26/21 06:11 Dose: 500 mg Documented by: Aspirin (Aspirin 325 Mg Tab.Ec) [address] [facility] Last Admin: 07/26/21 10:08 Dose: 325 mg Documented by: Baclofen (Baclofen 10 Mg Tab) 10 mg PO Q8H PRN PRN Reason: Muscle Spasm - Painful Calcium Carbonate/Glycine (Calcium Carbonate 500 Mg Tablet) [address] [facility] Last Admin: 07/26/21 10:08 Dose: 500 mg Documented by: Ceftriaxone Sodium (Ceftriaxone 1 Gm Vial) [address] [facility] Stop: 07/26/21 23:00 Last Admin: 07/26/21 10:11 Dose: 1 gm Documented by: Cholecalciferol (Cholecalciferol (Vitamin D3) 25 Mcg Tab) [address] [facility] Last Admin: 07/26/21 10:10 Dose: 50 mcg Documented by: Cranberry (Cranberry 500 Mg Cap) [address] [facility] Last Admin: 07/26/21 10:08 Dose: 500 mg Documented by: Enoxaparin Sodium (Enoxaparin 40 Mg/0.4 Ml Syringe) [address] [facility] Last Admin: 07/25/21 18:45 Dose: 40 mg Documented by: Folic Acid (Folic Acid 1 Mg Tab) [address] [facility] Last Admin: 07/26/21 10:08 Dose: 1 mg Documented by: Ibuprofen (Ibuprofen 200 Mg Tab) [address] [facility] Last Admin: 07/26/21 06:12 Dose: 200 mg Documented by: Magnesium Hydroxide (Magnesium Hydroxide 400 Mg/5 Ml Susp 30 Ml Cup) 30 ml PO DAILY PRN PRN Reason: Constipation Non-Formulary Medication (Fluticasone Propion/Salmeterol [Advair 250-50 Diskus]) [address] [facility] Last Admin: 07/26/21 10:11 Dose: 1 puff Documented by: Pantoprazole Sodium (Pantoprazole 40 Mg Tab.Cr) [address] [facility] Last Admin: 07/26/21 10:09 Dose: 40 mg Documented by: Phenobarbital (Phenobarbital 32.4 Mg Tab) 64.[address] [facility] Last Admin: 07/26/21 10:14 Dose: 64.8 mg Documented by: Phenytoin Sodium (Phenytoin 30 Mg Cap.Er) [address] [facility] Last Admin: 07/26/21 10:08 Dose: 30 mg Documented by: Phenytoin Sodium (Phenytoin 100 Mg Cap.Er) [address] [facility] Last Admin: 07/26/21 10:08 Dose: 100 mg Documented by: Phenytoin Sodium (Phenytoin 100 Mg Cap.Er) [address] [facility] Last Admin: 07/25/21 20:19 Dose: 200 mg Documented by: Senna/Docusate Sodium (Docusate Sodium/Sennosides 50-8.6 Mg Tab) [address] [facility] Last Admin: 07/26/21 10:10 Dose: 1 tab Documented by: Sertraline HCl (Sertraline 25 Mg Tab) [address] [facility] Last Admin: 07/26/21 10:10 Dose: 75 mg Documented by: Sodium Chloride (Sodium Chloride 0.9% 10 Ml Syringe) 10 ml FLUSH ASDIRECTED PRN PRN Reason: saline lock flush Last Admin: 07/26/21 10:19 Dose: 10 ml Documented by: Discontinued Medications Ceftriaxone Sodium 1 gm/ (Sodium Chloride) 50 mls @ 200 mls/hr IV Q24H [facility] Stop: 07/26/21 23:00 Last Admin: 07/24/21 10:41 Dose: 200 mls/hr Documented by: Sodium Chloride (Normal Saline) 1,000 mls @ 50 mls/hr IV ASDIRECTED [facility] Last Admin: 07/23/21 01:05 Dose: 50 mls/hr Documented by: Non-Formulary Medication (Calcium Carbonate/Vitamin D3 [Calcium 500-Vit D3 200 Caplet]) [address] [facility] Last Admin: 07/23/21 13:05 Dose: Not Given Documented by: Non-Formulary Medication (Cholecalciferol (Vitamin D3) [Vitamin D3]) 2,[address] [facility] Last Admin: 07/23/21 13:04 Dose: Not Given Documented by: Non-Formulary Medication (Phenobarbital [Phenobarbital]) 64.[address] [facility] Last Admin: 07/23/21 13:04 Dose: Not Given Documented by: Phenobarbital (Phenobarbital 32.4 Mg Tab) Confirm Administered Dose 64.8 mg .ROUTE .STK-MED ONE Stop: 07/23/21 10:41 Last Admin: 07/23/21 10:46 Dose: Not Given Documented by: Phenytoin Sodium (Phenytoin 100 Mg Cap.Er) [address] [facility] Last Admin: 07/24/21 20:26 Dose: 100 mg Documented by: Sertraline HCl (Sertraline 50 Mg Tab) [address] [facility] Last Admin: 07/24/21 08:13 Dose: 75 mg Documented by: - Exam General: Alert, Oriented, Cooperative, No Acute Distress Lungs: Clear to Auscultation, Normal Respiratory Effort Cardiovascular: Regular Rate, Regular Rhythm GI/Abdominal Exam: Normal Bowel Sounds, Soft, Non-Tender, No Distention Extremities: No Pedal Edema, Leg Pain (right groin/posterior thigh) Peripheral Pulses: 2+: Radial (L), Radial (R), Posterior Tibial (L), Posterior Tibial (R), Dorsalis Pedis (L), Dorsalis Pedis (R) - Patient Data Result Diagrams: 07/22/21 22:19 07/22/21 22:19 Sepsis Event Note - Evaluation Sepsis Screening Result: No Definite Risk - Problem List & Annotations (1) Urinary tract infection SNOMED Code(s): 92402789 Code(s): N39.0 - URINARY TRACT INFECTION, SITE NOT SPECIFIED Status: Acute Current Visit: Yes Qualifiers: Urinary tract infection type: acute cystitis Hematuria presence: with hematuria Qualified Code(s): N30.01 - Acute cystitis with hematuria Annotation/Comment:: UC grew E. Coli (2) Right thigh pain SNOMED Code(s): 45612814, 453307424 Code(s): M79.651 - PAIN IN RIGHT THIGH Status: Acute Current Visit: No Annotation/Comment:: partial tear of adducto muscle group. MRI of right knee as had abnormal marrow signal of distal femoral shaft on MRI leg yesterday but could not visualize the knee. (3) Muscle tear SNOMED Code(s): 475236957 Code(s): T14.8XXA - OTHER INJURY OF UNSPECIFIED BODY REGION, INITIAL ENCOUNTER Status: Acute Current Visit: Yes Onset Date: ~07/22/21 Annotation/Comment:: partial tear of adductor mm group, right leg. (4) Unable to ambulate SNOMED Code(s): 093079735 Code(s): R26.2 - DIFFICULTY IN WALKING, NOT ELSEWHERE CLASSIFIED Status: Acute Current Visit: No Annotation/Comment:: improving. (5) Asthma SNOMED Code(s): 474482547 Code(s): J45.909 - UNSPECIFIED ASTHMA, UNCOMPLICATED Status: Chronic Current Visit: No (6) Seizure disorder SNOMED Code(s): 107954932 Code(s): G40.909 - EPILEPSY, UNSP, NOT INTRACTABLE, WITHOUT STATUS EPILEPTICUS Status: Chronic Current Visit: No - Problem List Review Problem List Initiated/Reviewed/Updated: Yes - My Orders Last 24 Hours: My Active Orders 07/25/21 10:30 Sodium Chloride 0.9% [Saline Flush] 10 ml FLUSH ASDIRECTED PRN 07/26/21 08:25 Lwr Ext Joint wo Cont Rt [MR] Routine - Plan Plan:: 1. UTI: Rocephin 1 g IV q24h, UC E. coli, sensitive to Rocephin. Will complete 3 day course of Rocephin today. 2. Right thigh pain/unable to ambulate/bear weight: Partial tear of adductor muscle group, MRI right knee ordered for today at 1300. continue PT. 3. Discharge planning: MRI for today of right to rule out occult fracture as had abnormal marrow signal in distal femoral shaft, & adjust treatments as necessary.
[2021-07-26] MEDS: Enoxaparin 40 MG/0.4 ML Syringe SUBCUT SCH (16:49)
[2021-07-27] MEDS: Acetaminophen 500 MG Tab PO SCH ×2 (04:34→11:39)
[2021-07-27] MEDS: Ibuprofen 200 MG Tab PO SCH ×2 (04:34→11:39)
[2021-07-27] MEDS: Cranberry 500 MG Cap *PTOM PO SCH (08:07)
[2021-07-27] MEDS: PHENYTOIN 30 MG PO SCH (08:08)
[2021-07-27] MEDS: PHENYTOIN 100 MG PO SCH (08:08)
[2021-07-27] MEDS: Sertraline 25 MG Tab PO SCH (08:08)
[2021-07-27] MEDS: Cholecalciferol (Vitamin D3) 25 MCG Tab PO SCH (08:08)
[2021-07-27] MEDS: Calcium Carbonate 500 MG Tablet PO SCH (08:08)
[2021-07-27] MEDS: Folic Acid 1 MG Tab *PTOM PO SCH (08:08)
[2021-07-27] MEDS: Pantoprazole 40 MG Tab.CR *PTOM PO SCH (08:08)
[2021-07-27] MEDS: Non-Formulary Medication 1 Each (Fluticasone Propion/Salmeterol [Advair 250-50 Diskus] 1 E INH SCH (08:08)
[2021-07-27] MEDS: Aspirin 325 MG Tab.EC *PTOM PO SCH (08:08)
[2021-07-27] MEDS: Docusate Sodium/Sennosides 50-8.6 MG Tab *PTOM PO SCH (08:08)
[2021-07-27] MEDS: PHENobarbital 32.4 MG Tab PO SCH (08:14)
--- NOTE | 2021-07-27 11:09 | CR ---
RIGHT KNEE INDICATION: Right knee pain. FINDINGS: Frontal and lateral views of the right knee were obtained 07/27/21 and compared with 06/04/19. Demineralization is noted compatible with osteoporosis. Intramedullary brian is noted in the tibia as previously and appears intact. The joint effusion present on the previous examination is no longer visualized. Mild degenerative changes are noted at the intercondylar spines. Femorotibial joint spaces appear to be fairly well maintained. A definite acute fracture or dislocation was not identified. MTDD
--- NOTE | 2021-07-27 14:18 | PCM.DCSUM1 ---
Discharge Summary - Hospital Course HPI Initial Comments: Jasmine was brought to ER from [facility] unable to ambulate, leg giving out when trying to bear weight. She was seen in the ER earlier yesterday after suffering a fall, she did not hit any furniture, landing on her bottom. X-ray of her right hip was negative for acute process. She was found to have a urinary tract infection, given 1 g Rocephin and sent back to the assisted living with nitrofurantoin. However, this evening, she was unable to stand on her leg, not able to transfer herself so she was sent back to the ER for further evaluation and treatment. She just does not have the strength in her leg to help move. Denies fever, chills, chest pain, upper respiratory symptoms, abdominal pain, nausea, vomiting, diarrhea, dysuria, frequency or hematuria. She states she has been more foggy lately. Also noted that she usually has dysuria and falls more when she gets UTI. Diagnosis: Stroke: No - Discharge Data Discharge Date: 07/27/21 Discharge Disposition: Home, W Home Health Agency 06 Condition: Stable - Referral to Home Health Date of Face to Face Encounter: 07/27/21 Reason for Homebound Status: [facility] resident Primary Care Physician: Anika Roberts PA-C Skilled Need: pen[facility]iary, PT/OT; insufficiency fracture to right medial tibial plateau, right partial tear of adductor mm group. FWW, weight bearing as tolerated. - Discharge Diagnosis/Problem(s) (1) Insufficiency fracture of tibia SNOMED Code(s): 787652720 ICD Code: M84.469A - PATHOLOGICAL FRACTURE, UNSP TIBIA AND FIBULA, INIT FOR FX Status: Acute Current Visit: Yes Problem Details: Right medial tibial plateau Qualifiers: Encounter type: initial encounter Qualified Code(s): M84.469A - Pathological fracture, unspecified tibia and fibula, initial encounter for fracture (2) Muscle tear SNOMED Code(s): 851032494 ICD Code: T14.8XXA - OTHER INJURY OF UNSPECIFIED BODY REGION, INITIAL ENCOUNTER Status: Acute Current Visit: Yes Onset Date: ~07/22/21 Problem Details: partial tear of adductor mm group, right leg. (3) Right thigh pain SNOMED Code(s): 26828063, 997467218 ICD Code: M79.651 - PAIN IN RIGHT THIGH Status: Acute Current Visit: No Problem Details: partial tear of adducto muscle group. MRI of right knee as had abnormal marrow signal of distal femoral shaft on MRI leg yesterday but could not visualize the knee. (4) Urinary tract infection SNOMED Code(s): 47850863 ICD Code: N39.0 - URINARY TRACT INFECTION, SITE NOT SPECIFIED Status: Resolved Current Visit: Yes Problem Details: UC grew E. Coli, completed course of Rocephin Qualifiers: Urinary tract infection type: acute cystitis Hematuria presence: with hematuria Qualified Code(s): N30.01 - Acute cystitis with hematuria (5) Unable to ambulate SNOMED Code(s): 751860066 ICD Code: R26.2 - DIFFICULTY IN WALKING, NOT ELSEWHERE CLASSIFIED Status: Acute Current Visit: No Problem Details: improving. (6) Asthma SNOMED Code(s): 109831539 ICD Code: J45.909 - UNSPECIFIED ASTHMA, UNCOMPLICATED Status: Chronic Current Visit: No (7) Seizure disorder SNOMED Code(s): 386159258 ICD Code: G40.909 - EPILEPSY, UNSP, NOT INTRACTABLE, WITHOUT STATUS EP ILEPTICUS Status: Chronic Current Visit: No - Patient Summary/Data Consults: Consultations 07/22/21 23:57 PT Evaluation and Treatment [CONS] Routine Please Evaluate and Treat. PT Reason for Consult: Ambulation This query below is only for informational purposes and is not editable. Admission Diagnosis/Problem: Weakness 07/23/21 10:54 OT Evaluation and Treatment [CONS] Routine Please Evaluate and Treat. OT Reason for Consult: ADL's This query below is only for informational purposes and is not editable. Admission Diagnosis/Problem: Weakness Hospital Course: Had UTI at initial visit to ER same day as admission, grew E. coli, sensitive to Rocephin, received 4 doses of Rocephin. Had MRI right leg on Sunday which showed edema/hemorrhage suggesting partial tear of adductor muscle group, exam was limited to hardware, but also noted abnormal marrow signal in the distal femoral shaft so radiology recommended MRI right knee. MRI right knee was done on , report came back this morning having stress/insufficiency fracture of posterior medial tibial plateau. Spoke with Dr Zavaleta at [facility], requested right knee 2V x-ray, advised to have her use FWW, weight bearing as tolerated; continue to FWW until no pain. If her pain worsens or does not improve then he advised for her to follow up with Ortho. PT/OT evaluated her on Sunday, they started her with FWW, Contact guard assist, was ambulating 100 ft with therapy; they recommended Home health with PT/OT continue at [facility]. Covid tests on admission and discharge both NEGATIVE. - Patient Instructions Diet: Usual Diet as Tolerated Activity, Other: weight bearing as tolerated with FWW Driving: Do Not Drive Showering/Bathing: May Shower Notify Provider of: Fever, Increased Pain Other/Special Instructions: Follow up with Anika Roberts in 1 week to recheck urine. Follow up with Dr Zavaleta at [facility] if pain not improving. - Discharge Plan *PRESCRIPTION DRUG MONITORING PROGRAM REVIEWED*: Not Applicable *COPY OF PRESCRIPTION DRUG MONITORING REPORT IN PATIENT MELVA: Not Applicable Home Medications: Home Meds Pantoprazole Sodium [Protonix] 40 mg PO DAILY 06/04/19 [History] Phenytoin Sodium Extended [Dilantin] 100 mg PO DAILY 06/04/19 [History] Phenytoin [Dilantin] 30 mg PO DAILY 06/04/19 [History] Sertraline [Zoloft] 75 mg PO DAILY 06/04/19 [History] Cholecalciferol (Vitamin D3) [Vitamin D3] 2,000 unit PO DAILY 10/16/20 [History] Folic Acid 1 mg PO DAILY 10/16/20 [History] Phenytoin Sodium Extended [Dilantin] 200 mg PO BEDTIME 12/07/20 [History] Sennosides/Docusate Sodium [Senna-S] 1 tab PO BID 12/07/20 [History] Magnesium Hydroxide [Milk of Magnesia] 30 ml PO DAILY PRN cup 12/28/20 [Rx] Acetaminophen [Tylenol Extra Strength] 1,000 mg PO TID PRN 12/29/20 [History] Albuterol Sulfate [Albuterol Sulfate Hfa] 2 puff IH Q4H PRN 12/29/20 [History] Aspirin [Ecotrin EC] 325 mg PO DAILY 12/29/20 [History] Cranberry 500 mg PO DAILY 12/29/20 [History] Fluticasone Propion/Salmeterol [Advair 250-50 Diskus] 1 puff INH BID 12/29/20 [History] PHENobarbitaL [Phenobarbital] 64.8 mg PO BID 12/29/20 [History] Baclofen 10 mg PO Q8H PRN 07/25/21 [History] Ibuprofen 400 mg PO Q4H PRN 07/25/21 [History] Naproxen Sodium 220 mg PO DAILY PRN 07/25/21 [History] Calcium Citrate/Vitamin D3 [ Calcium Cit 315-D3 6.5 Mcg] 2 tab PO BID 07/27/21 [History] Oxygen Therapy Mode: Room Air Patient Handouts: Muscle Pain, Adult, Urinary Tract Infection, Adult, Fall Prevention in Hospitals, Adult, Venous Thromboembolism Prevention Forms: ED Department Discharge Referrals: Anika Roberts PA-C [Primary Care Provider] - - Discharge Summary/Plan Comment DC Time >30 min.: No Total # of Minutes for Discharge Time: 15 min - General Info Date of Service: 07/27/21 Subjective Update: Jasmine states her pain is controlled on Tylenol & Ibuprofen. She does have pain with ambulating below her knee, states that's why it buckled the other day but reports it's tolerable when up with therapy. - Patient Data Vitals - Most Recent: Last Vital Signs Temp 97.3 F 07/27/21 08:00 Pulse 73 07/27/21 08:00 Resp 16 07/27/21 08:00 BP 125/55 L 07/27/21 08:00 Pulse Ox 95 07/27/21 08:00 Weight - Most Recent: 133 lb 11.2 oz Lab Results - Last 24 hrs: Laboratory Results - last 24 hr 07/27/21 Range/Units 12:59 SARS-CoV-2 RNA ([facility]) Negative (NEGATIVE) Med Orders - Current: Current Medications Acetaminophen (Acetaminophen 500 Mg Tab) 500 mg PO Q6H [facility] Last Admin: 07/27/21 11:39 Dose: 500 mg Documented by: Aspirin (Aspirin 325 Mg Tab.Ec *Ptom*) 325 mg PO DAILY [facility] Last Admin: 07/27/21 08:08 Dose: 325 mg Documented by: Baclofen (Baclofen 10 Mg Tab) 10 mg PO Q8H PRN PRN Reason: Muscle Spasm - Painful Cranberry (Cranberry 500 Mg Cap *Ptom*) 500 mg PO DAILY [facility] Last Admin: 07/27/21 08:07 Dose: 500 mg Documented by: Enoxaparin Sodium (Enoxaparin 40 Mg/0.4 Ml Syringe) 40 mg SUBCUT Q24H [facility] Last Admin: 07/26/21 16:49 Dose: 40 mg Documented by: Folic Acid (Folic Acid 1 Mg Tab *Ptom*) 1 mg PO DAILY [facility] Last Admin: 07/27/21 08:08 Dose: 1 mg Documented by: Ibuprofen (Ibuprofen 200 Mg Tab) 200 mg PO Q6H [facility] Last Admin: 07/27/21 11:39 Dose: 200 mg Documented by: Magnesium Hydroxide (Magnesium Hydroxide 400 Mg/5 Ml Susp 30 Ml Cup) 30 ml PO DAILY PRN PRN Reason: Constipation Non-Formulary Medication (Fluticasone Propion/Salmeterol [Advair 250-50 Diskus]) 1 puff INH BID [facility] Last Admin: 07/27/21 08:08 Dose: 1 puff Documented by: Vitamin D 50mcg * (Ptom*) 50 each PO DAILY [facility] Calcium Citrate (630mg/500iu) 2 each PO BID [facility] Pantoprazole Sodium (Pantoprazole 40 Mg Tab.Cr *Ptom*) 40 mg PO DAILY [facility] Last Admin: 07/27/21 08:08 Dose: 40 mg Documented by: Phenobarbital (Phenobarbital 32.4 Mg Tab) 64.8 mg PO BID [facility] Last Admin: 07/27/21 08:14 Dose: 64.8 mg Documented by: Phenytoin Sodium (Phenytoin 30 Mg Cap.Er *Ptom*) 30 mg PO DAILY [facility] Last Admin: 07/27/21 08:08 Dose: 30 mg Documented by: Phenytoin Sodium (Phenytoin 100 Mg Cap.Er *Ptom*) 100 mg PO DAILY [facility] Last Admin: 07/27/21 08:08 Dose: 100 mg Documented by: Phenytoin Sodium (Phenytoin 100 Mg Cap.Er *Ptom*) 200 mg PO BEDTIME [facility] Last Admin: 07/26/21 20:15 Dose: 200 mg Documented by: Senna/Docusate Sodium (Docusate Sodium/Sennosides 50-8.6 Mg Tab *Ptom*) 1 tab PO BID [facility] Last Admin: 07/27/21 08:08 Dose: 1 tab Documented by: Sertraline HCl (Sertraline 25 Mg Tab *Ptom*) 25 mg PO DAILY [facility] Sertraline HCl (Sertraline 50 Mg Tab *Ptom*) 50 mg PO DAILY [facility] Sodium Chloride (Sodium Chloride 0.9% 10 Ml Syringe) 10 ml FLUSH ASDIRECTED PRN PRN Reason: saline lock flush Last Admin: 07/26/21 10:19 Dose: 10 ml Documented by: Discontinued Medications Calcium Carbonate/Glycine (Calcium Carbonate 500 Mg Tablet) 500 mg PO BID [facility] Last Admin: 07/27/21 08:08 Dose: 500 mg Documented by: Ceftriaxone Sodium (Ceftriaxone 1 Gm Vial) 1 gm IVPUSH Q24H [facility] Stop: 07/26/21 23:00 Last Admin: 07/26/21 10:11 Dose: 1 gm Documented by: Cholecalciferol (Cholecalciferol (Vitamin D3) 25 Mcg Tab) 50 mcg PO DAILY [facility] Last Admin: 07/27/21 08:08 Dose: 50 mcg Documented by: Ceftriaxone Sodium 1 gm/ (Sodium Chloride) 50 mls @ 200 mls/hr IV Q24H [facility] Stop: 07/26/21 23:00 Last Admin: 07/24/21 10:41 Dose: 200 mls/hr Documented by: Sodium Chloride (Normal Saline) 1,000 mls @ 50 mls/hr IV ASDIRECTED [facility] Last Admin: 07/23/21 01:05 Dose: 50 mls/hr Documented by: Non-Formulary Medication (Calcium Carbonate/Vitamin D3 [Calcium 500-Vit D3 200 Caplet]) 1 tab PO BID [facility] Last Admin: 07/23/21 13:05 Dose: Not Given Documented by: Non-Formulary Medication (Cholecalciferol (Vitamin D3) [Vitamin D3]) 2,000 unit PO DAILY [facility] Last Admin: 07/23/21 13:04 Dose: Not Given Documented by: Non-Formulary Medication (Phenobarbital [Phenobarbital]) 64.8 mg PO BID [facility] Last Admin: 07/23/21 13:04 Dose: Not Given Documented by: Phenobarbital (Phenobarbital 32.4 Mg Tab) Confirm Administered Dose 64.8 mg .ROUTE .STK-MED ONE Stop: 07/23/21 10:41 Last Admin: 07/23/21 10:46 Dose: Not Given Documented by: Phenytoin Sodium (Phenytoin 100 Mg Cap.Er) 100 mg PO BEDTIME [facility] Last Admin: 07/24/21 20:26 Dose: 100 mg Documented by: Sertraline HCl (Sertraline 50 Mg Tab) 75 mg PO DAILY [facility] Last Admin: 07/24/21 08:13 Dose: 75 mg Documented by: Sertraline HCl (Sertraline 25 Mg Tab) 75 mg PO DAILY [facility] Last Admin: 07/27/21 08:08 Dose: 75 mg Documented by: - Exam General: Reports: Alert, Oriented, Cooperative Lungs: Reports: Clear to Auscultation, Normal Respiratory Effort Cardiovascular: Reports: Regular Rate, Regular Rhythm GI/Abdominal Exam: Normal Bowel Sounds, Soft, Non-Tender, No Distention Extremities: Leg Pain (TTP right medial tibia, posterior) *Q Meaningful Use (DIS) - VTE *Q VTE Mechanical Contraindications *Q: At Risk for Falls
[2021-07-27] MEDS ORDERED: CALCIUM CITRATE PO SCH (21:00)
[2021-07-28] MEDS ORDERED: Sertraline 50 MG Tab *PTOM PO SCH (09:00)
[2021-07-28] MEDS ORDERED: Sertraline 25 MG Tab *PTOM PO SCH (09:00)
[2021-07-28] MEDS ORDERED: VITAMIN D 50 MCG PO SCH (09:00)
== END 2021-07-27 14:00 | disposition home health service (06) ==
LOC: FB.ED 21:43 → INTOOBSV 23:44 → FB.MS 23:44
PROVIDERS: ADMIT Family Medicine; ATTEND Family Medicine
DX: S76.211A Strain of adductor muscle, fascia and tendon of right thigh, initial encounter (principal); M84.461A Pathological fracture, right tibia, initial encounter for fracture; R26.2 Difficulty in walking, not elsewhere classified; N30.01 Acute cystitis with hematuria; J44.9 Chronic obstructive pulmonary disease, unspecified; K21.9 Gastro-esophageal reflux disease without esophagitis; F41.9 Anxiety disorder, unspecified; F32.9 Major depressive disorder, single episode, unspecified; G40.909 Epilepsy, unspecified, not intractable, without status epilepticus; Z90.49 Acquired absence of other specified parts of digestive tract; Z98.890 Other specified postprocedural states; Z87.891 Personal history of nicotine dependence; Z79.899 Other long term (current) drug therapy; Z79.82 Long term (current) use of aspirin; Z01.812 Encounter for preprocedural laboratory examination; Z20.822 Contact with and (suspected) exposure to COVID-19
CPT/HCPCS: 36415; 73560-RT; 73718-RT; 73721-RT; 80053; 85025; 97110-GP; 97116-GP; 97161-GP; 97165-GO; 97530-GP; 97535-GO; 99285-25; A9270-GY; G0378; J0696; J1650; J7030; U0002

== ENCOUNTER 2021-10-11 14:10 | Inpatient (IN) | payer MEDICARE ==
[2021-10-11] MEDS ORDERED: Bisacodyl 10 MG Supp RECTAL PRN (16:53)
[2021-10-11] MEDS ORDERED: Albuterol 0.083% 2.5 MG/3 ML Neb Soln INH PRN (16:53)
[2021-10-11] MEDS ORDERED: cefTRIAXone 1 GM Vial IVPUSH SCH (17:00)
[2021-10-11] MEDS ORDERED: cefTRIAXone 1 GM Vial IM ONE (17:15)
[2021-10-11] MEDS: oxyCODONE 5 MG Tab PO PRN (17:32)
[2021-10-11] MEDS: Acetaminophen 500 MG Tab PO SCH (20:07)
[2021-10-11] MEDS: Calcium Carbonate 500 MG Tablet PO SCH (20:08)
[2021-10-11] MEDS: Celecoxib 100 MG Cap PO SCH (20:08)
[2021-10-11] MEDS: Melatonin 3 MG Tab PO SCH (20:09)
[2021-10-11] MEDS: Cholecalciferol (Vitamin D3) 25 MCG Tab PO SCH (20:10)
[2021-10-11] MEDS: Phenytoin 100 MG Cap.ER PO SCH (20:10)
[2021-10-11] MEDS: PHENobarbital 32.4 MG Tab PO SCH (20:58)
[2021-10-12] MEDS: oxyCODONE 5 MG Tab PO PRN (05:00)
[2021-10-12] MEDS: Pantoprazole 40 MG Tab.CR PO SCH (05:39)
[2021-10-12] MEDS ORDERED: Sertraline 50 MG Tab PO SCH (09:00)
[2021-10-12] MEDS: Calcium Carbonate 500 MG Tablet PO SCH ×2 (09:21→20:31)
[2021-10-12] MEDS: Acetaminophen 500 MG Tab PO SCH ×3 (09:21→20:33)
[2021-10-12] MEDS: Sertraline 25 MG Tab PO SCH (09:22)
[2021-10-12] MEDS: Phenytoin 100 MG Cap.ER PO SCH ×2 (09:22→20:33)
[2021-10-12] MEDS: Cholecalciferol (Vitamin D3) 25 MCG Tab PO SCH ×2 (09:22→20:38)
[2021-10-12] MEDS: Folic Acid 1 MG Tab PO SCH (09:22)
[2021-10-12] MEDS: Phenytoin 30 MG Cap.ER PO SCH (09:23)
[2021-10-12] MEDS: Celecoxib 100 MG Cap PO SCH ×2 (09:24→20:31)
[2021-10-12] MEDS: Cranberry 500 MG Cap PO SCH (09:24)
[2021-10-12] MEDS: Enoxaparin 40 MG/0.4 ML Syringe SUBCUT SCH (09:25)
[2021-10-12] MEDS: Formoterol/Mometasone 200-5 MCG 8.8 GM Inhaler IH SCH ×2 (09:26→20:30)
[2021-10-12] MEDS: PHENobarbital 32.4 MG Tab PO SCH ×2 (11:35→20:42)
[2021-10-12] MEDS: Melatonin 3 MG Tab PO SCH (20:30)
[2021-10-13] MEDS: oxyCODONE 5 MG Tab PO PRN ×3 (00:02→18:11)
[2021-10-13] MEDS: Pantoprazole 40 MG Tab.CR PO SCH (05:34)
[2021-10-13] MEDS: Cranberry 500 MG Cap PO SCH (09:10)
[2021-10-13] MEDS: Phenytoin 100 MG Cap.ER PO SCH ×2 (09:10→20:27)
[2021-10-13] MEDS: Formoterol/Mometasone 200-5 MCG 8.8 GM Inhaler IH SCH ×2 (09:11→20:24)
[2021-10-13] MEDS: Celecoxib 100 MG Cap PO SCH ×2 (09:11→20:24)
[2021-10-13] MEDS: Phenytoin 30 MG Cap.ER PO SCH (09:11)
[2021-10-13] MEDS: Calcium Carbonate 500 MG Tablet PO SCH ×2 (09:12→20:24)
[2021-10-13] MEDS: Acetaminophen 500 MG Tab PO SCH ×3 (09:12→20:25)
[2021-10-13] MEDS: Enoxaparin 40 MG/0.4 ML Syringe SUBCUT SCH (09:12)
[2021-10-13] MEDS: Folic Acid 1 MG Tab PO SCH (09:12)
[2021-10-13] MEDS: Cholecalciferol (Vitamin D3) 25 MCG Tab PO SCH ×2 (09:13→20:26)
[2021-10-13] MEDS: Sertraline 25 MG Tab PO SCH (09:14)
[2021-10-13] MEDS: PHENobarbital 32.4 MG Tab PO SCH ×2 (09:17→20:31)
[2021-10-13] MEDS: Melatonin 3 MG Tab PO SCH (20:24)
[2021-10-14] MEDS: Pantoprazole 40 MG Tab.CR PO SCH (06:07)
[2021-10-14] MEDS: oxyCODONE 5 MG Tab PO PRN ×3 (06:35→23:19)
[2021-10-14] MEDS: Celecoxib 100 MG Cap PO SCH ×2 (10:38→20:30)
[2021-10-14] MEDS: Phenytoin 100 MG Cap.ER PO SCH ×2 (10:38→20:29)
[2021-10-14] MEDS: Cranberry 500 MG Cap PO SCH (10:38)
[2021-10-14] MEDS: Calcium Carbonate 500 MG Tablet PO SCH ×2 (10:39→20:30)
[2021-10-14] MEDS: Cholecalciferol (Vitamin D3) 25 MCG Tab PO SCH ×2 (10:39→20:30)
[2021-10-14] MEDS: Acetaminophen 500 MG Tab PO SCH ×3 (10:40→20:29)
[2021-10-14] MEDS: Sertraline 25 MG Tab PO SCH (10:40)
[2021-10-14] MEDS: Enoxaparin 40 MG/0.4 ML Syringe SUBCUT SCH (10:40)
[2021-10-14] MEDS: Formoterol/Mometasone 200-5 MCG 8.8 GM Inhaler IH SCH ×2 (10:41→20:28)
[2021-10-14] MEDS: Folic Acid 1 MG Tab PO SCH (10:42)
[2021-10-14] MEDS: Phenytoin 30 MG Cap.ER PO SCH (10:42)
[2021-10-14] MEDS: PHENobarbital 32.4 MG Tab PO SCH ×2 (11:00→20:30)
[2021-10-14] MEDS: Melatonin 3 MG Tab PO SCH (20:30)
[2021-10-15] MEDS: Pantoprazole 40 MG Tab.CR PO SCH (06:00)
[2021-10-15] MEDS: Celecoxib 100 MG Cap PO SCH ×2 (09:44→20:44)
[2021-10-15] MEDS: Polyethylene Glycol 3350 Powder 17 GM Packet PO PRN (09:44)
[2021-10-15] MEDS: Folic Acid 1 MG Tab PO SCH (09:46)
[2021-10-15] MEDS: Acetaminophen 500 MG Tab PO SCH ×3 (09:46→20:42)
[2021-10-15] MEDS: Cholecalciferol (Vitamin D3) 25 MCG Tab PO SCH ×2 (09:46→20:44)
[2021-10-15] MEDS: Sertraline 25 MG Tab PO SCH (09:46)
[2021-10-15] MEDS: Formoterol/Mometasone 200-5 MCG 8.8 GM Inhaler IH SCH ×2 (09:47→20:44)
[2021-10-15] MEDS: Calcium Carbonate 500 MG Tablet PO SCH ×2 (09:47→20:43)
[2021-10-15] MEDS: Cranberry 500 MG Cap PO SCH (09:47)
[2021-10-15] MEDS: Phenytoin 100 MG Cap.ER PO SCH ×2 (09:48→20:43)
[2021-10-15] MEDS: Phenytoin 30 MG Cap.ER PO SCH (09:48)
[2021-10-15] MEDS: Enoxaparin 40 MG/0.4 ML Syringe SUBCUT SCH (09:49)
[2021-10-15] MEDS: PHENobarbital 32.4 MG Tab PO SCH ×2 (09:54→20:42)
[2021-10-15] MEDS: oxyCODONE 5 MG Tab PO PRN (18:12)
[2021-10-15] MEDS: Melatonin 3 MG Tab PO SCH (20:43)
[2021-10-16] MEDS: oxyCODONE 5 MG Tab PO PRN ×2 (01:25→14:15)
[2021-10-16] MEDS: Pantoprazole 40 MG Tab.CR PO SCH (05:05)
[2021-10-16] MEDS: Celecoxib 100 MG Cap PO SCH ×2 (09:03→20:06)
[2021-10-16] MEDS: Cranberry 500 MG Cap PO SCH (09:03)
[2021-10-16] MEDS: Phenytoin 30 MG Cap.ER PO SCH (09:03)
[2021-10-16] MEDS: Phenytoin 100 MG Cap.ER PO SCH ×2 (09:03→20:05)
[2021-10-16] MEDS: Sertraline 25 MG Tab PO SCH (09:04)
[2021-10-16] MEDS: Acetaminophen 500 MG Tab PO SCH ×3 (09:04→20:06)
[2021-10-16] MEDS: Folic Acid 1 MG Tab PO SCH (09:04)
[2021-10-16] MEDS: Formoterol/Mometasone 200-5 MCG 8.8 GM Inhaler IH SCH ×2 (09:05→20:07)
[2021-10-16] MEDS: Calcium Carbonate 500 MG Tablet PO SCH ×2 (09:05→20:06)
[2021-10-16] MEDS: Cholecalciferol (Vitamin D3) 25 MCG Tab PO SCH ×2 (09:05→20:05)
[2021-10-16] MEDS: Enoxaparin 40 MG/0.4 ML Syringe SUBCUT SCH (09:06)
[2021-10-16] MEDS: PHENobarbital 32.4 MG Tab PO SCH ×2 (09:10→20:05)
[2021-10-16] MEDS: Melatonin 3 MG Tab PO SCH (20:06)
[2021-10-17] MEDS: Pantoprazole 40 MG Tab.CR PO SCH (06:20)
[2021-10-17] MEDS: oxyCODONE 5 MG Tab PO PRN ×2 (08:39→16:42)
[2021-10-17] MEDS: Cholecalciferol (Vitamin D3) 25 MCG Tab PO SCH ×2 (08:39→20:19)
[2021-10-17] MEDS: Celecoxib 100 MG Cap PO SCH ×2 (08:40→20:10)
[2021-10-17] MEDS: Cranberry 500 MG Cap PO SCH (08:40)
[2021-10-17] MEDS: Acetaminophen 500 MG Tab PO SCH ×3 (08:40→20:17)
[2021-10-17] MEDS: Phenytoin 30 MG Cap.ER PO SCH (08:41)
[2021-10-17] MEDS: Formoterol/Mometasone 200-5 MCG 8.8 GM Inhaler IH SCH ×2 (08:41→20:10)
[2021-10-17] MEDS: Folic Acid 1 MG Tab PO SCH (08:41)
[2021-10-17] MEDS: Phenytoin 100 MG Cap.ER PO SCH ×2 (08:41→20:20)
[2021-10-17] MEDS: Calcium Carbonate 500 MG Tablet PO SCH ×2 (08:42→20:11)
[2021-10-17] MEDS: Enoxaparin 40 MG/0.4 ML Syringe SUBCUT SCH (08:42)
[2021-10-17] MEDS: Sertraline 25 MG Tab PO SCH (08:42)
[2021-10-17] MEDS: PHENobarbital 32.4 MG Tab PO SCH ×2 (08:44→20:27)
[2021-10-17] MEDS: Melatonin 3 MG Tab PO SCH (20:11)
[2021-10-18] MEDS: Pantoprazole 40 MG Tab.CR PO SCH (05:05)
[2021-10-18] MEDS: PHENobarbital 32.4 MG Tab PO SCH ×2 (08:52→20:41)
[2021-10-18] MEDS: oxyCODONE 5 MG Tab PO PRN (08:52)
[2021-10-18] MEDS: Phenytoin 30 MG Cap.ER PO SCH (08:53)
[2021-10-18] MEDS: Folic Acid 1 MG Tab PO SCH (08:53)
[2021-10-18] MEDS: Phenytoin 100 MG Cap.ER PO SCH ×2 (08:53→20:41)
[2021-10-18] MEDS: Celecoxib 100 MG Cap PO SCH (08:53)
[2021-10-18] MEDS: Enoxaparin 40 MG/0.4 ML Syringe SUBCUT SCH (08:54)
[2021-10-18] MEDS: Cholecalciferol (Vitamin D3) 25 MCG Tab PO SCH ×2 (08:54→20:39)
[2021-10-18] MEDS: Formoterol/Mometasone 200-5 MCG 8.8 GM Inhaler IH SCH ×2 (08:54→20:39)
[2021-10-18] MEDS: Sertraline 25 MG Tab PO SCH (08:54)
[2021-10-18] MEDS: Acetaminophen 500 MG Tab PO SCH ×3 (08:54→20:40)
[2021-10-18] MEDS: Calcium Carbonate 500 MG Tablet PO SCH ×2 (08:54→20:39)
[2021-10-18] MEDS: Cranberry 500 MG Cap PO SCH (08:54)
[2021-10-18] MEDS: Melatonin 3 MG Tab PO SCH (20:39)
[2021-10-19] MEDS: oxyCODONE 5 MG Tab PO PRN ×2 (01:07→08:42)
[2021-10-19] MEDS: Pantoprazole 40 MG Tab.CR PO SCH (06:30)
[2021-10-19] MEDS: Phenytoin 30 MG Cap.ER PO SCH (08:41)
[2021-10-19] MEDS: Cranberry 500 MG Cap PO SCH (08:41)
[2021-10-19] MEDS: Formoterol/Mometasone 200-5 MCG 8.8 GM Inhaler IH SCH ×2 (08:41→20:26)
[2021-10-19] MEDS: PHENobarbital 32.4 MG Tab PO SCH ×2 (08:42→20:28)
[2021-10-19] MEDS: Enoxaparin 40 MG/0.4 ML Syringe SUBCUT SCH (08:42)
[2021-10-19] MEDS: Calcium Carbonate 500 MG Tablet PO SCH ×2 (08:42→20:28)
[2021-10-19] MEDS: Cholecalciferol (Vitamin D3) 25 MCG Tab PO SCH ×2 (08:43→20:28)
[2021-10-19] MEDS: Sertraline 25 MG Tab PO SCH (08:43)
[2021-10-19] MEDS: Acetaminophen 500 MG Tab PO SCH ×3 (08:43→20:27)
[2021-10-19] MEDS: Folic Acid 1 MG Tab PO SCH (08:46)
[2021-10-19] MEDS: Phenytoin 100 MG Cap.ER PO SCH ×2 (08:52→20:27)
[2021-10-19] MEDS: Gabapentin 300 MG Cap PO SCH ×2 (10:56→20:28)
[2021-10-19] MEDS: Melatonin 3 MG Tab PO SCH (20:28)
[2021-10-20] MEDS: oxyCODONE 5 MG Tab PO PRN (02:53)
[2021-10-20] MEDS: Pantoprazole 40 MG Tab.CR PO SCH (05:53)
[2021-10-20] MEDS: Cranberry 500 MG Cap PO SCH (08:39)
[2021-10-20] MEDS: Acetaminophen 500 MG Tab PO SCH ×3 (08:39→20:48)
[2021-10-20] MEDS: Calcium Carbonate 500 MG Tablet PO SCH ×2 (08:42→20:47)
[2021-10-20] MEDS: PHENobarbital 32.4 MG Tab PO SCH ×2 (08:42→20:50)
[2021-10-20] MEDS: Cholecalciferol (Vitamin D3) 25 MCG Tab PO SCH ×2 (08:43→20:49)
[2021-10-20] MEDS: Folic Acid 1 MG Tab PO SCH (08:43)
[2021-10-20] MEDS: Gabapentin 300 MG Cap PO SCH ×2 (08:43→20:50)
[2021-10-20] MEDS: Sertraline 25 MG Tab PO SCH (08:43)
[2021-10-20] MEDS: Formoterol/Mometasone 200-5 MCG 8.8 GM Inhaler IH SCH ×2 (08:44→20:47)
[2021-10-20] MEDS: Phenytoin 30 MG Cap.ER PO SCH (08:44)
[2021-10-20] MEDS: Enoxaparin 40 MG/0.4 ML Syringe SUBCUT SCH (08:44)
[2021-10-20] MEDS: Phenytoin 100 MG Cap.ER PO SCH ×2 (09:18→20:47)
[2021-10-20] MEDS: Melatonin 3 MG Tab PO SCH (20:47)
[2021-10-21] MEDS: Pantoprazole 40 MG Tab.CR PO SCH (06:00)
[2021-10-21] MEDS: Formoterol/Mometasone 200-5 MCG 8.8 GM Inhaler IH SCH ×2 (08:21→20:01)
[2021-10-21] MEDS: Gabapentin 300 MG Cap PO SCH ×2 (08:22→20:02)
[2021-10-21] MEDS: PHENobarbital 32.4 MG Tab PO SCH ×2 (08:22→20:14)
[2021-10-21] MEDS: Cranberry 500 MG Cap PO SCH (08:22)
[2021-10-21] MEDS: oxyCODONE 5 MG Tab PO PRN (08:22)
[2021-10-21] MEDS: Calcium Carbonate 500 MG Tablet PO SCH ×2 (08:23→20:06)
[2021-10-21] MEDS: Sertraline 25 MG Tab PO SCH (08:23)
[2021-10-21] MEDS: Phenytoin 30 MG Cap.ER PO SCH (08:23)
[2021-10-21] MEDS: Acetaminophen 500 MG Tab PO SCH ×2 (08:23→13:09)
[2021-10-21] MEDS: Phenytoin 100 MG Cap.ER PO SCH ×2 (08:23→20:05)
[2021-10-21] MEDS: Cholecalciferol (Vitamin D3) 25 MCG Tab PO SCH ×2 (08:24→20:05)
[2021-10-21] MEDS: Enoxaparin 40 MG/0.4 ML Syringe SUBCUT SCH (08:24)
[2021-10-21] MEDS: Folic Acid 1 MG Tab PO SCH (08:24)
[2021-10-21] MEDS: Melatonin 3 MG Tab PO SCH (20:02)
[2021-10-22] MEDS: oxyCODONE 5 MG Tab PO PRN ×2 (06:09→20:43)
[2021-10-22] MEDS: Pantoprazole 40 MG Tab.CR PO SCH (06:09)
[2021-10-22] MEDS: Enoxaparin 40 MG/0.4 ML Syringe SUBCUT SCH (09:03)
[2021-10-22] MEDS: Formoterol/Mometasone 200-5 MCG 8.8 GM Inhaler IH SCH ×2 (09:03→20:29)
[2021-10-22] MEDS: Cranberry 500 MG Cap PO SCH (09:04)
[2021-10-22] MEDS: Phenytoin 30 MG Cap.ER PO SCH (09:04)
[2021-10-22] MEDS: Phenytoin 100 MG Cap.ER PO SCH ×2 (09:04→20:30)
[2021-10-22] MEDS: Cholecalciferol (Vitamin D3) 25 MCG Tab PO SCH ×2 (09:04→20:30)
[2021-10-22] MEDS: Sertraline 25 MG Tab PO SCH (09:04)
[2021-10-22] MEDS: Folic Acid 1 MG Tab PO SCH (09:04)
[2021-10-22] MEDS: Calcium Carbonate 500 MG Tablet PO SCH ×2 (09:04→20:30)
[2021-10-22] MEDS: Gabapentin 300 MG Cap PO SCH ×2 (09:05→20:32)
[2021-10-22] MEDS: PHENobarbital 32.4 MG Tab PO SCH ×2 (09:05→20:32)
[2021-10-22] MEDS: Melatonin 3 MG Tab PO SCH (20:30)
[2021-10-23] MEDS: Pantoprazole 40 MG Tab.CR PO SCH (06:20)
[2021-10-23] MEDS: Folic Acid 1 MG Tab PO SCH (09:28)
[2021-10-23] MEDS: Gabapentin 300 MG Cap PO SCH ×2 (09:28→20:41)
[2021-10-23] MEDS: Phenytoin 100 MG Cap.ER PO SCH ×2 (09:28→20:16)
[2021-10-23] MEDS: Cranberry 500 MG Cap PO SCH (09:28)
[2021-10-23] MEDS: Sertraline 25 MG Tab PO SCH (09:28)
[2021-10-23] MEDS: Calcium Carbonate 500 MG Tablet PO SCH ×2 (09:28→20:15)
[2021-10-23] MEDS: PHENobarbital 32.4 MG Tab PO SCH ×2 (09:28→20:41)
[2021-10-23] MEDS: Phenytoin 30 MG Cap.ER PO SCH (09:29)
[2021-10-23] MEDS: Enoxaparin 40 MG/0.4 ML Syringe SUBCUT SCH (09:29)
[2021-10-23] MEDS: Cholecalciferol (Vitamin D3) 25 MCG Tab PO SCH ×2 (09:29→20:17)
[2021-10-23] MEDS: Formoterol/Mometasone 200-5 MCG 8.8 GM Inhaler IH SCH ×2 (09:29→20:12)
[2021-10-23] MEDS: oxyCODONE 5 MG Tab PO PRN (16:45)
[2021-10-23] MEDS: Melatonin 3 MG Tab PO SCH (20:14)
[2021-10-24] MEDS: Pantoprazole 40 MG Tab.CR PO SCH (05:31)
[2021-10-24] MEDS: Cranberry 500 MG Cap PO SCH (09:20)
[2021-10-24] MEDS: Phenytoin 30 MG Cap.ER PO SCH (09:20)
[2021-10-24] MEDS: Phenytoin 100 MG Cap.ER PO SCH ×2 (09:20→20:03)
[2021-10-24] MEDS: Gabapentin 300 MG Cap PO SCH ×2 (09:21→20:03)
[2021-10-24] MEDS: Cholecalciferol (Vitamin D3) 25 MCG Tab PO SCH ×2 (09:21→20:03)
[2021-10-24] MEDS: Calcium Carbonate 500 MG Tablet PO SCH ×2 (09:21→20:03)
[2021-10-24] MEDS: PHENobarbital 32.4 MG Tab PO SCH ×2 (09:21→20:03)
[2021-10-24] MEDS: Enoxaparin 40 MG/0.4 ML Syringe SUBCUT SCH (09:21)
[2021-10-24] MEDS: Formoterol/Mometasone 200-5 MCG 8.8 GM Inhaler IH SCH ×2 (09:21→20:02)
[2021-10-24] MEDS: Sertraline 25 MG Tab PO SCH (09:21)
[2021-10-24] MEDS: Folic Acid 1 MG Tab PO SCH (09:21)
[2021-10-24] MEDS: oxyCODONE 5 MG Tab PO PRN ×2 (10:54→20:04)
[2021-10-24] MEDS: Polyethylene Glycol 3350 Powder 17 GM Packet PO PRN (10:54)
[2021-10-24] MEDS: Melatonin 3 MG Tab PO SCH (20:02)
[2021-10-25] MEDS: Pantoprazole 40 MG Tab.CR PO SCH (05:11)
[2021-10-25] MEDS: Enoxaparin 40 MG/0.4 ML Syringe SUBCUT SCH (08:07)
[2021-10-25] MEDS: Calcium Carbonate 500 MG Tablet PO SCH ×2 (08:08→20:11)
[2021-10-25] MEDS: Gabapentin 300 MG Cap PO SCH ×2 (08:08→20:10)
[2021-10-25] MEDS: Phenytoin 100 MG Cap.ER PO SCH ×2 (08:08→20:11)
[2021-10-25] MEDS: Folic Acid 1 MG Tab PO SCH (08:08)
[2021-10-25] MEDS: Phenytoin 30 MG Cap.ER PO SCH (08:08)
[2021-10-25] MEDS: Sertraline 25 MG Tab PO SCH (08:08)
[2021-10-25] MEDS: Cranberry 500 MG Cap PO SCH (08:09)
[2021-10-25] MEDS: Formoterol/Mometasone 200-5 MCG 8.8 GM Inhaler IH SCH ×2 (08:09→20:10)
[2021-10-25] MEDS: Cholecalciferol (Vitamin D3) 25 MCG Tab PO SCH ×2 (08:09→20:11)
[2021-10-25] MEDS: PHENobarbital 32.4 MG Tab PO SCH ×2 (08:09→20:11)
[2021-10-25] MEDS: Nystatin Topical Powder 15 GM Bottle TOP SCH ×2 (11:05→20:10)
[2021-10-25] MEDS: Mirabegron 25 MG Tab Extended Release PO SCH (11:07)
[2021-10-25] MEDS: Acetaminophen 500 MG Tab PO SCH ×2 (14:51→20:09)
[2021-10-25] MEDS: Ibuprofen 200 MG Tab PO SCH ×2 (14:54→20:10)
[2021-10-25] MEDS: Melatonin 3 MG Tab PO SCH (20:10)
[2021-10-26] MEDS: Ibuprofen 200 MG Tab PO SCH ×4 (02:45→20:07)
[2021-10-26] MEDS: Acetaminophen 500 MG Tab PO SCH ×4 (02:45→20:08)
[2021-10-26] MEDS ORDERED: Calcium Carbonate 500 MG Tab.Chew PO PRN (03:26)
[2021-10-26] MEDS: Pantoprazole 40 MG Tab.CR PO SCH (05:48)
[2021-10-26] MEDS: Formoterol/Mometasone 200-5 MCG 8.8 GM Inhaler IH SCH ×2 (10:02→20:07)
[2021-10-26] MEDS: Enoxaparin 40 MG/0.4 ML Syringe SUBCUT SCH (10:02)
[2021-10-26] MEDS: Cholecalciferol (Vitamin D3) 25 MCG Tab PO SCH ×2 (10:03→20:12)
[2021-10-26] MEDS: Sertraline 25 MG Tab PO SCH (10:03)
[2021-10-26] MEDS: PHENobarbital 32.4 MG Tab PO SCH ×2 (10:03→20:17)
[2021-10-26] MEDS: Mirabegron 25 MG Tab Extended Release PO SCH (10:03)
[2021-10-26] MEDS: Phenytoin 100 MG Cap.ER PO SCH ×2 (10:04→20:11)
[2021-10-26] MEDS: Gabapentin 300 MG Cap PO SCH ×2 (10:04→20:10)
[2021-10-26] MEDS: Nystatin Topical Powder 15 GM Bottle TOP SCH ×2 (10:04→20:05)
[2021-10-26] MEDS: Phenytoin 30 MG Cap.ER PO SCH (10:04)
[2021-10-26] MEDS: Cranberry 500 MG Cap PO SCH (10:04)
[2021-10-26] MEDS: Calcium Carbonate 500 MG Tablet PO SCH ×2 (10:04→20:10)
[2021-10-26] MEDS: Folic Acid 1 MG Tab PO SCH (10:04)
[2021-10-26] MEDS: Polyethylene Glycol 3350 Powder 17 GM Packet PO SCH (10:05)
[2021-10-26] MEDS: Melatonin 3 MG Tab PO SCH (20:09)
[2021-10-27] MEDS: Acetaminophen 500 MG Tab PO SCH ×4 (02:34→20:02)
[2021-10-27] MEDS: Ibuprofen 200 MG Tab PO SCH ×4 (02:36→20:01)
[2021-10-27] MEDS: Pantoprazole 40 MG Tab.CR PO SCH (05:21)
[2021-10-27] MEDS: Formoterol/Mometasone 200-5 MCG 8.8 GM Inhaler IH SCH ×2 (08:09→20:01)
[2021-10-27] MEDS: Mirabegron 25 MG Tab Extended Release PO SCH (08:11)
[2021-10-27] MEDS: Cranberry 500 MG Cap PO SCH (08:11)
[2021-10-27] MEDS: Folic Acid 1 MG Tab PO SCH (08:12)
[2021-10-27] MEDS: Cholecalciferol (Vitamin D3) 25 MCG Tab PO SCH ×2 (08:12→20:09)
[2021-10-27] MEDS: Sertraline 25 MG Tab PO SCH (08:12)
[2021-10-27] MEDS: Enoxaparin 40 MG/0.4 ML Syringe SUBCUT SCH (08:13)
[2021-10-27] MEDS: Phenytoin 30 MG Cap.ER PO SCH (08:13)
[2021-10-27] MEDS: Phenytoin 100 MG Cap.ER PO SCH ×2 (08:13→20:07)
[2021-10-27] MEDS: Calcium Carbonate 500 MG Tablet PO SCH ×2 (08:13→20:06)
[2021-10-27] MEDS: Nystatin Topical Powder 15 GM Bottle TOP SCH ×2 (08:14→20:00)
[2021-10-27] MEDS: Polyethylene Glycol 3350 Powder 17 GM Packet PO SCH (08:14)
[2021-10-27] MEDS: Gabapentin 300 MG Cap PO SCH ×2 (08:21→20:06)
[2021-10-27] MEDS: PHENobarbital 32.4 MG Tab PO SCH ×2 (08:21→20:06)
[2021-10-27] MEDS: Melatonin 3 MG Tab PO SCH (20:05)
[2021-10-28] MEDS: Ibuprofen 200 MG Tab PO SCH ×4 (03:00→20:32)
[2021-10-28] MEDS: Acetaminophen 500 MG Tab PO SCH ×4 (03:00→20:29)
[2021-10-28] MEDS: Pantoprazole 40 MG Tab.CR PO SCH (05:06)
[2021-10-28] MEDS: Phenytoin 30 MG Cap.ER PO SCH (09:11)
[2021-10-28] MEDS: Phenytoin 100 MG Cap.ER PO SCH ×2 (09:12→20:37)
[2021-10-28] MEDS: Formoterol/Mometasone 200-5 MCG 8.8 GM Inhaler IH SCH ×2 (09:17→20:33)
[2021-10-28] MEDS: Cranberry 500 MG Cap PO SCH (09:17)
[2021-10-28] MEDS: Folic Acid 1 MG Tab PO SCH (09:18)
[2021-10-28] MEDS: Enoxaparin 40 MG/0.4 ML Syringe SUBCUT SCH (09:18)
[2021-10-28] MEDS: Polyethylene Glycol 3350 Powder 17 GM Packet PO SCH (09:20)
[2021-10-28] MEDS: Mirabegron 25 MG Tab Extended Release PO SCH (09:20)
[2021-10-28] MEDS: Calcium Carbonate 500 MG Tablet PO SCH ×2 (09:20→20:34)
[2021-10-28] MEDS: Cholecalciferol (Vitamin D3) 25 MCG Tab PO SCH ×2 (09:21→20:38)
[2021-10-28] MEDS: Sertraline 25 MG Tab PO SCH (09:22)
[2021-10-28] MEDS: PHENobarbital 32.4 MG Tab PO SCH ×2 (09:25→20:47)
[2021-10-28] MEDS: Gabapentin 300 MG Cap PO SCH ×2 (09:25→20:47)
[2021-10-28] MEDS: Nystatin Topical Powder 15 GM Bottle TOP SCH ×2 (09:27→20:43)
[2021-10-28] MEDS: Melatonin 3 MG Tab PO SCH (20:34)
[2021-10-29] MEDS: Ibuprofen 200 MG Tab PO SCH ×4 (05:23→20:16)
[2021-10-29] MEDS: Acetaminophen 500 MG Tab PO SCH ×4 (05:24→20:17)
[2021-10-29] MEDS: Pantoprazole 40 MG Tab.CR PO SCH (05:25)
[2021-10-29] MEDS: Phenytoin 100 MG Cap.ER PO SCH ×2 (09:13→20:19)
[2021-10-29] MEDS: Cholecalciferol (Vitamin D3) 25 MCG Tab PO SCH ×2 (09:14→20:20)
[2021-10-29] MEDS: Phenytoin 30 MG Cap.ER PO SCH (09:14)
[2021-10-29] MEDS: Calcium Carbonate 500 MG Tablet PO SCH ×2 (09:14→20:18)
[2021-10-29] MEDS: Mirabegron 25 MG Tab Extended Release PO SCH (09:14)
[2021-10-29] MEDS: Sertraline 25 MG Tab PO SCH (09:14)
[2021-10-29] MEDS: PHENobarbital 32.4 MG Tab PO SCH ×2 (09:14→20:13)
[2021-10-29] MEDS: Cranberry 500 MG Cap PO SCH (09:15)
[2021-10-29] MEDS: Nystatin Topical Powder 15 GM Bottle TOP SCH ×2 (09:15→20:14)
[2021-10-29] MEDS: Polyethylene Glycol 3350 Powder 17 GM Packet PO SCH (09:15)
[2021-10-29] MEDS: Folic Acid 1 MG Tab PO SCH (09:15)
[2021-10-29] MEDS: Formoterol/Mometasone 200-5 MCG 8.8 GM Inhaler IH SCH ×2 (09:15→20:14)
[2021-10-29] MEDS: Gabapentin 300 MG Cap PO SCH ×2 (09:15→20:13)
[2021-10-29] MEDS: Enoxaparin 40 MG/0.4 ML Syringe SUBCUT SCH (09:16)
[2021-10-29] MEDS: Melatonin 3 MG Tab PO SCH (20:15)
[2021-10-30] MEDS: Acetaminophen 500 MG Tab PO SCH ×4 (03:02→20:25)
[2021-10-30] MEDS: Ibuprofen 200 MG Tab PO SCH ×4 (03:03→20:26)
[2021-10-30] MEDS: Pantoprazole 40 MG Tab.CR PO SCH (05:59)
[2021-10-30] MEDS: Polyethylene Glycol 3350 Powder 17 GM Packet PO SCH (09:50)
[2021-10-30] MEDS: Sertraline 25 MG Tab PO SCH (09:51)
[2021-10-30] MEDS: Cholecalciferol (Vitamin D3) 25 MCG Tab PO SCH ×2 (09:52→20:33)
[2021-10-30] MEDS: PHENobarbital 32.4 MG Tab PO SCH ×2 (09:52→20:37)
[2021-10-30] MEDS: Phenytoin 100 MG Cap.ER PO SCH ×2 (09:52→20:31)
[2021-10-30] MEDS: Nystatin Topical Powder 15 GM Bottle TOP SCH ×2 (09:53→20:29)
[2021-10-30] MEDS: Phenytoin 30 MG Cap.ER PO SCH (09:53)
[2021-10-30] MEDS: Gabapentin 300 MG Cap PO SCH ×2 (09:53→20:37)
[2021-10-30] MEDS: Mirabegron 25 MG Tab Extended Release PO SCH (09:54)
[2021-10-30] MEDS: Folic Acid 1 MG Tab PO SCH (09:54)
[2021-10-30] MEDS: Calcium Carbonate 500 MG Tablet PO SCH ×2 (09:54→20:28)
[2021-10-30] MEDS: Formoterol/Mometasone 200-5 MCG 8.8 GM Inhaler IH SCH ×2 (09:54→20:24)
[2021-10-30] MEDS: Enoxaparin 40 MG/0.4 ML Syringe SUBCUT SCH (09:54)
[2021-10-30] MEDS: Cranberry 500 MG Cap PO SCH (09:54)
[2021-10-30] MEDS: oxyCODONE 5 MG Tab PO PRN (16:44)
[2021-10-30] MEDS: Melatonin 3 MG Tab PO SCH (20:28)
[2021-10-31] MEDS: Acetaminophen 500 MG Tab PO SCH ×4 (04:11→20:29)
[2021-10-31] MEDS: Ibuprofen 200 MG Tab PO SCH ×4 (04:11→20:28)
[2021-10-31] MEDS: Pantoprazole 40 MG Tab.CR PO SCH (05:50)
[2021-10-31] MEDS: Sertraline 25 MG Tab PO SCH (09:23)
[2021-10-31] MEDS: Cranberry 500 MG Cap PO SCH (09:23)
[2021-10-31] MEDS: Folic Acid 1 MG Tab PO SCH (09:23)
[2021-10-31] MEDS: Cholecalciferol (Vitamin D3) 25 MCG Tab PO SCH ×2 (09:23→20:33)
[2021-10-31] MEDS: Gabapentin 300 MG Cap PO SCH ×2 (09:23→20:31)
[2021-10-31] MEDS: Phenytoin 30 MG Cap.ER PO SCH (09:23)
[2021-10-31] MEDS: Mirabegron 25 MG Tab Extended Release PO SCH (09:23)
[2021-10-31] MEDS: PHENobarbital 32.4 MG Tab PO SCH ×2 (09:23→20:31)
[2021-10-31] MEDS: Phenytoin 100 MG Cap.ER PO SCH ×2 (09:24→20:32)
[2021-10-31] MEDS: Formoterol/Mometasone 200-5 MCG 8.8 GM Inhaler IH SCH ×2 (09:24→20:27)
[2021-10-31] MEDS: Nystatin Topical Powder 15 GM Bottle TOP SCH ×2 (09:24→20:29)
[2021-10-31] MEDS: Calcium Carbonate 500 MG Tablet PO SCH ×2 (11:30→20:31)
[2021-10-31] MEDS: Polyethylene Glycol 3350 Powder 17 GM Packet PO SCH (11:52)
[2021-10-31] MEDS: Enoxaparin 40 MG/0.4 ML Syringe SUBCUT SCH (11:52)
[2021-10-31] MEDS: Melatonin 3 MG Tab PO SCH (20:30)
[2021-11-01] MEDS: Ibuprofen 200 MG Tab PO SCH ×4 (02:02→20:23)
[2021-11-01] MEDS: Acetaminophen 500 MG Tab PO SCH ×4 (02:03→20:24)
[2021-11-01] MEDS: Pantoprazole 40 MG Tab.CR PO SCH (05:38)
[2021-11-01] MEDS: Phenytoin 30 MG Cap.ER PO SCH (09:49)
[2021-11-01] MEDS: Sertraline 25 MG Tab PO SCH (09:50)
[2021-11-01] MEDS: Cranberry 500 MG Cap PO SCH (09:50)
[2021-11-01] MEDS: Gabapentin 300 MG Cap PO SCH ×2 (09:50→20:25)
[2021-11-01] MEDS: Mirabegron 25 MG Tab Extended Release PO SCH (09:50)
[2021-11-01] MEDS: Cholecalciferol (Vitamin D3) 25 MCG Tab PO SCH ×2 (09:50→20:27)
[2021-11-01] MEDS: PHENobarbital 32.4 MG Tab PO SCH ×2 (09:50→20:26)
[2021-11-01] MEDS: Phenytoin 100 MG Cap.ER PO SCH ×2 (09:50→20:27)
[2021-11-01] MEDS: Folic Acid 1 MG Tab PO SCH (09:50)
[2021-11-01] MEDS: Calcium Carbonate 500 MG Tablet PO SCH ×2 (09:50→20:26)
[2021-11-01] MEDS: Enoxaparin 40 MG/0.4 ML Syringe SUBCUT SCH (09:50)
[2021-11-01] MEDS: Polyethylene Glycol 3350 Powder 17 GM Packet PO SCH (09:51)
[2021-11-01] MEDS: Formoterol/Mometasone 200-5 MCG 8.8 GM Inhaler IH SCH ×2 (09:51→20:22)
[2021-11-01] MEDS: Nystatin Topical Powder 15 GM Bottle TOP SCH ×2 (09:54→20:21)
[2021-11-01] MEDS: Melatonin 3 MG Tab PO SCH (20:25)
[2021-11-02] MEDS: Ibuprofen 200 MG Tab PO SCH ×4 (02:10→20:17)
[2021-11-02] MEDS: Acetaminophen 500 MG Tab PO SCH ×4 (02:11→20:18)
[2021-11-02] MEDS: Pantoprazole 40 MG Tab.CR PO SCH (05:43)
[2021-11-02] MEDS: PHENobarbital 32.4 MG Tab PO SCH ×2 (08:31→20:19)
[2021-11-02] MEDS: Gabapentin 300 MG Cap PO SCH ×2 (08:31→20:19)
[2021-11-02] MEDS: Calcium Carbonate 500 MG Tablet PO SCH ×2 (08:31→20:19)
[2021-11-02] MEDS: Cholecalciferol (Vitamin D3) 25 MCG Tab PO SCH ×2 (08:31→20:21)
[2021-11-02] MEDS: Phenytoin 100 MG Cap.ER PO SCH ×2 (08:31→20:20)
[2021-11-02] MEDS: Folic Acid 1 MG Tab PO SCH (08:32)
[2021-11-02] MEDS: Mirabegron 25 MG Tab Extended Release PO SCH (08:32)
[2021-11-02] MEDS: Nystatin Topical Powder 15 GM Bottle TOP SCH ×2 (08:32→20:16)
[2021-11-02] MEDS: Polyethylene Glycol 3350 Powder 17 GM Packet PO SCH (08:32)
[2021-11-02] MEDS: Enoxaparin 40 MG/0.4 ML Syringe SUBCUT SCH (08:32)
[2021-11-02] MEDS: Phenytoin 30 MG Cap.ER PO SCH (08:34)
[2021-11-02] MEDS: Formoterol/Mometasone 200-5 MCG 8.8 GM Inhaler IH SCH ×2 (08:34→20:16)
[2021-11-02] MEDS: Cranberry 500 MG Cap PO SCH (08:34)
[2021-11-02] MEDS: Sertraline 25 MG Tab PO SCH (08:36)
[2021-11-02] MEDS: Melatonin 3 MG Tab PO SCH (20:18)
[2021-11-03] MEDS: Ibuprofen 200 MG Tab PO SCH ×4 (03:06→21:09)
[2021-11-03] MEDS: Acetaminophen 500 MG Tab PO SCH ×4 (03:07→21:09)
[2021-11-03] MEDS: Pantoprazole 40 MG Tab.CR PO SCH (05:25)
[2021-11-03] MEDS: Cranberry 500 MG Cap PO SCH (09:14)
[2021-11-03] MEDS: Phenytoin 100 MG Cap.ER PO SCH ×2 (09:15→21:08)
[2021-11-03] MEDS: Phenytoin 30 MG Cap.ER PO SCH (09:15)
[2021-11-03] MEDS: Folic Acid 1 MG Tab PO SCH (09:16)
[2021-11-03] MEDS: Formoterol/Mometasone 200-5 MCG 8.8 GM Inhaler IH SCH ×2 (09:16→21:04)
[2021-11-03] MEDS: Polyethylene Glycol 3350 Powder 17 GM Packet PO SCH (09:23)
[2021-11-03] MEDS: Mirabegron 25 MG Tab Extended Release PO SCH (09:24)
[2021-11-03] MEDS: Nystatin Topical Powder 15 GM Bottle TOP SCH ×2 (09:24→21:05)
[2021-11-03] MEDS: Calcium Carbonate 500 MG Tablet PO SCH ×2 (09:24→21:06)
[2021-11-03] MEDS: Sertraline 25 MG Tab PO SCH (09:25)
[2021-11-03] MEDS: Cholecalciferol (Vitamin D3) 25 MCG Tab PO SCH ×2 (09:26→21:08)
[2021-11-03] MEDS: Gabapentin 300 MG Cap PO SCH ×2 (09:35→21:06)
[2021-11-03] MEDS: PHENobarbital 32.4 MG Tab PO SCH ×2 (09:35→21:07)
[2021-11-03] MEDS: Melatonin 3 MG Tab PO SCH (21:06)
[2021-11-04] MEDS: Ibuprofen 200 MG Tab PO SCH ×2 (02:58→09:57)
[2021-11-04] MEDS: Acetaminophen 500 MG Tab PO SCH ×2 (02:59→09:56)
[2021-11-04] MEDS: Pantoprazole 40 MG Tab.CR PO SCH (05:11)
[2021-11-04] MEDS: Phenytoin 30 MG Cap.ER PO SCH (09:57)
[2021-11-04] MEDS: Phenytoin 100 MG Cap.ER PO SCH (09:58)
[2021-11-04] MEDS: Nystatin Topical Powder 15 GM Bottle TOP SCH (09:58)
[2021-11-04] MEDS: Polyethylene Glycol 3350 Powder 17 GM Packet PO SCH (09:58)
[2021-11-04] MEDS: Mirabegron 25 MG Tab Extended Release PO SCH (09:59)
[2021-11-04] MEDS: Folic Acid 1 MG Tab PO SCH (09:59)
[2021-11-04] MEDS: Cranberry 500 MG Cap PO SCH (09:59)
[2021-11-04] MEDS: Sertraline 25 MG Tab PO SCH (10:00)
[2021-11-04] MEDS: Calcium Carbonate 500 MG Tablet PO SCH (10:00)
[2021-11-04] MEDS: Cholecalciferol (Vitamin D3) 25 MCG Tab PO SCH (10:01)
[2021-11-04] MEDS: Formoterol/Mometasone 200-5 MCG 8.8 GM Inhaler IH SCH (10:02)
[2021-11-04] MEDS: PHENobarbital 32.4 MG Tab PO SCH (10:31)
[2021-11-04] MEDS: Gabapentin 300 MG Cap PO SCH (10:32)
== END 2021-11-04 13:30 | disposition home health service (06) | DRG 559 ==
LOC: FB.MS 15:58
PROVIDERS: ADMIT Family Medicine; ATTEND Student in an Organized Health Care Education/Training Program
DX: S32.502D Unspecified fracture of left pubis, subsequent encounter for fracture with routine healing (principal); E43 Unspecified severe protein-calorie malnutrition; F33.9 Major depressive disorder, recurrent, unspecified; S62.102D Fracture of unspecified carpal bone, left wrist, subsequent encounter for fracture with routine healing; S72.002D Fracture of unspecified part of neck of left femur, subsequent encounter for closed fracture with routine healing; J45.909 Unspecified asthma, uncomplicated; G40.909 Epilepsy, unspecified, not intractable, without status epilepticus; Z20.822 Contact with and (suspected) exposure to COVID-19; H54.7 Unspecified visual loss; J44.9 Chronic obstructive pulmonary disease, unspecified; R32 Unspecified urinary incontinence; M81.0 Age-related osteoporosis without current pathological fracture; F41.9 Anxiety disorder, unspecified; Z96.641 Presence of right artificial hip joint; Z66 Do not resuscitate; K21.9 Gastro-esophageal reflux disease without esophagitis; G47.00 Insomnia, unspecified; N32.81 Overactive bladder; Z79.899 Other long term (current) drug therapy; Z87.440 Personal history of urinary (tract) infections; Z90.49 Acquired absence of other specified parts of digestive tract; Z90.710 Acquired absence of both cervix and uterus; Z68.20 Body mass index [BMI] 20.0-20.9, adult
CPT/HCPCS: 51798; 97110-GO; 97110-GP; 97116-GP; 97161-GP; 97166-GO; 97530-GO; 97530-GP; 97535-GO; 97760-GO; 99222; A9270-GY; J0696; J1650; U0002

== ENCOUNTER 2022-07-22 22:20 | Emergency (ER) | payer MEDICARE ==
[2022-07-22] MEDS ORDERED: Nitrofurantoin Monohydrate/Macrocrystalline 100 MG Cap PO ONE (22:21)
[2022-07-22] MEDS ORDERED: Acetaminophen 500 MG Tab PO ONE (22:24)
[2022-07-22] MEDS ORDERED: Sodium Chloride 0.9% 1,000 ML IV SCH (22:30)
[2022-07-22 22:58] LABS: ESTIMATED GFR 93 mL/min (>60)
[2022-07-22 23:32] LABS: CORONAVIRUS COVID-19 NAA NEGATIVE (NEGATIVE)
== END 2022-07-23 01:05 | disposition home or self-care (01) ==
LOC: FB.ED 22:20
DX: N39.0 Urinary tract infection, site not specified (principal); E87.1 Hypo-osmolality and hyponatremia; R74.01 Elevation of levels of liver transaminase levels; J44.9 Chronic obstructive pulmonary disease, unspecified; Z79.899 Other long term (current) drug therapy; Z86.16 Personal history of COVID-19; Z90.49 Acquired absence of other specified parts of digestive tract; Z90.710 Acquired absence of both cervix and uterus; Z20.822 Contact with and (suspected) exposure to COVID-19
CPT/HCPCS: 0240U; 36415; 71045; 80053; 81001; 83605; 84484; 85025; 87040; 87086; 87088; 87186; 96360; 99285; A9270; J7030

== ENCOUNTER 2023-08-19 18:15 | Inpatient (IN) | payer MEDICARE ==
[2023-08-19] MEDS ORDERED: dexAMETHasone 12 MG in Sodium Chloride 0.9% 50 ML IVPUSH ONE (18:52)
[2023-08-19] MEDS ORDERED: Albuterol 6.7 GM Inhaler INH ONE (18:53)
[2023-08-19] MEDS ORDERED: Sodium Chloride 0.9% 1,000 ML IV SCH ×2 (19:00→23:30)
[2023-08-19 19:02] LABS: BASOPHILS PERCENT AUTO 0.4 % (0.2-1.5); HEMATOCRIT 42.7 % (34.2-48.2); HEMOGLOBIN 14.2 g/dL (11.4-15.5); LYMPHOCYTES ABSOLUTE AUTO 0.6 x10-3/uL (1.0-4.4); MEAN CORPUSCULAR HEMOGLOBIN 32.5 pg (23.9-33.9); MEAN CORPUSCULAR HGB CONC 33.3 g/dL (31.9-34.8); MEAN CORPUSCULAR VOLUME 97.8 fL (76.7-100.5); MONOCYTES ABSOLUTE AUTO 0.5 x10-3/uL (0.3-1.0); MONOCYTES PERCENT AUTO 5.7 % (4.4-15.7); NEUTROPHILS ABSOLUTE AUTO 7.1 x10-3/uL (1.5-6.3); NEUTROPHILS PERCENT AUTO 86.9 % (30.8-76.2); PLATELET COUNT,PLT 246 x10(3)uL (151-488); RED BLOOD CELL COUNT 4.37 x10(6)uL (3.60-5.20); RED CELL DISTRIBUTION WIDTH 13.5 % (12.3-16.5); WHITE BLOOD CELL COUNT,WBC 8.1 x10-3/uL (3.0-10.3)
[2023-08-19 19:03] LABS: BLOOD UREA NITROGEN,BUN 6 mg/dL (7-18); CALCIUM 8.6 mg/dL (8.6-10.2); CARBON DIOXIDE,CO2 33 mmol/L (21-32); CHLORIDE,CL 99 mmol/L (100-110); CREATININE 0.6 mg/dL (0.55-1.02); ESTIMATED GFR 96 mL/min (>60); GLUCOSE RANDOM 113 mg/dL (80-116); POTASSIUM,K 4.1 mmol/L (3.5-5.3); SODIUM,NA 138 mmol/L (135-145)
[2023-08-19 19:05] LABS: MAGNESIUM 1.7 mg/dL (1.8-2.5); PHOSPHORUS 2.9 mg/dL (2.6-4.6)
[2023-08-19 19:08] LABS: A/G RATIO 0.7; ALANINE AMINOTRANSFERASE,ALT 35 U/L (12-36); ALBUMIN 3.2 g/dL (3.2-4.6); ALKALINE PHOSPHATASE 182 IU/L (56-112); ASPARTATE AMNIOTRANSFERASE,AST 45 IU/L (5-25); BILIRUBIN TOTAL 0.5 mg/dL (0.1-1.3); PROTEIN TOTAL,TP 7.6 g/dL (6.0-8.0)
[2023-08-19 19:10] LABS: INFLUENZA A NAA NEGATIVE (NEGATIVE); INFLUENZA B NAA NEGATIVE (NEGATIVE); RESPIRATORY SYNCYTIAL VIR NAA NEGATIVE (NEGATIVE)
[2023-08-19 19:11] LABS: CORONAVIRUS COVID-19 NAA POSITIVE (NEGATIVE)
[2023-08-19 19:16] LABS: TROPONIN I 8.2 pg/mL (4.0-60.3); TSH ULTRASENSITIVE 2.17 IU/mL (0.36-3.74)
[2023-08-19 19:17] LABS: C-REACTIVE PROTEIN 3.72 mg/dL (<0.50)
[2023-08-19] MEDS ORDERED: Albuterol 0.083% 2.5 MG/3 ML Neb Soln ONE (19:22)
[2023-08-19] MEDS ORDERED: REMDESIVIR 200 MG in Sodium Chloride 0.9% 250 ML IV ONE (19:35)
[2023-08-19] MEDS ORDERED: Levofloxacin/Dextrose 5%-Water 750 MG in Premix Bag 1 BAG IV ONE (19:38)
[2023-08-19] MEDS ORDERED: Acetaminophen 500 MG Tab PO ONE (19:39)
[2023-08-19] MEDS ORDERED: Iopamidol 755 Mg/ML 100 ML Bottle IV ONE (19:40)
[2023-08-19] MEDS ORDERED: Ketorolac 30 MG/ML SDV IVPUSH ONE (20:42)
[2023-08-19] MEDS: Sodium Chloride 0.9% 1,000 ML IV SCH ×2 (21:14→23:45)
[2023-08-19] MEDS ORDERED: Ondansetron 8 MG Tab.DIS PO ONE (22:38)
[2023-08-19] MEDS ORDERED: Magnesium Sulfate/Water 50 ML ONE (22:46)
[2023-08-19] MEDS ORDERED: Magnesium Sulfate/Water 50 ML IV ONE (23:30)
[2023-08-20] MEDS ORDERED: Acetaminophen 325 MG Tab PO PRN (00:40)
[2023-08-20] MEDS ORDERED: cefTAZidime 1 GM Vial IVPUSH SCH (00:45)
[2023-08-20] MEDS ORDERED: Ondansetron 4 MG Tab.DIS PO PRN (01:38)
[2023-08-20] MEDS ORDERED: Sodium Chloride 0.9% 1,000 ML IV SCH (02:00)
[2023-08-20] MEDS: Melatonin 3 MG Tab PO SCH ×2 (02:19→21:05)
[2023-08-20] MEDS: Enoxaparin 40 MG/0.4 ML Syringe SUBCUT SCH (02:19)
[2023-08-20] MEDS: Phenytoin 100 MG Cap.ER PO SCH ×3 (02:19→21:05)
[2023-08-20] MEDS: PHENobarbital 16.2 MG Tab PO SCH ×2 (02:19→08:43)
[2023-08-20] MEDS: Cefepime 2 GM Vial IVPUSH SCH ×2 (02:20→13:19)
[2023-08-20 03:19] LABS: BILIRUBIN,URINE NEGATIVE (NEGATIVE); GLUCOSE,URINE NORMAL (NORMAL); KETONES,URINE NEGATIVE (NEGATIVE); LEUKOCYTE ESTERASE,URINE SMALL (NEGATIVE); NITRITE,URINE POSITIVE (NEGATIVE); OCCULT BLOOD,URINE NEGATIVE (NEGATIVE); PROTEIN,URINE NEGATIVE (NEGATIVE); UROBILINOGEN,URINE NORMAL (NEGATIVE)
[2023-08-20 03:26] LABS: BACTERIA,URINE MANY (NS); RBC,URINE 0-5 (0-5); SQUAMOUS EPITHELIAL CELLS,UR FEW (NS,R,O)
[2023-08-20 04:03] LABS: APPEARANCE,URINE CLOUDY (CLEAR); COLOR,URINE YELLOW (YELLOW)
[2023-08-20] MEDS: Albuterol/Ipratropium 3.0-0.5 MG/3 ML Neb Soln NEB SCH ×4 (06:55→21:07)
[2023-08-20 07:06] LABS: BASOPHILS PERCENT AUTO 0.1 % (0.2-1.5); HEMATOCRIT 31.8 % (34.2-48.2); HEMOGLOBIN 10.6 g/dL (11.4-15.5); LYMPHOCYTES ABSOLUTE AUTO 0.7 x10-3/uL (1.0-4.4); MEAN CORPUSCULAR HGB CONC 33.5 g/dL (31.9-34.8); MEAN CORPUSCULAR VOLUME 98.7 fL (76.7-100.5); MEAN PLATELET VOLUME 8.2 fL (7.1-12.4); MONOCYTES ABSOLUTE AUTO 0.4 x10-3/uL (0.3-1.0); MONOCYTES PERCENT AUTO 7.8 % (4.4-15.7); NEUTROPHILS ABSOLUTE AUTO 3.8 x10-3/uL (1.5-6.3); NEUTROPHILS PERCENT AUTO 77.1 % (30.8-76.2); PLATELET COUNT,PLT 147 x10(3)uL (151-488); RED BLOOD CELL COUNT 3.22 x10(6)uL (3.60-5.20); RED CELL DISTRIBUTION WIDTH 13.8 % (12.3-16.5)
[2023-08-20 07:08] LABS: BLOOD UREA NITROGEN,BUN 6 mg/dL (7-18); CARBON DIOXIDE,CO2 28 mmol/L (21-32); CHLORIDE,CL 108 mmol/L (100-110); CREATININE 0.5 mg/dL (0.55-1.02); EST CRCL DRUG DOSING (CG) 100.36 mL/min; ESTIMATED GFR 100 mL/min (>60); GLUCOSE RANDOM 100 mg/dL (80-116); MAGNESIUM 2.1 mg/dL (1.8-2.5); POTASSIUM,K 3.8 mmol/L (3.5-5.3); SODIUM,NA 140 mmol/L (135-145)
[2023-08-20 07:09] LABS: INR 1.07 (1.00-1.24)
[2023-08-20] MEDS ORDERED: predniSONE 20 MG Tab PO SCH (08:00)
[2023-08-20] MEDS: Phenytoin 30 MG Cap.ER PO SCH (08:35)
[2023-08-20] MEDS: Famotidine 20 MG Tab PO SCH ×2 (08:36→21:06)
[2023-08-20] MEDS: Mirabegron 25 MG Tab Extended Release PO SCH (08:36)
[2023-08-20] MEDS: Saccharomyces Boulardii (Probiotic) 250 MG Cap PO SCH ×3 (08:36→21:06)
[2023-08-20] MEDS: Sertraline 25 MG Tab PO SCH (08:37)
[2023-08-20] MEDS: Gabapentin 300 MG Cap PO SCH ×2 (08:43→21:07)
[2023-08-20] MEDS ORDERED: METRONIDAZOLE TOP PRN (08:48)
[2023-08-20] MEDS ORDERED: Polyethylene Glycol 3350 Powder 17 GM Packet PO PRN (08:48)
[2023-08-20] MEDS ORDERED: Gabapentin 300 MG Cap PO SCH (09:00)
[2023-08-20] MEDS ORDERED: Phenytoin 100 MG Cap.ER PO SCH ×2 (09:00→21:00)
[2023-08-20] MEDS ORDERED: REMDESIVIR 100 MG in Sodium Chloride 0.9% 100 ML IV SCH (09:00)
[2023-08-20] MEDS ORDERED: Mirabegron 25 MG Tab Extended Release PO SCH (09:00)
[2023-08-20] MEDS ORDERED: methylPREDNISolone Sodium Succinate 40 MG/1 ML SDV IVPUSH SCH (09:00)
[2023-08-20] MEDS ORDERED: PHENOBARBITAL 64.8 MG PO SCH (09:00)
[2023-08-20] MEDS ORDERED: Sertraline 25 MG Tab PO SCH (09:00)
[2023-08-20] MEDS ORDERED: Phenytoin 30 MG Cap.ER PO SCH (09:00)
[2023-08-20] MEDS: Acetaminophen 500 MG Tab PO SCH ×3 (09:38→21:05)
[2023-08-20] MEDS: Sennosides/Docusate Sodium 50-8.6 MG Tab PO SCH (09:39)
[2023-08-20] MEDS: Calcium Carbonate 500 MG Tablet PO SCH ×2 (09:39→21:06)
[2023-08-20] MEDS: Formoterol/Mometasone 200-5 MCG 8.8 GM Inhaler IH SCH ×2 (09:40→21:07)
[2023-08-20] MEDS: Folic Acid 1 MG Tab PO SCH (09:40)
[2023-08-20] MEDS: Cranberry 500 MG Cap PO SCH (09:41)
[2023-08-20] MEDS: Dexamethasone 4 MG/ML SDV IVPUSH SCH (09:42)
[2023-08-20] MEDS ORDERED: Acetaminophen 500 MG Tab PO SCH (14:00)
[2023-08-20] MEDS ORDERED: Melatonin 3 MG Tab PO SCH (21:00)
[2023-08-20] MEDS: PHENobarbital 32.4 MG Tab PO SCH (21:06)
[2023-08-20] MEDS: REMDESIVIR 100 MG in Sodium Chloride 0.9% 100 ML IV SCH (21:08)
[2023-08-21] MEDS: Cefepime 2 GM Vial IVPUSH SCH ×2 (01:08→13:09)
[2023-08-21] MEDS: Enoxaparin 40 MG/0.4 ML Syringe SUBCUT SCH (01:08)
[2023-08-21] MEDS: Acetaminophen 500 MG Tab PO SCH ×4 (04:14→20:01)
[2023-08-21] MEDS: Albuterol/Ipratropium 3.0-0.5 MG/3 ML Neb Soln NEB SCH ×4 (06:23→20:03)
[2023-08-21 07:00] LABS: ALBUMIN 2.4 g/dL (3.2-4.6); BILIRUBIN DIRECT 0.07 mg/dL (0.10-0.20); BILIRUBIN TOTAL 0.3 mg/dL (0.1-1.3); PROTEIN TOTAL,TP 6.1 g/dL (6.0-8.0)
[2023-08-21] MEDS: Calcium Carbonate 500 MG Tablet PO SCH ×2 (08:31→20:02)
[2023-08-21] MEDS: Sertraline 25 MG Tab PO SCH (08:32)
[2023-08-21] MEDS: Gabapentin 300 MG Cap PO SCH ×2 (08:32→20:03)
[2023-08-21] MEDS: Sennosides/Docusate Sodium 50-8.6 MG Tab PO SCH (08:32)
[2023-08-21] MEDS: Saccharomyces Boulardii (Probiotic) 250 MG Cap PO SCH ×3 (08:32→20:03)
[2023-08-21] MEDS: Famotidine 20 MG Tab PO SCH ×2 (08:33→20:02)
[2023-08-21] MEDS: Folic Acid 1 MG Tab PO SCH (08:33)
[2023-08-21] MEDS: Cranberry 500 MG Cap PO SCH (08:33)
[2023-08-21] MEDS: Phenytoin 30 MG Cap.ER PO SCH (08:33)
[2023-08-21] MEDS: Mirabegron 25 MG Tab Extended Release PO SCH (08:33)
[2023-08-21] MEDS: Formoterol/Mometasone 200-5 MCG 8.8 GM Inhaler IH SCH ×2 (08:33→20:03)
[2023-08-21] MEDS: Phenytoin 100 MG Cap.ER PO SCH ×2 (08:34→20:01)
[2023-08-21] MEDS: Dexamethasone 4 MG/ML SDV IVPUSH SCH (08:34)
[2023-08-21] MEDS: PHENobarbital 32.4 MG Tab PO SCH ×2 (09:38→20:02)
[2023-08-21] MEDS: REMDESIVIR 100 MG in Sodium Chloride 0.9% 100 ML IV SCH (20:03)
[2023-08-21] MEDS: Melatonin 3 MG Tab PO SCH (20:03)
[2023-08-21] MEDS: Sodium Chloride 0.9% 10 ML Syringe FLUSH PRN (21:00)
[2023-08-22] MEDS: Acetaminophen 500 MG Tab PO SCH ×4 (01:59→20:22)
[2023-08-22] MEDS: Cefepime 2 GM Vial IVPUSH SCH ×2 (01:59→15:07)
[2023-08-22] MEDS: Albuterol/Ipratropium 3.0-0.5 MG/3 ML Neb Soln NEB SCH ×4 (06:26→20:01)
[2023-08-22] MEDS: Enoxaparin 40 MG/0.4 ML Syringe SUBCUT SCH (06:26)
[2023-08-22 06:39] LABS: BASOPHILS PERCENT AUTO 0.6 % (0.2-1.5); HEMATOCRIT 28.9 % (34.2-48.2); HEMOGLOBIN 9.7 g/dL (11.4-15.5); LYMPHOCYTES ABSOLUTE AUTO 1.2 x10-3/uL (1.0-4.4); LYMPHOCYTES PERCENT AUTO 29.4 % (18.4-52.1); MEAN CORPUSCULAR HEMOGLOBIN 32.7 pg (23.9-33.9); MEAN CORPUSCULAR HGB CONC 33.6 g/dL (31.9-34.8); MEAN CORPUSCULAR VOLUME 97.4 fL (76.7-100.5); MEAN PLATELET VOLUME 7.9 fL (7.1-12.4); MONOCYTES ABSOLUTE AUTO 0.3 x10-3/uL (0.3-1.0); MONOCYTES PERCENT AUTO 8.5 % (4.4-15.7); NEUTROPHILS ABSOLUTE AUTO 2.4 x10-3/uL (1.5-6.3); NEUTROPHILS PERCENT AUTO 61.5 % (30.8-76.2); PLATELET COUNT,PLT 153 x10(3)uL (151-488); RED BLOOD CELL COUNT 2.96 x10(6)uL (3.60-5.20); RED CELL DISTRIBUTION WIDTH 13.8 % (12.3-16.5); WHITE BLOOD CELL COUNT,WBC 3.9 x10-3/uL (3.0-10.3)
[2023-08-22 06:44] LABS: BLOOD UREA NITROGEN,BUN 10 mg/dL (7-18); CALCIUM 8.2 mg/dL (8.6-10.2); CARBON DIOXIDE,CO2 31 mmol/L (21-32); CHLORIDE,CL 107 mmol/L (100-110); CREATININE 0.5 mg/dL (0.55-1.02); EST CRCL DRUG DOSING (CG) 100.36 mL/min; ESTIMATED GFR 100 mL/min (>60); GLUCOSE RANDOM 96 mg/dL (80-116); POTASSIUM,K 3.6 mmol/L (3.5-5.3); SODIUM,NA 141 mmol/L (135-145)
[2023-08-22 07:11] LABS: BILIRUBIN DIRECT 0.06 mg/dL (0.10-0.20); BILIRUBIN TOTAL 0.2 mg/dL (0.1-1.3); PROTEIN TOTAL,TP 5.2 g/dL (6.0-8.0)
[2023-08-22] MEDS: Dexamethasone 4 MG/ML SDV IVPUSH SCH (08:00)
[2023-08-22] MEDS: Sennosides/Docusate Sodium 50-8.6 MG Tab PO SCH (08:00)
[2023-08-22] MEDS: Cranberry 500 MG Cap PO SCH (08:00)
[2023-08-22] MEDS: Calcium Carbonate 500 MG Tablet PO SCH ×2 (08:00→20:22)
[2023-08-22] MEDS: Phenytoin 100 MG Cap.ER PO SCH ×2 (08:00→20:21)
[2023-08-22] MEDS: Phenytoin 30 MG Cap.ER PO SCH (08:00)
[2023-08-22] MEDS: Folic Acid 1 MG Tab PO SCH (08:00)
[2023-08-22] MEDS: Formoterol/Mometasone 200-5 MCG 8.8 GM Inhaler IH SCH ×2 (08:01→20:21)
[2023-08-22] MEDS: Saccharomyces Boulardii (Probiotic) 250 MG Cap PO SCH ×3 (08:01→20:22)
[2023-08-22] MEDS: Sertraline 25 MG Tab PO SCH (08:01)
[2023-08-22] MEDS: Famotidine 20 MG Tab PO SCH ×2 (08:01→20:23)
[2023-08-22] MEDS: Mirabegron 25 MG Tab Extended Release PO SCH (08:01)
[2023-08-22] MEDS: Gabapentin 300 MG Cap PO SCH ×2 (08:35→20:21)
[2023-08-22] MEDS: PHENobarbital 32.4 MG Tab PO SCH ×2 (09:35→20:22)
[2023-08-22] MEDS: Sodium Chloride 0.9% 10 ML Syringe FLUSH PRN (20:05)
[2023-08-22] MEDS: Melatonin 3 MG Tab PO SCH (20:22)
[2023-08-22] MEDS: REMDESIVIR 100 MG in Sodium Chloride 0.9% 100 ML IV SCH (20:28)
[2023-08-23] MEDS: Cefepime 2 GM Vial IVPUSH SCH ×2 (02:44→15:11)
[2023-08-23] MEDS: Acetaminophen 500 MG Tab PO SCH ×4 (02:49→20:23)
[2023-08-23] MEDS: Enoxaparin 40 MG/0.4 ML Syringe SUBCUT SCH (05:14)
[2023-08-23 06:38] LABS: BASOPHILS PERCENT AUTO 0.6 % (0.2-1.5); HEMATOCRIT 29.7 % (34.2-48.2); HEMOGLOBIN 10.1 g/dL (11.4-15.5); LYMPHOCYTES ABSOLUTE AUTO 1.2 x10-3/uL (1.0-4.4); LYMPHOCYTES PERCENT AUTO 30.9 % (18.4-52.1); MEAN CORPUSCULAR HEMOGLOBIN 33.3 pg (23.9-33.9); MEAN CORPUSCULAR HGB CONC 34.1 g/dL (31.9-34.8); MEAN CORPUSCULAR VOLUME 97.7 fL (76.7-100.5); MEAN PLATELET VOLUME 7.7 fL (7.1-12.4); MONOCYTES ABSOLUTE AUTO 0.4 x10-3/uL (0.3-1.0); MONOCYTES PERCENT AUTO 10.4 % (4.4-15.7); NEUTROPHILS ABSOLUTE AUTO 2.3 x10-3/uL (1.5-6.3); NEUTROPHILS PERCENT AUTO 58.1 % (30.8-76.2); PLATELET COUNT,PLT 179 x10(3)uL (151-488); RED BLOOD CELL COUNT 3.03 x10(6)uL (3.60-5.20); RED CELL DISTRIBUTION WIDTH 13.7 % (12.3-16.5)
[2023-08-23] MEDS: Albuterol/Ipratropium 3.0-0.5 MG/3 ML Neb Soln NEB SCH ×4 (06:43→20:19)
[2023-08-23 06:44] LABS: BLOOD UREA NITROGEN,BUN 10 mg/dL (7-18); CALCIUM 8.4 mg/dL (8.6-10.2); CARBON DIOXIDE,CO2 31 mmol/L (21-32); CHLORIDE,CL 105 mmol/L (100-110); CREATININE 0.5 mg/dL (0.55-1.02); EST CRCL DRUG DOSING (CG) 100.36 mL/min; ESTIMATED GFR 100 mL/min (>60); GLUCOSE RANDOM 96 mg/dL (80-116); POTASSIUM,K 3.8 mmol/L (3.5-5.3); SODIUM,NA 139 mmol/L (135-145)
[2023-08-23 06:47] LABS: ALBUMIN 2.1 g/dL (3.2-4.6); BILIRUBIN DIRECT 0.08 mg/dL (0.10-0.20); BILIRUBIN TOTAL 0.2 mg/dL (0.1-1.3); PROTEIN TOTAL,TP 5.4 g/dL (6.0-8.0)
[2023-08-23] MEDS: Formoterol/Mometasone 200-5 MCG 8.8 GM Inhaler IH SCH ×2 (09:01→20:19)
[2023-08-23] MEDS: Calcium Carbonate 500 MG Tablet PO SCH ×2 (09:05→20:20)
[2023-08-23] MEDS: Cranberry 500 MG Cap PO SCH (09:05)
[2023-08-23] MEDS: Folic Acid 1 MG Tab PO SCH (09:05)
[2023-08-23] MEDS: Gabapentin 300 MG Cap PO SCH ×2 (09:06→20:48)
[2023-08-23] MEDS: Famotidine 20 MG Tab PO SCH ×2 (09:06→20:20)
[2023-08-23] MEDS: Phenytoin 30 MG Cap.ER PO SCH (09:07)
[2023-08-23] MEDS: Saccharomyces Boulardii (Probiotic) 250 MG Cap PO SCH ×3 (09:07→20:19)
[2023-08-23] MEDS: Phenytoin 100 MG Cap.ER PO SCH ×2 (09:10→20:22)
[2023-08-23] MEDS: Mirabegron 25 MG Tab Extended Release PO SCH (09:11)
[2023-08-23] MEDS: Sennosides/Docusate Sodium 50-8.6 MG Tab PO SCH (09:11)
[2023-08-23] MEDS: Dexamethasone 4 MG/ML SDV IVPUSH SCH (09:13)
[2023-08-23] MEDS: Sertraline 25 MG Tab PO SCH (09:14)
[2023-08-23] MEDS: Sodium Chloride 0.9% 10 ML Syringe FLUSH PRN ×3 (09:15→21:08)
[2023-08-23] MEDS: PHENobarbital 32.4 MG Tab PO SCH ×2 (09:28→20:48)
[2023-08-23 09:33] LABS: A/G RATIO 0.6; ALANINE AMINOTRANSFERASE,ALT 26 U/L (12-36); ALBUMIN 2.2 g/dL (3.2-4.6); ALKALINE PHOSPHATASE 110 IU/L (56-112); ASPARTATE AMNIOTRANSFERASE,AST 31 IU/L (5-25); BILIRUBIN TOTAL 0.2 mg/dL (0.1-1.3); BLOOD UREA NITROGEN,BUN 9 mg/dL (7-18); CALCIUM 8.2 mg/dL (8.6-10.2); CARBON DIOXIDE,CO2 33 mmol/L (21-32); CHLORIDE,CL 104 mmol/L (100-110); CREATININE 0.5 mg/dL (0.55-1.02); EST CRCL DRUG DOSING (CG) 100.36 mL/min; ESTIMATED GFR 100 mL/min (>60); GLUCOSE RANDOM 105 mg/dL (80-116); POTASSIUM,K 3.6 mmol/L (3.5-5.3); PROTEIN TOTAL,TP 5.7 g/dL (6.0-8.0); SODIUM,NA 140 mmol/L (135-145)
[2023-08-23 11:28] LABS: APPEARANCE,URINE CLEAR (CLEAR); BILIRUBIN,URINE NEGATIVE (NEGATIVE); COLOR,URINE YELLOW (YELLOW); GLUCOSE,URINE NORMAL (NORMAL); KETONES,URINE NEGATIVE (NEGATIVE); LEUKOCYTE ESTERASE,URINE NEGATIVE (NEGATIVE); NITRITE,URINE NEGATIVE (NEGATIVE); OCCULT BLOOD,URINE NEGATIVE (NEGATIVE); PROTEIN,URINE NEGATIVE (NEGATIVE); UROBILINOGEN,URINE NORMAL (NEGATIVE)
[2023-08-23 11:29] LABS: BACTERIA,URINE FEW (NS); RBC,URINE 0-5 (0-5); SQUAMOUS EPITHELIAL CELLS,UR FEW (NS,R,O); WBC,URINE 0-5 (0-5)
[2023-08-23] MEDS: Melatonin 3 MG Tab PO SCH (20:20)
[2023-08-23] MEDS: REMDESIVIR 100 MG in Sodium Chloride 0.9% 100 ML IV SCH (21:07)
[2023-08-24] MEDS: Cefepime 2 GM Vial IVPUSH SCH ×2 (02:10→14:51)
[2023-08-24] MEDS: Sodium Chloride 0.9% 10 ML Syringe FLUSH PRN ×6 (02:15→14:53)
[2023-08-24] MEDS: Acetaminophen 500 MG Tab PO SCH ×4 (02:28→20:55)
[2023-08-24] MEDS: Enoxaparin 40 MG/0.4 ML Syringe SUBCUT SCH (06:34)
[2023-08-24] MEDS: Albuterol/Ipratropium 3.0-0.5 MG/3 ML Neb Soln NEB SCH ×4 (06:34→20:49)
[2023-08-24 07:12] LABS: BASOPHILS PERCENT AUTO 0.5 % (0.2-1.5); HEMATOCRIT 30.1 % (34.2-48.2); HEMOGLOBIN 10.2 g/dL (11.4-15.5); LYMPHOCYTES ABSOLUTE AUTO 1.4 x10-3/uL (1.0-4.4); LYMPHOCYTES PERCENT AUTO 34.7 % (18.4-52.1); MEAN CORPUSCULAR HGB CONC 33.8 g/dL (31.9-34.8); MEAN CORPUSCULAR VOLUME 97.4 fL (76.7-100.5); MEAN PLATELET VOLUME 7.6 fL (7.1-12.4); MONOCYTES ABSOLUTE AUTO 0.4 x10-3/uL (0.3-1.0); MONOCYTES PERCENT AUTO 9.6 % (4.4-15.7); NEUTROPHILS ABSOLUTE AUTO 2.3 x10-3/uL (1.5-6.3); NEUTROPHILS PERCENT AUTO 55.2 % (30.8-76.2); PLATELET COUNT,PLT 202 x10(3)uL (151-488); RED BLOOD CELL COUNT 3.09 x10(6)uL (3.60-5.20); WHITE BLOOD CELL COUNT,WBC 4.1 x10-3/uL (3.0-10.3)
[2023-08-24 07:23] LABS: ALBUMIN 2.2 g/dL (3.2-4.6); BILIRUBIN DIRECT 0.07 mg/dL (0.10-0.20); BILIRUBIN TOTAL 0.2 mg/dL (0.1-1.3); PROTEIN TOTAL,TP 5.6 g/dL (6.0-8.0)
[2023-08-24] MEDS: Folic Acid 1 MG Tab PO SCH (08:28)
[2023-08-24] MEDS: Calcium Carbonate 500 MG Tablet PO SCH ×2 (08:28→20:53)
[2023-08-24] MEDS: Formoterol/Mometasone 200-5 MCG 8.8 GM Inhaler IH SCH ×2 (08:28→20:52)
[2023-08-24] MEDS: Saccharomyces Boulardii (Probiotic) 250 MG Cap PO SCH ×3 (08:29→20:53)
[2023-08-24] MEDS: Gabapentin 300 MG Cap PO SCH ×2 (08:30→20:53)
[2023-08-24] MEDS: PHENobarbital 32.4 MG Tab PO SCH ×2 (08:30→20:54)
[2023-08-24] MEDS: Famotidine 20 MG Tab PO SCH ×2 (08:30→20:54)
[2023-08-24] MEDS: Sertraline 25 MG Tab PO SCH (08:30)
[2023-08-24] MEDS: Phenytoin 100 MG Cap.ER PO SCH ×2 (08:31→20:55)
[2023-08-24] MEDS: Phenytoin 30 MG Cap.ER PO SCH (08:31)
[2023-08-24] MEDS: Dexamethasone 4 MG/ML SDV IVPUSH SCH (08:32)
[2023-08-24] MEDS: Mirabegron 25 MG Tab Extended Release PO SCH (08:32)
[2023-08-24] MEDS: Sennosides/Docusate Sodium 50-8.6 MG Tab PO SCH (08:37)
[2023-08-24] MEDS: Cranberry 500 MG Cap PO SCH (08:38)
[2023-08-24] MEDS: Melatonin 3 MG Tab PO SCH (20:53)
[2023-08-25] MEDS: Acetaminophen 500 MG Tab PO SCH ×4 (02:34→20:43)
[2023-08-25] MEDS: Sodium Chloride 0.9% 10 ML Syringe FLUSH PRN ×4 (02:34→14:20)
[2023-08-25] MEDS: Cefepime 2 GM Vial IVPUSH SCH ×2 (02:35→14:20)
[2023-08-25] MEDS: Enoxaparin 40 MG/0.4 ML Syringe SUBCUT SCH (06:22)
[2023-08-25] MEDS: Albuterol/Ipratropium 3.0-0.5 MG/3 ML Neb Soln NEB SCH ×4 (06:23→20:35)
[2023-08-25] MEDS: Gabapentin 300 MG Cap PO SCH ×2 (09:13→20:45)
[2023-08-25] MEDS: Phenytoin 30 MG Cap.ER PO SCH (09:14)
[2023-08-25] MEDS: PHENobarbital 32.4 MG Tab PO SCH ×2 (09:14→20:42)
[2023-08-25] MEDS: Sennosides/Docusate Sodium 50-8.6 MG Tab PO SCH (09:14)
[2023-08-25] MEDS: Sertraline 25 MG Tab PO SCH (09:14)
[2023-08-25] MEDS: Phenytoin 100 MG Cap.ER PO SCH ×2 (09:15→20:42)
[2023-08-25] MEDS: Cranberry 500 MG Cap PO SCH (09:15)
[2023-08-25] MEDS: Saccharomyces Boulardii (Probiotic) 250 MG Cap PO SCH ×3 (09:15→20:39)
[2023-08-25] MEDS: Famotidine 20 MG Tab PO SCH ×2 (09:15→20:41)
[2023-08-25] MEDS: Mirabegron 25 MG Tab Extended Release PO SCH (09:15)
[2023-08-25] MEDS: Folic Acid 1 MG Tab PO SCH (09:16)
[2023-08-25] MEDS: Calcium Carbonate 500 MG Tablet PO SCH ×2 (09:16→20:41)
[2023-08-25] MEDS: Formoterol/Mometasone 200-5 MCG 8.8 GM Inhaler IH SCH ×2 (09:16→20:39)
[2023-08-25] MEDS: Dexamethasone 4 MG/ML SDV IVPUSH SCH (09:20)
[2023-08-25] MEDS: predniSONE 20 MG Tab PO SCH (09:54)
[2023-08-25 11:28] LABS: APPEARANCE,URINE CLEAR (CLEAR); BILIRUBIN,URINE NEGATIVE (NEGATIVE); COLOR,URINE YELLOW (YELLOW); GLUCOSE,URINE NORMAL (NORMAL); KETONES,URINE NEGATIVE (NEGATIVE); LEUKOCYTE ESTERASE,URINE NEGATIVE (NEGATIVE); NITRITE,URINE NEGATIVE (NEGATIVE); OCCULT BLOOD,URINE NEGATIVE (NEGATIVE); PROTEIN,URINE NEGATIVE (NEGATIVE); UROBILINOGEN,URINE NORMAL (NEGATIVE)
[2023-08-25 11:29] LABS: BACTERIA,URINE FEW (NS); SQUAMOUS EPITHELIAL CELLS,UR FEW (NS,R,O); WBC,URINE 0-5 (0-5)
[2023-08-25] MEDS: Melatonin 3 MG Tab PO SCH (20:39)
[2023-08-26] MEDS: Acetaminophen 500 MG Tab PO SCH ×4 (04:43→20:52)
[2023-08-26] MEDS: Albuterol/Ipratropium 3.0-0.5 MG/3 ML Neb Soln NEB SCH ×4 (06:15→20:48)
[2023-08-26] MEDS: Enoxaparin 40 MG/0.4 ML Syringe SUBCUT SCH (06:15)
[2023-08-26] MEDS: PHENobarbital 32.4 MG Tab PO SCH ×2 (08:36→20:51)
[2023-08-26] MEDS: Gabapentin 300 MG Cap PO SCH ×2 (08:36→20:50)
[2023-08-26] MEDS: Saccharomyces Boulardii (Probiotic) 250 MG Cap PO SCH ×3 (08:37→20:49)
[2023-08-26] MEDS: Calcium Carbonate 500 MG Tablet PO SCH ×2 (08:37→20:50)
[2023-08-26] MEDS: Sertraline 25 MG Tab PO SCH (08:38)
[2023-08-26] MEDS: Famotidine 20 MG Tab PO SCH ×2 (08:38→20:51)
[2023-08-26] MEDS: Phenytoin 30 MG Cap.ER PO SCH (08:38)
[2023-08-26] MEDS: Sennosides/Docusate Sodium 50-8.6 MG Tab PO SCH (08:38)
[2023-08-26] MEDS: Phenytoin 100 MG Cap.ER PO SCH ×2 (08:38→20:52)
[2023-08-26] MEDS: Cranberry 500 MG Cap PO SCH (08:39)
[2023-08-26] MEDS: Folic Acid 1 MG Tab PO SCH (08:39)
[2023-08-26] MEDS: Mirabegron 25 MG Tab Extended Release PO SCH (08:41)
[2023-08-26] MEDS: Formoterol/Mometasone 200-5 MCG 8.8 GM Inhaler IH SCH ×2 (08:49→20:48)
[2023-08-26] MEDS: predniSONE 20 MG Tab PO SCH (08:54)
[2023-08-26] MEDS: Melatonin 3 MG Tab PO SCH (20:50)
[2023-08-27] MEDS: Acetaminophen 500 MG Tab PO SCH ×2 (02:15→09:22)
[2023-08-27] MEDS: Enoxaparin 40 MG/0.4 ML Syringe SUBCUT SCH (04:59)
[2023-08-27] MEDS: Albuterol/Ipratropium 3.0-0.5 MG/3 ML Neb Soln NEB SCH ×2 (07:20→11:29)
[2023-08-27] MEDS: Formoterol/Mometasone 200-5 MCG 8.8 GM Inhaler IH SCH (09:19)
[2023-08-27] MEDS: Phenytoin 100 MG Cap.ER PO SCH (09:19)
[2023-08-27] MEDS: Phenytoin 30 MG Cap.ER PO SCH (09:19)
[2023-08-27] MEDS: Cranberry 500 MG Cap PO SCH (09:19)
[2023-08-27] MEDS: Folic Acid 1 MG Tab PO SCH (09:20)
[2023-08-27] MEDS: Saccharomyces Boulardii (Probiotic) 250 MG Cap PO SCH (09:20)
[2023-08-27] MEDS: predniSONE 20 MG Tab PO SCH (09:21)
[2023-08-27] MEDS: Famotidine 20 MG Tab PO SCH (09:21)
[2023-08-27] MEDS: Mirabegron 25 MG Tab Extended Release PO SCH (09:21)
[2023-08-27] MEDS: Calcium Carbonate 500 MG Tablet PO SCH (09:21)
[2023-08-27] MEDS: Sertraline 25 MG Tab PO SCH (09:22)
[2023-08-27] MEDS: Sennosides/Docusate Sodium 50-8.6 MG Tab PO SCH (09:22)
[2023-08-27] MEDS: PHENobarbital 32.4 MG Tab PO SCH (09:32)
[2023-08-27] MEDS: Gabapentin 300 MG Cap PO SCH (09:32)
== END 2023-08-27 12:15 | disposition home health service (06) | DRG 871 ==
LOC: FB.ED 18:15 → FB.MS 08-20 00:02 → OBSVTOIN 08-20 09:00
PROVIDERS: ADMIT Family Medicine; ATTEND Family Medicine
PROC: XW033E5 Introduction of Remdesivir Anti-infective into Peripheral Vein, Percutaneous Approach, New Technology Group 5 (ICD-10-PCS; principal; 2023-08-20)
PROC: 3E0333Z Introduction of Anti-inflammatory into Peripheral Vein, Percutaneous Approach (ICD-10-PCS; 2023-08-20)
PROC: 3E03329 Introduction of Other Anti-infective into Peripheral Vein, Percutaneous Approach (ICD-10-PCS; 2023-08-20)
DX: A41.89 Other specified sepsis (principal); U07.1 COVID-19; F33.9 Major depressive disorder, recurrent, unspecified; A41.9 Sepsis, unspecified organism; N30.00 Acute cystitis without hematuria; J44.1 Chronic obstructive pulmonary disease with (acute) exacerbation; Z51.5 Encounter for palliative care; R91.1 Solitary pulmonary nodule; R29.6 Repeated falls; E87.20 Acidosis, unspecified; G40.909 Epilepsy, unspecified, not intractable, without status epilepticus; F41.9 Anxiety disorder, unspecified; K44.9 Diaphragmatic hernia without obstruction or gangrene; N32.81 Overactive bladder; R26.9 Unspecified abnormalities of gait and mobility; D50.9 Iron deficiency anemia, unspecified; Z90.710 Acquired absence of both cervix and uterus; Z90.49 Acquired absence of other specified parts of digestive tract; E86.0 Dehydration; R91.8 Other nonspecific abnormal finding of lung field; Z86.16 Personal history of COVID-19; R93.2 Abnormal findings on diagnostic imaging of liver and biliary tract; Z96.649 Presence of unspecified artificial hip joint; K21.9 Gastro-esophageal reflux disease without esophagitis; Z79.899 Other long term (current) drug therapy; Z87.891 Personal history of nicotine dependence
CPT/HCPCS: 0241U; 36415; 71275; 80048; 80053; 80076; 81001; 83605; 83735; 83880; 84100; 84443; 84484; 85025; 85379; 85610; 86140; 87040; 87086; 87088; 87186; 93005; 93010; 94640; 97110-GO; 97110-GP; 97116-GP; 97161-GP; 97165-GO; 97535-GO; 99285; A9270-GY; C8929; J0248; J0692; J1100; J1650; J1885; J1956; J3475; J3490; J7030; J7050; J7512; J7620; Q0162; Q9967

== ENCOUNTER 2023-08-30 09:02 | Observation (INO) | payer MEDICARE ==
[2023-08-30] MEDS ORDERED: Sodium Chloride 0.9% 10 ML Syringe FLUSH PRN (09:20)
[2023-08-30 09:52] LABS: HEMATOCRIT 36.2 % (34.2-48.2); HEMOGLOBIN 12.2 g/dL (11.4-15.5); MEAN CORPUSCULAR HEMOGLOBIN 32.8 pg (23.9-33.9); MEAN CORPUSCULAR HGB CONC 33.6 g/dL (31.9-34.8); MEAN CORPUSCULAR VOLUME 97.7 fL (76.7-100.5); MEAN PLATELET VOLUME 7.7 fL (7.1-12.4); PLATELET COUNT,PLT 380 x10(3)uL (151-488); RED BLOOD CELL COUNT 3.71 x10(6)uL (3.60-5.20); RED CELL DISTRIBUTION WIDTH 13.7 % (12.3-16.5); WHITE BLOOD CELL COUNT,WBC 10.2 x10-3/uL (3.0-10.3)
[2023-08-30 09:54] LABS: BLOOD UREA NITROGEN,BUN 9 mg/dL (7-18); CALCIUM 8.9 mg/dL (8.6-10.2); CARBON DIOXIDE,CO2 32 mmol/L (21-32); CHLORIDE,CL 100 mmol/L (100-110); CREATININE 0.6 mg/dL (0.55-1.02); EST CRCL DRUG DOSING (CG) 74.26 mL/min; ESTIMATED GFR 96 mL/min (>60); GLUCOSE RANDOM 107 mg/dL (80-116); SODIUM,NA 138 mmol/L (135-145)
[2023-08-30 10:03] LABS: TROPONIN I 5.3 pg/mL (4.0-60.3)
[2023-08-30 10:04] LABS: BAND PERCENT MAN 1 % (0-6); LYMPHOCYTES PERCENT MAN 13 % (13-37); MONOCYTES PERCENT MAN 1 % (4-12); SEG NEUTROPHILS PERCENT MAN 85 % (46-82)
[2023-08-30 10:05] LABS: LACTIC ACID 1.2 mmol/L (0.4-2.0)
[2023-08-30 10:06] LABS: A/G RATIO 0.8; ALANINE AMINOTRANSFERASE,ALT 25 U/L (12-36); ALBUMIN 3.2 g/dL (3.2-4.6); ALKALINE PHOSPHATASE 123 IU/L (56-112); ASPARTATE AMNIOTRANSFERASE,AST 28 IU/L (5-25); BILIRUBIN TOTAL 0.4 mg/dL (0.1-1.3); PROTEIN TOTAL,TP 7.4 g/dL (6.0-8.0)
[2023-08-30 10:07] LABS: C-REACTIVE PROTEIN < 0.50 mg/dL (<0.50)
[2023-08-30] MEDS ORDERED: levETIRAcetam 1,000 MG in Sodium Chloride 0.9% 100 ML IV ONE (11:20)
[2023-08-30] MEDS ORDERED: levETIRAcetam in NaCl (iso-os) 1,000 MG in Premix Bag 1 BAG IV ONE ×2 (16:57)
[2023-08-30 17:02] LABS: BILIRUBIN,URINE NEGATIVE (NEGATIVE); GLUCOSE,URINE NORMAL (NORMAL); KETONES,URINE 50 mg/dL (NEGATIVE); LEUKOCYTE ESTERASE,URINE NEGATIVE (NEGATIVE); NITRITE,URINE NEGATIVE (NEGATIVE); OCCULT BLOOD,URINE NEGATIVE (NEGATIVE); PROTEIN,URINE NEGATIVE (NEGATIVE); UROBILINOGEN,URINE NORMAL (NEGATIVE)
[2023-08-30 17:05] LABS: APPEARANCE,URINE SLIGHTLY CLOUDY (CLEAR); BACTERIA,URINE MODERATE (NS); COLOR,URINE YELLOW (YELLOW); RBC,URINE 0-5 (0-5); SQUAMOUS EPITHELIAL CELLS,UR RARE (NS,R,O); WBC,URINE 0-5 (0-5)
[2023-08-30] MEDS ORDERED: Acetaminophen 500 MG Tab PO ONE (17:12)
[2023-08-30] MEDS ORDERED: Albuterol 0.083% 2.5 MG/3 ML Neb Soln NEB PRN (17:29)
[2023-08-30] MEDS ORDERED: Acetaminophen 325 MG Tab PO PRN (17:29)
[2023-08-30] MEDS ORDERED: Ondansetron 4 MG/2 ML SDV IV PRN (17:29)
[2023-08-30] MEDS ORDERED: Sennosides/Docusate Sodium 50-8.6 MG Tab PO PRN (17:29)
[2023-08-30] MEDS ORDERED: Enoxaparin 40 MG/0.4 ML Syringe SUBCUT SCH (17:30)
[2023-08-30] MEDS ORDERED: METRONIDAZOLE TOP PRN (17:38)
[2023-08-30] MEDS ORDERED: Polyethylene Glycol 3350 Powder 17 GM Packet PO PRN (17:38)
[2023-08-30] MEDS: Acetaminophen 500 MG Tab PO SCH ×2 (19:31→23:09)
[2023-08-30] MEDS: Sodium Chloride 0.9% 1,000 ML IV SCH (20:17)
[2023-08-30] MEDS: PHENobarbital 32.4 MG Tab PO SCH (20:28)
[2023-08-30] MEDS: Albuterol/Ipratropium 3.0-0.5 MG/3 ML Neb Soln NEB SCH (20:28)
[2023-08-30] MEDS: Phenytoin 100 MG Cap.ER PO SCH (20:28)
[2023-08-30] MEDS: Calcium Carbonate 500 MG Tablet PO SCH (20:28)
[2023-08-30] MEDS: Melatonin 3 MG Tab PO SCH (20:28)
[2023-08-30] MEDS: Gabapentin 300 MG Cap PO SCH (20:29)
[2023-08-30] MEDS ORDERED: Formoterol/Mometasone 200-5 MCG 8.8 GM Inhaler IH SCH (21:00)
[2023-08-30] MEDS: Enoxaparin 40 MG/0.4 ML Syringe SUBCUT SCH (21:20)
[2023-08-31] MEDS: Albuterol/Ipratropium 3.0-0.5 MG/3 ML Neb Soln NEB SCH (06:20)
[2023-08-31] MEDS: Acetaminophen 500 MG Tab PO SCH ×4 (06:20→23:31)
[2023-08-31] MEDS: Sodium Chloride 0.9% 1,000 ML IV SCH (06:28)
[2023-08-31 07:07] LABS: BASOPHILS PERCENT AUTO 0.5 % (0.2-1.5); EOSINOPHILS PERCENT AUTO 0.2 % (0.6-8.1); HEMATOCRIT 29.7 % (34.2-48.2); LYMPHOCYTES ABSOLUTE AUTO 1.6 x10-3/uL (1.0-4.4); MEAN CORPUSCULAR HEMOGLOBIN 33.6 pg (23.9-33.9); MEAN CORPUSCULAR HGB CONC 33.6 g/dL (31.9-34.8); MEAN CORPUSCULAR VOLUME 99.9 fL (76.7-100.5); MEAN PLATELET VOLUME 7.9 fL (7.1-12.4); MONOCYTES ABSOLUTE AUTO 0.5 x10-3/uL (0.3-1.0); MONOCYTES PERCENT AUTO 8.9 % (4.4-15.7); NEUTROPHILS ABSOLUTE AUTO 3.5 x10-3/uL (1.5-6.3); NEUTROPHILS PERCENT AUTO 61.5 % (30.8-76.2); PLATELET COUNT,PLT 285 x10(3)uL (151-488); RED BLOOD CELL COUNT 2.97 x10(6)uL (3.60-5.20); RED CELL DISTRIBUTION WIDTH 12.9 % (12.3-16.5); WHITE BLOOD CELL COUNT,WBC 5.6 x10-3/uL (3.0-10.3)
[2023-08-31 07:15] LABS: A/G RATIO 0.7; ALANINE AMINOTRANSFERASE,ALT 21 U/L (12-36); ALBUMIN 2.4 g/dL (3.2-4.6); ALKALINE PHOSPHATASE 94 IU/L (56-112); ASPARTATE AMNIOTRANSFERASE,AST 23 IU/L (5-25); BILIRUBIN TOTAL 0.4 mg/dL (0.1-1.3); BLOOD UREA NITROGEN,BUN 7 mg/dL (7-18); CALCIUM 7.9 mg/dL (8.6-10.2); CARBON DIOXIDE,CO2 26 mmol/L (21-32); CHLORIDE,CL 102 mmol/L (100-110); CREATININE 0.5 mg/dL (0.55-1.02); EST CRCL DRUG DOSING (CG) 94.73 mL/min; ESTIMATED GFR 100 mL/min (>60); GLUCOSE RANDOM 79 mg/dL (80-116); POTASSIUM,K 3.5 mmol/L (3.5-5.3); PROTEIN TOTAL,TP 5.7 g/dL (6.0-8.0); SODIUM,NA 138 mmol/L (135-145)
[2023-08-31] MEDS: Cranberry 500 MG Cap PO SCH (08:13)
[2023-08-31] MEDS: Formoterol/Mometasone 200-5 MCG 8.8 GM Inhaler IH SCH ×2 (08:14→20:07)
[2023-08-31] MEDS: Calcium Carbonate 500 MG Tablet PO SCH ×2 (08:15→20:08)
[2023-08-31] MEDS: Folic Acid 1 MG Tab PO SCH (08:15)
[2023-08-31] MEDS: Mirabegron 25 MG Tab Extended Release PO SCH (08:15)
[2023-08-31] MEDS: Sertraline 25 MG Tab PO SCH (08:16)
[2023-08-31] MEDS: Sennosides 8.6 MG Tab PO SCH (08:16)
[2023-08-31] MEDS: Phenytoin 100 MG Cap.ER PO SCH ×2 (08:17→20:10)
[2023-08-31] MEDS: Phenytoin 30 MG Cap.ER PO SCH (08:17)
[2023-08-31] MEDS: PHENobarbital 32.4 MG Tab PO SCH ×2 (08:20→20:07)
[2023-08-31] MEDS: Gabapentin 300 MG Cap PO SCH ×2 (08:20→20:07)
[2023-08-31 18:32] LABS: PHENOBARBITAL 23.4 ug/mL (15.0-40.0)
[2023-08-31] MEDS: Enoxaparin 40 MG/0.4 ML Syringe SUBCUT SCH (20:07)
[2023-08-31] MEDS: Melatonin 3 MG Tab PO SCH (20:09)
[2023-09-01] MEDS: Acetaminophen 500 MG Tab PO SCH ×2 (06:10→11:59)
[2023-09-01] MEDS: Calcium Carbonate 500 MG Tablet PO SCH (09:28)
[2023-09-01] MEDS: Mirabegron 25 MG Tab Extended Release PO SCH (09:28)
[2023-09-01] MEDS: Sertraline 25 MG Tab PO SCH (09:28)
[2023-09-01] MEDS: Sennosides 8.6 MG Tab PO SCH (09:29)
[2023-09-01] MEDS: Formoterol/Mometasone 200-5 MCG 8.8 GM Inhaler IH SCH (09:29)
[2023-09-01] MEDS: Folic Acid 1 MG Tab PO SCH (09:30)
[2023-09-01] MEDS: Phenytoin 30 MG Cap.ER PO SCH (09:36)
[2023-09-01] MEDS: Phenytoin 100 MG Cap.ER PO SCH (09:36)
[2023-09-01] MEDS: PHENobarbital 32.4 MG Tab PO SCH (09:41)
[2023-09-01] MEDS: Gabapentin 300 MG Cap PO SCH (09:41)
[2023-09-01] MEDS: Cranberry 500 MG Cap PO SCH (09:54)
[2023-09-02 01:09] LABS: PHENYTOIN - FREE LEVEL <0.5 ug/mL (1.0-2.5)
[2023-09-02 18:01] LABS: GABAPENTIN 1.9 ug/mL (2.0-20.0)
== END 2023-09-01 13:30 | disposition home health service (06) ==
LOC: FB.ED 09:02 → FB.MS 17:44
PROVIDERS: ADMIT Emergency Medicine; ATTEND Family Medicine
DX: G40.909 Epilepsy, unspecified, not intractable, without status epilepticus (principal); J44.9 Chronic obstructive pulmonary disease, unspecified; I50.9 Heart failure, unspecified; U09.9 Post COVID-19 condition, unspecified; F41.9 Anxiety disorder, unspecified; F32.A Depression, unspecified; R29.6 Repeated falls; Z90.49 Acquired absence of other specified parts of digestive tract; Z90.710 Acquired absence of both cervix and uterus; Z96.649 Presence of unspecified artificial hip joint; Z79.899 Other long term (current) drug therapy
CPT/HCPCS: 36415; 70450; 71045; 80053; 80171; 80184; 80185; 80186; 81001; 82550; 83605; 84484; 85025; 86140; 93005; 93010; 94640; 96361; 96365; 96372; 96376; 97161; 97165; 99222; 99238; 99285; A9270; G0378; J1650; J1953; J3490; J7030; J7620

== ENCOUNTER 2024-01-18 22:46 | Emergency (ER) | payer MEDICARE ==
[2024-01-18 23:35] LABS: BASOPHILS PERCENT AUTO 0.3 % (0.2-1.5); HEMATOCRIT 37.2 % (34.2-48.2); HEMOGLOBIN 12.1 g/dL (11.4-15.5); LYMPHOCYTES ABSOLUTE AUTO 0.4 x10-3/uL (1.0-4.4); LYMPHOCYTES PERCENT AUTO 7.4 % (18.4-52.1); MEAN CORPUSCULAR HGB CONC 32.5 g/dL (31.9-34.8); MEAN CORPUSCULAR VOLUME 95.2 fL (76.7-100.5); MEAN PLATELET VOLUME 7.7 fL (7.1-12.4); MONOCYTES ABSOLUTE AUTO 0.6 x10-3/uL (0.3-1.0); MONOCYTES PERCENT AUTO 10.8 % (4.4-15.7); NEUTROPHILS ABSOLUTE AUTO 4.8 x10-3/uL (1.5-6.3); NEUTROPHILS PERCENT AUTO 81.5 % (30.8-76.2); PLATELET COUNT,PLT 267 x10(3)uL (151-488); RED BLOOD CELL COUNT 3.91 x10(6)uL (3.60-5.20); RED CELL DISTRIBUTION WIDTH 14.4 % (12.3-16.5); WHITE BLOOD CELL COUNT,WBC 5.9 x10-3/uL (3.0-10.3)
[2024-01-18 23:38] LABS: BLOOD UREA NITROGEN,BUN 9 mg/dL (7-18); BUN/CREATININE RATIO 12.9 (9-20); CARBON DIOXIDE,CO2 29 mmol/L (21-32); CHLORIDE,CL 100 mmol/L (100-110); CREATININE 0.7 mg/dL (0.55-1.02); ESTIMATED GFR 92 mL/min (>60); GLUCOSE RANDOM 118 mg/dL (80-116); SODIUM,NA 137 mmol/L (135-145)
[2024-01-18 23:45] LABS: A/G RATIO 0.7; ALANINE AMINOTRANSFERASE,ALT 40 U/L (12-36); ALBUMIN 2.8 g/dL (3.2-4.6); ALKALINE PHOSPHATASE 163 IU/L (56-112); ASPARTATE AMNIOTRANSFERASE,AST 82 IU/L (5-25); BILIRUBIN TOTAL 0.4 mg/dL (0.1-1.3); INR 0.98 (1.00-1.24); PROTEIN TOTAL,TP 6.9 g/dL (6.0-8.0); PROTHROMBIN TIME 10.2 sec (9.0-11.1); PTT,PARTIAL THROMBOPLSTIN TIME 24.4 SECONDS (24.4-33.2)
[2024-01-18 23:50] LABS: TROPONIN I 15.8 pg/mL (4.0-60.3)
[2024-01-19 01:12] LABS: BILIRUBIN,URINE NEGATIVE (NEGATIVE); GLUCOSE,URINE NORMAL (NORMAL); KETONES,URINE NEGATIVE (NEGATIVE); LEUKOCYTE ESTERASE,URINE NEGATIVE (NEGATIVE); NITRITE,URINE NEGATIVE (NEGATIVE); OCCULT BLOOD,URINE NEGATIVE (NEGATIVE); PH,URINE 6.5 (5.0-6.5); PROTEIN,URINE NEGATIVE (NEGATIVE); UROBILINOGEN,URINE NORMAL (NEGATIVE)
[2024-01-19 01:19] LABS: APPEARANCE,URINE SLIGHTLY CLOUDY (CLEAR); BACTERIA,URINE MANY (NS); COLOR,URINE YELLOW (YELLOW); RBC,URINE 0-5 (0-5); SQUAMOUS EPITHELIAL CELLS,UR FEW (NS,R,O); WBC,URINE 0-5 (0-5)
== END 2024-01-19 02:39 ==
LOC: FB.ED 22:46
DX: S80.12XA Contusion of left lower leg, initial encounter (principal); S80.11XA Contusion of right lower leg, initial encounter; R29.6 Repeated falls; R06.02 Shortness of breath; Z86.16 Personal history of COVID-19; Z90.49 Acquired absence of other specified parts of digestive tract; Z90.710 Acquired absence of both cervix and uterus; Z87.891 Personal history of nicotine dependence; Z79.899 Other long term (current) drug therapy; X58.XXXA Exposure to other specified factors, initial encounter
CPT/HCPCS: 36415; 71045; 80053; 81001; 82550; 83880; 84484; 85025; 85610; 85730; 93005; 93010; 99283; 99285

== ENCOUNTER 2024-06-04 10:32 | Inpatient (IN) | payer MEDICARE ==
[2024-06-04 11:20] LABS: BASOPHILS PERCENT AUTO 0.5 % (0.2-1.5); HEMOGLOBIN 10.2 g/dL (11.4-15.5); LYMPHOCYTES ABSOLUTE AUTO 0.8 x10-3/uL (1.0-4.4); LYMPHOCYTES PERCENT AUTO 12.9 % (18.4-52.1); MEAN CORPUSCULAR HEMOGLOBIN 27.8 pg (23.9-33.9); MEAN CORPUSCULAR VOLUME 86.9 fL (76.7-100.5); MEAN PLATELET VOLUME 7.4 fL (7.1-12.4); MONOCYTES ABSOLUTE AUTO 0.5 x10-3/uL (0.3-1.0); MONOCYTES PERCENT AUTO 7.4 % (4.4-15.7); NEUTROPHILS ABSOLUTE AUTO 5.1 x10-3/uL (1.5-6.3); NEUTROPHILS PERCENT AUTO 79.2 % (30.8-76.2); PLATELET COUNT,PLT 298 x10(3)uL (151-488); RED BLOOD CELL COUNT 3.69 x10(6)uL (3.60-5.20); RED CELL DISTRIBUTION WIDTH 15.5 % (12.3-16.5); WHITE BLOOD CELL COUNT,WBC 6.4 x10-3/uL (3.0-10.3)
[2024-06-04 11:27] LABS: BLOOD UREA NITROGEN,BUN 9 mg/dL (7-18); BUN/CREATININE RATIO 12.9 (9-20); CALCIUM 8.3 mg/dL (8.6-10.2); CARBON DIOXIDE,CO2 31 mmol/L (21-32); CHLORIDE,CL 104 mmol/L (100-110); CREATININE 0.7 mg/dL (0.55-1.02); ESTIMATED GFR 92 mL/min (>60); GLUCOSE RANDOM 103 mg/dL (80-116); SODIUM,NA 140 mmol/L (135-145)
[2024-06-04] MEDS: Sodium Chloride 0.9% 1,000 ML IV ONE (11:29)
[2024-06-04 11:39] LABS: A/G RATIO 0.8; ALANINE AMINOTRANSFERASE,ALT 15 U/L (12-36); ALBUMIN 2.8 g/dL (3.2-4.6); ALKALINE PHOSPHATASE 140 IU/L (56-112); ASPARTATE AMNIOTRANSFERASE,AST 21 IU/L (5-25); BILIRUBIN TOTAL 0.4 mg/dL (0.1-1.3); PROTEIN TOTAL,TP 6.3 g/dL (6.0-8.0)
[2024-06-04 13:29] LABS: BILIRUBIN,URINE NEGATIVE (NEGATIVE); GLUCOSE,URINE NORMAL (NORMAL); KETONES,URINE NEGATIVE (NEGATIVE); LEUKOCYTE ESTERASE,URINE NEGATIVE (NEGATIVE); NITRITE,URINE NEGATIVE (NEGATIVE); OCCULT BLOOD,URINE NEGATIVE (NEGATIVE); PROTEIN,URINE NEGATIVE (NEGATIVE); UROBILINOGEN,URINE NORMAL (NEGATIVE)
[2024-06-04 13:35] LABS: APPEARANCE,URINE CLOUDY (CLEAR); BACTERIA,URINE MODERATE (NS); COLOR,URINE YELLOW (YELLOW); HYALINE CASTS,URINE FEW (NS); RBC,URINE 0-5 (0-5); SQUAMOUS EPITHELIAL CELLS,UR MANY (NS,R,O); WBC,URINE 0-5 (0-5)
[2024-06-04] MEDS: cefTRIAXone 1 GM Vial IVPUSH ONE (15:20)
[2024-06-04] MEDS ORDERED: Ondansetron 4 MG/2 ML SDV IV PRN (16:55)
[2024-06-04] MEDS ORDERED: Polyethylene Glycol 3350 Powder 17 GM Packet PO PRN (17:00)
[2024-06-04] MEDS: Acetaminophen 325 MG Tab PO SCH (17:51)
[2024-06-04] MEDS: Enoxaparin 40 MG/0.4 ML Syringe SUBCUT SCH (17:57)
[2024-06-04] MEDS: Formoterol/Mometasone 200-5 MCG 8.8 GM Inhaler INH SCH (22:06)
[2024-06-04] MEDS: Melatonin 3 MG Tab PO SCH (22:07)
[2024-06-04] MEDS: PHENobarbital 32.4 MG Tab PO SCH (22:07)
[2024-06-04] MEDS: Gabapentin 300 MG Cap PO SCH (22:07)
[2024-06-04] MEDS: Dextrose 5%-0.45% NaCl 1,000 ML IV SCH (23:44)
[2024-06-04] MEDS: Phenytoin 100 MG Cap.ER PO ONE (23:44)
[2024-06-05 06:51] LABS: BASOPHILS ABSOLUTE AUTO 0.1 x10-3/uL (0.0-0.1); BASOPHILS PERCENT AUTO 0.8 % (0.2-1.5); EOSINOPHILS PERCENT AUTO 0.1 % (0.6-8.1); HEMOGLOBIN 10.4 g/dL (11.4-15.5); LYMPHOCYTES ABSOLUTE AUTO 1.5 x10-3/uL (1.0-4.4); LYMPHOCYTES PERCENT AUTO 17.9 % (18.4-52.1); MEAN CORPUSCULAR HEMOGLOBIN 28.2 pg (23.9-33.9); MEAN CORPUSCULAR HGB CONC 32.4 g/dL (31.9-34.8); MEAN CORPUSCULAR VOLUME 87.3 fL (76.7-100.5); MEAN PLATELET VOLUME 8.3 fL (7.1-12.4); MONOCYTES ABSOLUTE AUTO 0.9 x10-3/uL (0.3-1.0); MONOCYTES PERCENT AUTO 10.7 % (4.4-15.7); NEUTROPHILS ABSOLUTE AUTO 5.7 x10-3/uL (1.5-6.3); NEUTROPHILS PERCENT AUTO 70.5 % (30.8-76.2); PLATELET COUNT,PLT 220 x10(3)uL (151-488); RED BLOOD CELL COUNT 3.67 x10(6)uL (3.60-5.20); RED CELL DISTRIBUTION WIDTH 15.7 % (12.3-16.5); WHITE BLOOD CELL COUNT,WBC 8.1 x10-3/uL (3.0-10.3)
[2024-06-05] MEDS ORDERED: Phenytoin 30 MG Cap.ER PO SCH (09:00)
[2024-06-05] MEDS: Phenytoin 30 MG Cap.ER PO SCH (09:55)
[2024-06-05] MEDS: Cranberry 500 MG Cap PO SCH (09:55)
[2024-06-05] MEDS: Formoterol/Mometasone 200-5 MCG 8.8 GM Inhaler INH SCH (09:56)
[2024-06-05] MEDS: Calcium Carbonate 500 MG Tablet PO SCH (09:57)
[2024-06-05] MEDS: Folic Acid 1 MG Tab PO SCH (09:57)
[2024-06-05] MEDS: Mirabegron 25 MG Tab Extended Release PO SCH (09:57)
[2024-06-05] MEDS: Phenytoin 100 MG Cap.ER PO SCH ×2 (09:58→22:32)
[2024-06-05] MEDS: Sennosides/Docusate Sodium 50-8.6 MG Tab PO SCH (09:59)
[2024-06-05] MEDS: Sertraline 25 MG Tab PO SCH (10:01)
[2024-06-05] MEDS ORDERED: Benzonatate 100 MG Cap PO PRN (15:36)
[2024-06-05] MEDS ORDERED: guaiFENesin 600 MG Tab.ER PO PRN (15:36)
[2024-06-05] MEDS ORDERED: Albuterol/Ipratropium 3.0-0.5 MG/3 ML Neb Soln INH PRN (15:36)
[2024-06-05] MEDS ORDERED: cefTRIAXone 1 GM Vial IVPUSH SCH (17:00)
[2024-06-05] MEDS ORDERED: Phenytoin 100 MG Cap.ER PO SCH ×2 (21:00→23:20)
[2024-06-06 07:06] LABS: BASOPHILS PERCENT AUTO 0.3 % (0.2-1.5); HEMATOCRIT 31.9 % (34.2-48.2); HEMOGLOBIN 10.3 g/dL (11.4-15.5); LYMPHOCYTES ABSOLUTE AUTO 0.9 x10-3/uL (1.0-4.4); MEAN CORPUSCULAR HEMOGLOBIN 27.8 pg (23.9-33.9); MEAN CORPUSCULAR HGB CONC 32.2 g/dL (31.9-34.8); MEAN CORPUSCULAR VOLUME 86.3 fL (76.7-100.5); MONOCYTES ABSOLUTE AUTO 0.5 x10-3/uL (0.3-1.0); MONOCYTES PERCENT AUTO 10.4 % (4.4-15.7); NEUTROPHILS ABSOLUTE AUTO 3.8 x10-3/uL (1.5-6.3); NEUTROPHILS PERCENT AUTO 72.3 % (30.8-76.2); PLATELET COUNT,PLT 229 x10(3)uL (151-488); RED BLOOD CELL COUNT 3.69 x10(6)uL (3.60-5.20); RED CELL DISTRIBUTION WIDTH 15.9 % (12.3-16.5); WHITE BLOOD CELL COUNT,WBC 5.3 x10-3/uL (3.0-10.3)
[2024-06-06] MEDS: Pantoprazole 40 MG Tab.CR PO SCH (08:55)
[2024-06-06] MEDS ORDERED: Phenytoin 30 MG Cap.ER PO SCH (09:00)
[2024-06-06] MEDS ORDERED: Phenytoin 100 MG Cap.ER PO SCH (09:00)
[2024-06-07 06:55] LABS: BASOPHILS PERCENT AUTO 0.6 % (0.2-1.5); HEMATOCRIT 28.2 % (34.2-48.2); HEMOGLOBIN 9.2 g/dL (11.4-15.5); LYMPHOCYTES PERCENT AUTO 23.6 % (18.4-52.1); MEAN CORPUSCULAR HEMOGLOBIN 28.3 pg (23.9-33.9); MEAN CORPUSCULAR HGB CONC 32.6 g/dL (31.9-34.8); MEAN CORPUSCULAR VOLUME 86.8 fL (76.7-100.5); MONOCYTES ABSOLUTE AUTO 0.5 x10-3/uL (0.3-1.0); NEUTROPHILS ABSOLUTE AUTO 2.6 x10-3/uL (1.5-6.3); NEUTROPHILS PERCENT AUTO 63.8 % (30.8-76.2); PLATELET COUNT,PLT 215 x10(3)uL (151-488); RED BLOOD CELL COUNT 3.25 x10(6)uL (3.60-5.20); RED CELL DISTRIBUTION WIDTH 15.8 % (12.3-16.5); WHITE BLOOD CELL COUNT,WBC 4.1 x10-3/uL (3.0-10.3)
[2024-06-07 06:59] LABS: BLOOD UREA NITROGEN,BUN 6 mg/dL (7-18); CALCIUM 7.9 mg/dL (8.6-10.2); CARBON DIOXIDE,CO2 31 mmol/L (21-32); CHLORIDE,CL 104 mmol/L (100-110); CREATININE 0.5 mg/dL (0.55-1.02); EST CRCL DRUG DOSING (CG) 86.66 mL/min; ESTIMATED GFR 100 mL/min (>60); GLUCOSE RANDOM 103 mg/dL (80-116); POTASSIUM,K 3.4 mmol/L (3.5-5.3); SODIUM,NA 141 mmol/L (135-145)
[2024-06-07] MEDS: Potassium Chloride 20 MEQ in Premix Bag 1 BAG IV SCH (10:09)
[2024-06-08 06:53] LABS: MAGNESIUM 1.7 mg/dL (1.8-2.5); POTASSIUM,K 3.9 mmol/L (3.5-5.3)
[2024-06-08] MEDS: Magnesium Sulfate/Water 2 GM in Premix Bag 1 BAG IV ONE (12:16)
[2024-06-09 06:39] LABS: BASOPHILS PERCENT AUTO 0.6 % (0.2-1.5); HEMATOCRIT 28.7 % (34.2-48.2); HEMOGLOBIN 9.4 g/dL (11.4-15.5); LYMPHOCYTES ABSOLUTE AUTO 0.9 x10-3/uL (1.0-4.4); LYMPHOCYTES PERCENT AUTO 24.3 % (18.4-52.1); MEAN CORPUSCULAR HEMOGLOBIN 28.4 pg (23.9-33.9); MEAN CORPUSCULAR HGB CONC 32.6 g/dL (31.9-34.8); MEAN CORPUSCULAR VOLUME 87.1 fL (76.7-100.5); MEAN PLATELET VOLUME 7.8 fL (7.1-12.4); MONOCYTES ABSOLUTE AUTO 0.4 x10-3/uL (0.3-1.0); MONOCYTES PERCENT AUTO 10.7 % (4.4-15.7); NEUTROPHILS ABSOLUTE AUTO 2.3 x10-3/uL (1.5-6.3); NEUTROPHILS PERCENT AUTO 64.4 % (30.8-76.2); PLATELET COUNT,PLT 257 x10(3)uL (151-488); RED CELL DISTRIBUTION WIDTH 16.2 % (12.3-16.5); WHITE BLOOD CELL COUNT,WBC 3.6 x10-3/uL (3.0-10.3)
[2024-06-09 06:42] LABS: POTASSIUM,K 4.1 mmol/L (3.5-5.3)
[2024-06-09] MEDS: Sodium Chloride 0.9% 10 ML Syringe FLUSH PRN (08:00)
[2024-06-09] MEDS ORDERED: cefTRIAXone 1 GM in Sodium Chloride 0.9% 50 ML IV STA (08:39)
[2024-06-09] MEDS: cefTRIAXone 1 GM Vial IVPUSH STA (09:19)
== END 2024-06-09 14:51 | disposition swing bed (61) | DRG 690 ==
LOC: FB.ED 10:32 → FB.MS 16:30
PROVIDERS: ADMIT Family Medicine; ATTEND Internal Medicine
DX: N39.0 Urinary tract infection, site not specified (principal); R82.71 Bacteriuria; S83.92XA Sprain of unspecified site of left knee, initial encounter; J45.909 Unspecified asthma, uncomplicated; S80.01XA Contusion of right knee, initial encounter; Z90.49 Acquired absence of other specified parts of digestive tract; R29.6 Repeated falls; E88.09 Other disorders of plasma-protein metabolism, not elsewhere classified; W19.XXXA Unspecified fall, initial encounter; I50.9 Heart failure, unspecified; G40.909 Epilepsy, unspecified, not intractable, without status epilepticus; K21.9 Gastro-esophageal reflux disease without esophagitis; J44.9 Chronic obstructive pulmonary disease, unspecified; H54.7 Unspecified visual loss; M81.0 Age-related osteoporosis without current pathological fracture; M71.561 Other bursitis, not elsewhere classified, right knee; F41.9 Anxiety disorder, unspecified; F32.A Depression, unspecified; D64.9 Anemia, unspecified; E87.6 Hypokalemia; E83.42 Hypomagnesemia; Z79.52 Long term (current) use of systemic steroids; Z86.16 Personal history of COVID-19; Z90.710 Acquired absence of both cervix and uterus; Z87.891 Personal history of nicotine dependence; Z90.89 Acquired absence of other organs; Z98.890 Other specified postprocedural states; Z79.899 Other long term (current) drug therapy; Z96.649 Presence of unspecified artificial hip joint
CPT/HCPCS: 36415; 73562; 80053; 81001; 85025; 86140; 87086; 87088; 87186; 96361; 96374; 99285; J0696; J7030; U0002; 80048; 83735; 84132; 94150; 97116-GP; 97161-GP; 97165-GO; 97530-GO; 97535-GO; 99221; 99231; 99238; A9270-GY; J1650; J3475; J3480; J3490; J7799

== ENCOUNTER 2024-06-09 14:52 | Inpatient (IN) | payer MEDICARE ==
[2024-06-09] MEDS ORDERED: guaiFENesin 600 MG Tab.ER PO PRN (15:07)
[2024-06-09] MEDS ORDERED: Benzonatate 100 MG Cap PO PRN (15:07)
[2024-06-09] MEDS ORDERED: Albuterol/Ipratropium 3.0-0.5 MG/3 ML Neb Soln INH PRN (15:07)
[2024-06-09] MEDS ORDERED: Polyethylene Glycol 3350 Powder 17 GM Packet PO PRN (15:07)
[2024-06-09] MEDS: Acetaminophen 500 MG Tab PO SCH (20:34)
[2024-06-09] MEDS: PHENobarbital 32.4 MG Tab PO SCH (20:39)
[2024-06-09] MEDS: Gabapentin 300 MG Cap PO SCH (20:40)
[2024-06-09] MEDS: Formoterol/Mometasone 200-5 MCG 8.8 GM Inhaler INH SCH (20:44)
[2024-06-09] MEDS: Melatonin 3 MG Tab PO SCH (20:45)
[2024-06-09] MEDS: Calcium Carbonate 500 MG Tablet PO SCH (20:45)
[2024-06-09] MEDS: Phenytoin 100 MG Cap.ER PO SCH (20:46)
[2024-06-10] MEDS: Pantoprazole 40 MG Tab.CR PO SCH (06:01)
[2024-06-10] MEDS: Phenytoin 30 MG Cap.ER PO SCH (08:32)
[2024-06-10] MEDS: Cranberry 500 MG Cap PO SCH (08:32)
[2024-06-10] MEDS: Cefdinir 300 MG Cap PO SCH (08:33)
[2024-06-10] MEDS: Mirabegron 25 MG Tab Extended Release PO SCH (08:33)
[2024-06-10] MEDS: Folic Acid 1 MG Tab PO SCH (08:33)
[2024-06-10] MEDS: Phenytoin 100 MG Cap.ER PO SCH (08:33)
[2024-06-10] MEDS: Sertraline 25 MG Tab PO SCH (08:34)
[2024-06-10] MEDS: Sennosides/Docusate Sodium 50-8.6 MG Tab PO SCH (08:34)
== END 2024-06-18 10:05 | disposition home or self-care (01) | DRG 948 ==
LOC: FB.MS 14:52
PROVIDERS: ADMIT Internal Medicine; ATTEND Family Medicine
DX: R53.81 Other malaise (principal); N39.0 Urinary tract infection, site not specified; H54.7 Unspecified visual loss; J45.909 Unspecified asthma, uncomplicated; K21.9 Gastro-esophageal reflux disease without esophagitis; M81.0 Age-related osteoporosis without current pathological fracture; F41.9 Anxiety disorder, unspecified; F32.A Depression, unspecified; Z96.649 Presence of unspecified artificial hip joint; S80.01XD Contusion of right knee, subsequent encounter; R29.6 Repeated falls; B96.20 Unspecified Escherichia coli [E. coli] as the cause of diseases classified elsewhere; Z79.51 Long term (current) use of inhaled steroids; Z79.899 Other long term (current) drug therapy; Z87.81 Personal history of (healed) traumatic fracture; Z86.16 Personal history of COVID-19; Z90.49 Acquired absence of other specified parts of digestive tract; Z90.710 Acquired absence of both cervix and uterus; W19.XXXD Unspecified fall, subsequent encounter
CPT/HCPCS: 97110-GO; 97110-GP; 97116-GP; 97530-GO; 97530-GP; 97535-GO; 99305; 99307; 99315; A9270-GY

== ENCOUNTER 2024-07-29 11:01 | Emergency (ER) | payer MEDICARE ==
[2024-07-29] MEDS ORDERED: Sodium Chloride 0.9% 10 ML Syringe FLUSH PRN (11:33)
[2024-07-29 12:01] LABS: BASOPHILS PERCENT AUTO 0.4 % (0.2-1.5); HEMATOCRIT 31.9 % (34.2-48.2); HEMOGLOBIN 10.3 g/dL (11.4-15.5); LYMPHOCYTES ABSOLUTE AUTO 0.8 x10-3/uL (1.0-4.4); LYMPHOCYTES PERCENT AUTO 9.3 % (18.4-52.1); MEAN CORPUSCULAR HEMOGLOBIN 27.2 pg (23.9-33.9); MEAN CORPUSCULAR HGB CONC 32.3 g/dL (31.9-34.8); MEAN PLATELET VOLUME 7.4 fL (7.1-12.4); MONOCYTES ABSOLUTE AUTO 0.6 x10-3/uL (0.3-1.0); MONOCYTES PERCENT AUTO 7.2 % (4.4-15.7); NEUTROPHILS ABSOLUTE AUTO 7.2 x10-3/uL (1.5-6.3); NEUTROPHILS PERCENT AUTO 83.1 % (30.8-76.2); PLATELET COUNT,PLT 414 x10(3)uL (151-488); RED CELL DISTRIBUTION WIDTH 17.2 % (12.3-16.5); WHITE BLOOD CELL COUNT,WBC 8.7 x10-3/uL (3.0-10.3)
[2024-07-29 12:02] LABS: CALCIUM 8.8 mg/dL (8.6-10.2); CARBON DIOXIDE,CO2 30 mmol/L (21-32); CHLORIDE,CL 104 mmol/L (100-110); CREATININE 0.6 mg/dL (0.55-1.02); ESTIMATED GFR 95 mL/min (>60); GLUCOSE RANDOM 124 mg/dL (80-116); POTASSIUM,K 3.8 mmol/L (3.5-5.3); SODIUM,NA 141 mmol/L (135-145)
[2024-07-29 12:03] LABS: BASE EXCESS VENOUS,POC 5 mmol/L (-2 - 3+); PCO2 VENOUS,POC 33 mmHg (41-51); PH VENOUS,POC 7.53 pH Units (7.32-7.43)
[2024-07-29 12:08] LABS: A/G RATIO 0.6; ALANINE AMINOTRANSFERASE,ALT 32 U/L (12-36); ALBUMIN 2.5 g/dL (3.2-4.6); ALKALINE PHOSPHATASE 164 IU/L (56-112); ASPARTATE AMNIOTRANSFERASE,AST 27 IU/L (5-25); BILIRUBIN TOTAL 0.1 mg/dL (0.1-1.3); PROTEIN TOTAL,TP 6.8 g/dL (6.0-8.0)
[2024-07-29 12:16] LABS: TROPONIN I 6.4 pg/mL (4.0-60.3)
[2024-07-29 12:19] LABS: BLOOD UREA NITROGEN,BUN < 5 mg/dL (7-18); BUN/CREATININE RATIO 8.3 (9-20)
[2024-07-29 12:21] LABS: INFLUENZA A NAA NEGATIVE (NEGATIVE); INFLUENZA B NAA NEGATIVE (NEGATIVE); RESPIRATORY SYNCYTIAL VIR NAA NEGATIVE (NEGATIVE)
[2024-07-29 12:24] LABS: CORONAVIRUS COVID-19 NAA NEGATIVE (NEGATIVE)
[2024-07-29 12:27] LABS: RED BLOOD CELL COUNT 3.79 x10(6)uL (3.60-5.20)
[2024-07-29] MEDS: Albuterol/Ipratropium 3.0-0.5 MG/3 ML Neb Soln NEB ONE ×2 (13:10→13:49)
[2024-07-29] MEDS: methylPREDNISolone Sodium Succinate 125 MG/2 ML SDV IVPUSH ONE (13:10)
== END 2024-07-29 15:14 | disposition home or self-care (01) ==
LOC: FB.ED 11:01
DX: J06.9 Acute upper respiratory infection, unspecified (principal); B97.89 Other viral agents as the cause of diseases classified elsewhere; J44.89 Other specified chronic obstructive pulmonary disease; K21.9 Gastro-esophageal reflux disease without esophagitis; Z86.16 Personal history of COVID-19; Z90.49 Acquired absence of other specified parts of digestive tract; Z90.710 Acquired absence of both cervix and uterus; Z79.899 Other long term (current) drug therapy
CPT/HCPCS: 0241U; 36415; 71045; 80053; 83880; 84484; 85025; 93005; 93010; 96374; 99284; 99285; J2919; J7620

== ENCOUNTER 2024-09-27 16:34 | Emergency (ER) | payer MEDICARE ==
[2024-09-27] MEDS ORDERED: Sodium Chloride 0.9% 10 ML Syringe FLUSH PRN (16:38)
[2024-09-27] MEDS: Sodium Chloride 0.9% 1,000 ML IV ONE (16:55)
[2024-09-27 16:59] LABS: BASOPHILS PERCENT AUTO 0.6 % (0.2-1.5); HEMATOCRIT 33.2 % (34.2-48.2); HEMOGLOBIN 10.6 g/dL (11.4-15.5); LYMPHOCYTES ABSOLUTE AUTO 1.3 x10-3/uL (1.0-4.4); LYMPHOCYTES PERCENT AUTO 29.3 % (18.4-52.1); MEAN CORPUSCULAR HEMOGLOBIN 27.5 pg (23.9-33.9); MEAN CORPUSCULAR HGB CONC 32.1 g/dL (31.9-34.8); MEAN CORPUSCULAR VOLUME 85.7 fL (76.7-100.5); MEAN PLATELET VOLUME 7.6 fL (7.1-12.4); MONOCYTES ABSOLUTE AUTO 0.4 x10-3/uL (0.3-1.0); MONOCYTES PERCENT AUTO 9.2 % (4.4-15.7); NEUTROPHILS ABSOLUTE AUTO 2.7 x10-3/uL (1.5-6.3); NEUTROPHILS PERCENT AUTO 60.9 % (30.8-76.2); PLATELET COUNT,PLT 338 x10(3)uL (151-488); RED BLOOD CELL COUNT 3.87 x10(6)uL (3.60-5.20); RED CELL DISTRIBUTION WIDTH 17.7 % (12.3-16.5); WHITE BLOOD CELL COUNT,WBC 4.4 x10-3/uL (3.0-10.3)
[2024-09-27 17:11] LABS: A/G RATIO 0.7; ALANINE AMINOTRANSFERASE,ALT 17 U/L (12-36); ALBUMIN 2.8 g/dL (3.2-4.6); ALKALINE PHOSPHATASE 163 IU/L (56-112); ASPARTATE AMNIOTRANSFERASE,AST 16 IU/L (5-25); BILIRUBIN TOTAL 0.2 mg/dL (0.1-1.3); BLOOD UREA NITROGEN,BUN 10 mg/dL (7-18); BUN/CREATININE RATIO 14.3 (9-20); CALCIUM 8.5 mg/dL (8.6-10.2); CARBON DIOXIDE,CO2 31 mmol/L (21-32); CHLORIDE,CL 100 mmol/L (100-110); CREATININE 0.7 mg/dL (0.55-1.02); ESTIMATED GFR 92 mL/min (>60); GLUCOSE RANDOM 102 mg/dL (80-116); POTASSIUM,K 4.4 mmol/L (3.5-5.3); PROTEIN TOTAL,TP 6.6 g/dL (6.0-8.0); SODIUM,NA 138 mmol/L (135-145)
[2024-09-27 17:15] LABS: TROPONIN I 4.1 pg/mL (4.0-60.3)
[2024-09-27 17:16] LABS: LACTIC ACID 0.9 mmol/L (0.4-2.0)
[2024-09-27 17:17] LABS: C-REACTIVE PROTEIN < 0.50 mg/dL (<0.50)
[2024-09-27 17:35] LABS: INFLUENZA A NAA NEGATIVE (NEGATIVE); INFLUENZA B NAA NEGATIVE (NEGATIVE); RESPIRATORY SYNCYTIAL VIR NAA NEGATIVE (NEGATIVE)
[2024-09-27 17:38] LABS: CORONAVIRUS COVID-19 NAA NEGATIVE (NEGATIVE)
[2024-09-27 17:53] LABS: BILIRUBIN,URINE NEGATIVE (NEGATIVE); GLUCOSE,URINE NORMAL (NORMAL); KETONES,URINE NEGATIVE (NEGATIVE); LEUKOCYTE ESTERASE,URINE SMALL (NEGATIVE); NITRITE,URINE POSITIVE (NEGATIVE); OCCULT BLOOD,URINE NEGATIVE (NEGATIVE); PROTEIN,URINE NEGATIVE (NEGATIVE); UROBILINOGEN,URINE NORMAL (NEGATIVE)
[2024-09-27 17:56] LABS: APPEARANCE,URINE CLOUDY (CLEAR); COLOR,URINE YELLOW (YELLOW)
[2024-09-27 18:01] LABS: BACTERIA,URINE MANY (NS); RBC,URINE 0-5 (0-5); SQUAMOUS EPITHELIAL CELLS,UR MODERATE (NS,R,O); WBC,URINE 30-40 (0-5)
[2024-09-27] MEDS: cefTRIAXone 1 GM Vial IVPUSH ONE (18:29)
== END 2024-09-27 19:24 | disposition home or self-care (01) ==
LOC: FB.ED 16:34
DX: N39.0 Urinary tract infection, site not specified (principal); J44.89 Other specified chronic obstructive pulmonary disease; K21.9 Gastro-esophageal reflux disease without esophagitis; Z86.16 Personal history of COVID-19; Z90.49 Acquired absence of other specified parts of digestive tract; Z90.710 Acquired absence of both cervix and uterus; Z96.649 Presence of unspecified artificial hip joint; Z79.51 Long term (current) use of inhaled steroids; Z79.52 Long term (current) use of systemic steroids; Z79.899 Other long term (current) drug therapy
CPT/HCPCS: 0241U; 71045; 80053; 81001; 83605; 84484; 85025; 86140; 87086; 87088; 87186; 96361; 96374; 99285; J0696; J7030

== ENCOUNTER 2024-10-02 16:32 | Inpatient (IN) | payer MEDICARE ==
[2024-10-02] MEDS ORDERED: Sodium Chloride 0.9% 10 ML Syringe FLUSH PRN (16:46)
[2024-10-02] MEDS: Sodium Chloride 0.9% 1,000 ML IV ONE (17:01)
[2024-10-02 17:06] LABS: BASOPHILS PERCENT AUTO 0.2 % (0.2-1.5); EOSINOPHILS PERCENT AUTO 0.7 % (0.6-8.1); HEMATOCRIT 31.5 % (34.2-48.2); HEMOGLOBIN 9.8 g/dL (11.4-15.5); LYMPHOCYTES PERCENT AUTO 17.3 % (18.4-52.1); MEAN CORPUSCULAR HEMOGLOBIN 27.6 pg (23.9-33.9); MEAN CORPUSCULAR HGB CONC 31.2 g/dL (31.9-34.8); MEAN CORPUSCULAR VOLUME 88.5 fL (76.7-100.5); MONOCYTES ABSOLUTE AUTO 0.4 x10-3/uL (0.3-1.0); MONOCYTES PERCENT AUTO 6.2 % (4.4-15.7); NEUTROPHILS ABSOLUTE AUTO 4.2 x10-3/uL (1.5-6.3); NEUTROPHILS PERCENT AUTO 75.7 % (30.8-76.2); PLATELET COUNT,PLT 290 x10(3)uL (151-488); RED BLOOD CELL COUNT 3.56 x10(6)uL (3.60-5.20); RED CELL DISTRIBUTION WIDTH 16.8 % (12.3-16.5); WHITE BLOOD CELL COUNT,WBC 5.6 x10-3/uL (3.0-10.3)
[2024-10-02 17:09] LABS: BLOOD UREA NITROGEN,BUN 10 mg/dL (7-18); BUN/CREATININE RATIO 12.5 (9-20); CALCIUM 8.1 mg/dL (8.6-10.2); CARBON DIOXIDE,CO2 29 mmol/L (21-32); CHLORIDE,CL 102 mmol/L (100-110); CREATININE 0.8 mg/dL (0.55-1.02); ESTIMATED GFR 78 mL/min (>60); GLUCOSE RANDOM 94 mg/dL (80-116); POTASSIUM,K 4.4 mmol/L (3.5-5.3); SODIUM,NA 139 mmol/L (135-145)
[2024-10-02 17:15] LABS: A/G RATIO 0.8; ALANINE AMINOTRANSFERASE,ALT 23 U/L (12-36); ALBUMIN 2.7 g/dL (3.2-4.6); ALKALINE PHOSPHATASE 154 IU/L (56-112); ASPARTATE AMNIOTRANSFERASE,AST 24 IU/L (5-25); BILIRUBIN TOTAL 0.2 mg/dL (0.1-1.3); PROTEIN TOTAL,TP 6.2 g/dL (6.0-8.0)
[2024-10-02 18:20] LABS: BILIRUBIN,URINE NEGATIVE (NEGATIVE); GLUCOSE,URINE NORMAL (NORMAL); KETONES,URINE NEGATIVE (NEGATIVE); LEUKOCYTE ESTERASE,URINE NEGATIVE (NEGATIVE); NITRITE,URINE NEGATIVE (NEGATIVE); OCCULT BLOOD,URINE NEGATIVE (NEGATIVE); PH,URINE 6.5 (5.0-6.5); PROTEIN,URINE NEGATIVE (NEGATIVE); UROBILINOGEN,URINE NORMAL (NEGATIVE)
[2024-10-02 18:25] LABS: APPEARANCE,URINE CLEAR (CLEAR); COLOR,URINE YELLOW (YELLOW)
[2024-10-02] MEDS: Sodium Chloride 0.9% 1,000 ML IV SCH (21:02)
[2024-10-02] MEDS ORDERED: PHENobarbital 32.4 MG Tab PO ONE (23:00)
[2024-10-02] MEDS: CALCIUM GLUC IN NACL, ISO-OSM 2,000 MG in Premix Bag 1 BAG IV ONE (23:20)
[2024-10-02] MEDS: PHENobarbital 32.4 MG Tab PO SCH (23:21)
[2024-10-02] MEDS: Phenytoin 100 MG Cap.ER PO SCH (23:21)
[2024-10-03 06:56] LABS: BASOPHILS PERCENT AUTO 0.1 % (0.2-1.5); EOSINOPHILS PERCENT AUTO 0.8 % (0.6-8.1); HEMATOCRIT 30.9 % (34.2-48.2); HEMOGLOBIN 9.8 g/dL (11.4-15.5); LYMPHOCYTES ABSOLUTE AUTO 1.2 x10-3/uL (1.0-4.4); LYMPHOCYTES PERCENT AUTO 22.5 % (18.4-52.1); MEAN CORPUSCULAR HEMOGLOBIN 27.8 pg (23.9-33.9); MEAN CORPUSCULAR HGB CONC 31.7 g/dL (31.9-34.8); MEAN CORPUSCULAR VOLUME 87.8 fL (76.7-100.5); MEAN PLATELET VOLUME 7.8 fL (7.1-12.4); MONOCYTES ABSOLUTE AUTO 0.4 x10-3/uL (0.3-1.0); MONOCYTES PERCENT AUTO 8.1 % (4.4-15.7); NEUTROPHILS ABSOLUTE AUTO 3.7 x10-3/uL (1.5-6.3); NEUTROPHILS PERCENT AUTO 68.5 % (30.8-76.2); PLATELET COUNT,PLT 281 x10(3)uL (151-488); RED BLOOD CELL COUNT 3.52 x10(6)uL (3.60-5.20); RED CELL DISTRIBUTION WIDTH 16.3 % (12.3-16.5); WHITE BLOOD CELL COUNT,WBC 5.4 x10-3/uL (3.0-10.3)
[2024-10-03 07:06] LABS: A/G RATIO 0.7; ALANINE AMINOTRANSFERASE,ALT 25 U/L (12-36); ALBUMIN 2.7 g/dL (3.2-4.6); ALKALINE PHOSPHATASE 162 IU/L (56-112); ASPARTATE AMNIOTRANSFERASE,AST 27 IU/L (5-25); BILIRUBIN TOTAL 0.2 mg/dL (0.1-1.3); BLOOD UREA NITROGEN,BUN 7 mg/dL (7-18); BUN/CREATININE RATIO 11.7 (9-20); CALCIUM 8.4 mg/dL (8.6-10.2); CARBON DIOXIDE,CO2 30 mmol/L (21-32); CHLORIDE,CL 104 mmol/L (100-110); CREATININE 0.6 mg/dL (0.55-1.02); EST CRCL DRUG DOSING (CG) 69.45 mL/min; ESTIMATED GFR 95 mL/min (>60); GLUCOSE RANDOM 99 mg/dL (80-116); POTASSIUM,K 4.1 mmol/L (3.5-5.3); PROTEIN TOTAL,TP 6.4 g/dL (6.0-8.0); SODIUM,NA 140 mmol/L (135-145)
[2024-10-03] MEDS ORDERED: Albuterol/Ipratropium 3.0-0.5 MG/3 ML Neb Soln INH PRN (11:03)
[2024-10-03] MEDS ORDERED: Benzonatate 100 MG Cap PO PRN (11:03)
[2024-10-03] MEDS ORDERED: Polyethylene Glycol 3350 Powder 17 GM Packet PO PRN (11:03)
[2024-10-03] MEDS ORDERED: Acetaminophen 500 MG Tab PO PRN (11:03)
[2024-10-03] MEDS: Sertraline 25 MG Tab PO SCH (11:26)
[2024-10-03] MEDS: Phenytoin 100 MG Cap.ER PO SCH (11:26)
[2024-10-03] MEDS: Phenytoin 30 MG Cap.ER PO SCH (11:26)
[2024-10-03] MEDS ORDERED: Sulfamethoxazole/Trimethoprim 800-160 MG Tab PO SCH (12:00)
[2024-10-03] MEDS ORDERED: Non-Formulary Medication 1 Each (Fluticasone Propion/Salmeterol [Advair 250-50 Diskus] 1 E INH SCH (21:00)
[2024-10-03] MEDS ORDERED: Calcium Carbonate 500 MG Tablet PO SCH (21:00)
[2024-10-03] MEDS ORDERED: Phenytoin 100 MG Cap.ER PO SCH (21:00)
[2024-10-04] MEDS ORDERED: Non-Formulary Medication 1 Each (Cranberry [Cranberry] 500 MG Cap) PO SCH (09:00)
[2024-10-04] MEDS ORDERED: Folic Acid 1 MG Tab PO SCH (09:00)
[2024-10-04] MEDS ORDERED: Sennosides/Docusate Sodium 50-8.6 MG Tab PO SCH (09:00)
== END 2024-10-03 14:08 | disposition home or self-care (01) | DRG 641 ==
LOC: FB.ED 16:32 → FB.MS 20:35
PROVIDERS: ADMIT Internal Medicine; ATTEND Internal Medicine
DX: R53.1 Weakness (principal); E83.51 Hypocalcemia; Z68.1 Body mass index [BMI] 19.9 or less, adult; F03.94 Unspecified dementia, unspecified severity, with anxiety; D64.9 Anemia, unspecified; E88.09 Other disorders of plasma-protein metabolism, not elsewhere classified; R62.7 Adult failure to thrive; H54.7 Unspecified visual loss; J44.89 Other specified chronic obstructive pulmonary disease; K21.9 Gastro-esophageal reflux disease without esophagitis; M81.0 Age-related osteoporosis without current pathological fracture; F41.9 Anxiety disorder, unspecified; F32.A Depression, unspecified; Z96.649 Presence of unspecified artificial hip joint; F15.90 Other stimulant use, unspecified, uncomplicated; Z90.710 Acquired absence of both cervix and uterus; Z79.899 Other long term (current) drug therapy; Z79.51 Long term (current) use of inhaled steroids; Z79.1 Long term (current) use of non-steroidal anti-inflammatories (NSAID); Z87.440 Personal history of urinary (tract) infections; Z87.81 Personal history of (healed) traumatic fracture; Z90.49 Acquired absence of other specified parts of digestive tract; Z86.16 Personal history of COVID-19; Z87.891 Personal history of nicotine dependence
CPT/HCPCS: 36415; 80053; 81003; 85025; 86140; 87428-QW; 97161-GP; 99222; 99238; 99285; A9270-GY; J0612; J7030

== ENCOUNTER 2024-10-13 10:39 | Emergency (ER) | payer MEDICARE ==
[2024-10-13] MEDS: Sodium Chloride 0.9% 10 ML Syringe FLUSH PRN (10:50)
[2024-10-13] MEDS: Sodium Chloride 0.9% 1,000 ML IV ONE ×2 (11:00→13:31)
[2024-10-13 11:21] LABS: BASOPHILS PERCENT AUTO 0.2 % (0.2-1.5); EOSINOPHILS PERCENT AUTO 0.2 % (0.6-8.1); HEMATOCRIT 29.8 % (34.2-48.2); HEMOGLOBIN 9.8 g/dL (11.4-15.5); LYMPHOCYTES ABSOLUTE AUTO 0.5 x10-3/uL (1.0-4.4); LYMPHOCYTES PERCENT AUTO 13.1 % (18.4-52.1); MEAN CORPUSCULAR HGB CONC 32.7 g/dL (31.9-34.8); MEAN CORPUSCULAR VOLUME 88.7 fL (76.7-100.5); MEAN PLATELET VOLUME 7.8 fL (7.1-12.4); MONOCYTES ABSOLUTE AUTO 0.4 x10-3/uL (0.3-1.0); MONOCYTES PERCENT AUTO 10.1 % (4.4-15.7); NEUTROPHILS ABSOLUTE AUTO 3.1 x10-3/uL (1.5-6.3); NEUTROPHILS PERCENT AUTO 76.4 % (30.8-76.2); PLATELET COUNT,PLT 211 x10(3)uL (151-488); RED CELL DISTRIBUTION WIDTH 16.7 % (12.3-16.5); WHITE BLOOD CELL COUNT,WBC 4.1 x10-3/uL (3.0-10.3)
[2024-10-13 11:24] LABS: BLOOD UREA NITROGEN,BUN 11 mg/dL (7-18); BUN/CREATININE RATIO 15.7 (9-20); CALCIUM 8.4 mg/dL (8.6-10.2); CARBON DIOXIDE,CO2 32 mmol/L (21-32); CHLORIDE,CL 102 mmol/L (100-110); CREATININE 0.7 mg/dL (0.55-1.02); EST CRCL DRUG DOSING (CG) 57.53 mL/min; ESTIMATED GFR 92 mL/min (>60); GLUCOSE RANDOM 106 mg/dL (80-116); SODIUM,NA 140 mmol/L (135-145)
[2024-10-13 11:30] LABS: A/G RATIO 0.7; ALANINE AMINOTRANSFERASE,ALT 25 U/L (12-36); ALBUMIN 2.7 g/dL (3.2-4.6); ALKALINE PHOSPHATASE 144 IU/L (56-112); ASPARTATE AMNIOTRANSFERASE,AST 29 IU/L (5-25); BILIRUBIN TOTAL 0.2 mg/dL (0.1-1.3); MAGNESIUM 1.9 mg/dL (1.8-2.5); PROTEIN TOTAL,TP 6.4 g/dL (6.0-8.0)
[2024-10-13 11:32] LABS: RED BLOOD CELL COUNT 3.36 x10(6)uL (3.60-5.20)
[2024-10-13 11:33] LABS: LACTIC ACID 0.6 mmol/L (0.4-2.0)
[2024-10-13 13:39] LABS: BILIRUBIN,URINE NEGATIVE (NEGATIVE); GLUCOSE,URINE NORMAL (NORMAL); KETONES,URINE NEGATIVE (NEGATIVE); LEUKOCYTE ESTERASE,URINE MODERATE (NEGATIVE); NITRITE,URINE NEGATIVE (NEGATIVE); OCCULT BLOOD,URINE NEGATIVE (NEGATIVE); PROTEIN,URINE TRACE mg/dL (NEGATIVE); UROBILINOGEN,URINE NORMAL (NEGATIVE)
[2024-10-13 13:41] LABS: APPEARANCE,URINE SLIGHTLY CLOUDY (CLEAR); COLOR,URINE YELLOW (YELLOW)
[2024-10-13 13:53] LABS: BACTERIA,URINE MANY (NS); SQUAMOUS EPITHELIAL CELLS,UR MODERATE (NS,R,O)
[2024-10-13] MEDS: Sulfamethoxazole/Trimethoprim 800-160 MG Tab PO ONE (15:05)
== END 2024-10-13 18:09 | disposition home or self-care (01) ==
LOC: FB.ED 10:39
DX: N39.0 Urinary tract infection, site not specified (principal); B96.20 Unspecified Escherichia coli [E. coli] as the cause of diseases classified elsewhere; D50.9 Iron deficiency anemia, unspecified; J44.89 Other specified chronic obstructive pulmonary disease; Z86.16 Personal history of COVID-19; Z79.899 Other long term (current) drug therapy; Z90.710 Acquired absence of both cervix and uterus
CPT/HCPCS: 36415; 71045; 80053; 81001; 83605; 83735; 85025; 86140; 87086; 87088; 87186; 87428; 96360; 96361; 97161; 97165; 99285; A9270; J7030

== ENCOUNTER 2025-05-02 12:27 | Emergency (ER) | payer MEDICARE, OTHER ==
[2025-05-02 13:21] LABS: GLUCOSE,URINE NORMAL (NORMAL); OCCULT BLOOD,URINE MODERATE (NEGATIVE)
[2025-05-02 13:24] LABS: APPEARANCE,URINE SLIGHTLY CLOUDY (CLEAR); SQUAMOUS EPITHELIAL CELLS,UR NOT SEEN (NS,R,O)
== END 2025-05-02 14:13 | disposition home or self-care (01) ==
LOC: FB.ED 12:27
DX: N39.0 Urinary tract infection, site not specified (principal); J44.89 Other specified chronic obstructive pulmonary disease; K21.9 Gastro-esophageal reflux disease without esophagitis; Z79.899 Other long term (current) drug therapy; Z87.891 Personal history of nicotine dependence; Z90.49 Acquired absence of other specified parts of digestive tract; Z90.710 Acquired absence of both cervix and uterus; Z86.16 Personal history of COVID-19
CPT/HCPCS: 81001; 87086; 87088; 87186; 99284; A9270; 99283